=== PATIENT | female | born 1955 | race Caucasian/White ===

== ENCOUNTER 2016-10-03 13:51 | Emergency (ER) ==
[2016-10-03 13:53] VITALS: BP 164/130; TEMP 96.7; BMI 34.0
[2016-10-03] MEDS ORDERED: PERCOCET 7.5-325 PO STA (13:59)
--- NOTE | 2016-10-03 14:23 | CT ---
EXAM: CT head without contrast 10/03/2016. Sagittal and coronal reformatted images obtained HISTORY: Fall COMPARISON: 03/10/2016 FINDINGS: There is no evidence of intracranial hemorrhage. The midline is maintained. There is no hydrocephalus. Mild atrophy and small vessel ischemic change. No cerebellar tonsillar ectopia. Ev aluation of the calvarium shows no fracture. The mastoid air cells are normally pneumatized. IMPRESSION: No acute intracranial abnormality.
--- NOTE | 2016-10-03 14:31 | CT ---
EXAM: CT cervical spine without contrast. HISTORY: Initial presentation for neck injury due to a fall. COMPARISON: 12/11/2015. TECHNIQUE: Multiple axial images of the cervical spine were obtained without intravenous contrast. Images were reformatted in the sagittal and coronal planes. FINDINGS: ACDF changes noted from C4-C7. Hardware appears intact. There is osseous incorporation across C4-5 and C5-6. There may be mild osseous incorporation across C6-7, although this is uncerta in. There is approximately 0.2 cm retrolisthesis of C3 on C4 with mild disc space narrowing and end plate osteophyte formation. Alignment is otherwise normal. No acute fracture identified. Mild to moderate central canal stenosis and severe bilateral neural foraminal narrowing at C3-4 due to disc osteophyte formation, uncovertebral hypertrophy and facet arthropathy. Mild central canal stenosis at C5-6 due to endplate osteophyte formation. Mild to moderate central canal stenosis at C6-7 due t o endplate osteophyte formation. Multilevel neural foraminal narrowing is stable from prior study. No acute fractures seen. Paravertebral soft tissues are without acute abnormality. The lung apice s are clear. Since the prior study, there has been no significant interval change. IMPRESSION: No acute abnormality of the cervical spine.
--- NOTE | 2016-10-03 14:38 | CT ---
EXAM: CT thoracic spine without contrast. HISTORY: Initial presentation for back injury due to a fall. COMPARISON: Chest radiograph 11/01/2014. TECHNIQUE: Multiple axial images of the thoracic spine were obtained without intravenous contrast. Images were reformatted in the sagittal and coronal planes. FINDINGS: The normal curvature and alignment are maintained. Vertebral body heights are normal. M ild loss of disc height with associated endplate osteophyte formation seen throughout the thoracic s pine. No fracture or subluxation is seen. No significant central canal stenosis identified. ACDF changes are only partially imaged. Adjacent soft tissues are unremarkable. IMPRESSION: No acute abnormality of the thoracic spine.
--- NOTE | 2016-10-03 14:50 | CT ---
EXAM: CT lumbar spine without contrast. HISTORY: Initial presentation for back pain following a fall. COMPARISON: 12-11-2015. TECHNIQUE: Multiple axial images of the lumbar spine were obtained without intravenous contrast. I mages were reformatted in the sagittal and coronal planes. FINDINGS: The normal curvature and alignment are maintained. Vertebral body and intervertebral dis c heights are normal. No fracture or subluxation is seen. Disc osteophyte formation, facet arthrop athy and thickening of ligamentum flavum cause mild central canal stenosis at L3-4 and L4-5 and mode rate neural foraminal narrowing at L3-4 and mild neural foraminal narrowing at L4-5 and S1. Adjacen t soft tissues are unremarkable. IMPRESSION: No acute abnormality of the lumbar spine.
--- NOTE | 2016-10-03 14:52 | CT ---
EXAM: CT Pelvis without contrast. HISTORY: Initial presentation for pelvic trauma due to a fall. COMPARISON: 03/15/2016. TECHNIQUE: Multiple axial images of the pelvis were obtained without intravenous contrast. Images were reformatted in the coronal and sagittal plane. FINDINGS: Please note that evaluation of the pelvic soft tissue structures is limited due to lack o f intravenous contrast. The bones are demineralized. Osteoarthritic changes of the sacroiliac joints noted. Moderate osteo arthritis of the hips noted. No fracture or dislocation identified. No localized soft tissue abnor mality detected. Atherosclerotic calcifications are present IMPRESSION: No fracture or dislocation.
--- NOTE | 2016-10-03 14:53 | ED.PDOC ---
[id number] 4d i fell and i hurt my neck and my back Time Seen by Physician: 13:55 Mode of Arrival: Walk-In Information Source: Patient Exam Limitations: No limitations Primary Care Provider: DENZEL VERMA Nursing and Triage Documentation Reviewed and Agree: Yes Musculoskeletal Complaint Exam - Back Pain Complaint/Exam Mechanism of Injury: Reports: Trauma Onset/Duration: several hours Symptoms Are: Still present Timing: Constant Episodes Lasting: Hours Initial Severity: Mild Current Severity: Mild Location: Reports: Discrete (neck and lower back) Character: Reports: Dull, Aching Aggravating: Reports: Movements, Lifting, Bending, Walking Alleviating: Reports: None Associated Signs and Symptoms: Reports: Pain with weight bearing. Denies: Swelling, Redness, Bruising, Weakness, Numbness, Tingling, Abdominal pain, Flank pain, Bladder incontinence, Bowel incontinence, Weight loss Related History: Reports: Previous back injury TAD Risk Factors: Reports: Hypertension AAA Risk Factors: Reports: None Cauda Equina Risk Factors: Reports: None Epidural Abcess Risk Factors: Reports: None Related Surgical History: Reports: None Focal Tenderness: Yes Paraspinal Muscle Tenderness: Yes Paraspinal Muscle Spasm: No Scoliosis: No Lordosis: No Kyphosis: No SLR Test: Right Negative, Left Negative Hip Motion Testing Pain: Right Negative, Left Negative Focal Weakness: Present: None Focal Sensory Loss: Present: None Gait: Present: Abnormal Differential Diagnoses: Herniated Disk, Strain, Sprain Review of Systems - Review Of Systems Constitutional: Reports: No symptoms Eyes: Reports: No symptoms Ears, Nose, Mouth, Throat: Reports: No symptoms Respiratory: Reports: No symptoms Cardiac: Reports: No symptoms GI: Reports: No symptoms : Reports: No symptoms Musculoskeletal: Reports: Back pain, Muscle pain, Neck pain Skin: Reports: No symptoms Neurological: Reports: No symptoms Endocrine: Reports: No symptoms Hematologic/Lymphatic: Reports: No symptoms All Other Systems: Reviewed and Negative Past Medical History - Past Medical History Previously Healthy: Yes Endocrine: Reports: None Cardiovascular: Reports: Hypertension Respiratory: Reports: None Hematological: Reports: None Gastrointestinal: Reports: GERD Genitourinary: Reports: None Neuro/Psych: Reports: Anxiety, Depression Musculoskeletal: Reports: Back Pain Cancer: Reports: None Last Menstrual Period: none - Surgical History General Surgical History: Reports: Cholecystectomy, Back Surgery - Family History Family History: Reports: Unknown - Social History Smoking Status: Former smoker Hx Substance Use: No Alcohol Screening: None Lives: With family Physical Exam - Physical Exam Appearance: Well-appearing, No pain distress, Well-nourished Pain Distress: Moderate Eyes: PERLA, EOMI, Conjunctiva clear ENT: Ears normal Neck: Supple Respiratory: Airway patent Cardiovascular: RRR, Pulses normal, No rub, No murmur GI/: Soft, Nontender, No masses, Bowel sounds normal, No Organomegaly Musculoskeletal: Normal strength, ROM intact, No edema, No calf tenderness Skin: Warm Neurological: Sensation intact, Motor intact, Reflexes intact, Cranial nerves intact, Alert, Oriented Psychiatric: Affect appropriate, Mood appropriate Interpretation - Radiology Interpretation Radiology Interpretation By: Radiologist Radiology Results: Negative Exam Interpreted: CT Scan Re-Evaluation - Re-Evaluation Time of Re-Evaluation: 14:53 Status: Improved Vital Signs Stable: Yes Pain Level: 3 Appearance: NAD Lungs: Clear Skin: Warm and Dry Neuro: Alert and Oriented X3 CV: RRR Critical Care Note - Critical Care Note Total Time (mins): 0 Course - Course Orders, Labs, Meds: Orders Category Date Time Status Oxycodone-Acetaminophe 7.5-325 [Percocet 7.5-325] MEDS 10/03/16 13:59 Discontinued 1 tab PO ONCE STA CT CERVICAL SPINE W/O CONTRAST Stat RADS 10/03/16 13:[address] HEAD W/O CONTRAST Stat RADS 10/03/16 13:[address] LUMBAR SPINE W/O CONTRAST Stat RADS 10/03/16 13:[address] PELVIS W/O CONTRAST Stat RADS 10/03/16 13:[address] THORACIC SPINE W/O CONTRAST Stat RADS 10/03/16 13:57 Completed Medications Discontinued Medications Generic Name Dose Route Start Last Admin Trade Name Freq PRN Reason Stop Dose Admin Oxycodone/Acetaminophen 1 tab 10/03/16 13:59 10/03/16 14:21 Percocet 7.5-325 PO 10/03/16 14:00 1 tab ONCE STA Administration Vital Signs: Temp Pulse Resp BP Pulse Ox 10/03/16 13:51 96.7 F L 66 18 164/130 H 98 Departure - Departure Time of Disposition: 14:53 Disposition: HOME SELF-CARE Discharge Problem: Low back pain Qualifiers: Chronicity: unspecified Back pain laterality: unspecified Sciatica presence: without sciatica Qualifier Code: (M54.5) Low back pain Instructions: Acute Low Back Pain (ED) Condition: Good Pt referred to PMD for follow-up: Yes Additional Instructions: percocet 5mg q 6hrs prn pain #15--f/u with pcp prn Allergies/Adverse Reactions: Allergies hydrocodone bitartrate [From Lortab] Adverse Reaction (Verified 10/03/16 13:53) tramadol Adverse Reaction (Verified 10/03/16 13:53) Home Medications: Ambulatory Orders Citalopram Hydrobromide [Citalopram HBr] 20 mg PO BEDTIME 12/02/13 Enalapril Maleate 10 mg PO DAILY 12/02/13 Hydrochlorothiazide 12.5 mg PO DAILY 12/02/13 Multivitamin [Multi Vitamin Daily] 1 each PO DAILY 07/20/14 Aspirin [Aspirin Chewable] 81 mg PO DAILYWM 12/11/15 Omeprazole [Prilosec] 20 mg PO QDAC 12/11/15 Metoprolol Tartrate [Lopressor] 25 mg PO BID 02/28/16 Disposition Discussed With: Patient, Family
== END 2016-10-03 15:00 | disposition home or self-care (01) ==
LOC: ED 13:51
DX: S39.92XA Unspecified injury of lower back, initial encounter (principal); S19.9XXA Unspecified injury of neck, initial encounter; S29.9XXA Unspecified injury of thorax, initial encounter; M54.5 Low back pain; I10 Essential (primary) hypertension; W19.XXXA Unspecified fall, initial encounter
CPT/HCPCS: 99283

== ENCOUNTER 2016-11-03 18:22 | Emergency (ER) ==
[2016-11-03 18:36] VITALS: BP 114/55; TEMP 97.6; BMI 34.4
--- NOTE | 2016-11-03 19:17 | ED.PDOC ---
General Time Seen by Physician: 18:30 Mode of Arrival: Walk-In Information Source: Patient <KARLA HODGE - Last Filed: 11/03/16 19:16> Stated Complaint: patient states that she slid on wooden planks last week falling onto left side. she reports feeling better after fall. Now states her pain is coming back onthe left ribs/arm. pain worse with breathing. Nursing and Triage Documentation Reviewed and Agree: Yes <NEEL EPSTEIN - Last Filed: 11/04/16 00:53> ED Provider: Dr. NEEL EPSTEIN (KARLA HODGE JR) (NEEL EPSTEIN) Chief Complaint: Fall Primary Care Provider: DENZEL VERMA (KARLA HODGE JR) (NEEL EPSTEIN) Trauma/Injury Complaint Exam - Truncal Trauma Complaint/Exam Location of Pain: Reports: Left, Chest Onset: 1 week Symptoms Are: Still present Onset of Pain: Reports: Immediate Initial Severity: Mild Current Severity: Moderate Mechanism: Reports: Fall Aggravating: Reports: Movement, Deep breathing Associated Signs and Symptoms: Reports: Chest pain Related Surgical History: Reports: None Immobilization Removed Post Exam: No Vertebral Tenderness Present: No Vertebral Deformity Present: No Trachial Deviation Present: No JVD Present: No Crepitus Present: No Diminished Breath Sounds: No Muffled Heart Sounds Present: No Paradoxical Chest Wall Movement Present: No Abdominal Guarding Present: No Abdominal Rigidity Present: No Referred Shoulder Pain (Kehr's Sign) Present: No Skin Findings: Present: Normal findings Chest and Back Picture: 1 - Tenderness to palpation Differential Diagnoses: Abdominal Wall Contusion, Rib Fracture - Trauma Complaint/Exam Location of Pain or Injury: Reports: RLE, LLE Mechanism of Injury: Reports: Fall Onset/Duration: 2 week ago Symptoms Are: Still present Timing of Treatment: Delayed Initial Severity: Mild Current Severity: Moderate Character: Reports: Aching, Stabbing Aggravating: Reports: Movement, Weight-bearing Alleviating: Reports: Rest Associated Signs and Symptoms: Denies: LOC, Confusion, Memory loss, Lethargy, Vomiting, Bleeding, Bruising, Swelling, Extremity disuse, Painful respiration, Hoarseness, Dysphagia, Hemoptysis, Significant blood loss : No Glascow Coma Scale (see protocol): 15 Trauma Findings: Present: Limited ROM (left shoulder. ). Absent: Dental tenderness, Neck tenderness, Neck spasm, Back malalignment Skin Findings: Present: Normal findings Differential Diagnoses: Fracture, Sprain, Strain Body Picture: 1 - tenderness 2 - Limited range of motion with some tendeness to palpation on the shoulder and left chest wall. <NEEL EPSTEIN - Last Filed: 11/04/16 00:53> Review of Systems - Review Of Systems Constitutional: Reports: No symptoms Eyes: Reports: No symptoms Ears, Nose, Mouth, Throat: Reports: No symptoms Respiratory: Reports: No symptoms Cardiac: Reports: No symptoms GI: Reports: No symptoms : Reports: No symptoms Musculoskeletal: Reports: Joint pain (left shoulder and bilateral knees ) Skin: Reports: No symptoms Neurological: Reports: Anxiety Endocrine: Reports: No symptoms Hematologic/Lymphatic: Reports: No symptoms All Other Systems: Reviewed and Negative <NEEL EPSTEIN - Last Filed: 11/04/16 00:53> Past Medical History - Past Medical History Previously Healthy: Yes Endocrine: Reports: None Cardiovascular: Reports: Hypertension Respiratory: Reports: None Hematological: Reports: None Gastrointestinal: Reports: GERD Genitourinary: Reports: None Neuro/Psych: Reports: Anxiety, Depression Musculoskeletal: Reports: Back Pain Cancer: Reports: None Last Menstrual Period: menopause - Surgical History General Surgical History: Reports: Cholecystectomy, Back Surgery - Family History Family History: Reports: Unknown - Social History Smoking Status: Former smoker Hx Substance Use: No Alcohol Screening: None <KARLA HODGE JR - Last Filed: 11/03/16 19:16> Physical Exam - Physical Exam Appearance: Ill-appearing Pain Distress: Moderate Eyes: PERLA, EOMI, Conjunctiva clear ENT: Ears normal, Nose normal, Oropharynx normal Neck: Supple Respiratory: Airway patent, Breath sounds clear, Breath sounds equal, Respirations nonlabored Cardiovascular: RRR, Pulses normal, No rub, No murmur GI/: Soft, Nontender, No masses, Bowel sounds normal, No Organomegaly Musculoskeletal: Normal strength, ROM intact, No edema, No calf tenderness Skin: Warm Neurological: Sensation intact Psychiatric: Anxious <NEEL EPSTEIN - Last Filed: 11/04/16 00:53> Interpretation - Radiology Interpretation Radiology Interpretation By: Radiologist Radiology Results: Negative Exam Interpreted: CT Scan Radiology Interpretation By: Radiologist Radiology Results: Negative Exam Interpreted: Other (Shoulder, Pelvis, Ribs. ) <NEEL EPSTEIN - Last Filed: 11/04/16 00:53> Physician Notification - Case Discussed Endorsed To/Discussed With: DR EPSTEIN <KARLA HODGE JR - Last Filed: 11/03/16 19:16> Critical Care Note - Critical Care Note Total Time (mins): 0 <NEEL EPSTEIN - Last Filed: 11/04/16 00:53> Departure <KARLA HODGE JR - Last Filed: 11/03/16 19:16> - Departure Time of Disposition: 20:07 Pt referred to PMD for follow-up: Yes Disposition Discussed With: Patient <NEEL EPSTEIN - Last Filed: 11/04/16 00:53> - Departure Disposition: HOME SELF-CARE Discharge Problem: Falls, Chest wall pain Shoulder sprain Qualifiers: Encounter type: initial encounter Shoulder sprain type: unspecified sprain Laterality: left Qualifier Code: (S43.402A) Unspecified sprain of left shoulder joint, initial encounter Knee injury Qualifiers: Encounter type: initial encounter Laterality: unspecified laterality Qualifier Code: (S89.90XA) Unspecified injury of unspecified lower leg, initial encounter Instructions: Shoulder Sprain (ED), Thoracic Pain (ED), Knee Sprain (ED) Condition: Fair Additional Instructions: Take over the counter Aleve Follow up with PCP for Physical and occupational Therapy Referral or if need for MRI Rest Allergies/Adverse Reactions: Allergies hydrocodone bitartrate [From Lortab] Adverse Reaction (Verified 11/03/16 18:32) tramadol Adverse Reaction (Verified 11/03/16 18:32) Home Medications: Ambulatory Orders Citalopram Hydrobromide [Citalopram HBr] 20 mg PO BEDTIME 12/02/13 Enalapril Maleate 10 mg PO DAILY 12/02/13 Hydrochlorothiazide 12.5 mg PO DAILY 12/02/13 Multivitamin [Multi Vitamin Daily] 1 each PO DAILY 07/20/14 Aspirin [Aspirin Chewable] 81 mg PO DAILYWM 12/11/15 Omeprazole [Prilosec] 20 mg PO QDAC 12/11/15 Metoprolol Tartrate [Lopressor] 25 mg PO BID 02/28/16
--- NOTE | 2016-11-03 19:35 | DI ---
EXAM: Three views of the right shoulder HISTORY: Pain increasing 1 week after fall COMPARISON: None available FINDINGS: No fracture or dislocation is identified. There is minimal narrowing of the acromioclavicular joint . Cervical spine ACDF is partially imaged. IMPRESSION: No acute osseous abnormality.
--- NOTE | 2016-11-03 19:38 | DI ---
EXAM: Three views left shoulder. HISTORY: Fall with pain. FINDINGS: The bony structures are intact with no evidence of fracture. The joint spaces are mainta ined. No soft tissue abnormality. Impression: Negative left shoulder.
--- NOTE | 2016-11-03 19:40 | DI ---
EXAM: AP single view of the pelvis. HISTORY: Fall 1 week ago. FINDINGS: The bony structures are intact with no evidence of fracture. The joint spaces are mainta ined. No soft tissue abnormality. Impression: Negative pelvis.
--- NOTE | 2016-11-03 19:41 | DI ---
EXAM: Four views of the left knee HISTORY: Pain increasing 1 week after fall COMPARISON: None available FINDINGS: No fracture, dislocation or joint effusion is seen. There is mild degenerative enthesopathy of the distal quadriceps tendon insertion. There is a small probable bone island of the medial aspect of t he distal femoral metadiaphysis. IMPRESSION: No acute osseous abnormality.
--- NOTE | 2016-11-03 19:42 | DI ---
EXAM: PA chest with left rib series. HISTORY: Fall. FINDINGS: The visualized bony structures are intact. The cardiac silhouette and pulmonary vasculat ure are within normal limits. The costophrenic angles are clear. No infiltrate or consolidation. No pneumothorax. Impression: No acute cardiopulmonary disease.
== END 2016-11-03 20:18 | disposition home or self-care (01) ==
LOC: ED 18:22
DX: S43.402A Unspecified sprain of left shoulder joint, initial encounter (principal); S89.90XA Unspecified injury of unspecified lower leg, initial encounter; R07.89 Other chest pain; M25.562 Pain in left knee; M25.561 Pain in right knee; W01.0XXA Fall on same level from slipping, tripping and stumbling without subsequent striking against object, initial encounter
CPT/HCPCS: 99283

== ENCOUNTER 2016-11-22 10:14 | Day surgery (SDC) ==
[2016-11-22 10:35] VITALS: TEMP 98.2
[2016-11-22] MEDS ORDERED: DIPRIVAN 20 ML VIAL IVP ONE (11:15)
[2016-11-22] MEDS ORDERED: VERSED ONE ×2 (11:15)
[2016-11-22 13:23] VITALS: BP 91/50
--- NOTE | 2016-11-23 09:04 | OP ---
PROCEDURE: COLONOSCOPY TO THE CECUM WITH BIOPSY. ENDOSCOPIST: Bill ISRAEL M.D. INDICATION: COLITIS ON CT. (NO PREVIOUS COLONOSCOPY) INSTRUMENT: [id number]. MEDICATION: PER ANESTHESIA. PROCEDURE: The patient was positioned for colonoscopy. The digital rectal exam was negative. The colonoscope was inserted through the anus and advanced to the cecum. The patient's exam was somewhat difficult related to a very stiff and flexible sigmoid colon. The cecum was reached and identified using the ileocecal valve and the appendiceal orifice as landmarks. Within the cecal pit, there was mild inflammatory change. This may be related to the prep or possible ischemic change. This was not consistent with inflammatory bowel disease. I could not enter the terminal ileum. Biopsies were obtained from this area. Diverticula were noted throughout the left colon. Once again limited mobility through the sigmoid colon. Retroflex exam was otherwise negative. Withdrawal time 6 minutes, 34 seconds. PLAN: 1. Suggest review pathology, anticipate repeat colonoscopy in 5 years. CC: DR. LUCI MENCHACA
== END 2016-11-22 13:08 | disposition home or self-care (01) ==
LOC: SURG 10:14
PROVIDERS: ATTEND Internal Medicine Gastroenterology
DX: K52.9 Noninfective gastroenteritis and colitis, unspecified (principal); D12.0 Benign neoplasm of cecum; K57.30 Diverticulosis of large intestine without perforation or abscess without bleeding

== ENCOUNTER 2016-12-20 12:20 | Outpatient (CLI) ==
--- NOTE | 2016-12-20 13:21 | US ---
EXAM: Bilateral carotid artery Doppler. History: Dizziness and lightheadedness, hypertension, memory loss. Technique: Multiple sonographic images through the bilateral internal carotid arteries were obtaine d. Color duplex Doppler was used to interrogate vascular flow. Findings: The right ICA peak systolic velocity is within normal limits measuring 0.7 meters per second. The r ight ICA/cca PSV ratio is normal at 1.1. The right vertebral artery is patent and demonstrates ante grade flow. The left ICA peak systolic velocity is within normal limits measuring 0.7 meters per second. The le ft ICA/cca PSV ratio is normal at 1.3. The left vertebral artery is patent and demonstrates antegra de flow. Ortega scale images demonstrate no significant plaque buildup within the bilateral internal carotid arteries. Impression: No significant hemodynamic stenosis of the bilateral internal carotid arteries.
== END 2016-12-20 12:21 | disposition home or self-care (01) ==
LOC: RAD 12:20
PROVIDERS: ATTEND Family Medicine
DX: R41.3 Other amnesia (principal); R09.89 Other specified symptoms and signs involving the circulatory and respiratory systems

== ENCOUNTER 2016-12-21 07:35 | Outpatient (CLI) ==
--- NOTE | 2016-12-21 12:02 | MRI ---
EXAM: Brain MRI without contrast. HISTORY: Memory loss. COMPARISON: Head CT 10/03/[address] 03/10/2016. TECHNIQUE: Multiplanar, multisequence MR images were acquired of the brain without contrast. FINDINGS: The midline structures are central and the craniocervical junction is unremarkable. The ventricles and sulci are mildly prominent compatible with age related involutional changes. There a re no abnormal extra-axial fluid collections. The brain parenchyma has no diffusion restriction to suggest acute hypoperfusion or infarction. Sma ll T2 hyperintensities are present in the supratentorial white matter compatible with minor leukomal acia. There is a chronic lacuna or dilated perivascular space in the medial right cerebellum. A di lated perivascular space is favored. No abnormal dark gradient echo signal is present in the brain. The corpus callosum is normal in size and configuration. The pituitary gland is low normal in siz e. There are no intraorbital masses. Minor scattered mucosal thickening is present in the ethmoid air cells bilaterally. Remainder of the paranasal sinuses, middle ears and mastoids are unremarkable. Flow voids are present in the major intracranial arteries. 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 There are dominant bilateral posterior communicating a rteries and both vertebral arteries and the basilar artery are small without focal stenosis. This i s a not uncommon developmental variant. There is degenerative spondylosis at C3-4 which causes probable mild spinal stenosis and bilateral f oraminal stenosis. IMPRESSION: 1. No intracranial mass, hemorrhage or acute cerebral infarct. 2. Minor leukomalacia which is nonspecific and age related involutional changes.
== END 2016-12-21 07:36 | disposition home or self-care (01) ==
LOC: RAD 07:35
PROVIDERS: ATTEND Family Medicine
DX: R41.3 Other amnesia (principal)
CPT/HCPCS: 93005; 93010

== ENCOUNTER 2017-02-22 07:43 | Outpatient (CLI) ==
[2017-02-22 08:42] LABS: ERYTHROCYTE SEDIMENTATION RATE 14 mm/hr (0-20); ESR INTERNAL QC INTERNAL QC VALID
[2017-02-22 09:04] LABS: FOLATE 13.2 ng/mL (3.1-20.5); MAGNESIUM 2.1 mg/dL (1.7-2.2)
== END 2017-02-22 07:44 | disposition home or self-care (01) ==
LOC: LAB 07:43
PROVIDERS: ATTEND Psychiatry & Neurology Neurology
DX: R41.3 Other amnesia (principal)
CPT/HCPCS: 36415; 80061; 82746; 83735; 85651

== ENCOUNTER 2017-03-29 14:34 | Outpatient (CLI) ==
--- NOTE | 2017-03-29 15:08 | US ---
EXAM: Ultrasound venous Doppler unilateral lower extremity HISTORY: Right leg pain COMPARISON: None TECHNIQUE: Venous duplex ultrasound of the right lower extremity was performed using color, jennings-sc garrett, and Doppler flow imaging. FINDINGS: There is normal color flow and jennings scale appearance of the right common femoral, greater saphenous, profunda femoral, femoral, popliteal, peroneal, posterior tibial, and anterior tibial ve ins without evidence of intraluminal thrombus. Compression and augmentation is normal. IMPRESSION: No right lower extremity deep venous thrombosis.
== END 2017-03-29 14:35 | disposition home or self-care (01) ==
LOC: RAD 14:34
PROVIDERS: ATTEND Family Medicine
DX: M79.604 Pain in right leg (principal)

== ENCOUNTER 2017-03-30 14:08 | Outpatient (CLI) ==
--- NOTE | 2017-03-30 14:38 | DI ---
EXAM: Radiographs, right knee HISTORY: Right knee pain. COMPARISON: None available. TECHNIQUE: Three views. FINDINGS: Bone mineralization is decreased. There is no fracture or dislocation. The joint spaces are maintained although small marginal osteophytes are present in all three knee joint compartments . Small superior patellar enthesophyte also noted. No focal soft tissue abnormality is seen. IMPRESSION: Mild osteoarthritis.
== END 2017-03-30 14:09 | disposition home or self-care (01) ==
LOC: RAD 14:08
PROVIDERS: ATTEND Family Medicine
DX: M25.561 Pain in right knee (principal)

== ENCOUNTER 2017-04-01 09:54 | Outpatient (CLI) ==
--- NOTE | 2017-04-01 16:14 | MRI ---
EXAM: MRI of the right knee without contrast COMPARISON: Right knee radiograph 03/30/2017. Right lower extremity venous Doppler 03/29/2017. MR I of the right knee 09/14/2007. HISTORY: Right knee pain and instability. TECHNIQUE: Multiplanar noncontrast MR images of the right knee were acquired using a 1.2 Tiffanie magn et. Several sequences were repeated due to patient motion artifact with the best possible quality i mages obtained given the patient's condition. FINDINGS: The medial meniscus is intact without a surfacing tear. There is intrasubstance degenera tion of the lateral meniscus. Linear hyperintense signal within the substance of the lateral menisc al body which may represent an intrasubstance/cleavage tear is previously described though this is l ess extensive than on the previous examination. Correlate for history of interval knee surgery. Mi ld degenerative fraying of the free edge of the lateral meniscus at the posterior horn. Intact anterior and posterior cruciate ligament fibers are identified. Inversion recovery hyperinte nse signal involving the anterior cruciate ligament related mucoid degeneration versus a sprain. Th e medial collateral ligament, lateral collateral ligament complex and posterolateral corner ligament s are intact. Mild distal quadriceps tendinosis with a small superior patellar spur. Patellar tend on is intact. No abnormal subluxation of the patella. Subcutaneous edema anteriorly. There is moderate thinning of the articular cartilage of the patella. Mild thinning and fibrillatio n of the cartilage of the lateral femoral condyle. Mild thinning of the cartilage medial compartmen t. No evidence of an acute fracture or osteomyelitis. Small joint effusion. Slit-like popliteal c yst. Minimal semimembranosus - tibial collateral ligament bursitis. IMPRESSION: 1. Intrasubstance degeneration of the lateral meniscus. Linear hyperintense signal within the body approaching fluid signal intensity which may represent a small intrasubstance/cleavage tear as prev iously described without definite articular surface extension. This is less pronounced than on the previous study and correlation for history of interval surgery is recommended. Minimal degenerative fraying of the free edge of the posterior horn. 2. Tricompartmental osteoarthrosis with most pronounced changes in the patellofemoral compartment. Small joint effusion. Slit-like popliteal cyst. Minimal semimembranosus - tibial collateral ligam ent and pes anserine bursitis. 3. Mucoid degeneration versus minimal sprain of the anterior cruciate ligament with intact fibers i dentified. 4. Mild quadriceps tendinosis and enthesopathy.
== END 2017-04-01 09:55 | disposition home or self-care (01) ==
LOC: RAD 09:54
PROVIDERS: ATTEND Family Medicine
DX: M25.361 Other instability, right knee (principal)

== ENCOUNTER 2017-05-09 08:03 | Emergency (ER) ==
[2017-05-09 08:12] VITALS: BP 141/71; TEMP 97.9; BMI 32.9
--- NOTE | 2017-05-09 08:20 | ED.PDOC ---
General ED Provider: Dr. KARLA HODGE JR Chief Complaint: Knee Pain/Injury Stated Complaint: YESTERDAY LANDED ON RIGHT FOOT MARTIR KNEE SLIDING OUT OF TRUCK [End]97.9 72 16 97% 141/71 7/10 RIGHT KNEE AND LOWER LEG PAIN[End] Time Seen by Physician: 08:21 Mode of Arrival: Walk-In Information Source: Patient Exam Limitations: No limitations Primary Care Provider: DENZEL VERMA Nursing and Triage Documentation Reviewed and Agree: No Review of Systems - Review Of Systems Constitutional: Reports: No symptoms Eyes: Reports: No symptoms Ears, Nose, Mouth, Throat: Reports: No symptoms Respiratory: Reports: No symptoms Cardiac: Reports: No symptoms GI: Reports: No symptoms : Reports: No symptoms Musculoskeletal: Reports: Joint pain, Muscle pain, Other Skin: Reports: No symptoms Neurological: Reports: No symptoms Endocrine: Reports: No symptoms Hematologic/Lymphatic: Reports: No symptoms All Other Systems: Other Past Medical History - Past Medical History Previously Healthy: Yes Endocrine: Reports: None Cardiovascular: Reports: Hypertension, DVT Respiratory: Reports: None, PE (BLOOD CLOT, LUNG, ) Hematological: Reports: None Gastrointestinal: Reports: GERD Genitourinary: Reports: None Neuro/Psych: Reports: Anxiety, Depression, Dementia (EARLY ONSET DEMENTIA) Musculoskeletal: Reports: Back Pain Cancer: Reports: None Last Menstrual Period: NA - Surgical History General Surgical History: Reports: Hysterectomy, Cholecystectomy, Back Surgery ( neck), Other (BLADDER PROLAPSE) - Family History Family History: Reports: Unknown - Social History Smoking Status: Former smoker Hx Substance Use: No Alcohol Screening: None - Immunizations Tetanus Shot up to Date: Yes Physical Exam - Physical Exam Appearance: Well-appearing Pain Distress: Moderate Neck: Supple Respiratory: Airway patent Musculoskeletal: Normal strength, ROM intact, Edema, Calf tenderness (lateral leg and knee pain into femur- (note neg xrays)) Skin: Warm, Dry, Normal color Neurological: Sensation intact, Motor intact, Reflexes intact, Cranial nerves intact, Alert, Oriented Critical Care Note - Critical Care Note Total Time (mins): 0 Course - Course Orders, Labs, Meds: Orders Category Date Time Status KNEE, RIGHT 4 VIEWS Stat RADS 05/09/17 08:22 Taken TIBIA/FIBULA, RIGHT 2 VIEW Stat RADS 05/09/17 08:22 Completed Vital Signs: Temp Pulse Resp BP Pulse Ox 05/09/17 08:07 97.9 F 72 16 141/71 H 97 Departure - Departure Time of Disposition: 09:12 Disposition: HOME SELF-CARE Discharge Problem: Injury of knee, Knee pain Instructions: Swollen Knee Joint (ED), Knee Pain (ED) Condition: Good Pt referred to PMD for follow-up: Yes Additional Instructions: follow up PMD this week recheck no NSAIDS for 3-5 days Aurora for pain avoid weight for three days may use crutches ice 20 minutes for three days Prescriptions: Hydrocodone Bit/Acetaminophen [Aurora 5-325] 1 - 2 tab PO Q6HR PRN #12 tablet PRN Reason: pain Allergies/Adverse Reactions: Allergies hydrocodone bitartrate [From Lortab] Adverse Reaction (Verified 05/09/17 08:05) tramadol Adverse Reaction (Verified 05/09/17 08:05) Home Medications: Ambulatory Orders Citalopram Hydrobromide [Citalopram HBr] 40 mg PO BEDTIME 12/02/13 Enalapril Maleate 10 mg PO DAILY 12/02/13 Hydrochlorothiazide 12.5 mg PO DAILY 12/02/13 Multivitamin [Multi Vitamin Daily] 1 each PO DAILY 07/20/14 Aspirin [Aspirin Chewable] 81 mg PO DAILYWM 12/11/15 Omeprazole [Prilosec] 20 mg PO BID 12/11/15 Metoprolol Tartrate [Lopressor] 25 mg PO BID 02/28/16 Hydrocodone Bit/Acetaminophen [Aurora 5-325] 1 - 2 tab PO Q6HR PRN #12 tablet 04/18 Memantine HCl [Namenda] 5 mg PO BEDTIME 05/09/17
--- NOTE | 2017-05-09 09:05 | DI ---
EXAM: Right tibia and fibula AP and lateral views. HISTORY: Fall FINDINGS: Bone and joint structures appear normal. There is no fracture. Joints are within rachelle l limits. Soft tissues unremarkable. IMPRESSION: No fracture or dislocation identified.
--- NOTE | 2017-05-09 09:27 | DI ---
EXAM: The right knee four view HISTORY: Fall COMPARISON: 03/30/2017 FINDINGS: No fracture dislocation. Small tricompartmental osteophytes. Mild narrowing of the medi al and patellofemoral compartment. No joint effusion. Mild quadriceps tendon enthesopathy. IMPERSSION: 1. No fracture or dislocation. 2. Mild tricompartmental osteoarthritis.
== END 2017-05-09 09:31 | disposition home or self-care (01) ==
LOC: ED 08:03
DX: M25.561 Pain in right knee (principal); M76.9 Unspecified enthesopathy, lower limb, excluding foot; M12.9 Arthropathy, unspecified
CPT/HCPCS: 99283

== ENCOUNTER 2017-11-02 10:16 | Outpatient (CLI) ==
--- NOTE | 2017-11-02 11:04 | MAMMO ---
EXAM: Bilateral digital screening mammogram (2-D and 3-D) History: Baseline screening Findings: MLO and CC views of bilateral breast demonstrate scattered fibroglandular breast parenchym a. CAD was reviewed by the radiologist. Tomosynthesis was performed. There are no dominant masses, no suspicious microcalcifications and no architectural distortions Impression: Negative mammogram. Recommend followup routine screening mammography in 1 year. BIRADS 1
== END 2017-11-02 10:17 | disposition home or self-care (01) ==
LOC: RAD 10:16
PROVIDERS: ATTEND Family Medicine
DX: Z12.31 Encounter for screening mammogram for malignant neoplasm of breast (principal)
CPT/HCPCS: 77067

== ENCOUNTER 2017-11-03 07:14 | Outpatient (CLI) ==
--- NOTE | 2017-11-03 08:44 | US ---
EXAM: Renal ultrasound. History: Decreased renal function tests. Comparison: CT abdomen pelvis 03/15/2016 Technique: Multiple sonographic images through the kidneys were obtained. Color duplex Doppler was used to interrogate vascular flow. Findings: Only the right ureteral jet was seen in the bladder. No focal bladder wall thickening. The right kidney measures 9.1 cm in long length demonstrating normal cortical echogenicity without ev idence for hydronephrosis, mass or shadowing calculus. The left kidney measures 9.4 cm in long length demonstrating normal cortical echogenicity without paula dence for hydronephrosis or mass or shadowing calculus. Impression: Sonographically normal kidneys
== END 2017-11-03 07:15 | disposition home or self-care (01) ==
LOC: RAD 07:14
PROVIDERS: ATTEND Family Medicine
DX: R94.4 Abnormal results of kidney function studies (principal)
CPT/HCPCS: 76770

== ENCOUNTER 2017-11-28 10:49 | Outpatient (CLI) | END 2017-11-28 10:50 | disposition home or self-care (01) | LOC: LAB 10:49 | PROVIDERS: ATTEND Specialist | DX: N18.3 Chronic kidney disease, stage 3 (moderate) (principal) | CPT/HCPCS: 36415; 80069; 81001; 82570; 83970; 84156; 84165; 84550; 85027 ==

== ENCOUNTER 2018-05-17 09:59 | Outpatient (CLI) | END 2018-05-17 10:00 | disposition home or self-care (01) | LOC: FCC-LAB 09:59 | PROVIDERS: ATTEND Family Medicine | DX: F22 Delusional disorders (principal); F41.9 Anxiety disorder, unspecified | CPT/HCPCS: 36415; 80053; 84443; 85025; 93005; 93010 ==

== ENCOUNTER 2018-06-06 09:15 | Outpatient (CLI) | payer OTHER | END 2018-06-06 09:16 | disposition home or self-care (01) | LOC: LAB 09:15 | PROVIDERS: ATTEND Specialist | DX: N18.3 Chronic kidney disease, stage 3 (moderate) (principal) | CPT/HCPCS: 36415; 80069; 81001 ==

== ENCOUNTER 2018-07-18 11:10 | Outpatient (CLI) | END 2018-07-18 11:11 | disposition home or self-care (01) | LOC: FCC-LAB 11:10 | PROVIDERS: ATTEND Family Medicine | DX: K21.9 Gastro-esophageal reflux disease without esophagitis (principal) | CPT/HCPCS: 87338 ==

== ENCOUNTER 2018-07-26 06:26 | Outpatient (CLI) | payer OTHER ==
--- NOTE | 2018-07-26 12:41 | STRESSMOD ---
Date of Test: 07/26/18 Ordering Physician: DR. FLORIDA LUNA Occupation: RETIRED Reason for Exam: CHEST PAIN, HYPERTENSION Smoking History: NONE Height: 62" Weight: 198 LBS Current Medications: METOPROLOL, SEROQUEL, NAMENDA, CARAFATE, BUPROPION, OMEPRAZOLE, ENALAPRIL, HCTZ Resting EKG: SINUS RHYTHM/ NO ACUTE CHANGES Target Heart Rate: 131/155 S-T SEGMENT STAGE MPH/GRADE HEART RATE BPM BLOOD PRESSURE mmhg RHYTHM +/- ELEVATION DEPRESSION SYMPTOMS At Rest 70 BPM 120/76 MMHG SR X NONE 1 1.7/0% 102 BPM 140/68 MMHG SR X NONE 2 1.7/5% 3 1.7/10% 4 2.5/12% 5 3.4/14% Immediately After 120 BPM SR X SOB Minutes Post Exercise 1:00 100 BPM 142/80 MMHG SR X NONE Minutes Post Exercise 5:00 78 BPM 118/62 MMHG SR X NONE DURATION OF EXERCISE: 5:08 MAXIMUM HEART RATE REACHED: 120 BPM REASON FOR TERMINATION: SHORT OF BREATH 94% OXYGEN SATURATION WITH EXERCISE ON ROOM AIR METS 3.6 INTERPRETATION: 1. NO EVIDENCE OF ISCHEMIA FROM RESTING HEART RATE 70 BPM TO 120 BPM WITH EXERCISE 2. NO CHEST PAIN OR DISCOMFORT 3. NO ARRHYTHMIAS 4. BLOOD PRESSURE RESPONSE NORMAL NORMAL LEFT VENTRICULAR CONTRACTILITY BY ECHO--RESTING AND POST EXERCISE MTDD
--- NOTE | 2018-07-26 12:45 | ECHOSTRESS ---
Date of Exam: 07/26/18 Ordering Physician: DR. FLORIDA LUNA Reason for Echo: CHEST PAIN, STRESS TEST--NO ISCHEMIA M-Mode Normal Adult Results LV Dimensions Normal Adult Results AoV Opening excursions >1.6 LVEDD-base- 3.5-5.8 Ao root dimensions 2.0-3.7 LVESD-base- 3.1-4.6 L. Atrium dimensions 1.9-3.8 Post. Wall thickness 0.8-1.1 IV septum (thickness) 0.7-1.2 Post. Wall excursion 0.72-1.3 Septal motion Systolic motion R. Ventricular cavity 1.5-2.0 LVEF 60% Paradoxical septal wall motion 2-D: NORMAL LEFT VENTRICULAR CONTRACTILITY--RESTING AND POST EXERCISE M-MODE: MV: AV: TV: PV: CHAMBER SIZE: WALL MOTION: NORMAL LEFT VENTRICULAR CONTRACTILITY--RESTING AND POST EXERCISE PERICARDIUM: INTERPRETATION: 1. NORMAL LEFT VENTRICULAR CONTRACTILITY--RESTING AND POST EXERCISE MTDD
== END 2018-07-26 06:27 | disposition home or self-care (01) ==
LOC: CAR 06:26
PROVIDERS: ATTEND Family Medicine
DX: R07.89 Other chest pain (principal)

== ENCOUNTER 2018-11-15 08:54 | Outpatient (CLI) | END 2018-11-15 08:55 | disposition home or self-care (01) | LOC: LAB 08:54 | PROVIDERS: ATTEND Psychiatry & Neurology Psychiatry | DX: Z79.899 Other long term (current) drug therapy (principal); F33.1 Major depressive disorder, recurrent, moderate; F41.9 Anxiety disorder, unspecified; F60.3 Borderline personality disorder | CPT/HCPCS: 36415; 80053; 80061; 85025; 90853 ==

== ENCOUNTER 2018-11-29 10:00 | Outpatient (RCR) | END 2018-11-30 23:59 | LOC: NEWBEG 10:00 | PROVIDERS: ATTEND Psychiatry & Neurology Psychiatry | DX: F33.1 Major depressive disorder, recurrent, moderate (principal); F41.9 Anxiety disorder, unspecified; F60.3 Borderline personality disorder | CPT/HCPCS: 90792; 90853; 99213 ==

== ENCOUNTER 2018-12-12 13:58 | Outpatient (CLI) | END 2018-12-12 13:59 | disposition home or self-care (01) | LOC: RHC-LAB 13:58 → FCC-LAB 13:59 | PROVIDERS: ATTEND Family Medicine | DX: J02.9 Acute pharyngitis, unspecified (principal) | CPT/HCPCS: 87651 ==

== ENCOUNTER 2018-12-29 10:00 | Outpatient (RCR) | END 2018-12-31 23:59 | LOC: NEWBEG 10:00 | PROVIDERS: ATTEND Psychiatry & Neurology Psychiatry | DX: F33.1 Major depressive disorder, recurrent, moderate (principal); F41.9 Anxiety disorder, unspecified; F60.3 Borderline personality disorder | CPT/HCPCS: 90853; 99213 ==

== ENCOUNTER 2019-01-29 10:00 | Outpatient (RCR) | END 2019-01-30 23:59 | LOC: NEWBEG 10:00 | PROVIDERS: ATTEND Psychiatry & Neurology Psychiatry | DX: F33.1 Major depressive disorder, recurrent, moderate (principal); F41.9 Anxiety disorder, unspecified; F60.3 Borderline personality disorder | CPT/HCPCS: 90853; 99214 ==

== ENCOUNTER 2019-03-02 10:00 | Outpatient (RCR) | END 2019-03-02 23:59 | LOC: NEWBEG 10:00 | PROVIDERS: ATTEND Psychiatry & Neurology Psychiatry | DX: F33.1 Major depressive disorder, recurrent, moderate (principal); F41.9 Anxiety disorder, unspecified; F60.3 Borderline personality disorder | CPT/HCPCS: 90853; 99213; 99214 ==

== ENCOUNTER 2019-05-30 10:00 | Outpatient (RCR) | payer OTHER | END 2019-06-02 23:59 | LOC: NEWBEG 10:00 | PROVIDERS: ATTEND Psychiatry & Neurology Psychiatry | DX: F33.1 Major depressive disorder, recurrent, moderate (principal); F41.9 Anxiety disorder, unspecified; F60.3 Borderline personality disorder | CPT/HCPCS: 90853; 99213 ==

== ENCOUNTER 2019-06-07 11:25 | Outpatient (CLI) | payer OTHER | END 2019-06-07 11:26 | disposition home or self-care (01) | LOC: LAB 11:25 | PROVIDERS: ATTEND Specialist | DX: N18.2 Chronic kidney disease, stage 2 (mild) (principal) | CPT/HCPCS: 36415; 80069; 81001; 82570; 84156; 84550; 85027 ==

== ENCOUNTER 2021-05-19 21:17 | Observation (INO) ==
[2021-05-19] MEDS ORDERED: NITROSTAT SL PRN (21:25)
[2021-05-19] MEDS ORDERED: SODIUM CHLORIDE 1,000 ML IV STA (21:25)
[2021-05-19] MEDS ORDERED: ASPIRIN CHEWABLE PO STA (21:45)
[2021-05-19] MEDS ORDERED: ZOFRAN 4 MG/2 ML IVP ONE (21:45)
[2021-05-19 21:46] LABS: BASOPHILS % (AUTO) 0.5 % (0.0-3.0); EOSINOPHILS # (AUTO) 0.2 K/ul (0.0-0.7); HEMATOCRIT 34.7 % (37.0-47.0); HEMOGLOBIN 11.9 g/dl (12.0-16.0); IMMATURE GRANULOCYTE % (AUTO) 0.2 % (0.0-5.0); LYMPHOCYTES # (AUTO) 2.4 K/uL (0.60-3.4); LYMPHOCYTES % (AUTO) 40.3 (10.0-50.0); MEAN CORPUSCULAR HEMOGLOBIN 31.7 pg (27.0-31.0); MEAN CORPUSCULAR HGB CONC 34.3 (31.8-35.4); MEAN CORPUSCULAR VOLUME 92.5 fl (81.0-99.0); MONOCYTES # (AUTO) 0.7 K/uL (0.4-2.0); MONOCYTES % (AUTO) 10.9 (0-10); NEUTROPHILS # (AUTO) 2.6 K/ul (2.0-6.9); NEUTROPHILS % (AUTO) 44.1 % (42.2-75.2); PLATELET COUNT 225 10^3/uL (140-440); RDW COEFFICIENT OF VARIATION 13.5 % (11.6-14.8); RED BLOOD COUNT 3.75 10^6/ul (4.20-5.40); WHITE BLOOD COUNT 5.95 K/ul (4.6-10.2)
[2021-05-19] MEDS ORDERED: ZOFRAN ODT ONE (21:46)
[2021-05-19] MEDS ORDERED: TORADOL IVP STA (21:50)
[2021-05-19] MEDS ORDERED: ZOFRAN ODT PO STA (21:51)
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
[2021-05-19 22:04] LABS: ALANINE AMINOTRANSFERASE 37.6 U/L (0-35); ALBUMIN 3.86 g/dL (3.5-5.0); ALKALINE PHOSPHATASE 86.9 U/L (53-141); ASPARTATE AMINO TRANSFERASE 29.1 U/L (14-36); BILIRUBIN,TOTAL 0.24 mg/dL (0.2-1.3); BLOOD UREA NITROGEN 21.3 mg/dL (7-17); CALCIUM 9.14 mg/dL (8.4-10.2); CARBON DIOXIDE 23.8 mmol/L (22-30.0); CHLORIDE 107.4 mmol/L (98-107); CREATINE KINASE 176.5 U/L (30-135); CREATININE 1.01 mg/dL (0.60-1.30); GLUCOSE 124.6 mg/dL (74-106); POTASSIUM 4.07 mmol/L (3.5-5.1); TOTAL PROTEIN 6.08 g/dL (6.3-8.2)
[2021-05-19] MEDS ORDERED: MORPHINE 2 MG/ML SYRINGE IVP ONE (22:13)
[2021-05-19 22:16] LABS: TROPONIN I < 0.012 ng/ml (0.0000-0.120)
--- NOTE | 2021-05-19 22:24 | DI ---
EXAM: AP single view of the chest. HISTORY: Chest pain. FINDINGS: The bones are unremarkable. The cardiac silhouette and pulmonary vasculature are within no rmal limits. The costophrenic angles are clear. No infiltrate or consolidation. There is a hiatal hernia. Impression: No acute cardiopulmonary disease. Hiatal hernia.
[2021-05-19 22:25] LABS: BORDETELLA PARAPERTUSSIS (PCR) NOT DETECTED (NOT DETECT); BORDETELLA PERTUSSIS (PCR) NOT DETECTED (NOT DETECT); CHLAMYDIA PNEUMONIAE (PCR) NOT DETECTED (NOT DETECT); CORONAVIRUS 229E (PCR) NOT DETECTED (NOT DETECT); CORONAVIRUS HKU1 (PCR) NOT DETECTED (NOT DETECT); CORONAVIRUS NL63 (PCR) NOT DETECTED (NOT DETECT); CORONAVIRUS OC43 (PCR) NOT DETECTED (NOT DETECT); HUMAN METAPNEUMOVIRUS (PCR) NOT DETECTED (NOT DETECT); HUMAN RHINOVIRUS/ENTEROV (PCR) NOT DETECTED (NOT DETECT); INFLUENZA B (PCR) NOT DETECTED (NOT DETECT); MYCOPLASMA PNEUMONIAE (PCR) NOT DETECTED (NOT DETECT); PARAINFLUENZA VIRUS 1 (PCR) NOT DETECTED (NOT DETECT); PARAINFLUENZA VIRUS 2 (PCR) NOT DETECTED (NOT DETECT); PARAINFLUENZA VIRUS 3 (PCR) NOT DETECTED (NOT DETECT); PARAINFLUENZA VIRUS 4 (PCR) NOT DETECTED (NOT DETECT); RESPIRATORY SYNCYTIAL V (PCR) NOT DETECTED (NOT DETECT); SARS_COV_2 (PCR) NOT DETECTED (NOT DETECT)
[2021-05-19] MEDS ORDERED: GI COCKTAIL PO ONE (22:26)
[2021-05-19 23:10] LABS: ADENOVIRUS (PCR) NOT DETECTED (NOT DETECT)
--- NOTE | 2021-05-19 23:47 | CT ---
Exam: CT of the abdomen and pelvis with contrast History: Epigastric and right upper quadrant pain Technique: [address] of the abdomen and pelvis following intravenous contrast FINDINGS: See chest CT for lung bases. Moderate size hiatus hernia without complication. Normal li candace, pancreas, spleen and adrenal glands. Prior cholecystectomy. Kidneys and proximal collecting sy stem are unremarkable. The appendix is not seen. Bowel loops demonstrate normal caliber. No inflam atory change seen in the mesentery or retroperitoneum. Atherosclerotic calcification of the aorta wi thout aneurysm. Prior hysterectomy. Normal urinary bladder. Normal pelvic bowel loops. No acute findings of the [place]. Right hip arthroplasty. Impression: 1. No inflammatory process, bowel or urinary obstruction 2. Moderate hiatus hernia without complicating features. Increased diameter of the hiatus hernia co mpared with 03/15/2016. All CT scans are performed using dose optimization techniques as appropriate to the performed exam an d include at least one of the following: Automated exposure control, adjustment of the mA and/or kV according t o size, and the use of iterative reconstruction technique.
--- NOTE | 2021-05-19 23:52 | CT ---
EXAM: CT pulmonary angiogram. HISTORY: Chest pain. PROCEDURE: After the intravenous injection of contrast a CT pulmonary angiogram was performed with c ontiguous axial CT images of the chest with multiplanar reformats, MIP images and 3-D reformats. All CT scans are performed using dose optimization techniques as appropriate to a performed exam includi ng the following: Automated exposure control, Adjustment of the mA and/or kV according to patient siz e, Use of iterative reconstruction technique. FINDINGS: There is normal enhancement of the pulmonary arteries with no evidence of pulmonary embolis m. The heart and thoracic aorta are within normal limits in size. There are calcified mediastinal a nd hilar lymph nodes. There are bilateral infiltrates, suspicious for pneumonia. There is a moderat e hiatal hernia. There are degenerative changes in the spine. Impression: No evidence of pulmonary embolism. Bilateral infiltrates, suspicious for pneumonia. Moderate hiatal hernia. All CT scans are performed using dose optimization techniques as appropriate to the performed exam an d include at least one of the following: Automated exposure control, adjustment of the mA and/or kV according t o size, and the use of iterative reconstruction technique.
[2021-05-20] MEDS ORDERED: TYLENOL PO PRN (00:13)
[2021-05-20] MEDS ORDERED: NITROSTAT SL PRN (00:13)
[2021-05-20] MEDS ORDERED: ATROPINE SULFATE PFS IVP PRN (00:13)
[2021-05-20] MEDS ORDERED: GI COCKTAIL PO PRN (00:17)
[2021-05-20] MEDS ORDERED: NYSTOP POWDER TP PRN (00:19)
[2021-05-20] MEDS ORDERED: NYSTATIN CREAM TP PRN (00:19)
[2021-05-20 00:28] LABS: CREATINE KINASE 161.2 U/L (30-135)
[2021-05-20] MEDS ORDERED: SEROQUEL PO SCH (00:30)
[2021-05-20 00:38] LABS: TROPONIN I < 0.012 ng/ml (0.0000-0.120)
[2021-05-20 01:25] VITALS: BMI 35.8
[2021-05-20] MEDS ORDERED: PROTONIX IV IVP ONE (02:23)
[2021-05-20] MEDS ORDERED: ZOFRAN 4 MG/2 ML IVP PRN (02:25)
[2021-05-20] MEDS ORDERED: MORPHINE 4 MG/ML SYRINGE IVP PRN (02:26)
--- NOTE | 2021-05-20 05:57 | PCM ---
Chief Complaint Chief Complaint: Chest Pain History of Present Illness History of Present Illness: Ms. Browning is a 66-year-old female who presented to the emergency room at 4 on May 1721. She presented with 1 hour history of left-sided chest pain that started spontaneously. Denies any trauma, no lifting, no falls no change in activity. She was concerned that she felt as if she had another blood clot and felt like this previously. Last stress test back in 2017. Reported pain to Dr. Broussard, the emergency room physician that it was a squeezing pain lasting 10 to 15 minutes and rated this as a 6-7 out of 10 with nausea. Patient presented as a walk-in to the emergency room and had vitals initially of temperature 97.6, pulse 72, respiratory rate 18, blood pressure 121/74 and pulse ox of 97%. Vitals were checked regularly and heart rate ranged from 60 through 72 respiratory rate 16 through 20 and blood pressure 90-137/64-84. OPAL risk score of 4, EKG was reported to me as normal over telephone at 1230 this morning. Labs showed CBC mild anemia else normal with white blood cell count 5.95 hemoglobin 11.9 platelet 225. Metabolic panel essentially within normal limits except for mild hyperglycemia. Sodium 138, potassium 4.07, chloride 107.4, creatinine 1.01 with a GFR 55 stage IIIa. Glucose 124.6, calcium 9.14, AST 29.1, ALT 37.6, total CK 176.5 troponin I was negative and troponin II was pending at the time of phone conversation this morning. D-dimer was found to be elevated at 583.68 but was not reported to me. [employer] PCR for infectious etiologies negative, Covid negative. Patient was placed on telemetry and monitored without any atypia. Physical exam was listed as obese else noncontributory. The patient was given a GI cocktail which did improve symptoms. She was given aspirin as well as morphine and Toradol and Zofran.Her last stress test was back in July 2018 without any evidence of ischemia from resting heart rate 70-120 with exercise. She had no chest pain or discomfort with that activity no arrhythmia and blood pressure response was normal. Over the telephone Dr. Giron felt it was GI related as GI coctail did help. Patient was admitted to room 110 as observation. At time of admission patient was not in any pain. Patient was made n.p.o. for imaging in the morning for her to get a stress test today. Nausea noted in the emergency room has resolved. She did have normal examination findings per floor nurses well. Patient is a full code and this is appropriate. Mild dizziness is present and fall precautions were initiated. I reviewed the ER nursing notes and patient did get a nitro which did help with chest pain. Blood pressure did have a small drop. Observation narratives were reviewed. 2:00 this morning patient was resting eyes closed without any signs of pain or distress. Telemetry on board with sinus rhythm. IV intact fall precautions in place. IV Protonix was added this morning. At oh 4:00 the patient was resting comfortably. oxygen 1 L normal saline stable. Unchanged status at 5:00. I arrived at hospital at 530 and reviewed chart within the hospital setting. CT chest was performed no evidence of pulmonary embolism bilateral infiltrates are concerning for possible pneumonia. Moderate hiatal hernia was noted.I will cover the patient with azithromycin 500mg daily x 3 days for community-acquired pneumonia and will also add cefdinir at d/c. For today IV azithromycin 500 x1, rocephin 1 G x 1. Second troponin returned negative and CK has dropped from 176.5 161.2. REVIEW OF SYMPTOMS: (Positives bolded) General: weight loss, fever, chills, night sweats, fatigue, appetite loss HEENT: blurry vision, eye pain, eye discharge, dry eyes, decreased vision, sore throat tinnitus, bloody nose, hearin gloss, sinus pain/pressure, ear pain/pressure. Respiratory: shortness of breath, cough, hemoptysis, wheezing, pleurisy, Cardiovascular: chest pain, PND, palpitation, edema, orthopnea, syncope, swelling of extremities, SOA Gastro: Nausea, vomiting, diarrhea, hematemesis, abdominal pain, constipation Genito: hematuria, dysuria, glycosuria, hesitancy, frequency, incontinence Musckelo: Arthralgia, myalgia, muscle weakness, joint swelling, NSAID use Skin: rash, pruritis, sores, nail changes, skin thickening, change in wart/mole, itching, rash, new lesions, pruritus, nail changes Neuro: Migraine, numbness, ataxia, tremor, vertigo, weakness, memory loss, Irritability, dizziness Endocrine: excessive thirst, polyuria, cold intolerance, heat intolerance, goiter Psychiatric: depression, anxiety, anti-depressants, alcohol abuse, drug abuse, insomnia, change in sleep pattern and mood changes Heme/lymph: easy bruising, bleeding gums, blood clots, swollen glands, lymphedema, Allergic/immune: allergic rhinitis, hay fever, asthma, hives Vital Signs Temp Pulse Resp BP Pulse Ox 05/20/21 05:57 97.6 F 56 L 18 104/55 L 96 05/20/21 05:23 97.6 F 56 L 18 104/55 L 96 05/20/21 05:04 99 05/20/21 01:11 98 05/20/21 00:27 97.6 F 61 18 99 05/19/21 23:45 61 18 116/71 98 05/19/21 22:42 65 20 137/84 18 L 05/19/21 22:32 60 18 110/70 100 05/19/21 22:18 66 16 102/64 99 05/19/21 22:03 66 16 109/66 99 05/19/21 21:53 65 18 97/65 95 05/19/21 21:50 72 18 90/67 95 05/19/21 21:18 97.6 F 72 18 121/74 97 Constitutional: Appearance-No acute distress, Consistent with stated age. Orientation- Oriented x 3, alertGait-Normal pace, normal arm movement. Build and Nutrition- obese female General- Patient is pleasant and cooperative with the interview and exam. Integumentary: General-No rashes, ulcers or lesions. Palpation- Normal skin moisture/turgor. Skin is warm to touch, appropriate. Capillary refill is normal bilateral Upper and lower extremity. Head/Neck: Head- normocephalic and atraumatic. Neck- without visible/palpable lumps or pulsations. Palpation- No bony tenderness about head/neck along frontal, occipital, temporal, parietal, mastoid, jawline, zygoma, orbit or any other location. NO temporal artery tenderness. No TMJ tenderness. Neck Supple. Thyroid-No thyromegaly, no nodules Eye: Bilaterally PERRLA, EOMI. No discharge. Upper and lower eyelids are normal. Sclera/conjunctiva normal without discharge. Cornea is normal and clear. Lens is normal. Eyeball appears normal. No ciliary flushing, no conjunctival injection. ENMT: Pinna- normal without tenderness or erythema. External auditory canal Left- normal without erythema or discharge, no excessive cerumen. External auditory canal Right-normal without erythema or discharge, no excessive cerumen. TM left- Sterling/pearly, normal light reflex and anatomy TM Right- Sterling/pearly, normal light reflex and anatomy Hearing Assessment-normal to conversational speech. Nose and sinus- No sinus tenderness along frontal/maxillary region. External appearance normal and midline. Nares- bilateral quiet airflow, no discharge. Nasal mucosa- No bleeding noted and no ulcerations observed. [place], moist. Turbinates non boggy. Lips- normal color, moist without cracks/lesions Oral Cavity/Palate- hard/soft palate intact without lesions, oral mucosa pink and moist. Dentition assessed [] and discussed appropriate oral care. Tongue normal midline. Oropharynx- no pharyngeal erythema, Uvula midline. No post nasal drip. No exudate. Salivary glands- Non tender to palpation CHEST/LUNG: Inspection- symmetric chest wall no pectus deformity. Normal effort, no distress, no use of accessory muscles. Palpation- nontender sternum, ribline. No abnormal pulsations. Auscultation- Breath sounds normal throughout all lung velasquez. Normal tracheal sounds, Normal bronchial sounds overlying sternum, Bronchovessicular sounds normal between scapulae posteriorly, Normal vessicular breath sounds heard throughout periphery. Lungs are clear today. Adventitious sounds- No wheezes, rales, rhonchi. CARDIOVASCULAR: Carotid artery- normal, no bruits or abnormal pulsations. Jugular vein- no pulsations. Palpation/Percussion- Normal PMI, no palpable thrill Auscultation- Regular rate and rhythm. No murmur noted in sitting, supine positions. Extremities- no digital clubbing, cyanosis, edema, increased warmth. ABDOMEN: Inspection- normal and no visible pulsations. Normal contour. Auscultation- Bowel sounds normal, no abdominal bruits. Palpation/Percussion- soft, non-tender, no rebound tenderness, no rigidity (guarding), no jar tenderness, no masses. Liver-no hepatomegaly, Spleen no splenomegaly, Hernias - none. Rectal not examined. Peripheral Vascular: Upper extremity Left- Normal temperature with pink nailbeds and no ulcerations. Upper extremity Right- Normal temperature with pink nailbeds and no ulcerations. Lower extremity- Normal temperature with pink nailbeds and no ulcerations. DP pulses 2+ bilaterally. Pedal hair intact. Normal capillary refill. Edema- No edema. Musculoskeletal: Generalized-No generalized swelling or edema of extremities, no digital clubbing or cyanosis, neurovascularly intact all four extremities. Upper extremity- Symmetrical posture. No visible deformity. Normal sensation along medial and lateral upper extremity proximally and distally. NO tenderness overlying shoulder, lateral/medial epicondyle. Supervisor Tubing 5/5 and strength 5/5 bilateral UE. Elbow palpated, no tenderness overlying olecranon. Normal supination, pronation to active/passive ROM and to resisted rotation. Bicep insertion/tricep insertion appear normal without obvious pathology. Rotator cuff evaluated and intact. Normal wrist ROM bilaterally. Normal hand movement, intrinsic muscles of hands normal. No tenderness to palpation of hands/wrists/elbows. Lower extremity- Hip: Not tender to palpation, no pain, no swelling, edema or erythema of surrounding tissue, normal strength and tone. Normal appearing hip ROM bilaterally without pain. Knee: Knee ROM normal. No tenderness overlying trochanters, no tenderness about patella, quad tendon, patellar tendon. No tenderness at tibial tuberosity. Ankle: normal ROM not tender to palpation along medial/lateral malleolus. Foot: Normal movement of toes, no tenderness bilateral feet/toes. Normal foot type. Spine/Ribs- No deformities, masses or tenderness, no known fractures, normal strength, Normal ROM. Normal stability No tenderness along C/T/L spine. Normal appearing ROM about spine. Neurological: General- Moves all 4 extremities symmetrically. Symmetrical face and body posture. Cranial nerves- individually evaluated II-XII and intact. PERRLA, Normal EOMI, visual/special senses appear intact, Face is symmetrical and normal sensation/movement, normal tongue, normal strength/posture of neck musculature. Reflexes- intact with DTR 2+ patellar, Achilles, bicep, brachial, tricep. Ankle clonus normal with 2 beats. Strength- 5/5 bilateral UE and LE. Soft touch- intact bilateral UE and LE. Temperature sensation- intact bilateral UE and LE. Neuropsych: Oriented- Person, place, time. (AAOx3), Mood/affect- normal and congruent. Able to articulate well. Speech-Normal speech, normal rate, normal tone, normal use of language, volume and coherence. Thought content- normal with ability to perform basic computations and apply abstract thought/reason. Associations- intact, no SI/HI, no hallucinations, delusions, obsessions. Judgment/insight- Appropriate. Memory-Recall intact, remote and recent memory intact. Knowledge- Age appropriate fund of knowledge, concentration and attention span normal. Lymphatic: Head/Neck- normal size and non tender to palpation. Axillary- normal size and non tender to palpation. Femoral and Inguinal- normal size and non tender to palpation. Allergies Allergies Allergy/AdvReac Type Severity Reaction Status Date / Time hydrocodone bitartrate AdvReac sleepy, Verified 05/19/21 21:30 [From Lortab] vomiting tramadol AdvReac sleepy, Verified 05/19/21 21:30 vomiting PFSH Medical History (Updated 05/20/21 @ 13:46 by KWAME WHARTON) Abnormal mammogram of right breast Arthritis Asthma Cataract (lens) fragments in eye following cataract surgery, bilateral Chronic depression Colitis Diverticulosis Gastroesophageal reflux disease Hiatal hernia Hx pulmonary embolism Hypertension Impairment of balance Memory loss Onychomycosis SI (sacroiliac) joint dysfunction Sinusitis Spinal stenosis Use of cane as ambulatory aid Varicosities of leg Surgical History (Updated 05/20/21 @ 10:16 by KWAME WHARTON) History of appendectomy History of bladder suspension procedure History of cholecystectomy History of fusion of cervical spine History of hysterectomy History of oophorectomy History of right hip replacement History of tonsillectomy and adenoidectomy Family History Mother Hypertension FATHER Cancer Social History Smoking and tobacco status: Never smoker Second hand smoke exposure: No Alcohol intake: never Substance use type: does not use Agree to transfusion: Yes Adopted: Yes Caregiver/support person: No Foster care: No Household members: spouse Housing: house Lives independently: Yes Daycare: no daycare Number of children: 4 Number of grandchildren: 8 Highest education level completed: some college, no degree Financial difficulty paying for basics: decline to answer service: No long term: No Current occupational status: disabled Pets and animals: Yes Leisure activites: reading History of recent travel: No Do you think of yourself as: straight/heterosexual Seatbelt use: always Helmet use: No Drives intoxicated or rides with intoxicated route delivery driver: No Current diet type/program: regular Well-balanced diet: daily Caffeine: Yes Eating out: rarely or never Reads food labels: seldom or never During the past year weight has: remained stable Water heater temperature set < 120 degrees: Yes Working smoke detector in home: Yes Fire extinguisher in home: No Carbon monoxide detector in home: Yes Firearms in home: Yes Firearms unloaded and locked: Yes What type of physical activity do you participate in?: none, walking and other cardio Physical activity functional status: independent ambulation How many days of moderate to strenuous exercise, like a brisk walk, did you do in the last 7 days: 1 Medications Medications: Medications Generic Name Dose Route Start Last Admin Trade Name Freq PRN Reason Stop Dose Admin Acetaminophen 650 mg 05/20/21 00:13 Acetaminophen 325 Mg Tablet PO Q4H PRN Mild Pain Al Hydroxide/Mg Hydroxide 30 ml 05/20/21 00:17 Mag-Al Plus//Lidocaine 30 Ml Btl PO QID PRN Dyspepsia Aspirin 81 mg 05/20/21 08:30 Aspirin 81 Mg Tablet. [facility] Atropine Sulfate 0.5 mg 05/20/21 00:13 Atropine Sulfate Inj 1 Mg/10 Ml Disp.Syrin IVP ONCE PRN Symptomatic Bradycardia Bupropion HCl 300 mg 05/20/21 09:00 Bupropion Hcl 150 Mg Tab.Er.24h PO DAILY [facility] Enalapril Maleate 10 mg 05/20/21 09:00 Enalapril Maleate [address] [facility] Enoxaparin Sodium 40 mg 05/20/21 09:00 Enoxaparin Sodium 40 Mg/0.[address] DA[address] [facility] Meloxicam 15 mg 05/20/21 09:00 Meloxicam 7.5 Mg Tablet PO DAILY [facility] Metoprolol Tartrate 25 mg 05/20/21 09:00 Metoprolol Tartrate 25 Mg Tablet PO BID [facility] Morphine Sulfate 4 mg 05/20/21 02:26 Morphine Sulfate 4 Mg/Ml Syringe IVP Q6H PRN Chest Pain Multivitamins 1 tab 05/20/21 09:00 Multivitamin 1 Tab PO DAILY [facility] Nitroglycerin 0.4 mg 05/19/21 21:25 05/19/21 21:38 Nitroglycerin 0.4 Mg Tab.Subl SL 0.4 mg Q5MIN X 3 DOSES PRN Administration Chest Pain Nitroglycerin 0.4 mg 05/20/21 00:13 Nitroglycerin 0.4 Mg Tab.Subl SL Q5MIN X 3 DOSES PRN Chest Pain Nystatin 1 applic 05/20/21 00:19 Nystatin 15 Gm Cream TP BID PRN Fungal dermatitis Nystatin 1 applic 05/20/21 00:19 Nystatin 15 Gm Powder TP BID PRN Fungal dermatitis Ondansetron HCl 4 mg 05/20/21 02:25 Ondansetron Hcl/Pf 4 Mg/2 Ml Sdv IVP Q6H PRN Nausea / Vomiting Pantoprazole Sodium 40 mg 05/20/21 09:00 Pantoprazole Sodium 40 Mg Vial IVP DAILY [facility] Quetiapine Fumarate 75 mg 05/20/21 00:30 05/20/21 01:21 Quetiapine Fumarate 25 Mg Tablet PO 75 mg BEDTIME ELMO Administration Sodium Chloride 1 syr 05/19/21 21:25 0.9% Sodium Chloride 10 Ml Disp.Syrin IVF PRN PRN To flush IV Sodium Chloride 1 syr 05/20/21 05:00 05/20/21 05:31 0.9% Sodium Chloride 10 Ml Disp.Syrin IVF 1 syr Q8HR ELMO Administration Body Composition Height: 5 ft 2 in Weight: 196 lb Body Mass Index (BMI): 35.8 Vital Signs Temperature: 97.6 F Pulse Rate: 56 Respiratory Rate: 18 Blood Pressure: 104/55 O2 Sat by Pulse Oximetry: 96 Lab/Tests/Diagnostic Imaging Lab/Tests/Diagnostic Imaging: Lab Review 05/19/21 05/19/21 05/19/21 21:43 21:43 21:43 WBC 5.95 RBC 3.75 L Hgb 11.9 L Hct 34.7 L MCV 92.5 MCH 31.7 H MCHC 34.3 RDW Coeff of Joselito 13.5 Plt Count 225 Immature Gran % (Auto) 0.2 Neut % (Auto) 44.1 Lymph % (Auto) 40.3 Casey % (Auto) 10.9 H Eos % (Auto) 4.0 Baso % (Auto) 0.5 Neut # (Auto) 2.6 Lymph # (Auto) 2.4 Casey # (Auto) 0.7 Eos # (Auto) 0.2 Baso # (Auto) 0.0 Immature Gran # (Auto) 0.0 Sodium 138.0 Potassium 4.07 Chloride 107.4 H Carbon Dioxide 23.8 Anion Gap 10.87 BUN 21.3 H Creatinine 1.01 Estimated GFR (MDRD) 55.00 BUN/Creatinine Ratio 21.08 Glucose 124.6 H Calcium 9.14 Total Bilirubin 0.24 AST 29.1 ALT 37.6 H Alkaline Phosphatase 86.9 Total Creatine Kinase 176.5 H CK-MB (CK-2) 2.220 CK-MB (CK-2) % 1.2500 Troponin I < 0.012 Total Protein 6.08 L Albumin 3.86 Globulin 2.22 Albumin/Globulin Ratio 1.73 D-Dimer 583.68 H Adenovirus (PCR) B. pertussis DNA (PCR) B.parapertussis DNA PCR C. pneumoniae DNA (PCR) Coronavirus OC43 (PCR) Coronavirus HKU1 (PCR) Coronavirus 229E (PCR) Coronavirus NL63 (PCR) Human Metapneumovir PCR Influenza Type A (PCR) Influenza B (RT-PCR) M. pneumoniae (PCR) Parainfluenza 1 (PCR) Parainfluenza 2 (PCR) Parainfluenza 3 (PCR) Parainfluenza 4 (PCR) RSV (PCR) Entero/Rhino (PCR) SARS-CoV-2 (PCR) 05/19/21 05/20/21 22:20 00:10 WBC RBC Hgb Hct MCV MCH MCHC RDW Coeff of Joselito Plt Count Immature Gran % (Auto) Neut % (Auto) Lymph % (Auto) Casey % (Auto) Eos % (Auto) Baso % (Auto) Neut # (Auto) Lymph # (Auto) Casey # (Auto) Eos # (Auto) Baso # (Auto) Immature Gran # (Auto) Sodium Potassium Chloride Carbon Dioxide Anion Gap BUN Creatinine Estimated GFR (MDRD) BUN/Creatinine Ratio Glucose Calcium Total Bilirubin AST ALT Alkaline Phosphatase Total Creatine Kinase 161.2 H CK-MB (CK-2) 2.200 CK-MB (CK-2) % 1.3600 Troponin I < 0.012 Total Protein Albumin Globulin Albumin/Globulin Ratio D-Dimer Adenovirus (PCR) Not detected B. pertussis DNA (PCR) Not detected B.parapertussis DNA PCR Not detected C. pneumoniae DNA (PCR) Not detected Coronavirus OC43 (PCR) Not detected Coronavirus HKU1 (PCR) Not detected Coronavirus 229E (PCR) Not detected Coronavirus NL63 (PCR) Not detected Human Metapneumovir PCR Not detected Influenza Type A (PCR) Not detected Influenza B (RT-PCR) Not detected M. pneumoniae (PCR) Not detected Parainfluenza 1 (PCR) Not detected Parainfluenza 2 (PCR) Not detected Parainfluenza 3 (PCR) Not detected Parainfluenza 4 (PCR) Not detected RSV (PCR) Not detected Entero/Rhino (PCR) Not detected SARS-CoV-2 (PCR) Not detected Orders Category Date Time Status ADMIT OBSERVATION [PLACE PATIENT OBSERVATION] .TO ADMISSION 05/20/21 00:29 Active MEDSURG (MONITORED BED) DOBUTAMINE STRESS ECHO Routine CARDIO 05/20/21 00:17 Ordered EKG-(ED ONLY) Stat CARDIO 05/19/21 21:25 Completed EKG-(IP & OP ONLY) DAILY CARDIO 05/20/21 06:00 Completed EKG-(IP & OP ONLY) DAILY CARDIO 05/21/21 00:15 Ordered OXYGEN Routine CARDIO 05/20/21 00:13 Active INTAKE & OUTPUT Q8HR CARE 05/20/21 00:13 Completed IP: INSERT SALINE LOCK ONCE CARE 05/20/21 00:13 Active NOTIFY PHYSICIAN OF CONSULT ONCE CARE 05/20/21 00:15 Active NPO REMINDER: IMAGING ONCE CARE 05/19/21 22:39 Completed TELEMETRY MONITORING TELE CARE 05/20/21 00:13 Active TELEMETRY MONITORING TELE CARE 05/20/21 00:31 Completed VITAL SIGNS Q8HR CARE 05/20/21 00:13 Completed PHYSICIAN CONSULTATION [CONS] Stat CONSULTS 05/20/21 00:13 Ordered CARDIAC DIET DIETARY 05/20/21 Breakfast Ordered ED APPLY O2 .ONCE EMERGENCY 05/19/21 21:25 Active ED IV/MEDIPORT/POWERPORT .ONCE EMERGENCY 05/19/21 21:25 Active CBC W/ AUTO DIFF DAILY@0600 LAB 05/20/21 06:00 Ordered CBC W/ AUTO DIFF DAILY@0600 LAB 05/21/21 06:00 Ordered CBC W/ AUTO DIFF Stat LAB 05/19/21 21:43 Completed COMPREHENSIVE METABOLIC PANEL Stat LAB 05/19/21 21:43 Completed CREATINE KINASE Q8H LAB 05/20/21 08:15 Ordered CREATINE KINASE Stat LAB 08/17/21 21:43 Completed CREATINE KINASE Stat LAB 05/20/21 00:10 Completed D-DIMER Stat LAB 05/19/21 21:43 Completed RESPIRATORY PANEL 2.1 (PCR) Stat LAB 05/19/21 22:20 Completed TROPONIN I Q8H LAB 05/20/21 08:15 Ordered TROPONIN I Stat LAB 05/19/21 21:43 Completed TROPONIN I Stat LAB 05/19/21 23:56 Completed 0.9 % Sodium Chloride [Saline Flush] MEDS 05/19/21 21:25 Active 1 syr IVF PRN PRN 0.9 % Sodium Chloride [Saline Flush] MEDS 05/20/21 05:00 Active 1 syr IVF Q8HR Acetaminophen [Tylenol] MEDS 05/20/21 00:13 Active 650 mg PO Q4H PRN Aspirin [Aspirin Chewable] MEDS 05/19/21 21:45 Discontinued 243 mg PO ONCE STA Aspirin [Aspirin Chewable] MEDS 05/20/21 08:30 Discontinued 81 mg PO DAILYWM Aspirin [Aspirin EC] MEDS 05/20/21 08:30 Active 81 mg PO DAILYWM Atropine Sulfate Inj [Atropine Sulfate Pfs] MEDS 05/20/21 00:13 Active 0.5 mg IVP ONCE PRN Bupropion HCl [Wellbutrin Xl] MEDS 05/20/21 09:00 Active 300 mg PO DAILY Enalapril Maleate [Vasotec] MEDS 05/20/21 09:00 Active 10 mg PO DAILY Enoxaparin Sodium [Lovenox] MEDS 05/20/21 09:00 Active 40 mg SUBCUT DAILY Ketorolac Tromethamine [Toradol] MEDS 05/19/21 21:50 Discontinued 30 mg IVP ONCE STA Mag-Al Plus//Lidocaine [Gi Cocktail] MEDS 05/19/21 22:26 Discontinued 30 ml PO ONCE ONE Mag-Al Plus//Lidocaine [Gi Cocktail] MEDS 05/20/21 00:17 Active 30 ml PO QID PRN Meloxicam [Mobic] MEDS 05/20/21 09:00 Active 15 mg PO DAILY Metoprolol Tartrate [Lopressor] MEDS 05/20/21 09:00 Active 25 mg PO BID Morphine Sulfate [Morphine 2 mg/ml Syringe] MEDS 05/19/21 22:13 Discontinued 2 mg IVP ONCE ONE Morphine Sulfate [Morphine 4 mg/ml Syringe] MEDS 05/20/21 02:26 Active 4 mg IVP Q6H PRN Multivitamin [Multivitamin Tablet] MEDS 05/20/21 09:00 Active 1 tab PO DAILY Nitroglycerin [Nitrostat] MEDS 05/19/21 21:25 Active 0.4 mg SL Q5MIN X 3 DOSES PRN Nitroglycerin [Nitrostat] MEDS 05/20/21 00:13 Active 0.4 mg SL Q5MIN X 3 DOSES PRN Nystatin [Nystatin Cream] MEDS 05/20/21 00:19 Active 1 applic TP BID PRN Nystatin [Nystop Powder] MEDS 05/20/21 00:19 Active 1 applic TP BID PRN Ondansetron HCl/Pf [Zofran 4 mg/2 ml] MEDS 05/20/21 02:25 Active 4 mg IVP Q6H PRN Ondansetron [Zofran Odt] MEDS 05/19/21 21:46 Discontinued 4 mg .ROUTE .STK-MED ONE Ondansetron [Zofran Odt] MEDS 05/19/21 21:51 Discontinued 4 mg PO ONCE STA Pantoprazole Sodium [Protonix IV] MEDS 05/20/21 09:00 Active 40 mg IVP DAILY Pantoprazole Sodium [Protonix IV] MEDS 05/20/21 02:23 Discontinued 40 mg IVP ONCE ONE Quetiapine Fumarate [Seroquel] MEDS 05/20/21 00:30 Active 75 mg PO BEDTIME Sodium Chloride 0.9% [Sodium Chloride] 1,000 ml MEDS 05/19/21 21:25 Discontinued IV 125 mls/hr RESUSCITATION STATUS Routine OTHERS 05/20/21 00:13 Ordered CHEST, 1V AP ONLY Stat RADS 05/19/21 21:[address] ABDOMEN/PELVIS W CONTRAST Stat RADS 05/19/21 22:[address] CHEST PE PROTOCOL Stat RADS 05/19/21 22:38 Completed Medications Generic Name Dose Route Start Last Admin Trade Name Freq PRN Reason Stop Dose Admin Acetaminophen 650 mg 05/20/21 00:13 Acetaminophen 325 Mg Tablet PO Q4H PRN Mild Pain Al Hydroxide/Mg Hydroxide 30 ml 05/20/21 00:17 Mag-Al Plus//Lidocaine 30 Ml Btl PO QID PRN Dyspepsia Aspirin 81 mg 05/20/21 08:30 Aspirin 81 Mg Tablet.Dr [facility] Atropine Sulfate 0.5 mg 05/20/21 00:13 Atropine Sulfate Inj 1 Mg/10 Ml Disp.Syrin IVP ONCE PRN Symptomatic Bradycardia Bupropion HCl 300 mg 05/20/21 09:00 Bupropion Hcl 150 Mg Tab.Er.24h PO DAILY [facility] Enalapril Maleate 10 mg 05/20/21 09:00 Enalapril Maleate 5 [address] Table[address] [facility] Enoxaparin Sodium 40 mg 05/20/21 09:00 Enoxaparin Sodium 40 Mg/0.[address] SUBCUT DA[address] [facility] Meloxicam 15 mg 05/20/21 09:00 Meloxicam 7.5 Mg Tablet PO DAILY [facility] Metoprolol Tartrate 25 mg 05/20/21 09:00 Metoprolol Tartrate [address] [facility] Morphine Sulfate 4 mg 05/20/21 02:26 Morphine Sulfate 4 Mg/Ml Syringe IVP Q6H PRN Chest Pain Multivitamins 1 tab 05/20/21 09:00 [address]iv[address] [facility] Nitroglycerin 0.4 mg 05/19/21 21:25 05/19/21 21:38 Nitroglycerin 0.4 Mg Tab.Subl SL 0.4 mg Q5MIN X 3 DOSES PRN Administration Chest Pain Nitroglycerin 0.4 mg 05/20/21 00:13 Nitroglycerin 0.4 Mg Tab.Subl SL Q5MIN X 3 DOSES PRN Chest Pain Nystatin 1 applic 05/20/21 00:19 Nystatin 15 Gm Cream TP BID PRN Fungal dermatitis Nystatin 1 applic 05/20/21 00:19 Nystatin 15 Gm Powder TP BID PRN Fungal dermatitis Ondansetron HCl 4 mg 05/20/21 02:25 Ondansetron Hcl/Pf 4 Mg/2 Ml Sdv IVP Q6H PRN Nausea / Vomiting Pantoprazole Sodium 40 mg 05/20/21 09:00 Pantoprazole Sodium [address] [facility] Quetiapine Fumarate 75 mg 05/20/21 00:30 05/20/21 01:21 Quetiapine Fumarate 25 Mg Tablet PO [address] [facility] Administration Sodium Chloride 1 syr 05/19/21 21:25 0.9% Sodium Chloride 10 Ml Disp.Syrin IVF PRN PRN To flush IV Sodium Chloride 1 syr 05/20/21 05:00 05/20/21 05:31 0.9% Sodium Chloride 10 Ml Disp.Syrin IVF 1 syr Q8HR ELMO Administration Discontinued Medications Generic Name Dose Route Start Last Admin Trade Name Freq PRN Reason Stop Dose Admin Al Hydroxide/Mg Hydroxide 30 ml 05/19/21 22:26 05/19/21 22:31 Mag-Al Plus//Lidocaine 30 Ml Btl PO 05/19/21 22:27 30 ml ONCE ONE Administration Aspirin 243 mg 05/19/21 21:45 05/19/21 21:50 Aspirin 81 Mg Tab.Chew PO 05/19/21 21:46 243 mg ONCE STA Administration Aspirin 81 mg 05/20/21 08:30 Aspirin 81 Mg Tab.Chew PO DAILYWM ELMO Sodium Chloride 1,000 mls @ 125 mls/hr 05/19/21 21:25 05/19/21 21:33 Sodium Chloride IV 05/20/21 05:24 125 mls/hr .Q8H STA Administration Ketorolac Tromethamine 30 mg 05/19/21 21:50 05/19/21 22:06 Ketorolac Tromethamine 30 Mg/Ml Vial IVP 05/19/21 21:51 30 mg ONCE STA Administration Morphine Sulfate 2 mg 05/19/21 22:13 05/19/21 22:16 Morphine Sulfate 2 Mg/Ml Syringe IVP 05/19/21 22:14 2 mg ONCE ONE Administration Ondansetron HCl 4 mg 05/19/21 21:51 05/19/21 21:54 Ondansetron Hcl 4 Mg Tab.Rapdis PO 05/19/21 21:52 4 mg ONCE STA Administration Pantoprazole Sodium 40 mg 05/20/21 02:23 05/20/21 02:52 Pantoprazole Sodium 40 Mg Vial IVP 05/20/21 02:24 40 mg ONCE ONE Administration Assessment (1) Chest pain: Status: Acute Code(s): R07.9 - Chest pain, unspecified SNOMED Code(s): 70096890 (2) Elevated d-dimer: Status: Acute Code(s): R79.89 - Other specified abnormal findings of blood chemistry SNOMED Code(s): 129814284 (3) Pulmonary infiltrate: Status: Acute Code(s): R91.8 - Other nonspecific abnormal finding of lung field SNOMED Code(s): 745751141 (4) BMI 35.0-35.9,adult: Status: Inactive Code(s): Z68.35 - Body mass index [BMI] 35.0-35.9, adult SNOMED Code(s): 927824458 Plan Plan: Chest Pain/Pulmonary infiltrate: DDX for chest pain is vast. We discussed typical history and examination findings for chest pain and heart attack today. We discussed that multiple organ systems can be the cause for this complaint. We reviewed possible causes to include cardiac etiologies: ACS, pericarditis, pericardial effusion, respiratory issues to include bronchitis/asthma/COPD/bronchospasm, PNEUMONIA, PE (SOA, no TERAN, elevated DDIMER with negative CTA), GI problems to include esophageal spasm/achalasia, Hiatal hernia is present, GERD is present, PUD, Liver disease/pancreatic disease, renal disease. Chest wall pain/costochondritis. We checked labs as listed above. We discussed benefits for stress testing. PORT SCORE 58 Points Risk Class II with 0.6-0.9% mortality suggests outpatient treatment is possible. [id number] 2 points higher risks with 6.8% 30 day mortality. Consider inpatient monitoring based on symptoms. COVID IS NEGATIVE. Biofire negative. Did not meet SIRS criteria. Suspect ?Pneumonia pain/infiltrate pain and or hiatal hernia/GERD. Asymptomatic as of eval this am. - Admit obs - Telemetry - Stress echo dobutamine today - f/u with Trop #3 - Aziithromycin 500 mg IV x 1 today (DC with PO x 2 more days) - Rocephin 1 Gram IV today (D/C with cefdinir 300 BID x 4 more days) - NPO for stress test - Consult Dr. Winchester for stress. - Saline lock except for abx. Elevated Ddimer: Negative CTA. Lovenox DVT prophy as below. GERD/Hiatal hernia: Established/Chronic problem. Hiatal hernia on CT moderate to large. PPI IV started through ER. Will continue for now. Discussed consideration of f/u with Gen surg at d/c. We reviewed SE of PPI. We have discussed R/B/A to these agents. Offered handout on current and new medications. We reviewed latest news regarding bone loss, regarding risks for Cdiff, [place] risks, Bacterial peritonitis, interstitial nephritis, Pneumonia risks due to [facility] use of PPI. CODE STATUS: Full DVT Prophy: Lovenox 40mg subcut Diet: NPO for procedure GI Prophy: Was started on PPI by Dr. Giron. Disposition: Expected length of stay ~24 hours. Patient will get stress test today and if negative plan to d/c home. May d/c home in same day. Review ED note, d/w ED provider Dr. Giron, d/w floor nurse, review w/ patient. D/w Dr. Winchester today. Stress today. Cover infiltrates with 5 days total of abx. Labs/Tele/Obs data reviewed and at present patient is pain free and stable. 70 minutes spent today on coordination of care. D/w ER doctor, floor nurses 1230 this am. Patient seen this am in room 110. Reviewed overnight nurse notes, ER note, imaging, labs. Pending Stress test. Patient is now pain free. Nausea free, symptom free. Reviewed home meds. Will reassess this afternoon once the stress test is completed.
[2021-05-20] MEDS ORDERED: ZITHROMAX 500 MG in SODIUM CHLORIDE 250 ML IV ONE (06:02)
[2021-05-20] MEDS ORDERED: ROCEPHIN 1 GM/50 ML D5W 1 GM/50 ML BAG IV ONE (06:03)
[2021-05-20 08:24] LABS: BASOPHILS % (AUTO) 0.5 % (0.0-3.0); EOSINOPHILS # (AUTO) 0.1 K/ul (0.0-0.7); EOSINOPHILS % (AUTO) 2.9 % (0.0-7.0); HEMATOCRIT 33.5 % (37.0-47.0); HEMOGLOBIN 10.9 g/dl (12.0-16.0); LYMPHOCYTES # (AUTO) 1.9 K/uL (0.60-3.4); LYMPHOCYTES % (AUTO) 42.8 (10.0-50.0); MEAN CORPUSCULAR HEMOGLOBIN 30.5 pg (27.0-31.0); MEAN CORPUSCULAR HGB CONC 32.5 (31.8-35.4); MEAN CORPUSCULAR VOLUME 93.8 fl (81.0-99.0); MONOCYTES # (AUTO) 0.4 K/uL (0.4-2.0); MONOCYTES % (AUTO) 9.7 (0-10); NEUTROPHILS % (AUTO) 44.1 % (42.2-75.2); PLATELET COUNT 226 10^3/uL (140-440); RDW COEFFICIENT OF VARIATION 13.6 % (11.6-14.8); RED BLOOD COUNT 3.57 10^6/ul (4.20-5.40); WHITE BLOOD COUNT 4.44 K/ul (4.6-10.2)
[2021-05-20] MEDS ORDERED: MOBIC PO SCH (08:30)
[2021-05-20] MEDS ORDERED: ASPIRIN EC PO SCH (08:30)
[2021-05-20] MEDS ORDERED: ASPIRIN CHEWABLE PO SCH (08:30)
[2021-05-20 08:48] LABS: TROPONIN I < 0.012 ng/ml (0.0000-0.120)
[2021-05-20] MEDS ORDERED: VASOTEC PO SCH (09:00)
[2021-05-20] MEDS ORDERED: PROTONIX IV IVP SCH (09:00)
[2021-05-20] MEDS ORDERED: MULTIVITAMIN TABLET PO SCH (09:00)
[2021-05-20] MEDS ORDERED: WELLBUTRIN XL PO SCH (09:00)
[2021-05-20] MEDS ORDERED: LOVENOX SUBCUT SCH (09:00)
[2021-05-20] MEDS ORDERED: DOBUTAMINE 500 MG-D5W 250 ML 500 MG/250 ML BAG IV SCH (11:15)
--- NOTE | 2021-05-20 11:47 | STRESSMOD ---
Date of Test: 05/20/2021 Ordering Physician: DR. FLORIDA LUNA Occupation:RETIRED Reason for Exam: CHEST PAIN, HTN, GERD Smoking History: NONE Height: 62" Weight: 196 LBS Current Medications:METOPROLOL, MELOXICAM, ENALAPRIL, BUPROPION HCL, ASA, OMEPRAZOLE, NYSTATIN Resting EKG: SINUS RHYTHM/ NO ACUTE CHANGES Target Heart Rate: 129/152 S-T SEGMENT STAGE MPH/GRADE HEART RATE BPM BLOOD PRESSURE mmhg RHYTHM +/- ELEVATION DEPRESSION SYMPTOMS At Rest 61 BPM 110/78 MMHG SR X NONE 1 1.7/0% 100 BPM 180/80 MMHG SR X NONE 2 1.7/5% 3 1.7/10% 4 2.5/12% 5 3.4/14% Immediately After 115 BPM SR X SHORT OF AIR Minutes Post Exercise 2" 76 BPM 160/80 MMHG SR X NONE Minutes Post Exercise 5" 72 BPM 110/78 MMHG SR X NONE DURATION OF EXERCISE: 4:00 MAXIMUM HEART RATE REACHED: 115 BPM REASON FOR TERMINATION: SHORT OF AIR 97% OXYGEN SATURATION WITH EXERCISE ON ROOM AIR INTERPRETATION: 1. NO EVIDENCE OF ISCHEMIA FROM RESTING HEART RATE 65 BPM TO 110 BPM WITH EXERCISE 2. NO CHEST PAIN OR CHEST DISCOMFORT 3. BLOOD PRESSURE RESPONSE ADEQUATE 4. COUPLE OF PAC'S WITH EXERCISE NORMAL LEFT VENTRICLE CONTRACTILITY-- RESTING AND POST EXERCISE MTDD
[2021-05-20] MEDS: LOPRESSOR PO SCH ×2 (12:39→12:46)
[2021-05-20 14:38] VITALS: BP 118/77; TEMP 97.5
--- NOTE | 2021-05-20 18:04 | PCM.DC ---
Final Diagnosis: 1. Non cardiac chest pain 2. Pulmonary infiltrates 3. Hiatal Hernia 4. Nausea. (1) Chest pain: Status: Acute Code(s): R07.9 - Chest pain, unspecified SNOMED Code(s): 61633018 (2) Elevated d-dimer: Status: Acute Code(s): R79.89 - Other specified abnormal findings of blood chemistry SNOMED Code(s): 203503870 (3) Pulmonary infiltrate: Status: Acute Code(s): R91.8 - Other nonspecific abnormal finding of lung field SNOMED Code(s): 556417285 (4) BMI 35.0-35.9,adult: Status: Inactive Code(s): Z68.35 - Body mass index [BMI] 35.0-35.9, adult SNOMED Code(s): 793263071 Reason for Hospitalization: Atypical anginal Chest pain, nausea. Prognosis at Discharge: Pain free/stable. Negative Stress test. Trop negative x 2. Ddimer was elevated. CT PE protocol no PE present, infiltrates present. Wiill complete 3 days azithromycin and 5 days of cefdinir (total). Condition at Discharge: Baseline state. Optimized with Obs admit+D/C same day. Medications at Discharge: Ambulatory Orders Medication Instructions Recorded multivitamin (Daily Multi-Vitamin) 1 ea PO DAILY 07/20/14 aspirin 81 mg chewable tablet 81 mg PO DAILYWM 12/11/15 omeprazole 20 mg capsule,delayed 20 mg PO DAILY 12/11/15 release metoprolol tartrate 25 mg tablet 25 mg PO BID #180 tab 09/25/20 enalapril maleate 10 mg tablet 10 mg PO DAILY 02/02/21 bupropion HCl 300 mg 24 hr tablet, 300 mg PO DAILY #30 tab 03/20/21 extended release quetiapine 50 mg tablet (Seroquel) 75 mg PO qhs 30 Days #45 tab-cap 04/22/21 meloxicam 15 mg tablet 15 mg PO DAILY #90 tab 04/28/21 nystatin 100,000 unit/gram topical 1 applic TOPICAL BID PRN 05/19/21 cream nystatin 100,000 unit/gram topical 1 applic TOPICAL BID PRN 05/19/21 powder azithromycin 500 mg tablet See Rx Instructions .ROUTE 05/20/21 .COMPLEX #2 tab cefdinir 300 mg capsule 300 mg PO BID #8 cap 05/20/21 ondansetron 4 mg disintegrating 4 mg PO Q8-10H 7 Days #21 tab 05/20/21 tablet Lab/Diagnostics: Laboratory Last Values WBC 4.44 K/ul (4.6-10.2) L 05/20/21 08:17 RBC 3.57 10^6/ul (4.20-5.40) L 05/20/21 08:17 Hgb 10.9 g/dl (12.0-16.0) L 05/20/21 08:17 Hct 33.5 % (37.0-47.0) L 05/20/21 08:17 MCV 93.8 fl (81.0-99.0) 05/20/21 08:17 MCH 30.5 pg (27.0-31.0) 05/20/21 08:17 MCHC 32.5 (31.8-35.4) 05/20/21 08:17 RDW Coeff of Joselito 13.6 % (11.6-14.8) 05/20/21 08:17 Plt Count 226 10^3/uL (140-440) 05/20/21 08:17 Immature Gran % (Auto) 0.0 % (0.0-5.0) 05/20/21 08:17 Neut % (Auto) 44.1 % (42.2-75.2) 05/20/21 08:17 Lymph % (Auto) 42.8 (10.0-50.0) 05/20/21 08:17 Traill % (Auto) 9.7 (0-10) 05/20/21 08:17 Eos % (Auto) 2.9 % (0.0-7.0) 05/20/21 08:17 Baso % (Auto) 0.5 % (0.0-3.0) 05/20/21 08:17 Neut # (Auto) 2.0 K/ul (2.0-6.9) 05/20/21 08:17 Lymph # (Auto) 1.9 K/uL (0.60-3.4) 05/20/21 08:17 Traill # (Auto) 0.4 K/uL (0.4-2.0) 05/20/21 08:17 Eos # (Auto) 0.1 K/ul (0.0-0.7) 05/20/21 08:17 Baso # (Auto) 0.0 K/uL (0-0.2) 05/20/21 08:17 Immature Gran # (Auto) 0.0 (0.0-1.0) 05/20/21 08:17 Sodium 138.0 mmol/L (134.5-145) 05/19/21 21:43 Potassium 4.07 mmol/L (3.5-5.1) 05/19/21 21:43 Chloride 107.4 mmol/L (98-107) H 05/19/21 21:43 Carbon Dioxide 23.8 mmol/L (22-30.0) 05/19/21 21:43 Anion Gap 10.87 05/19/21 21:43 BUN 21.3 mg/dL (7-17) H 05/19/21 21:43 Creatinine 1.01 mg/dL (0.60-1.30) 05/19/21 21:43 Estimated GFR (MDRD) 55.00 mL/min 05/19/21 21:43 BUN/Creatinine Ratio 21.08 05/19/21 21:43 Glucose 124.6 mg/dL (74-106) H 05/19/21 21:43 Calcium 9.14 mg/dL (8.4-10.2) 05/19/21 21:43 Total Bilirubin 0.24 mg/dL (0.2-1.3) 05/19/21 21:43 AST 29.1 U/L (14-36) 05/19/21 21:43 ALT 37.6 U/L (0-35) H 05/19/21 21:43 Alkaline Phosphatase 86.9 U/L (53-141) 05/19/21 21:43 Total Creatine Kinase 141.0 U/L (30-135) H 05/20/21 08:17 CK-MB (CK-2) 1.980 ng/ml (0.0-2.38) 05/20/21 08:17 CK-MB (CK-2) % 1.4000 05/20/21 08:17 Troponin I < 0.012 ng/ml (0.0000-0.120) 05/20/21 08:17 Total Protein 6.08 g/dL (6.3-8.2) L 05/19/21 21:43 Albumin 3.86 g/dL (3.5-5.0) 05/19/21 21:43 Globulin 2.22 05/19/21 21:43 Albumin/Globulin Ratio 1.73 05/19/21 21:43 D-Dimer 583.68 ng/mL (<500) H 05/19/21 21:43 Adenovirus (PCR) Not detected (NOT DETECT) 05/19/21 22:20 B. pertussis DNA (PCR) Not detected (NOT DETECT) 05/19/21 22:20 B.parapertussis DNA PCR Not detected (NOT DETECT) 05/19/21 22:20 C. pneumoniae DNA (PCR) Not detected (NOT DETECT) 05/19/21 22:20 Coronavirus OC43 (PCR) Not detected (NOT DETECT) 05/19/21 22:20 Coronavirus HKU1 (PCR) Not detected (NOT DETECT) 05/19/21 22:20 Coronavirus 229E (PCR) Not detected (NOT DETECT) 05/19/21 22:20 Coronavirus NL63 (PCR) Not detected (NOT DETECT) 05/19/21 22:20 Human Metapneumovir PCR Not detected (NOT DETECT) 05/19/21 22:20 Influenza Type A (PCR) Not detected (NOT DETECT) 05/19/21 22:20 Influenza B (RT-PCR) Not detected (NOT DETECT) 05/19/21 22:20 M. pneumoniae (PCR) Not detected (NOT DETECT) 05/19/21 22:20 Parainfluenza 1 (PCR) Not detected (NOT DETECT) 05/19/21 22:20 Parainfluenza 2 (PCR) Not detected (NOT DETECT) 05/19/21 22:20 Parainfluenza 3 (PCR) Not detected (NOT DETECT) 05/19/21 22:20 Parainfluenza 4 (PCR) Not detected (NOT DETECT) 05/19/21 22:20 RSV (PCR) Not detected (NOT DETECT) 05/19/21 22:20 Entero/Rhino (PCR) Not detected (NOT DETECT) 05/19/21 22:20 SARS-CoV-2 (PCR) Not detected (NOT DETECT) 05/19/21 22:20 CTA: Impression: No evidence of pulmonary embolism. Bilateral infiltrates, suspicious for pneumonia. Moderate hiatal hernia. CT abdomen and pelvis: Impression: 1. No inflammatory process, bowel or urinary obstruction 2. Moderate hiatus hernia without complicating features. Increased diameter of the hiatus hernia compared with 03/15/2016. Education Provided to Patient and Family: 1. Non cardiac chest pain 2. Abx. 3. Nausea medication 4. Hiatal hernia/GERD 5. When to return to clinic/hospital. Follow-ups: Dr. De La Vega 05/27/21 at 1500. Discharge Disposition: Home Hospital Course: Ms. Browning is a 66-year-old female who presented to the emergency room at 2123 on May 1721. She presented with 1 hour history of left-sided chest pain that started spontaneously. Denies any trauma, no lifting, no falls no change in activity. She was concerned that she felt as if she had another blood clot and felt like this previously. Last stress test back in 2018. Reported pain to Dr. Broussard, the emergency room physician that it was a squeezing pain lasting 10 to 15 minutes and rated this as a 6-7 out of 10 with nausea. Patient presented as a walk-in to the emergency room and had vitals initially of temperature 97.6, pulse 72, respiratory rate 18, blood pressure 121/74 and pulse ox of 97%. Vitals were checked regularly and heart rate ranged from 60 through 72 respiratory rate 16 through 20 and blood pressure 90-137/64-84. OPAL risk score of 4, EKG was reported to me as normal over telephone at 1230 this morning. Labs showed CBC mild anemia else normal with white blood cell count 5.95 hemoglobin 11.9 platelet 225. Metabolic panel essentially within normal limits except for mild hyperglycemia. Sodium 138, potassium 4.07, chloride 107.4, creatinine 1.01 with a GFR 55 stage IIIa. Glucose 124.6, calcium 9.14, AST 29.1, ALT 37.6, total CK 176.5 troponin I was negative and troponin II was pending at the time of phone conversation this morning. D-dimer was found to be elevated at 583.68 but was not reported to me. [employer] PCR for infectious etiologies negative, Covid negative. Patient was placed on telemetry and monitored without any atypia. Physical exam was listed as obese else noncontributory. The patient was given a GI cocktail which did improve symptoms. She was given aspirin as well as morphine and Toradol and Zofran.Her last stress test was back in July 2018 without any evidence of ischemia from resting heart rate 70-120 with exercise. She had no chest pain or discomfort with that activity no arrhythmia and blood pressure response was normal. Over the telephone Dr. Giron felt it was GI related as GI coctail did help. Patient was admitted to room 110 as observation. At time of admission patient was not in any pain. Patient was made n.p.o. for imaging in the morning for her to get a stress test today. Nausea noted in the emergency room has resolved. She did have normal examination findings per floor nurses well. Patient is a full code and this is appropriate. Mild dizziness is present and fall precautions were initiated. I reviewed the ER nursing notes and patient did get a nitro which did help with chest pain. Blood pressure did have a small drop. Observation narratives were reviewed. 2:00 this morning patient was resting eyes closed without any signs of pain or distress. Telemetry on board with sinus rhythm. IV intact fall precautions in place. IV Protonix was added this morning. At 4:00 the patient was resting comfortably. oxygen 1 L normal saline stable. Unchanged status at 5:00. I arrived at hospital at 530 and reviewed chart within the hospital setting. CT chest was performed no evidence of pulmonary embolism bilateral infiltrates are concerning for possible pneumonia. Moderate hiatal hernia was noted.I will cover the patient with azithromycin 500mg daily x 3 days for community-acquired pneumonia and will also add cefdinir at d/c. For today IV azithromycin 500 x1, rocephin 1 G x 1. Second troponin returned negative and CK has dropped from 176.[address] chest/abdomen completed and negative. Stress test completed INTERPRETATION: 1.NO EVIDENCE OF ISCHEMIA FROM RESTING HEART RATE 70 BPM TO 120 BPM WITH EXERCISE 2. NO CHEST PAIN OR DISCOMFORT 3. NO ARRHYTHMIAS 4. BLOOD PRESSURE RESPONSE NORMAL NORMAL LEFT VENTRICULAR CONTRACTILITY BY ECHO--RESTING AND POST EXERCISE REVIEW OF SYMPTOMS: (Positives bolded) General: weight loss, fever,chills,night sweats, fatigue, appetite loss HEENT: blurry vision, eye pain, eye discharge, dry eyes, decreased vision, sore throat tinnitus, bloody nose, hearin gloss, sinus pain/pressure, ear pain/pressure. Respiratory:shortness of breath,cough, hemoptysis, wheezing, pleurisy, Cardiovascular:chest pain,PND, palpitation, edema, orthopnea, syncope, swelling of extremities,SOA Gastro: Nausea,vomiting, diarrhea, hematemesis, abdominal pain, constipation Genito:hematuria, dysuria, glycosuria, hesitancy, frequency, incontinence [place]ckelo: Arthralgia, myalgia,muscle weakness, joint swelling, NSAID use Skin:rash, pruritis, sores, nail changes, skin thickening, change in wart/mole, itching, rash, new lesions,pruritus, nail changes Neuro: Migraine, numbness, ataxia, tremor, vertigo,weakness, memory loss, Irritability, dizziness Endocrine:excessive thirst, polyuria, cold intolerance, heat intolerance, goiter Psychiatric:depression, anxiety, anti-depressants, alcohol abuse, drug abuse, insomnia, change in sleep pattern and mood changes Heme/lymph:easy bruising, bleeding gums, blood clots, swollen glands, lymphedema, Allergic/immune:allergic rhinitis, hay fever, asthma, hives Vital Signs 05/20/21 14:00 Temperature 97.5 F L Pulse Rate 63 Respiratory Rate 14 Blood Pressure 118/77 O2 Sat by Pulse Oximetry 97 Constitutional:Appearance-No acute distress, Consistent with stated age. Orientation- Oriented x 3, alertGait-Normal pace, normal arm movement.Build and Nutrition- obese femaleGeneral- Patient is pleasant and cooperative with the interview and exam. Integumentary: General-No rashes, ulcers or lesions.Palpation- Normal skin moisture/turgor. Skin is warm to touch, appropriate. Capillary refill is normal bilateral Upper and lower extremity. Head/Neck:Head- normocephalic and atraumatic.Neck- without visible/palpable lumps or pulsations.Palpation- No bony tenderness about head/neck along frontal, occipital, temporal, parietal, mastoid, jawline, zygoma, orbit or any other location. NO temporal artery tenderness. No TMJ tenderness. Neck Supple.Thyroid-No thyromegaly, no nodules Eye:Bilaterally PERRLA, EOMI. No discharge. Upper and lower eyelids are normal. Sclera/conjunctiva normal without discharge. Cornea is normal and clear. Lens is normal. Eyeball appears normal. No ciliary flushing, no conjunctival injection. ENMT:Pinna- normal without tenderness or erythema.External auditory canal Left-normal without erythema or discharge, no excessive cerumen.External auditory canal Right-normal without erythema or discharge, no excessive cerumen.TM left- Sterling/pearly, normal light reflex and anatomyTM Right- Sterling/pearly, normal light reflex and anatomyHearing Assessment-normal to conversational speech.Nose and sinus- No sinus tenderness along frontal/maxillary region. External appearance normal and midline.Nares- bilateral quiet airflow, no discharge.Nasal mucosa- No bleeding noted and no ulcerations observed. [place], moist. Turbinates non boggy.Lips-normal color, moist without cracks/lesionsOral Cavity/Palate- hard/soft palate intact without lesions, oral mucosa pink and moist. Dentition assessed [] and discussed approp [facility] oral care. Tongue normal midline.Oropharynx- no pharyngeal erythema, Uvula midline. No post nasal drip. No exudate.Salivary glands- Non tender to palpation CHEST/LUNG:Inspection- symmetric chest wall no pectus deformity. Normal effort, no distress, no use of accessory muscles.Palpation- nontender sternum, ribline. No abnormal pulsations.Auscultation- Breath sounds normal throughout all lung velasquez. Normal tracheal sounds, Normal bronchial sounds overlying sternum, Bronchovessicular sounds normal between scapulae posteriorly, Normal vessicular breath sounds heard throughout periphery. Lungs are clear today. Adventitious sounds- No wheezes, rales, rhonchi. CARDIOVASCULAR:Carotid artery-normal, no bruits or abnormal pulsations. Jugular vein- no pulsations.Palpation/Percussion- Normal PMI, no palpable thrillAuscultation- Regular rate and rhythm. No murmur noted in sitting, supine positions.Extremities- no digital clubbing, cyanosis, edema, increased warmth. ABDOMEN:Inspection- normal and no visible pulsations. Normal contour. Auscultation- Bowel sounds normal, no abdominal bruits.Palpation/Percussion- soft, non-tender, no rebound tenderness, no rigidity (guarding), no jar tenderness, no masses.Liver-no hepatomegaly,Spleen no splenomegaly,Hernias - none.Rectalnot examined. Peripheral Vascular:Upper extremityLeft- Normal temperature with pink nailbeds and no ulcerations.Upper extremity Right-Normal temperature with pink nailbeds and no ulcerations.Lower extremity- Normal temperature with pink nailbeds and no ulcerations. DP pulses 2+ bilaterally. Pedal hair intact. Normal capillary refill.Edema- No edema. Musculoskeletal:Generalized-No generalized swelling or edema of extremities, no digital clubbing or cyanosis, neurovascularly intact all four extremities. Upper extremity- Symmetrical posture. No visible deformity. Normal sensation along medial and lateral upper extremity proximally and distally. NO tenderness overlying shoulder, lateral/medial epicondyle. [employer] 5/5 and strength 5/5 bilateral UE. Elbow palpated, no tenderness overlying olecranon. Normal supination, pronation to active/passive ROM and to resisted rotation. Bicep insertion/tricep insertion appear normal without obvious pathology. Rotator cuff evaluated and intact. Normal wrist ROM bilaterally. Normal hand movement, intrinsic muscles of hands normal. No tenderness to palpation of hands/wrists/elbows. Lower extremity- Hip: Not tender to palpation, no pain, no swelling, edema or erythema of surrounding tissue, normal strength and tone. Normal appearing hip ROM bilaterally without pain. Knee: Knee ROM normal. No tenderness overlying trochanters, no tenderness about patella, quad tendon, patellar tendon. No tenderness at tibial tuberosity. Ankle: normal ROM not tender to palpation along medial/lateral malleolus. Foot: Normal movement of toes, no tenderness bilateral feet/toes. Normal foot type. Spine/Ribs- No deformities, masses or tenderness, no known fractures, normal strength, Normal ROM. Normal stability No tenderness along C/T/L spine. Normal appearing ROM about spine. Neurological:General- Moves all 4 extremities symmetrically. Symmetrical face and body posture.Cranial nerves- individuallyevaluated II-XII and intact. PERRLA, Normal EOMI, visual/special senses appear intact, Face is symmetrical and normal sensation/movement, normal tongue, normal strength/posture of neck musculature.Reflexes- intact with DTR 2+ patellar, Achilles, bicep, brachial, tricep. Ankle clonus normal with 2 beats. Strength-5/5 bilateral UE and LE. Soft touch- intact bilateral UE and LE.Temperature sensation-intact bilateral UE and LE. Neuropsych:Oriented- Person, place, time. (AAOx3),Mood/affect- normal and congruent. Able to articulate well.Speech-Normal speech, normal rate, normal tone, normal use of language, volume and coherence.Thought content- normal with ability to perform basic computations and apply abstract thought/reason. Associations- intact, no SI/HI, no hallucinations, delusions, obsessions. Judgment/insight- Appropriate.Memory-Recall intact, remote and recent memory intact.Knowledge- Age appropriate fund of knowledge, concentration and attention span normal. Lymphatic: Head/Neck- normal size and non tender to palpation.Axillary- normal size and non tender to palpation.Femoral and Inguinal- normal size and non tender to palpation. Visit #2: Patient was seen again by me at 1730. The patient has no problems now, no concerns now. We discussed her discharge today. I discussed close follow-up with me and we will get her an appointment on May 27 at 1500. We will work to consider getting her see a surgeon for her hiatal hernia. This has worsened with time and she is in pain. This pain seems to come and go it is colicky crampy and has some ACS-like appearance to it. Negative stress today negative troponins x2. Plan to discharge today with Zofran for nausea and we will cover the pulmonary infiltrates with appropriate antibiotics for community-acquired pneumonia. Plan: Problem: Chest Pain Goal #1: Absence/improved chest pain Instructions: Apply oxygen as ordered Take medication for chest pain as needed Monitor symptoms, N/V and diaphoresis Monitor chest pain characteristics Goal #2: No elevation in cardiac enzymes Instructions: Obtain labs to monitor enzyme levels 1. D/C home today. Negative Stress 2. Infiltrates on CT scan c/w Pneumonia. Possibly early but could explain symptoms. - 2 days 500mg azithromycin PO - 4 days cefdinir 300mg BID.3. 3. F/u visit with me on tuesday05/27/21 at 1500. Total today >55 minutes for obs admit/dc same day. High severity process.
== END 2021-05-20 18:20 | disposition home or self-care (01) ==
LOC: MEDSURG A 21:17 → ED 21:17 → MEDSURG A 05-20 00:55
PROVIDERS: ADMIT Family Medicine; ATTEND Family Medicine
DX: F41.9 Anxiety disorder, unspecified; R06.02 Shortness of breath; R11.0 Nausea; R91.8 Other nonspecific abnormal finding of lung field; Z20.822 Contact with and (suspected) exposure to COVID-19; K21.9 Gastro-esophageal reflux disease without esophagitis; K44.9 Diaphragmatic hernia without obstruction or gangrene

== ENCOUNTER 2021-06-08 10:37 | Inpatient (IN) ==
[2021-06-08 11:19] LABS: BASOPHILS % (AUTO) 0.3 % (0.0-3.0); HEMATOCRIT 37.8 % (37.0-47.0); HEMOGLOBIN 12.8 g/dl (12.0-16.0); IMMATURE GRANULOCYTE % (AUTO) 0.3 % (0.0-5.0); LYMPHOCYTES # (AUTO) 0.6 K/uL (0.60-3.4); MEAN CORPUSCULAR HGB CONC 33.9 (31.8-35.4); MEAN CORPUSCULAR VOLUME 91.5 fl (81.0-99.0); MONOCYTES # (AUTO) 0.2 K/uL (0.4-2.0); NEUTROPHILS # (AUTO) 2.9 K/ul (2.0-6.9); NEUTROPHILS % (AUTO) 78.4 % (42.2-75.2); PLATELET COUNT 167 10^3/uL (140-440); RDW COEFFICIENT OF VARIATION 13.3 % (11.6-14.8); RED BLOOD COUNT 4.13 10^6/ul (4.20-5.40)
[2021-06-08 11:31] LABS: ALANINE AMINOTRANSFERASE 58.7 U/L (0-35); ALBUMIN 3.71 g/dL (3.5-5.0); ALKALINE PHOSPHATASE 98.4 U/L (53-141); ASPARTATE AMINO TRANSFERASE 67.3 U/L (14-36); BILIRUBIN,TOTAL 0.38 mg/dL (0.2-1.3); CALCIUM 8.15 mg/dL (8.4-10.2); CARBON DIOXIDE 25.1 mmol/L (22-30.0); CHLORIDE 104.8 mmol/L (98-107); CREATININE 0.88 mg/dL (0.60-1.30); GLUCOSE 128.8 mg/dL (74-106); POTASSIUM 3.68 mmol/L (3.5-5.1); SODIUM 138.8 mmol/L (134.5-145); TOTAL PROTEIN 6.63 g/dL (6.3-8.2)
[2021-06-08 11:38] LABS: ABG O2 HGB 93.1 % (95-100); BEecf 3.2 (-2.0-3.0); COHb 1.6 (0.5-1.5); HCO3 25.7 (21-28); TCO2 26.6 (19-24); sO2 94.6 % (94-98); tHb 12.9 g/dl (11.7-17.4)
[2021-06-08 11:39] LABS: ABG PH 7.54 (7.35-7.45)
[2021-06-08 11:43] LABS: WHITE BLOOD COUNT 3.63 K/ul (4.6-10.2)
--- NOTE | 2021-06-08 13:35 | ED.PDOC ---
General ED Provider: Dr. NEEL EPSTEIN Chief Complaint: Nausea/Vomiting Stated Complaint: comes to the ER with Nausea vomiting and Loose stools for several weeks since last month. she was recently diagnosed with COVID and feels poorly. Time Seen by Provider: 06/08/21 10:39 Mode of Arrival: Wheelchair Information Source: Patient Primary Care Provider: FLORIDA LUNA MD Nursing and Triage Documentation Reviewed and Agree: Yes Does patient meet sepsis criteria?: No System Inflammatory Response Syndrome: Not Applicable Sepsis Protocol: For patient's 13 years and over: Temp is 96.8 and below OR 101 and greater Pulse >90 BPM Resp >20/minute Acutely Altered Mental Status Are patient's symptoms suggestive of a new infection, such as: -Pneumonia -Skin, Soft Tissue -Endocarditis -UTI -Bone, Joint Infection -Implantable Device -Acute Abdominal Infection -Wound Infection -Meningitis -Blood Stream Catheter Infection -Unknown Review of Systems Review Of Systems Constitutional: Reports Malaise and Other (BODY ACHES ) Eyes: Reports No symptoms Ears, Nose, Mouth, Throat: Reports No symptoms Respiratory: Reports No symptoms Cardiac: Reports No symptoms GI: Reports Diarrhea, Nausea and Vomiting : Reports No symptoms Musculoskeletal: Reports No symptoms Skin: Reports No symptoms Neurological: Reports Anxiety Endocrine: Reports No symptoms Hematologic/Lymphatic: Reports No symptoms All Other Systems: Reviewed and Negative [facility] Medical History Abnormal mammogram of right breast Arthritis Asthma Cataract (lens) fragments in eye following cataract surgery, bilateral Chronic depression Colitis Diverticulosis Gastroesophageal reflux disease Hiatal hernia Hx pulmonary embolism Hypertension Impairment of balance Memory loss Onychomycosis SI (sacroiliac) joint dysfunction Sinusitis Spinal stenosis Use of cane as ambulatory aid Varicosities of leg Family History Mother Hypertension FATHER Cancer Social History Smoking and tobacco status: Never smoker Second hand smoke exposure: No Alcohol intake: never Substance use type: does not use Agree to transfusion: Yes Adopted: Yes Caregiver/support person: No Foster care: No Household members: spouse Housing: house Lives independently: Yes Daycare: no daycare Number of children: 4 Number of grandchildren: 8 Highest education level completed: some college, no degree Financial difficulty paying for basics: decline to answer service: No retirement: No Current occupational status: disabled Pets and animals: Yes Leisure activites: reading History of recent travel: No Do you think of yourself as: straight/heterosexual Seatbelt use: always Helmet use: No Drives intoxicated or rides with intoxicated trackless trolley driver: No Current diet type/program: regular Well-balanced diet: daily Caffeine: Yes Eating out: rarely or never Reads food labels: seldom or never During the past year weight has: remained stable Water heater temperature set < 120 degrees: Yes Working smoke detector in home: Yes Fire extinguisher in home: No Carbon monoxide detector in home: Yes Firearms in home: Yes Firearms unloaded and locked: Yes What type of physical activity do you participate in?: none, walking and other cardio Physical activity functional status: independent ambulation How many days of moderate to strenuous exercise, like a brisk walk, did you do in the last 7 days: 1 Surgical History History of appendectomy History of bladder suspension procedure History of cholecystectomy History of fusion of cervical spine History of hysterectomy History of oophorectomy History of right hip replacement History of tonsillectomy and adenoidectomy Female Reproductive History Menstrual Hx Hysterectomy: Yes Hx Tubal Ligation: No Physical Exam Physical Exam Appearance: Reports Obese Ill-appearing: Mild Pain Distress: Moderate Eyes: Reports PERLA and EOMI ENT: Reports Nose normal and Oropharynx normal Neck: Supple Respiratory: Reports Breath sounds clear and Breath sounds equal Cardiovascular: Reports RRR, Pulses normal and No rub GI/: Reports Soft and Nontender Musculoskeletal: Reports Normal strength and ROM intact Skin: Reports Warm and Dry Neurological: Reports Sensation intact, Motor intact, Alert and Oriented Psychiatric: Reports Anxious Interpretation Radiology Interpretation Radiology Interpretation By: Radiologist Radiology Results: Positive Exam Interpreted: CT Scan (1. Negative for pulmonary embolus. 2. Lung findings consistent with COVID-19 pneumonia. 3. Hepatic steatosis. 4. Moderate hiatal hernia.) Physician Notification Case Discussed Physician Notified: Yolette Time of Notification: 16:58 (ok to admit) Critical Care Note Critical Care Note Total Critical Care Time (mins): 30 Course Course Hematology/Chemistry: 06/08/21 11:13 06/08/21 11:13 Orders, Labs, Meds: Lab Review 06/08/21 06/08/2106/08/21 11:13 11:13 11:13 WBC 3.63 L RBC 4.13 L Hgb 12.8 Hct 37.8 MCV 91.5 MCH 31.0 MCHC 33.9 RDW Coeff of Joselito 13.3 Plt Count 167 Immature Gran % (Auto) 0.3 Neut % (Auto) 78.4 H Lymph % (Auto) 16.0 [place] % (Auto) 5.0 Eos % (Auto) 0.0 Baso % (Auto) 0.3 Neut # (Auto) 2.9 Lymph # (Auto) 0.6 [place] # (Auto) 0.2 L Eos # (Auto) 0.0 Baso # (Auto) 0.0 Immature Gran # (Auto) 0.0 Puncture Site Base Excess O2 Saturation ABG pH ABG pCO2 ABG pO2 ABG HCO3 ABG Total CO2 Julio Cesar Test Hemoglobin Oxyhemoglobin Carboxyhemoglobin Total Hemoglobin FiO2 % Sodium 138.8 Potassium 3.68 Chloride 104.8 Carbon Dioxide 25.1 Anion Gap 12.58 BUN 17.0 Creatinine 0.88 Estimated GFR (MDRD) 64.00 BUN/Creatinine Ratio 19.31 Glucose 128.8 H Lactic Acid Calcium 8.15 L Ferritin 593.00 H Total Bilirubin 0.38 AST 67.3 H ALT 58.7 H Alkaline Phosphatase 98.4 Total Protein 6.63 Albumin 3.71 Globulin 2.92 Albumin/Globulin Ratio 1.27 Procalcitonin < 0.05 D-Dimer 06/08/21 06/08/21 06/08/21 11:13 11:13 11:15 WBC RBC Hgb Hct MCV MCH MCHC RDW Coeff of Joselito Plt Count Immature Gran % (Auto) Neut % (Auto) Lymph % (Auto) [place] % (Auto) Eos % (Auto) Baso % (Auto) Neut # (Auto) Lymph # (Auto) [place] # (Auto) Eos # (Auto) Baso # (Auto) Immature Gran # (Auto) Puncture Site R rad Base Excess 3.2 H O2 Saturation 94.6 ABG pH 7.54 H* ABG pCO2 30.0 L ABG pO2 64.0 L ABG HCO3 25.7 ABG Total CO2 26.6 H Julio Cesar Test Y Hemoglobin 1.0 Oxyhemoglobin 93.1 L Carboxyhemoglobin 1.6 H Total Hemoglobin 12.9 FiO2 % 21.0 Sodium Potassium Chloride Carbon Dioxide Anion Gap BUN Creatinine Estimated GFR (MDRD) BUN/Creatinine Ratio Glucose Lactic Acid 1.06 Calcium Ferritin Total Bilirubin AST ALT Alkaline Phosphatase Total Protein Albumin Globulin Albumin/Globulin Ratio Procalcitonin D-Dimer 965.51 H Orders Category Date Time Status ABG DRAW REQUEST DAILY@0600 CARDIO 06/09/21 06:00 Ordered ABG DRAW REQUEST DAILY@0600 CARDIO 06/10/21 06:00 Ordered ABG DRAW REQUEST Stat CARDIO 06/08/21 10:51 Completed EKG-(ED ONLY) Stat CARDIO 06/08/21 12:48 Completed METERED DOSE INHALATION Routine CARDIO 06/08/21 17:03 Ordered CONTINUOUS PULSE OX (NURSING) PULSEOX CARE 06/08/21 17:01 Active NPO REMINDER: IMAGING ONCE CARE 06/08/21 13:45 Completed TELEMETRY MONITORING TELE CARE 06/08/21 17:01 Active ED APPLY O2 .ONCE EMERGENCY 06/08/21 10:52 Active ED CASE MANAGEMENT COORDINATOR APPLIED .ONCE EMERGENCY 06/08/21 10:52 Active ED IV/MEDIPORT/POWERPORT .ONCE EMERGENCY 06/08/21 10:52 Active ED VITAL SIGNS Q1HR EMERGENCY 06/08/21 10:52 Active ABG COOX DAILY@0600 LAB 06/09/21 06:00 Ordered ABG COOX DAILY@0600 LAB 06/10/21 06:00 Ordered ABG COOX Stat LAB 06/08/21 11:15 Completed BLOOD CULTURE (ED ONLY) Stat LAB 06/08/21 11:13 Received C-REACTIVE PROTEIN DAILY@0600 LAB 06/09/21 06:00 Ordered C-REACTIVE PROTEIN DAILY@0600 LAB 06/10/21 06:00 Ordered CBC W/ AUTO DIFF Stat LAB 06/08/21 11:13 Completed COMPREHENSIVE METABOLIC PANEL Stat LAB 06/08/21 11:13 Completed D-DIMER Stat LAB 06/08/21 11:13 Completed FERRITIN DAILY@0600 LAB 06/09/21 06:00 Ordered FERRITIN DAILY@0600 LAB 06/10/21 06:00 Ordered FERRITIN Stat LAB 06/08/21 11:13 Completed LACTIC ACID Stat LAB 06/08/21 11:13 Completed Lactic Acid Dehydrogenase DAILY@0600 LAB 06/09/21 06:00 Ordered Lactic Acid Dehydrogenase Stat LAB 06/08/21 11:13 Received PROCALCITONIN Stat LAB 06/08/21 11:13 Completed TROPONIN I DAILY@0600 LAB 06/09/21 06:00 Ordered TROPONIN I DAILY@0600 LAB 06/10/21 06:00 Ordered 0.9 % Sodium Chloride [Saline Flush] MEDS 06/08/21 10:51 Active 1 syr IVF PRN PRN Albuterol Inhaler(with Spacer) [Ventolin Hfa (Per Puff- MEDS 06/08/21 21:00 Ordered with Spacer)] 2 puff IH TID Aspirin [Aspirin Chewable] MEDS 06/09/21 08:30 Ordered 81 mg PO DAILYWM Benzonatate [Tessalon Perles] MEDS 06/08/21 21:00 Ordered 100 mg PO BID Budesonide/Formoterol Fumarate [Symbicort 160-4.5 Mcg MEDS 06/08/21 21:00 Ordered Inhaler] 2 puff IH BID Bupropion HCl [Wellbutrin Xl] MEDS 06/09/21 09:00 Ordered 300 mg PO DAILY Cholecalciferol (Vitamin D3) [Vitamin D] MEDS 06/09/21 09:00 Ordered 5,000 unit PO DAILY Dexamethasone Sod Phosphate [Decadron] MEDS 06/09/21 09:00 Ordered 6 mg IM DAILY Enalapril Maleate [Vasotec] MEDS 06/09/21 09:00 Ordered 10 mg PO DAILY Meloxicam [Mobic] MEDS 06/09/21 09:00 Ordered 15 mg PO DAILY Metoprolol Tartrate [Lopressor] MEDS 06/08/21 21:00 Ordered 25 mg PO BID Nystatin [Nystatin Cream] MEDS 06/08/21 17:06 Ordered 1 applic TP BID PRN Nystatin [Nystop Powder] MEDS 06/08/21 17:06 Ordered 1 applic TP BID PRN Omeprazole [Prilosec] MEDS 06/09/21 09:00 Ordered 20 mg PO DAILY Quetiapine Fumarate [Seroquel] MEDS 06/08/21 17:30 Ordered 75 mg PO qhs Remdesivir Solution [Veklury] 100 mg MEDS 06/10/21 09:00 Ordered 0.9 % Sodium Chloride [Sodium Chloride] 250 ml IV DAILY Remdesivir Solution [Veklury] 200 mg MEDS 06/09/21 09:01 Active 0.9 % Sodium Chloride [Sodium Chloride] 250 ml IV ONCE Sodium Chloride 0.9% [Sodium Chloride] 1,000 ml MEDS 06/08/21 17:09 Active IV 30 mls/hr Zinc Sulfate [Zinc-220] MEDS 06/09/21 09:00 Ordered 220 mg PO DAILY multivitamin [Daily Multi-Vitamin] MEDS 06/09/21 09:00 Ordered [address] CHEST PE PROTOCOL Stat RADS 06/08/21 13:44 Completed Medications Generic Name Dose Route Start Last Admin Trade Name Nilay PRN Reason Stop Dose Admin Albuterol Sulfate 2 puff 06/08/21 20:00 Albuterol Sulfate (Ventolin Hfa) 18 Gm 1 Puff With Spacer IH RTTID [facility] Aspirin 81 mg 06/09/21 08:30 Aspirin 81 Mg Tab.Chew PO DAILYWM [facility] Benzonatate 100 mg 06/08/21 21:00 Benzonatate 100 Mg Capsule PO BID [facility] Budesonide/Formoterol Fumarate 2 puff 06/08/21 21:00 Budesonide/Formoterol Fumarate 160/4.5 Mcg Inhaler IH BID [facility] Bupropion HCl 300 mg 06/09/21 09:00 Bupropion Hcl 150 Mg Tab.Er.24h PO DAILY [facility] Cholecalciferol 5,000 unit 06/09/21 09:00 Cholecalciferol (Vitamin D3) 1,000 Unit (25 Mcg) Tablet PO DAILY [facility] Dexamethasone Sodium Phosphate 6 mg 06/09/21 09:00 Dexamethasone Sod Phos 10 Mg/Ml Inj IM DAILY [facility] Enalapril Maleate 10 mg 06/09/21 09:00 Enalapril Maleate 5 Mg Tablet PO DAILY [facility] Enoxaparin Sodium 40 mg 06/09/21 09:00 Enoxaparin Sodium 40 Mg/0.4 Ml Syr SUBCUT DAILY [facility] REMDESIVIR SOLUTION 200 mg/ 290 mls @ 145 mls/hr 06/09/21 09:01 Sodium Chloride IV 06/09/21 11:00 ONCE ONE REMDESIVIR SOLUTION 100 mg/ 270 mls @ 270 mls/hr 06/10/21 09:00 Sodium Chloride IV DAILY [facility] Sodium Chloride 1,000 mls @ 30 mls/hr 06/08/21 17:09 Sodium Chloride IV 06/10/21 02:28 .[id number] STA Meloxicam 15 mg 06/09/21 09:00 Meloxicam 7.5 Mg Tablet PO DAILY [facility] Metoprolol Tartrate 25 mg 06/08/21 21:00 Metoprolol Tartrate 25 Mg Tablet PO BID [facility] Non-Formulary Medication 1 each 06/09/21 09:00 Multivitamin [Daily Multi-Vitamin] PO DAILY [facility] Nystatin 1 applic 06/08/21 17:06 Nystatin 15 Gm Cream TP BID PRN Rash Nystatin 1 applic 06/08/21 17:06 Nystatin 15 Gm Powder TP BID PRN Rash Omeprazole 20 mg 06/09/21 09:00 Omeprazole 20 Mg Capsule.Dr PO DAILY [facility] Quetiapine Fumarate 75 mg 06/08/21 17:30 Quetiapine Fumarate 25 Mg Tablet PO qhs [facility] Sodium Chloride 1 syr 06/08/21 10:51 0.9% Sodium Chloride 10 Ml Disp.Syrin IVF PRN PRN To flush IV Zinc Sulfate 220 mg 06/09/21 09:00 Zinc Sulfate 220 Mg Capsule PO DAILY [facility] Discontinued Medications Generic Name Dose Route Start Last Admin Trade Name Freq PRN Reason Stop Dose Admin Albuterol Sulfate 2 puff 06/08/21 21:00 Albuterol Sulfate (Ventolin Hfa) 18 Gm 1 Puff With Spacer IH TID [facility] Vital Signs: Temp Pulse Resp BP Pulse Ox 06/08/21 10:52 91 H 19 122/94 H 92 L 06/08/21 10:38 98.5 F 94 H 21 122/94 H 94 L Discharge Plan Discharge Patient Disposition: ADMITTED INPATIENT Discharge Problem: Pneumonia due to 2019-nCoV, Nausea, Vomiting ED Provider: NEEL EPSTEIN Condition: Stable Physician Progress Note: []
--- NOTE | 2021-06-08 16:43 | CT ---
EXAM: CTA of the pulmonary arteries with contrast TECHNIQUE: CTA of the pulmonary arteries was performed with contrast. 2-D and 3-D reconstructions we re performed. HISTORY: COVID-19 positive, elevated D-dimer. Nausea, vomiting and diarrhea. Chest pain. COMPARISON: CTA pulmonary angiogram 05/19/2021 FINDINGS: Pulmonary arteries: No pulmonary embolus detected. Lungs/pleura: Multifocal patchy ground-glass opacities with peripheral and basilar predominance. No p leural effusion. Mediastinum: Calcified mediastinal lymph nodes compatible with chronic granulomatous disease. Cardiovascular: No pericardial effusion. Chest wall/axillae/thoracic inlet: No mass or adenopathy. Imaged upper abdomen: Diffuse hepatic parenchymal hypoattenuation. Scattered calcified granulomas an d liver and spleen. Moderate hiatal hernia. Bones: Exaggerated thoracic kyphosis with mild wedging of multiple mid thoracic vertebrae. Postop ch anges from prior C6-C7 ACDF. Multilevel spondylosis. IMPRESSION: 1. Negative for pulmonary embolus. 2. Lung findings consistent with COVID-19 pneumonia. 3. Hepatic steatosis. 4. Moderate hiatal hernia. All CT scans are performed using dose optimization techniques as appropriate to the performed exam an d include at least one of the following: Automated exposure control, adjustment of the mA and/or kV according t o size, and the use of iterative reconstruction technique.
[2021-06-08] MEDS ORDERED: NYSTOP POWDER TP PRN (17:06)
[2021-06-08] MEDS ORDERED: NYSTATIN CREAM TP PRN (17:06)
[2021-06-08] MEDS ORDERED: SODIUM CHLORIDE 1,000 ML IV STA ×2 (17:09→20:02)
--- NOTE | 2021-06-08 19:29 | PCM ---
Chief Complaint Chief Complaint: Shrtoness of breath Nausea/vomiting. COVID +. History of Present Illness History of Present Illness: 66 year old CF presented to ED on 06/05/[address] Benítez at 0813 am. She presented with SYED, mild cough, sinus SYED, myalgias. Vitals show temperature 98.4, pulse 98, respiratory rate 16, blood pressure 150/79, pulse ox 97%. Patient had intermittent symptoms with denial of rapid breathing, dyspnea, fever, chills, chest pain, pleuritic chest pain, wheezing, hemoptysis, dizziness, calf pain, calf swelling, edema, URI, nasal congestion, hoarseness, sinus discomfort, vomiting, sore throat, weight loss, decreased oral intake, increased thirst, increased appetite or increased urination. Differential diagnosis from the ER physician was sinusitis upper respiratory infection. She did report fever and malaise with other symptoms being negative. Past family and social history surgical history reviewed. Patient has known history of abnormal mammogram of the right breast, arthritis, asthma, cataracts, chronic depression, diverticulosis, GERD, hiatal hernia, history of a pulmonary embolism, hypertension, impairment of balance, memory loss, onychomycosis, SI joint dysfunction, spinal stenosis, history of use of cane as ambulatory aid, varicosities of legs. Patient has never been a smoker. She does not use any substances, alcohol use is rare to none. Surgical history reviewed and she has a history of appendectomy, bladder suspension procedure, cholecystectomy, fusion of cervical spine, hysterectomy, oophorectomy, right hip replacement, TNA. Rapid SARS cough to the emergency room was positive on 06 05. The patient was discharged home with recommendations for OTC vitamins may help, it was noted that she was oxygenating well and was discharged home. Patient presented again today with nausea vomiting and loose stools for several weeks since last month. She was recently diagnosed with Covid and felt poorly. Presented to the emergency room today at 1039. Dr. Giron present.Vitals upon initial evaluation showed temperature 98.5, pulse 94, respirations 21, blood pressure 122/94, pulse ox 94%. Repeat 20 minutes later showed pulse 91, respiratory rate 19, blood pressure 122/94 and pulse ox 92%. Labs today showed a white blood cell count which was slightly low at 3.63, hemoglobin normal 12.8, hematocrit 37.8 and platelet count of 167. She has a predominant neutrophilia of 78.4 and a mild monocytopenia. Metabolic panel showed normal sodium 130.8, potassium 3.68, chloride 104.8, BUN 17 creatinine 0.88. Glucose was mildly elevated at 128.8. Ferritin 593 and elevated. Procalcitonin was negative albumin 3.71 AST 67.3 ALT 58.7 which are mildly elevated. Calcium appeared low at 8.15. Albumin 3.71. Based on correction for hypoalbuminemia the patient's calcium was 8.4. ABG showed pH of 7.54, PCO2 of 30, PO2 of 64, HCO3 25.7, total CO2 26.6, oxyhemoglobin 93.1 and low. FiO2 21% total hemoglobin 12.9. This interprets as a acute uncompensated primary respiratory alkalosis with a metabolic alkalosis. For this to be a compensated process I would expect the pH to be below 7.42 and a bicarb below 19. Her lactic acid was 1.06 and normal. Her D-dimer was elevated at 965.51. CT PE protocol of the chest was completed negative for pulmonary embolism, lung findings consistent with meyer pneumonia. She also has some hepatic steatosis and a moderate sized hiatal hernia. I was contacted at 1658 and had a lengthy discussion with the ER doctor. The patient will continue daily aspirin. We will provide oxygen to maintain saturation of less than 98%. We will use dexamethasone 6 mg daily we will hold her meloxicam, remainder of medications will be continued. She will start remdesivir during this hospitalization. I will also provide Lovenox 40 mg subcutaneously daily. Utilizing the anticoagulation algorithm for COVID-19, the patient has no contraindication to anticoagulation. She has no active hemorrhage, platelets are above 25,000/mcL. She has not had current or prior HIT and she has not had previous use of anticoagulation. Thus prevention dose Lovenox is recommended. Creatinine clearance is greater than 30 mL/min. I will cover her nausea with Phenergan and Zofran. There is minimal data to support zinc, vitamin D, vitamin C or other vitamins will provide any therapeutic advantage. She is already on a PPI we will continue this during the hospital stay. We will utilize Tylenol for fever reduction.. I do not have access to baricitinib or Actemra. The patient has an elevated D-dimer, ferritin greater than 500 mcg/L. These values have suggested patients are at risk for severe disease. We will check a repeat CBC in the morning as well as a CMP. I reviewed the nursing notes from the emergency room as well as documentation from the emergency room physician and discussed the case with the physician again. Patient was admitted to room 120. Appropriate standard of care were initiated. There were multiple issues with starting an IV and [employer]FET[employer] MONITOR Tyrese contacted to start an IV. Reported to nursing day 1 of symptoms was 06/05/2021. Increased nausea vomiting diarrhea, decreased p.o. intake. Patient body mass index of 30.9. Maintenance fluids will be started at 120 mils per hour of normal saline. Potassium is okay. We will monitor for that. I want to use oxygen to maintain saturation greater than 92% we will start with nasal cannula. She has reported contact with suspected COVID-19 individual. She also has had cough chills body aches headache and diarrhea. She did not meet criteria for SIRS. Called an tlekd with . Dicussed case with patient and with nursing. She has had Vaccinations x2. Weak/tired. She has had decreased PO intake. She has had N/V worsening over last 48-72 hours. This am dry heaves only, diarrhea x 2. No bloody emesis/stools. She reports SOA, PND, orthopnea. No O2 at home. We will need to monitor closely. Vital Signs - 24 hr 06/08/21 10:38 06/08/21 10:52 06/08/21 19:29 Temperature 98.5 F 98.5 F Pulse Rate 94 H 91 H 91 H Respiratory Rate 21 19 19 Blood Pressure 122/94 H 122/94 H 122/94 H O2 Sat by Pulse Oximetry 94 L 92 L 92 L Constitutional: Appearance-Mild tachypnea. Appears Consistent with stated age. Orientation- Oriented x 3, alert Build and Nutrition-[obese] General- Patient is pessimistic, reports feeling poorly.. cooperative with the interview and exam. Integumentary: General-No rashes, ulcers or lesions. Palpation- Normal skin moisture/turgor. Skin is warm to touch, appropriate. Capillary refill is normal bilateral Upper and lower extremity. Head/Neck: Head- normocephalic and atraumatic. Neck- without visible/palpable lumps or pulsations. Palpation- No bony tenderness about head/neck along frontal, occipital, temporal, parietal, mastoid, jawline, zygoma, orbit or any other location. NO temporal artery tenderness. No TMJ tenderness. Neck Supple. Thyroid-No thyromegaly, no nodules Eye: Bilaterally PERRLA, EOMI. No discharge. Upper and lower eyelids are normal. Sclera/conjunctiva normal without discharge. Cornea is normal and clear. Lens is normal. Eyeball appears normal. No ciliary flushing, no conjunctival injection. ENMT: Pinna- normal without tenderness or erythema. External auditory canal Left- normal without erythema or discharge, no excessive cerumen. External auditory canal Right-normal without erythema or discharge, no excessive cerumen. TM left- Sterling/pearly, normal light reflex and anatomy TM Right- Sterling/pearly, normal light reflex and anatomy Hearing Assessment-normal to conversational speech. Nose and sinus- No sinus tenderness along frontal/maxillary region. External appearance normal and midline. Nares- bilateral quiet airflow, no discharge. Nasal mucosa- No bleeding noted and no ulcerations observed. [place], moist. Turbinates non boggy. Lips- normal color, moist without cracks/lesions Oral Cavity/Palate- hard/soft palate intact without lesions, oral mucosa pink and moist. Tongue normal midline. Oropharynx- no pharyngeal erythema, Uvula midline. No post nasal drip. No exudate. Salivary glands- Non tender to palpation CHEST/LUNG: Inspection- symmetric chest wall no pectus deformity. Mild increased effort, mild tachypnea, no use of accessory muscles. Palpation- nontender sternum, ribline. No abnormal pulsations. Auscultation- Breath sounds throughout all lung velasquez coars. Crackling heard on examination. tracheal sounds, bronchial sounds overlying sternum, Bronchovessicular sounds between scapulae posteriorly, vessicular breath sounds heard throughout periphery are coarse. Lungs are not today. Adventitious sounds- No wheezes, Crackles throughout, no rhonchi. CARDIOVASCULAR: Carotid artery- normal, no bruits or abnormal pulsations. Jugular vein- no pulsations. Palpation/Percussion- Normal PMI, no palpable thrill Auscultation- Regular rate and rhythm. No murmur noted in sitting, supine positions. Extremities- no digital clubbing, cyanosis, edema, increased warmth. ABDOMEN: Inspection- normal and no visible pulsations. Normal contour. Auscultation- Bowel sounds normal, no abdominal bruits. Palpation/Percussion- soft, non-tender, no rebound tenderness, no rigidity (guarding), no jar tenderness, no masses. Liver-no hepatomegaly, Spleen no splenomegaly, Hernias - none. Rectal not examined. Peripheral Vascular: Upper extremity Left- Normal temperature with pink nailbeds and no ulcerations. Upper extremity Right- Normal temperature with pink nailbeds and no ulcerations. Lower extremity- Normal temperature with pink nailbeds and no ulcerations. DP pulses 2+ bilaterally. Pedal hair intact. Normal capillary refill. Edema- No edema. Musculoskeletal: Generalized-No generalized swelling or edema of extremities, no digital clubbing or cyanosis, neurovascularly intact all four extremities. Upper extremity- Symmetrical posture. No visible deformity. Normal sensation along medial and lateral upper extremity proximally and distally. NO tenderness overlying shoulder, lateral/medial epicondyle. 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 Elbow palpated, no tenderness overlying olecranon. Normal supination, pronation to active/passive ROM and to resisted rotation. Bicep insertion/tricep insertion appear normal without obvious pathology. Rotator cuff evaluated and intact. Normal wrist ROM bilaterally. Normal hand movement, intrinsic muscles of hands normal. No tenderness to palpation of hands/wrists/elbows. Lower extremity- Hip: Not tender to palpation, no pain, no swelling, edema or erythema of surrounding tissue, normal strength and tone. Normal appearing hip ROM bilaterally without pain. Knee: Knee ROM normal. No tenderness overlying trochanters, no tenderness about patella, quad tendon, patellar tendon. No tenderness at tibial tuberosity. Ankle: normal ROM not tender to palpation along medial/lateral malleolus. Foot: Normal movement of toes, no tenderness bilateral feet/toes. Normal foot type. Spine/Ribs- No deformities, masses or tenderness, no known fractures, normal strength, Normal ROM. Normal stability No tenderness along C/T/L spine. Normal appearing ROM about spine. Neurological: General- Moves all 4 extremities symmetrically. Symmetrical face and body posture. Cranial nerves- individually evaluated II-XII and intact. PERRLA, Normal EOMI, visual/special senses appear intact, Face is symmetrical and normal sensation/movement, normal tongue, normal strength/posture of neck musculature. Reflexes- intact with DTR 2+ patellar, Achilles, bicep, brachial, tricep. Ankle clonus normal with 2 beats. Strength- 5/5 bilateral UE and LE. Soft touch- intact bilateral UE and LE. Temperature sensation- intact bilateral UE and LE. Neuropsych: Oriented- Person, place, time. (AAOx3), Mood/affect- normal and congruent. Able to articulate well. Speech-Normal speech, normal rate, normal tone, normal use of language, volume and coherence. Thought content- normal with ability to perform basic computations and apply abstract thought/reason. Associations- intact, no SI/HI, no hallucinations, delusions, obsessions. Judgment/insight- Appropriate. Memory-Recall intact, remote and recent memory intact. Knowledge- Age appropriate fund of knowledge, concentration and attention span normal. Lymphatic: Head/Neck- normal size and non tender to palpation. Axillary- normal size and non tender to palpation. Femoral and Inguinal- normal size and non tender to palpation. Review of Systems Constitutional: Reports Chills, Weakness, Fatigue and Loss of appetite; Denies Fever Eyes: Reports No symptoms Ears: Reports No symptoms Nose: Reports Congestion Throat: Reports Pain Mouth: Reports No symptoms Respiratory: Reports Cough and Shortness of air; Denies Wheeze, Hemoptysis or Pain with breathing Cardiovascular: Reports Orthopnea; Denies Chest pain, Left arm pain, Diaphoresis, PND, Edema or Palpitations Gastrointestinal: Reports Abdominal pain, Nausea, Vomiting and Diarrhea; Denies Melena, Hematemesis, Hematochezia or Dysphagia Genitourinary: Reports No symptoms Neurological: Reports No symptoms, Headache, Dizziness and Weakness Musculoskeletal: Reports Pain Skin: Reports No symptoms Immunology: Reports No symptoms Hematology: Reports No symptoms Endocrine: Reports No symptoms Psychiatric: Reports No symptoms Habits: Denies Tobacco use, Substance use or Alcohol use Allergies Allergies Allergy/AdvReac Type Severity Reaction Status Date / Time hydrocodone bitartrate AdvReac sleepy, Verified 06/08/21 10:52 [From Lortab] vomiting tramadol AdvReac sleepy, Verified 06/08/21 10:52 vomiting [facility] Medical History (Updated 06/09/21 @ 22:54 by FLORIDA LUNA MD) Abnormal mammogram of right breast Arthritis Asthma Cataract (lens) fragments in eye following cataract surgery, bilateral Chronic depression Colitis Diverticulosis Gastroesophageal reflux disease Hiatal hernia Hx pulmonary embolism Hypertension Impairment of balance Memory loss Onychomycosis SI (sacroiliac) joint dysfunction Sinusitis Spinal stenosis Use of cane as ambulatory aid Varicosities of leg Surgical History History of appendectomy History of bladder suspension procedure History of cholecystectomy History of fusion of cervical spine History of hysterectomy History of oophorectomy History of right hip replacement History of tonsillectomy and adenoidectomy Family History Mother Hypertension FATHER Cancer Social History Smoking and tobacco status: Never smoker Second hand smoke exposure: No Alcohol intake: never Substance use type: does not use Agree to transfusion: Yes Adopted: Yes Caregiver/support person: No Foster care: No Household members: spouse Housing: house Lives independently: Yes Daycare: no daycare Number of children: 4 Number of grandchildren: 8 Highest education level completed: some college, no degree Financial difficulty paying for basics: decline to answer service: No shelter: No Current occupational status: disabled Pets and animals: Yes Leisure activites: reading History of recent travel: No Do you think of yourself as: straight/heterosexual Seatbelt use: always Helmet use: No Drives intoxicated or rides with intoxicated cab driver: No Current diet type/program: regular Well-balanced diet: daily Caffeine: Yes Eating out: rarely or never Reads food labels: seldom or never During the past year weight has: remained stable Water heater temperature set < 120 degrees: Yes Working smoke detector in home: Yes Fire extinguisher in home: No Carbon monoxide detector in home: Yes Firearms in home: Yes Firearms unloaded and locked: Yes What type of physical activity do you participate in?: none, walking and other cardio Physical activity functional status: independent ambulation How many days of moderate to strenuous exercise, like a brisk walk, did you do in the last 7 days: 1 Medications Medications: Medications Generic Name Dose Route Start Last Admin Trade Name Freq PRN Reason Stop Dose Admin Albuterol Sulfate 2 puff 06/08/21 20:00 Albuterol Sulfate (Ventolin Hfa) 18 Gm 1 Puff With Spacer IH RTTID ELMO Aspirin 81 mg 06/09/21 08:30 Aspirin 81 Mg Tab.Chew PO DAILYWM [facility] Benzonatate 100 mg 06/08/21 21:00 Benzonatate 100 Mg Capsule PO BID [facility] Budesonide/Formoterol Fumarate 2 puff 06/08/21 21:00 Budesonide/Formoterol Fumarate 160/4.5 Mcg Inhaler IH BID [facility] Bupropion HCl 300 mg 06/09/21 09:00 Bupropion Hcl 150 Mg Tab.Er.24h PO DAILY [facility] Cholecalciferol 5,000 unit 06/09/21 09:00 Cholecalciferol (Vitamin D3) 1,000 Unit (25 Mcg) Tablet PO DAILY [facility] Dexamethasone Sodium Phosphate 6 mg 06/09/21 09:00 Dexamethasone Sod Phos 10 Mg/Ml Inj IM DAILY [facility] Enalapril Maleate 10 mg 06/09/21 09:00 Enalapril Maleate 5 Mg Tablet PO DAILY [facility] Enoxaparin Sodium 40 mg 06/09/21 09:00 Enoxaparin Sodium 40 Mg/0.4 Ml Syr SUBCUT DAILY [facility] REMDESIVIR SOLUTION 200 mg/ 290 mls @ 145 mls/hr 06/09/21 09:01 Sodium Chloride IV 06/09/21 11:00 ONCE ONE REMDESIVIR SOLUTION 100 mg/ 270 mls @ 270 mls/hr 06/10/21 09:00 Sodium Chloride IV DAILY [facility] Sodium Chloride 1,000 mls @ 30 mls/hr 06/08/21 17:09 06/08/21 18:20 Sodium Chloride IV 06/10/21 02:28 30 mls/hr .[id number] STA Administration Meloxicam 15 mg 06/09/21 09:00 Meloxicam 7.5 Mg Tablet PO DAILY [facility] Metoprolol Tartrate 25 mg 06/08/21 21:00 Metoprolol Tartrate 25 Mg Tablet PO BID [facility] Multivitamins 1 tab 06/09/21 09:00 Multivitamin 1 Tab PO DAILY [facility] Nystatin 1 applic 06/08/21 17:06 Nystatin 15 Gm Cream TP BID PRN Rash Nystatin 1 applic 06/08/21 17:06 Nystatin 15 Gm Powder TP BID PRN Rash Omeprazole 20 mg 06/09/21 09:00 Omeprazole 20 Mg Capsule.Dr PO DAILY [facility] Quetiapine Fumarate 75 mg 06/08/21 21:00 Quetiapine Fumarate 25 Mg Tablet PO BEDTIME ELMO Sodium Chloride 1 syr 06/08/21 10:51 0.9% Sodium Chloride 10 Ml Disp.Syrin IVF PRN PRN To flush IV Zinc Sulfate 220 mg 06/09/21 09:00 Zinc Sulfate 220 Mg Capsule PO DAILY ELMO Body Composition Height: 5 ft 4 in Weight: 180 lb Body Mass Index (BMI): 30.9 Vital Signs Temperature: 98.5 F Pulse Rate: 91 Respiratory Rate: 19 Blood Pressure: 122/94 O2 Sat by Pulse Oximetry: 92 Lab/Tests/Diagnostic Imaging Lab/Tests/Diagnostic Imaging: Lab Review 06/08/21 06/08/21 06/08/21 11:13 11:13 11:13 WBC 3.63 L RBC 4.13 L Hgb 12.8 Hct 37.8 MCV 91.5 MCH 31.0 MCHC 33.9 RDW Coeff of Joselito 13.3 Plt Count 167 Immature Gran % (Auto) 0.3 Neut % (Auto) 78.4 H Lymph % (Auto) 16.0 [place] % (Auto) 5.0 Eos % (Auto) 0.0 Baso % (Auto) 0.3 Neut # (Auto) 2.9 Lymph # (Auto) 0.6 [place] # (Auto) 0.2 L Eos # (Auto) 0.0 Baso # (Auto) 0.0 Immature Gran # (Auto) 0.0 Puncture Site Base Excess O2 Saturation ABG pH ABG pCO2 ABG pO2 ABG HCO3 ABG Total CO2 Julio Cesar Test Hemoglobin Oxyhemoglobin Carboxyhemoglobin Total Hemoglobin FiO2 % Sodium 138.8 Potassium 3.68 Chloride 104.8 Carbon Dioxide 25.1 Anion Gap 12.58 BUN 17.0 Creatinine 0.88 Estimated GFR (MDRD) 64.00 BUN/Creatinine Ratio 19.31 Glucose 128.8 H Lactic Acid Calcium 8.15 L Ferritin 593.00 H Total Bilirubin 0.38 AST 67.3 H ALT 58.7 H Alkaline Phosphatase 98.4 Total Protein 6.63 Albumin 3.71 Globulin 2.92 Albumin/Globulin Ratio 1.27 Procalcitonin < 0.05 D-Dimer 06/08/21 06/08/21 06/08/21 11:13 11:13 11:15 WBC RBC Hgb Hct MCV MCH MCHC RDW Coeff of Joselito Plt Count Immature Gran % (Auto) Neut % (Auto) Lymph % (Auto) [place] % (Auto) Eos % (Auto) Baso % (Auto) Neut # (Auto) Lymph # (Auto) [place] # (Auto) Eos # (Auto) Baso # (Auto) Immature Gran # (Auto) Puncture Site R rad Base Excess 3.2 H O2 Saturation 94.6 ABG pH 7.54 H* ABG pCO2 30.0 L ABG pO2 64.0 L ABG HCO3 25.7 ABG Total CO2 26.6 H Julio Cesar Test Y Hemoglobin 1.0 Oxyhemoglobin 93.1 L Carboxyhemoglobin 1.6 H Total Hemoglobin 12.9 FiO2 % 21.0 Sodium Potassium Chloride Carbon Dioxide Anion Gap BUN Creatinine Estimated GFR (MDRD) BUN/Creatinine Ratio Glucose Lactic Acid 1.06 Calcium Ferritin Total Bilirubin AST ALT Alkaline Phosphatase Total Protein Albumin Globulin Albumin/Globulin Ratio Procalcitonin D-Dimer 965.51 H Medications Generic Name Dose Route Start Last Admin Trade Name Freq PRN Reason Stop Dose Admin Albuterol Sulfate 2 puff 06/08/21 20:00 Albuterol Sulfate (Ventolin Hfa) 18 Gm 1 Puff With Spacer IH RTTID [facility] Aspirin 81 mg 06/09/21 08:30 Aspirin 81 Mg Tab.Chew PO DAILYWM [facility] Benzonatate 100 mg 06/08/21 21:00 Benzonatate 100 Mg Capsule PO BID [facility] Budesonide/Formoterol Fumarate 2 puff 06/08/21 21:00 Budesonide/Formoterol Fumarate 160/4.5 Mcg Inhaler IH BID [facility] Bupropion HCl 300 mg 06/09/21 09:00 Bupropion Hcl 150 Mg Tab.Er.24h PO DAILY [facility] Cholecalciferol 5,000 unit 06/09/21 09:00 Cholecalciferol (Vitamin D3) 1,000 Unit (25 Mcg) Tablet PO DAILY [facility] Dexamethasone Sodium Phosphate 6 mg 06/09/21 09:00 Dexamethasone Sod Phos 10 Mg/Ml Inj IM DAILY [facility] Enalapril Maleate 10 mg 06/09/21 09:00 Enalapril Maleate 5 Mg Tablet PO DAILY [facility] Enoxaparin Sodium 40 mg 06/09/21 09:00 Enoxaparin Sodium 40 Mg/0.4 Ml Syr SUBCUT DAILY [facility] REMDESIVIR SOLUTION 200 mg/ 290 mls @ 145 mls/hr 06/09/21 09:01 Sodium Chloride IV 06/09/21 11:00 ONCE ONE REMDESIVIR SOLUTION 100 mg/ 270 mls @ 270 mls/hr 06/10/21 09:00 Sodium Chloride IV DAILY [facility] Sodium Chloride 1,000 mls @ 30 mls/hr 06/08/21 17:09 06/08/21 18:20 Sodium Chloride IV 06/10/21 02:28 30 mls/hr .[id number] STA Administration Meloxicam 15 mg 06/09/21 09:00 Meloxicam 7.5 Mg Tablet PO DAILY [facility] Metoprolol Tartrate 25 mg 06/08/21 21:00 Metoprolol Tartrate 25 Mg Tablet PO BID [facility] Multivitamins 1 tab 06/09/21 09:00 Multivitamin 1 Tab PO DAILY [facility] Nystatin 1 applic 06/08/21 17:06 Nystatin 15 Gm Cream TP BID PRN Rash Nystatin 1 applic 06/08/21 17:06 Nystatin 15 Gm Powder TP BID PRN Rash Omeprazole 20 mg 06/09/21 09:00 Omeprazole 20 Mg Capsule.Dr PO DAILY [facility] Quetiapine Fumarate 75 mg 06/08/21 21:00 Quetiapine Fumarate 25 Mg Tablet PO BEDTIME [facility] Sodium Chloride 1 syr 06/08/21 10:51 0.9% Sodium Chloride 10 Ml Disp.Syrin IVF PRN PRN To flush IV Zinc Sulfate 220 mg 06/09/21 09:00 Zinc Sulfate 220 Mg Capsule PO DAILY [facility] Discontinued Medications Generic Name Dose Route Start Last Admin Trade Name Freq PRN Reason Stop Dose Admin Albuterol Sulfate 2 puff 06/08/21 21:00 Albuterol Sulfate (Ventolin Hfa) 18 Gm 1 Puff With Spacer IH TID [facility] IMAGING: CT PE PROTOCOL IMPRESSION: 1. Negative for pulmonary embolus. 2. Lung findings consistent with COVID-19 pneumonia. 3. Hepatic steatosis. 4. Moderate hiatal hernia. ABG: Acute (uncompensated) primary respiratory alkalosis,with metabolic alkalosis Assessment (1) COVID-19: Status: Acute Code(s): U07.1 - COVID-19 SNOMED Code(s): 003011406 (2) Pneumonia due to 2019-nCoV: Status: Acute Code(s): U07.1 - COVID-19; J12.82 - Pneumonia due to coronavirus disease 2019 SNOMED Code(s): 821992358072849315 (3) Nausea: Status: Acute Code(s): R11.0 - Nausea SNOMED Code(s): 148691788 (4) Vomiting: Status: Acute Code(s): R11.10 - Vomiting, unspecified SNOMED Code(s): 284295758 (5) Cough: Status: Acute Code(s): R05 - Cough SNOMED Code(s): 95131340 (6) BMI 30.0-30.9,adult: Status: Acute Code(s): Z68.30 - Body mass index [BMI]30.0-30.9, adult SNOMED Code(s): 205005059 (7) Elevated d-dimer: Status: Acute Code(s): R79.89 - Other specified abnormal findings of blood chemistry SNOMED Code(s): 470670107 (8) Transaminitis: Status: Acute Code(s): R74.01 - Elevation of levels of liver transaminase levels SNOMED Code(s): 593246090 (9) Leukopenia: Status: Acute Code(s): D72.819 - Decreased white blood cell count, unspecified SNOMED Code(s): 69364520 (10) Hiatal hernia: Status: Acute Code(s): K44.9 - Diaphragmatic hernia without obstruction or gangrene SNOMED Code(s): 64656799 (11) Chronic depression: Status: Acute Code(s): F32.9 - Major depressive disorder, single episode, unspecified SNOMED Code(s): 398300148 (12) Gastroesophageal reflux disease: Status: Acute Code(s): K21.9 - Gastro-esophageal reflux disease without esophagitis SNOMED Code(s): 854455014 Plan Plan: COVID 19/COVID 19 Pneumonia/ HYPOXIA: 66 yo Female Day 3 of COVID 19 symptoms. N/V/D, cough/SOA present. Ddimer elevated but <1000, Ferritin >500. CT PE protocol showed infiltrates but no PE. We will monitor symptoms over the next 5 days. The patient will get remdesivir, O2 to be used continuously and titrate <98%. We will use NS for fluids but will run slightly on the sub master side with 100mls/hour instead of the 120ml/hour based on her weight. Continue her inhaler meds (symbicort), albuterol common cannister recommended. Continuous pulse ox to be used/telemetery to be utilized as well. We will monitor labs tomorrow. I will see her again in the am ~0730. I discussed case with - Admit inpatient monitored bed - Telemetery - Daily CBC/CMP/CRP/ABG - Troponin Series - Vecklury 100mg daily IV - O2 Maintain >92%. - Lovenox 40mg daily - Continue home meds (hold mobic) - On PPI as listed below - Maintenance fluid rate of 120mls/hour. I want to run her slightly on the sub master side. Will use 100mls/hour overnight. - Tylenol 500 QID for pain/fever. N/V/D: Will use zofran/phenergan PRN. - Zofran 4mg IV q 6 hours prn - Phenergan 25mg IV q 8 hours prn. Transaminitis: Monitor CMP daily. Fatty liver on CT. - CMP daily q am. BMI 30.9: Discussed the federal guidelines suggest a healthy goal BMI of 18.5- 24.9 for people 18 65 and 23-30 for people age 65 and older. Overweight is considered BMI 25-30, Obesity 30-40 and Morbid obesity is defined as >100 lb overweight or BMI >40. With a BMI above goal, it is recommended to utilize a diet/exercise program to get back into the appropriate range. Consider referral to [facility] as outpatient. Will f/u with her as outpatient. GERD: Established/Chronic problem. Stable at present. Continue prilosec PPI. Discussed consideration of regular F/U with GI to monitor for changes that can sometimes occur with chronic GERD. We reviewed SE of PPI. We have discussed R/B/A to these agents. Offered handout on current and new medications. We reviewed latest news regarding bone loss, regarding risks for Cdiff, RI risks, Bacterial peritonitis, interstitial nephritis, Pneumonia risks due to retirement use of PPI. Depression: Chronic/stable. Will use home meds. She is normally following with [facility]. We will continue f/u. Arthritis: Hold mobic while on dexamethasone daily 6mg IV. DVT Prophy: Lovenox 40mg subcutaneous. Monitor for bleeding. Monitor PLT daily with CBC. - Lovenox daily. Diet: Regular. GI Prophy: On steroids. Will continue PPI as per GERD. Disposition: I expect a 5 day stay in the hospital with need for daily remdesivir. She qualifies for severe COVID with elevated Ferritin >500 and O2 < 92. She will be started on o2, will get daily dexamethasone 6mg IV, daily remdesivir, O2 to maintain oxygenation. Supportive care, monitor for worsening. Expected length of stay 5 to 6 days. We will start with low flow oxygen and we will titrate to oxygen saturation initially greater than 94% but chronic goal of greater than 90% is ultimately our goal. The patient is vaccinated which confers some degree of protection however we will need to monitor her closely. Recommend proning 6 to 8 hours/day discussed this with patient at length. 75 minutes care provided to COVID + patient today.
[2021-06-08] MEDS: VENTOLIN HFA (PER PUFF-WITH SPACER) IH SCH (19:50)
[2021-06-08] MEDS ORDERED: PHENERGAN 25 MG/ML VIAL 25 MG in SODIUM CHLORIDE 50 ML IV PRN (20:05)
[2021-06-08] MEDS ORDERED: VENTOLIN HFA (PER PUFF-WITH SPACER) IH SCH (21:00)
[2021-06-08] MEDS: TYLENOL PO PRN (21:47)
[2021-06-08] MEDS: MORPHINE 2 MG/ML SYRINGE IVP PRN (21:48)
[2021-06-08] MEDS: SYMBICORT 160-4.5 MCG INHALER IH SCH (21:54)
[2021-06-08] MEDS: TESSALON PERLES PO SCH (21:56)
[2021-06-08] MEDS: LOPRESSOR PO SCH (21:56)
[2021-06-08] MEDS: SEROQUEL PO SCH (21:56)
[2021-06-09 03:50] VITALS: BMI 34.5
[2021-06-09] MEDS: VENTOLIN HFA (PER PUFF-WITH SPACER) IH SCH ×3 (04:30→20:05)
[2021-06-09 06:04] LABS: HEMATOCRIT 32.2 % (37.0-47.0); HEMOGLOBIN 10.9 g/dl (12.0-16.0); IMMATURE GRANULOCYTE % (AUTO) 0.3 % (0.0-5.0); LYMPHOCYTES # (AUTO) 0.6 K/uL (0.60-3.4); LYMPHOCYTES % (AUTO) 20.9 (10.0-50.0); MEAN CORPUSCULAR HEMOGLOBIN 31.2 pg (27.0-31.0); MEAN CORPUSCULAR HGB CONC 33.9 (31.8-35.4); MEAN CORPUSCULAR VOLUME 92.3 fl (81.0-99.0); MONOCYTES # (AUTO) 0.1 K/uL (0.4-2.0); MONOCYTES % (AUTO) 4.4 (0-10); NEUTROPHILS # (AUTO) 2.2 K/ul (2.0-6.9); NEUTROPHILS % (AUTO) 74.4 % (42.2-75.2); PLATELET COUNT 140 10^3/uL (140-440); RDW COEFFICIENT OF VARIATION 13.5 % (11.6-14.8); RED BLOOD COUNT 3.49 10^6/ul (4.20-5.40); WHITE BLOOD COUNT 2.97 K/ul (4.6-10.2)
[2021-06-09 06:27] LABS: ALANINE AMINOTRANSFERASE 77.5 U/L (0-35); ALBUMIN 3.03 g/dL (3.5-5.0); ASPARTATE AMINO TRANSFERASE 117.6 U/L (14-36); BILIRUBIN,TOTAL 0.39 mg/dL (0.2-1.3); BLOOD UREA NITROGEN 15.8 mg/dL (7-17); CALCIUM 7.53 mg/dL (8.4-10.2); CARBON DIOXIDE 25.7 mmol/L (22-30.0); CHLORIDE 104.3 mmol/L (98-107); CREATININE 0.78 mg/dL (0.60-1.30); GLUCOSE 146.6 mg/dL (74-106); POTASSIUM 3.56 mmol/L (3.5-5.1); SODIUM 136.5 mmol/L (134.5-145); TOTAL PROTEIN 5.5 g/dL (6.3-8.2)
[2021-06-09] MEDS ORDERED: PEPCID PO SCH (06:30)
[2021-06-09 06:36] LABS: TROPONIN I 0.013 ng/ml (0.0000-0.120)
[2021-06-09 06:47] LABS: ABG PH 7.47 (7.35-7.45)
[2021-06-09 06:48] LABS: BEecf 2.5 (-2.0-3.0); COHb 2.6 (0.5-1.5); HCO3 26.2 (21-28); MetHb 0.6 (0-1.5); TCO2 27.3 (19-24); sO2 90.7 % (94-98); tHb 11.3 g/dl (11.7-17.4)
[2021-06-09 06:49] LABS: ABG O2 HGB 88.8 % (95-100)
--- NOTE | 2021-06-09 07:20 | PCM.PROG ---
Date Seen by Provider: 06/09/21 Time Seen by Provider: 07:16 Subjective: 66-year-old vaccinated female presented to emergency room June 08 with Covid, nausea vomiting and diarrhea. She was admitted started on oxygen at 2- 1/2 L with goal to titrate between 94-98%, started on remdesivir and dexamethasone 6 mg. She tested positive via rapid testing on June 05. Labs this morning showed a further reduction of white count from 3.63 yesterday to 2.97 today. Hemoglobin also dropped from 12.8-10.9 and platelets from 1 67-1 40. This suggests a degree of hemodilution. Similar to yesterday she has a mild monocytopenia. Remainder of differential appears normal. ABG this morning showed O2 saturation dropped from 94.6 yesterday at 90.7 today. pH has improved from 7.54-7.47 her PO2 has dropped further from 64-56. ABG CO2 26.6 yesterday 27.3 today.Her metabolic panel today showed normal sodium potassium chloride and calcium has dropped further. However her albumin has dropped further from 3.7- 3.03. Corrected calcium is 8.3. This remains on the lower side and I will replace this today. Her lactate dehydrogenase is elevated yesterday. This result came back this morning. Troponin is negative. AST and ALT have increased from 67.3/58.7 today at 117.6 and 77.5 respectively. She remains afebrile, heart rate 69 through 98. Her blood pressure yesterday was 122/94 but this morning 96/65. Respiratory rate yesterday 18 through 21 but this was 25 this morning. Telemetry evaluated and she has been sinus rhythm with bundle branch block, NV 0.16 and QRS interval 0.12. The patient was seen around 12pm today. I talked with the patient, with the via telephone and he asked that I talk with the daughter Maren tomorrow. Patient c/o breakfast, lunch. She noted she did not like the vegetables, rice, chicken "it left a lot to be desired." She has had #1 dose of remdessivir, with second dose today. she has had first dose of dexamethasone. Dose #2 today. Patient reportw "I do feel a little better today. She is on DVT Prophylaxis with lovenox, she is on GI prophy for chronic gerd. She will be increased to 3L NC still low flow and we will encourage proning yet again. She has COVID pneumonnia. We will continue to monitor o2. Baseline goal >90%. Ideally 94-99%. Review of Systems Constitutional: Reports Chills, Weakness, Fatigue and Loss of appetite; Denies Fever Eyes: Reports No symptoms Ears: Reports No symptoms Nose: Reports Congestion Throat: Reports Pain Mouth: Reports No symptoms Respiratory: Reports Cough, Shortness of air, dyspnea, hypoxia. Pain in left chest with inspiration. Cardiovascular: Reports Orthopnea; Denies Chest pain, Left arm pain, Diaphoresis, PND, Edema or Palpitations Gastrointestinal: Reports Abdominal pain, Nausea, Vomiting and Diarrhea; Denies Melena, Hematemesis, Hematochezia or Dysphagia Genitourinary: Reports No symptoms Neurological: Reports No symptoms, Headache, Dizziness and Weakness Musculoskeletal: Reports Pain Skin: Reports No symptoms Psychiatric: Reports No symptoms Habits: Denies Tobacco use, Substance use or Alcohol use Objective: Vital Signs - 24 hr 06/09/21 01:00 06/09/21 04:55 06/09/21 06:00 Temperature 98.6 F Pulse Rate 69 Pulse Rate [Apical] Respiratory Rate 25 H Blood Pressure 96/65 O2 Sat by Pulse Oximetry 93 L 93 L 91 L 06/09/21 07:00 06/09/21 08:00 06/09/21 10:35 Temperature Pulse Rate Pulse Rate [Apical] 72 Respiratory Rate 20 Blood Pressure 92/62 O2 Sat by Pulse Oximetry 93 L 06/09/21 10:45 06/09/21 11:00 06/09/21 11:40 Temperature Pulse Rate Pulse Rate [Apical] Respiratory Rate Blood Pressure 110/60 116/66 O2 Sat by Pulse Oximetry 91 L 06/09/21 12:10 06/09/21 12:40 06/09/21 13:00 Temperature Pulse Rate Pulse Rate [Apical] Respiratory Rate Blood Pressure 112/60 108/72 O2 Sat by Pulse Oximetry 91 L 06/09/21 14:00 06/09/21 18:22 06/09/21 18:25 Temperature 97.6 F 98.1 F Pulse Rate 79 83 78 Pulse Rate [Apical] Respiratory Rate 20 18 Blood Pressure 120/65 122/68 O2 Sat by Pulse Oximetry 85 L 90 L 90 L 06/09/21 19:00 06/09/21 20:00 06/09/21 20:52 Temperature 98.7 F Pulse Rate 80 Pulse Rate [Apical] 83 Respiratory Rate 21 25 H Blood Pressure 105/68 O2 Sat by Pulse Oximetry 89 L 89 L Constitutional:Appearance-Moderate tachypnea.Grumpy, Unhappy Appears Consistent with stated age.Orientation- Oriented x 3, alertBuild and Nutrition -[obese]General- Patient is pessimistic, reports feeling poorly.. cooperative with the interview and exam. Sitting upright in bed today. Talkative, full sentences.s Integumentary: General-No rashes, ulcers or lesions.Palpation- Normal skin moisture/turgor. Skin is warm to touch, appropriate. Capillary refill is normal bilateral Upper and lower extremity. Head/Neck:Head- normocephalic and atraumatic.Neck- without visible/palpable lumps or pulsations.Palpation- No bony tenderness about head/neck along frontal, occipital, temporal, parietal, mastoid, jawline, zygoma, orbit or any other location. NO temporal artery tenderness. No TMJ tenderness. Neck Supple.Thyroid-No thyromegaly, no nodules Eye:Bilaterally PERRLA, EOMI. No discharge. Upper and lower eyelids are normal. Sclera/conjunctiva normal without discharge. Cornea is normal and clear. Lens is normal. Eyeball appears normal. No ciliary flushing, no conjunctival injection. ENMT:.Nares- bilateral quiet airflow, no discharge.Nasal mucosa- No bleeding noted and no ulcerations observed. [place], moist. Turbinates non boggy.Lips- normal color, moist without cracks/lesionsOral Cavity/Palate- hard/soft palate intact without lesions, oral mucosa pink and moist. Tongue normal midline. Oropharynx- no pharyngeal erythema, Uvula midline. No post nasal drip. No exudate.Salivary glands- Non tender to palpation CHEST/LUNG:Inspection- symmetric chest wall no pectus deformity. Mild increased effort, mild tachypnea, no use of accessory muscles.Palpation- nontender sternum, ribline. No abnormal pulsations.Auscultation- Breath sounds throughout all lung velasquez coars. Crackling heard on examination. tracheal sounds, bronchial sounds overlying sternum, Bronchovessicular sounds between scapulae posteriorly, vessicular breath sounds heard throughout periphery are coarse. Lungs are not today.Adventitious sounds- No wheezes, Crackles throughout, no rhonchi. shallow inspiration, limited effort from patient . Lung sounds worsening. CARDIOVASCULAR:Carotid artery-normal, no bruits or abnormal pulsations. Jugular vein- no pulsations.Palpation/Percussion- Normal PMI, no palpable thrillAuscultation- Regular rate and rhythm. No murmur noted in sitting, supine positions.Extremities- no digital clubbing, cyanosis, edema, increased warmth. ABDOMEN:Inspection- normal and no visible pulsations. Normal contour. Auscultation- Bowel sounds normal, no abdominal bruits.Palpation/Percussion- soft, non-tender, no rebound tenderness, no rigidity (guarding), no jar tenderness, no masses.Liver-no hepatomegaly,Spleen no splenomegaly,Hernias - none.Rectalnot examined. Peripheral Vascular:Upper extremityLeft- Normal temperature with pink nailbeds and no ulcerations.Upper extremity Right-Normal temperature with pink nailbeds and no ulcerations.Lower extremity- Normal temperature with pink nailbeds and no ulcerations. DP pulses 2+ bilaterally. Pedal hair intact. Normal capillary refill.Edema- No edema. Musculoskeletal:Generalized-No generalized swelling or edema of extremities, no digital clubbing or cyanosis, neurovascularly intact all four extremities. Upper extremity- Symmetrical posture. No visible deformity. Normal Spine/Ribs- No deformities, masses or tenderness, no known fractures, normal strength, Normal ROM. Normal stability No tenderness along C/T/L spine. Normal appearing ROM about spine. Neurological:General- Moves all 4 extremities symmetrically. Symmetrical face and body posture.Cranial nerves- individually evaluated II-XII and intact. PERRLA, Normal EOMI, visual/special senses appear intact, Face is symmetrical and normal sensation/movement, normal tongue, normal strength/posture of neck musculature. Strength-5/5 bilateral UE and LE.Soft touch- intact bilateral UE and LE.Temperature sensation-intact bilateral UE and LE. Neuropsych:Oriented- Person, place, time. (AAOx3),Mood/affect- normal and congruent. Able to articulate well.Speech-Normal speech, normal rate, normal tone, normal use of language, volume and coherence.Thought content- normal with ability to perform basic computations and apply abstract thought/reason. Associations- intact, no SI/HI, no hallucinations, delusions, obsessions. Judgment/insight- Appropriate.Memory-Recall intact, remote and recent memory intact.Knowledge- Age appropriate fund of knowledge, concentration and attention span normal. Lymphatic: Head/Neck- normal size and non tender to palpation.Axillary- normal size and non tender to palpation.Femoral and Inguinal- normal size and non tender to palpation. Laboratory Last Values WBC 2.97 K/ul (4.6-10.2) L 06/09/21 05:26 RBC 3.49 10^6/ul (4.20-5.40) L 06/09/21 05:26 Hgb 10.9 g/dl (12.0-16.0) L 06/09/21 05:26 Hct 32.2 % (37.0-47.0) L 06/09/21 05:26 MCV 92.3 fl (81.0-99.0) 06/09/21 05:26 MCH 31.2 pg (27.0-31.0) H 06/09/21 05:26 MCHC 33.9 (31.8-35.4) 06/09/21 05:26 RDW Coeff of Joselito 13.5 % (11.6-14.8) 06/09/21 05:26 Plt Count 140 10^3/uL (140-440) 06/09/21 05:26 Immature Gran % (Auto) 0.3 % (0.0-5.0) 06/09/21 05:26 Neut % (Auto) 74.4 % (42.2-75.2) 06/09/21 05:26 Lymph % (Auto) 20.9 (10.0-50.0) 06/09/21 05:26 Harmon % (Auto) 4.4 (0-10) 06/09/21 05:26 Eos % (Auto) 0.0 % (0.0-7.0) 06/09/21 05:26 Baso % (Auto) 0.0 % (0.0-3.0) 06/09/21 05:26 Neut # (Auto) 2.2 K/ul (2.0-6.9) 06/09/21 05:26 Lymph # (Auto) 0.6 K/uL (0.60-3.4) 06/09/21 05:26 Harmon # (Auto) 0.1 K/uL (0.4-2.0) L 06/09/21 05:26 Eos # (Auto) 0.0 K/ul (0.0-0.7) 06/09/21 05:26 Baso # (Auto) 0.0 K/uL (0-0.2) 06/09/21 05:26 Immature Gran # (Auto) 0.0 (0.0-1.0) 06/09/21 05:26 PT 10.4 SEC (9.3-11.0) 06/09/21 05:26 INR 0.98 SI (0.0-3.9) 06/09/21 05:26 Puncture Site Rrad 06/09/21 05:20 Base Excess 2.5 (-2.0-3.0) 06/09/21 05:20 O2 Saturation 90.7 % (94-98) L 06/09/21 05:20 ABG pH 7.47 (7.35-7.45) H 06/09/21 05:20 ABG pCO2 36.0 mmHg (35-45) 06/09/21 05:20 ABG pO2 56.0 mmHg (85-100) L* 06/09/21 05:20 ABG HCO3 26.2 (21-28) 06/09/21 05:20 ABG Total CO2 27.3 (19-24) H 06/09/21 05:20 Julio Cesar Test + 06/09/21 05:20 Hemoglobin 0.6 (0-1.5) 06/09/21 05:20 Oxyhemoglobin 88.8 % (95-100) L 06/09/21 05:20 Carboxyhemoglobin 2.6 (0.5-1.5) H 06/09/21 05:20 Total Hemoglobin 11.3 g/dl (11.7-17.4) L 06/09/21 05:20 O2 Delivery Device Nc 06/09/21 05:20 Oxygen Liter Flow 2.00 06/09/21 05:20 FiO2 % 21.0 % 06/08/21 11:15 Sodium 136.5 mmol/L (134.5-145) 06/09/21 05:26 Potassium 3.56 mmol/L (3.5-5.1) 06/09/21 05:26 Chloride 104.3 mmol/L (98-107) 06/09/21 05:26 Carbon Dioxide 25.7 mmol/L (22-30.0) 06/09/21 05:26 Anion Gap 10.06 06/09/21 05:26 BUN 15.8 mg/dL (7-17) 06/09/21 05:26 Creatinine 0.78 mg/dL (0.60-1.30) 06/09/21 05:26 Estimated GFR (MDRD) 73.00 mL/min 06/09/21 05:26 BUN/Creatinine Ratio 20.25 06/09/21 05:26 Glucose 146.6 mg/dL (74-106) H 06/09/21 05:26 Lactic Acid 1.06 mmol/L (0.7-2.1) 06/08/21 11:13 Calcium 7.53 mg/dL (8.4-10.2) L 06/09/21 05:26 Ferritin 908.00 ng/mL (11.1-264.0) H 06/09/21 05:26 Total Bilirubin 0.39 mg/dL (0.2-1.3) 06/09/21 05:26 AST 117.6 U/L (14-36) H D 06/09/21 05:26 ALT 77.5 U/L (0-35) H 06/09/21 05:26 Alkaline Phosphatase 106.0 U/L (53-141) 06/09/21 05:26 Lactate Dehydrogenase 381 IU/L (119-226) H 06/08/21 11:13 Troponin I 0.013 ng/ml (0.0000-0.120) 06/09/21 05:26 Total Protein 5.50 g/dL (6.3-8.2) L 06/09/21 05:26 Albumin 3.03 g/dL (3.5-5.0) L 06/09/21 05:26 Globulin 2.47 06/09/21 05:26 Albumin/Globulin Ratio 1.22 06/09/21 05:26 Procalcitonin < 0.05 ng/mL (0.09) 06/08/21 11:13 D-Dimer 965.51 ng/mL (<500) H 06/08/21 11:13 (1) COVID-19: Status: Acute Code(s): U07.1 - COVID-19 SNOMED Code(s): 321181230 (2) Pneumonia due to 2019-nCoV: Status: Acute Code(s): U07.1 - COVID-19; J12.82 - Pneumonia due to coronavirus disease 2019 SNOMED Code(s): 704493459145142214 (3) Nausea: Status: Acute Code(s): R11.0 - Nausea SNOMED Code(s): 532783613 (4) Vomiting: Status: Acute Code(s): R11.10 - Vomiting, unspecified SNOMED Code(s): 446305225 (5) Cough: Status: Acute Code(s): R05 - Cough SNOMED Code(s): 48846600 (6) BMI 30.0-30.9,adult: Status: Acute Code(s): Z68.30 - Body mass index [BMI]30.0-30.9, adult SNOMED Code(s): 741400125 (7) Elevated d-dimer: Status: Acute Code(s): R79.89 - Other specified abnormal findings of blood chemistry SNOMED Code(s): 617273503 (8) Transaminitis: Status: Acute Code(s): R74.01 - Elevation of levels of liver transaminase levels SNOMED Code(s): 236701705 (9) Leukopenia: Status: Acute Code(s): D72.819 - Decreased white blood cell count, unspecified SNOMED Code(s): 67837488 (10) Hiatal hernia: Status: Acute Code(s): K44.9 - Diaphragmatic hernia without obstruction or gangrene SNOMED Code(s): 17203922 (11) Chronic depression: Status: Acute Code(s): F32.9 - Major depressive disorder, single episode, unspecified SNOMED Code(s): 254667186 (12) Gastroesophageal reflux disease: Status: Acute Code(s): K21.9 - Gastro-esophageal reflux disease without esophagitis SNOMED Code(s): 090657630 (13) Hypocalcemia: Status: Acute Code(s): E83.51 - Hypocalcemia SNOMED Code(s): 8457088 Plan: COVID 19/COVID 19 Pneumonia/ HYPOXIA:66 yo Female Day 3 of COVID 19 symptoms, Hospital day 2. N/V/D reported but none since admit. cough/SOA present/worsening. We will increase her O2 to allow for o2 saturation of >90%. Ideally 94-98%. Ferritin is increased. Daily INR, daily ABG. We will continue to monitor symptoms over the next 5 days. We will escalate the care from low flow o2 as needed. The patient will continue remdesivir, O2 to be used continuously and titrate to 90-98%. We will use NS for fluids but will run slightly on the steam drier tender side with 100mls/hour instead of the 120ml/hour based on her weight. I want to avoid dehydration but also avoid over hydration. Continue her inhaler meds (symbicort), albuterol common cannister recommended. Continuous pulse ox to be used/telemetery to be utilized as well. We will monitor labs daily. I will see her daily. LDH returned 42 and elevated. - Admit inpatient monitored bed - Telemetery - Daily CBC/CMP/CRP/ABG - Troponin Series - Vecklury daily IV - O2 Maintain 90-98%. - Advance to NRB mask if needed. NC for now. - Lovenox 40mg daily DVT prophy. - Continue home meds (hold mobic due to risks for GI ulceration) - On PPI as listed below - Maintenance fluid rate of 120mls/hour suggested, I will continue run her slightly on the steam drier tender side. Will use 100mls/hour. - Tylenol 500 QID for pain/fever. - Morphine 2 q 4 hours PRN. N/V/D:Will use zofran/phenergan PRN. none reported in hospital. Continue meds as needed for now. - Zofran 4mg IV q 6 hours prn - Phenergan 25mg IV q 8 hours prn. Transaminitis:Monitor CMP daily. Fatty liver on CT.117.6 today for ast and 77.5 alt. Monitor. - CMP daily q am. BMI 30.9: Unchanged. F/U as outpatient. GERD:Chronic/stable. Unchanged. Established/Chronic problem. Stable at present. Continue prilosec PPI. Depression: Chronic/stable. Will use home meds. She is normally following [facility]. We will continue f/u. Arthritis: Hold mobic while on dexamethasone daily 6mg IV. Hypocalcemia: Will add calcium + D. Stop the 5000 daily Vit D. DVT Prophy:Lovenox 40mg subcutaneous. Monitor for bleeding. Monitor PLT daily with CBC. - Lovenox daily. Diet:Regular. GI Prophy:On steroids. Will continue PPI as per GERD. Disposition: I expect a total of a 5 day stay in the hospital with need for daily remdesivir/dexamethasone. We will conntinue daily labs. We will continue to focus on oxygenation. Proning encouraged again. She qualifies for severe COVID with elevated Ferritin >500 and hypoxia. Supportive care, monitor for worsening.F/U with today. Discussed case with case management, nursing, . 38 minutes of time spent on rounding today.
[2021-06-09 07:49] LABS: PROTHROMBIN TIME 10.4 SEC (9.3-11.0)
[2021-06-09] MEDS ORDERED: MOBIC PO SCH (09:00)
[2021-06-09] MEDS ORDERED: VITAMIN D PO SCH (09:00)
[2021-06-09] MEDS ORDERED: VEKLURY 200 MG in SODIUM CHLORIDE 250 ML IV ONE (09:01)
[2021-06-09] MEDS: TESSALON PERLES PO SCH ×2 (09:12→20:14)
[2021-06-09] MEDS: MULTIVITAMIN TABLET PO SCH (09:12)
[2021-06-09] MEDS: WELLBUTRIN XL PO SCH (09:12)
[2021-06-09] MEDS: VASOTEC PO SCH (09:12)
[2021-06-09] MEDS: LOPRESSOR PO SCH ×2 (09:13→20:14)
[2021-06-09] MEDS: ZINC-220 PO SCH (09:13)
[2021-06-09] MEDS: ASPIRIN CHEWABLE PO SCH (09:13)
[2021-06-09] MEDS: DECADRON IM SCH (09:13)
[2021-06-09] MEDS: PRILOSEC PO SCH (09:13)
[2021-06-09] MEDS: LOVENOX SUBCUT SCH (09:14)
[2021-06-09] MEDS: SYMBICORT 160-4.5 MCG INHALER IH SCH ×2 (09:14→20:16)
[2021-06-09] MEDS: TYLENOL PO PRN (15:22)
[2021-06-09] MEDS: MORPHINE 2 MG/ML SYRINGE IVP PRN (19:54)
[2021-06-09] MEDS: SEROQUEL PO SCH (20:14)
[2021-06-10] MEDS: MORPHINE 2 MG/ML SYRINGE IVP PRN ×2 (00:54→18:38)
[2021-06-10 04:09] LABS: C-REACTIVE PROTEIN 133 mg/L (0-10)
[2021-06-10] MEDS: VENTOLIN HFA (PER PUFF-WITH SPACER) IH SCH ×3 (04:40→20:20)
[2021-06-10 05:44] LABS: ABG PH 7.49 (7.35-7.45)
[2021-06-10 05:45] LABS: BEecf 3.4 (-2.0-3.0); COHb 1.8 (0.5-1.5); HCO3 26.7 (21-28); MetHb 0.7 (0-1.5); TCO2 27.8 (19-24); sO2 84.7 % (94-98); tHb 11.2 g/dl (11.7-17.4)
[2021-06-10 05:46] LABS: ABG O2 HGB 81.8 % (95-100)
[2021-06-10] MEDS: PRILOSEC PO SCH (05:57)
[2021-06-10 06:18] LABS: HEMATOCRIT 32.4 % (37.0-47.0); HEMOGLOBIN 10.9 g/dl (12.0-16.0); MEAN CORPUSCULAR HEMOGLOBIN 31.2 pg (27.0-31.0); MEAN CORPUSCULAR HGB CONC 33.6 (31.8-35.4); MEAN CORPUSCULAR VOLUME 92.8 fl (81.0-99.0); PLATELET COUNT 168 10^3/uL (140-440); RDW COEFFICIENT OF VARIATION 13.6 % (11.6-14.8); RED BLOOD COUNT 3.49 10^6/ul (4.20-5.40); WHITE BLOOD COUNT 6.22 K/ul (4.6-10.2)
[2021-06-10 06:26] LABS: ANISOCYTOSIS NOT PRESENT (NOT PRESENT)
[2021-06-10 06:29] LABS: ALANINE AMINOTRANSFERASE 61.9 U/L (0-35); ALBUMIN 3.13 g/dL (3.5-5.0); ALKALINE PHOSPHATASE 95.1 U/L (53-141); ASPARTATE AMINO TRANSFERASE 78.8 U/L (14-36); BILIRUBIN,TOTAL 0.25 mg/dL (0.2-1.3); BLOOD UREA NITROGEN 22.9 mg/dL (7-17); CALCIUM 8.13 mg/dL (8.4-10.2); CARBON DIOXIDE 27.5 mmol/L (22-30.0); CHLORIDE 104.6 mmol/L (98-107); CREATININE 0.81 mg/dL (0.60-1.30); GLUCOSE 132.4 mg/dL (74-106); POTASSIUM 3.93 mmol/L (3.5-5.1); SODIUM 137.9 mmol/L (134.5-145); TOTAL PROTEIN 5.65 g/dL (6.3-8.2)
[2021-06-10 06:38] LABS: PROTHROMBIN TIME 10.4 SEC (9.3-11.0)
[2021-06-10 06:43] LABS: TROPONIN I < 0.012 ng/ml (0.0000-0.120)
--- NOTE | 2021-06-10 08:32 | PCM.PROG ---
Date Seen by Provider: 06/10/21 Time Seen by Provider: 08:24 Subjective: 66-year-old female hospital day #3 with COVID-19 pneumonia, hypoxia.Labs this morning showed a resolution of the leukocytopenia with white blood cell count of 6.2, hemoglobin stable at 10.9 and platelets normal at 168. 93% neutrophilia suggestive of steroidal demargination. INR this morning 0.98 and stable. Blood gas this morning showed O2 saturation 84.7. This is the third day in a row of decline. pH 7.49. O2 45 which is the third day in a row of decline. CO2 27.8 which is the third day of increase. Metabolic panel shows sodium 137.9 normal, potassium 3.93, BUN 22.9, creatinine 21 and normal. Glucose 132.4 which is likely steroidal effect. Calcium 8.13 with albumin of 3.13 corrected calcium of 8.8 which is normal. Blood cultures negative after 24 hours. Vital signs of the last 24-hour remain afebrile. She did have a high of 99.9. Heart rate in the last 24 hours ranged from 69 -80. Blood pressures over the last 24 hours showed normal levels. 106/65, 105/68, 122/68, 120/65, 108/72. O2 saturations low of 85 high of 96. We have titrated oxygen to maintain her above 92 ideally 94 to 98%. Patient is currently on a nonrebreather 15 L. This was increased from the nasal cannula yesterday of 2.5. Telemetry shows continuous sinus rhythm. She has had 1 with bundle branch block and 1 with occasional PVCs otherwise normal. Input and output have been reviewed. Voids have not been fully recorded. Labs showed normal renal function at this time. Reviewed overnight nursing notes patient tolerating the infusion well. She is currently on remdesivir and dexamethasone. At 8:00 last night patient noted pain in the lower chest and upper abdomen. Morphine was given via IV not p.o. route. Note from 2:00 this morning SPO2 monitor was off SPO2 was 80 to 82%. Respirations were shallow at 41/min. Oxygen was replaced at 4 L try to get patient take slow deep breaths oxygen increased to 5 L respiratory therapy contacted. Morphine was given to slow respirations. Ventimask applied at 50%. Head of bed elevat ed. At 1:00 Ventimask increased to 55% O2 88% 115 this morning nonrebreather mask applied at 15 L. Patient is transferred to bedside commode. Patient very weak and unsteady fall precautions initiated. 93% on nonrebreather. Resting comfortably as of 140 this morning. I saw her today at [id number] Critical care time 30 minutes. She was on NRB and changed to Vapotherm. She was able to talk and communicate. She is afraid. She noted that she wanted some time without phones ringing. I disconnected the room phone and I asked her she wanted us to set her phone aside and she did. I talked with respiratory therapy and we will change her over from nonrebreather to Vapotherm to allow her to have access to her mouth will to eat and drink. I again discussed with patient the need to position to be on stomach, side, upright and to rotate. She has increased egophony bilateral lower pulmonary quadrant and evidence of worsening consolidation. I would like a repeat chest x-ray which will be done today. I will repeat ABG in 1 hour as noted. Repeat ABG was o2 sat 96.9, ph 7.48, pco2 37, po2 83 up from 45 this am. CO2 28.7. Chest x-ray was obtained and supported my clinical findings of worsened bilateral pneumonia. I have added azithromycinn 500mg daily, rocephin 1 gram daily. I talked with respiratory therapy, discussed repeat ABG to be obtained in 1 hour after starting Vapotherm as noted above. We will repeat again in the morning tomorrow. I have resumed the patient's fluids at normal saline 110 mils per hour as she is tolerating fluids less and eating less. I talked with , noted that she wanted rest. I talked with the patient about her CODE STATUS and she wishes to remain full code but does not know. I talked with about this and he does not know. I contacted his daughter Maren at [phone] at around 1220 and left message. I talked with from 12:10- 12:17. I talked with case management as well at the same point and updated them on the above. Review of Systems Constitutional: Chills, Weakness, Fatigue, Loss of appetite; Denies Fever Eyes: Reports No symptoms Ears: Reports No symptoms Nose: Reports Congestion Throat: Reports Pain/drainage. Mouth: Reports No symptoms Respiratory: Cough, Shortness of air, dyspnea, hypoxia. Pain in left chest with inspiration. Cardiovascular: Reports Orthopnea; Denies Chest pain, Left arm pain, Diaphoresis, PND, Edema or Palpitations Gastrointestinal: Reports Abdominal pain, Nausea, Vomiting and Diarrhea; Denies Melena, Hematemesis, Hematochezia or Dysphagia Genitourinary: Reports No symptoms Neurological: Reports No symptoms, Headache, Dizziness and Weakness Musculoskeletal: Reports Pain Skin: Reports No symptoms Psychiatric: Reports No symptoms Habits: Denies Tobacco use, Substance use or Alcohol use Talked with Daughter and they want patient daughter Maren to Be POA/Surrogate. They want full code, prolonged status. They also want to delay intubation as long as possible. They want to make maren designated. Continue wait and see. At present no transfer per daughter. Will use NRBm + High flow Vapotherm. Remdesivir completed. Still satting 85%. She is comfortable, did not want to sign any forms. 108/66 BP. 32 respirations on monitor. 85% oxygen, sleeping on left side proning. She is on vapotherm. She did not want to sign any papers today. We will add NRB and vapotherm. Talked with daughter at [phone] 4 minutes. Talked with 1827 5 minutes. Discussed care planning/management of the patient. She is full code. Discussed this with family today. He is saddened by news today. Objective: Vital Signs Temp Pulse Pulse Resp BP Pulse Ox 06/10/21 07:00 90 L 06/10/21 05:30 89 L 06/10/21 05:05 99.9 F H 71 18 106/65 96 06/10/21 02:06 92 L 06/09/21 20:52 98.7 F 80 25 H 105/68 89 L 06/09/21 20:00 83 21 06/09/21 19:00 89 L 06/09/21 18:25 78 90 L 06/09/21 18:22 98.1 F 83 18 122/68 90 L 06/09/21 14:00 97.6 F 79 20 120/65 85 L 06/09/21 13:00 91 L 06/09/21 12:40 108/72 06/09/21 12:10 112/60 06/09/21 11:40 116/66 06/09/21 11:00 110/60 06/09/21 10:45 91 L 06/09/21 10:35 92/62 06/09/21 08:00 72 20 06/09/21 07:00 93 L 06/09/21 06:00 91 L 06/09/21 04:55 98.6 F 69 25 H 96/65 93 L 06/09/21 01:00 93 L 06/08/21 22:00 98.9 F 73 18 98/65 90 L 06/08/21 19:47 99.8 F H 97 H 18 89 L 06/08/21 19:29 98.5 F 91 H 19 122/94 H 92 L 06/08/21 19:00 86 L 06/08/21 10:52 91 H 19 122/94 H 92 L 06/08/21 10:38 98.5 F 94 H 21 122/94 H 94 L Constitutional:Appearance-Moderate tachypnea.Shallow inspiration. Her attitude today is one of fear. I attempted to console her, with help of Respiratory team. We changed her from NRBM to Vapotherm while in room. Additionnally, during auscultation she had increased e/o connsolidation bilateral lower lobes (increased egophany/whispered pectoriloquy). I encouraged her to change positions and in fact we moved her to right lateral decubitus during the evaluation. We discussed proning at length again. Orientation- Oriented x 3, alertBuild and Nutrition-[obese]General- Patient is pessimistic, reports feeling poorly.. Sitting upright in bed today upon entry and we moved her to the right side-lying position. No peripheral edema noted. Good dorsalis pedis pulses. I placed her hand up on her abdomen and I asked her to work on deep breathing and to work on controlled breathing instead of shallow/fast respiratory state. She is fatiguing. She is currently a full code. Integumentary: General-No rashes, ulcers or lesions.Palpation- Normal skin moisture/turgor. Skin is warm to touch, appropriate. Capillary refill is normal bilateral Upper and lower extremity. Head/Neck:Head- normocephalic and atraumatic.Neck- without visible/palpable lumps or pulsations.Palpation- No bony tenderness about head/neck along frontal, occipital, temporal, parietal, mastoid, jawline, zygoma, orbit or any other location. NO temporal artery tenderness. No TMJ tenderness. Neck Supple.Thyroid-No thyromegaly, no nodules Eye:Bilaterally PERRLA, EOMI. No discharge. Upper and lower eyelids are normal. Eyeball appears normal. No ciliary flushing, no conjunctival injection. ENMT:.Nares- bilateral quiet airflow, no discharge.Nasal mucosa- No bleeding noted and no ulcerations observed. [place], moist. Turbinates non boggy.Lips- normal color, moist without cracks/lesionsOral Cavity/Palate- hard/soft palate intact without lesions, oral mucosa pink and moist. Tongue normal midline. Oropharynx- no pharyngeal erythema, Uvula midline. No post nasal drip. No exudate.Salivary glands- Non tender to palpation CHEST/LUNG:Inspection- symmetric chest wall no pectus deformity. Mild increased effort, mild tachypnea, no use of accessory muscles.Palpation- nontender sternum, ribline. No abnormal pulsations.Auscultation- Breath sounds throughout all lung velasquez coars. Crackling heard on examination. tracheal sounds, bronchial sounds overlying sternum, Bronchovessicular sounds between scapulae posteriorly, vessicular breath sounds heard throughout periphery are coarse. Lungs are not today.Adventitious sounds- No wheezes, Crackles throughout, no rhonchi. shallow inspiration, limited effort from patient . Lung sounds worsening. Increased egophony and was whispered pectoriloquy. Is evidence of increased consolidation bilaterally worse in left lower lobe. She was resting in a upright/slight left side-lying position. We rolled her to her right side and will continue to work on proning. We have switched her over to Vapotherm. I have demonstrated and asked for her to work on deep breathing techniques. CARDIOVASCULAR:Carotid artery-normal, no bruits or abnormal pulsations. Jugular vein- no pulsations.Palpation/Percussion- Normal PMI, no palpable thrillAuscultation- Regular rate and rhythm. No murmur noted in sitting, supine positions.Extremities- no digital clubbing, cyanosis, edema, increased warmth. ABDOMEN:Inspection- normal and no visible pulsations. Normal contour. Auscultation- Bowel sounds normal, no abdominal bruits.Palpation/Percussion- soft, non-tender, no rebound tenderness, no rigidity (guarding), no jar tenderness, no masses.Liver-no hepatomegaly,Spleen no splenomegaly, Peripheral Vascular:Upper extremityLeft- Normal temperature with pink nailbeds and no ulcerations.Upper extremity Right-Normal temperature with pink nailbeds and no ulcerations.Lower extremity- Normal temperature with pink nailbeds and no ulcerations. DP pulses 2+ bilaterally. Pedal hair intact. Normal capillary refill.Edema- No edema. Musculoskeletal:Generalized-No generalized swelling or edema of extremities, no digital clubbing or cyanosis, neurovascularly intact all four extremities. Upper extremity- Symmetrical posture. No visible deformity. Normal Spine/Ribs- No deformities, masses or tenderness, no known fractures, normal strength, Normal ROM. Normal stability No tenderness along C/T/L spine. Normal appearing ROM about spine. Neurological:General- Moves all 4 extremities symmetrically. Symmetrical face and body posture.Cranial nerves- individually evaluated II-XII and intact. PERRLA, Normal EOMI, visual/special senses appear intact, Face is symmetrical and normal sensation/movement, normal tongue, normal strength/posture of neck musculature. Neuropsych:Oriented- Person, place, time. (AAOx3),Mood/affect- scared Speech- Normal speech fragmented though. Lymphatic: Head/Neck- normal size and non tender to palpation.Axillary- normal size and non tender to palpation.Femoral and Inguinal- normal size and non tender to palpation. Laboratory Last Values WBC 6.22 K/ul (4.6-10.2) 06/10/21 06:00 RBC 3.49 10^6/ul (4.20-5.40) L 06/10/21 06:00 Hgb 10.9 g/dl (12.0-16.0) L 06/10/21 06:00 Hct 32.4 % (37.0-47.0) L 06/10/21 06:00 MCV 92.8 fl (81.0-99.0) 06/10/21 06:00 MCH 31.2 pg (27.0-31.0) H 06/10/21 06:00 MCHC 33.6 (31.8-35.4) 06/10/21 06:00 RDW Coeff of Joselito 13.6 % (11.6-14.8) 06/10/21 06:00 Plt Count 168 10^3/uL (140-440) 06/10/21 06:00 Immature Gran % (Auto) 0.3 % (0.0-5.0) 06/09/21 05:26 Neut % (Auto) 74.4 % (42.2-75.2) 06/09/21 05:26 Lymph % (Auto) 20.9 (10.0-50.0) 06/09/21 05:26 [place] % (Auto) 4.4 (0-10) 06/09/21 05:26 Eos % (Auto) 0.0 % (0.0-7.0) 06/09/21 05:26 Baso % (Auto) 0.0 % (0.0-3.0) 06/09/21 05:26 Neut # (Auto) 2.2 K/ul (2.0-6.9) 06/09/21 05:26 Lymph # (Auto) 0.6 K/uL (0.60-3.4) 06/09/21 05:26 [place] # (Auto) 0.1 K/uL (0.4-2.0) L 06/09/21 05:26 Eos # (Auto) 0.0 K/ul (0.0-0.7) 06/09/21 05:26 Baso # (Auto) 0.0 K/uL (0-0.2) 06/09/21 05:26 Immature Gran # (Auto) 0.0 (0.0-1.0) 06/09/21 05:26 Neutrophils % (Manual) 93.0 % (42.2-75.2) H 06/10/21 06:00 Band Neutrophils % 2.0 % (0.0-5.0) 06/10/21 06:00 Lymphocytes % (Manual) 4.0 % (10.0-50.0) L 06/10/21 06:00 Monocytes % (Manual) 1.0 % (0.0-10.0) 06/10/21 06:00 Anisocytosis Not present (NOT PRESENT) 06/10/21 06:00 PT 10.4 SEC (9.3-11.0) 06/10/21 06:00 INR 0.98 SI (0.0-3.9) 06/10/21 06:00 Puncture Site R rad 06/10/21 11:20 Base Excess 4.1 (-2.0-3.0) H 06/10/21 11:20 O2 Saturation 96.9 % (94-98) 06/10/21 11:20 ABG pH 7.48 (7.35-7.45) H 06/10/21 11:20 ABG pCO2 37.0 mmHg (35-45) 06/10/21 11:20 ABG pO2 83.0 mmHg (85-100) L 06/10/21 11:20 ABG HCO3 27.6 (21-28) 06/10/21 11:20 ABG Total CO2 28.7 (19-24) H 06/10/21 11:20 Julio Cesar Test Y 06/10/21 11:20 Hemoglobin 0.3 (0-1.5) 06/10/21 11:20 Oxyhemoglobin 96.0 % (95-100) 06/10/21 11:20 Carboxyhemoglobin 1.6 (0.5-1.5) H 06/10/21 11:20 Total Hemoglobin 10.9 g/dl (11.7-17.4) L 06/10/21 11:20 O2 Delivery Device Vapotherm 06/10/21 11:20 Oxygen Liter Flow 15.00 06/10/21 04:05 FiO2 % 90.0 % 06/10/21 11:20 Sodium 137.9 mmol/L (134.5-145) 06/10/21 06:00 Potassium 3.93 mmol/L (3.5-5.1) 06/10/21 06:00 Chloride 104.6 mmol/L (98-107) 06/10/21 06:00 Carbon Dioxide 27.5 mmol/L (22-30.0) 06/10/21 06:00 Anion Gap 9.73 06/10/21 06:00 BUN 22.9 mg/dL (7-17) H 06/10/21 06:00 Creatinine 0.81 mg/dL (0.60-1.30) 06/10/21 06:00 Estimated GFR (MDRD) 70.00 mL/min 06/10/21 06:00 BUN/Creatinine Ratio 28.27 06/10/21 06:00 Glucose 132.4 mg/dL (74-106) H 06/10/21 06:00 Lactic Acid 1.06 mmol/L (0.7-2.1) 06/08/21 11:13 Calcium 8.13 mg/dL (8.4-10.2) L 06/10/21 06:00 Ferritin 994.00 ng/mL (11.1-264.0) H 06/10/21 06:00 Total Bilirubin 0.25 mg/dL (0.2-1.3) 06/10/21 06:00 AST 78.8 U/L (14-36) H D 06/10/21 06:00 ALT 61.9 U/L (0-35) H 06/10/21 06:00 Alkaline Phosphatase 95.1 U/L (53-141) 06/10/21 06:00 Lactate Dehydrogenase 452 IU/L (119-226) H 06/09/21 05:26 Troponin I < 0.012 ng/ml (0.0000-0.120) 06/10/21 06:00 C-Reactive Prot, Quant 133 mg/L (0-10) H 06/09/21 05:26 Total Protein 5.65 g/dL (6.3-8.2) L 06/10/21 06:00 Albumin 3.13 g/dL (3.5-5.0) L 06/10/21 06:00 Globulin 2.52 06/10/21 06:00 Albumin/Globulin Ratio 1.24 06/10/21 06:00 Procalcitonin < 0.05 ng/mL (0.09) 06/08/21 11:13 D-Dimer 965.51 ng/mL (<500) H 06/08/21 11:13 (1) COVID-19: Status: Acute Code(s): U07.1 - COVID-19 SNOMED Code(s): 721389797 (2) Pneumonia due to 2019-nCoV: Status: Acute Code(s): U07.1 - COVID-19; J12.82 - Pneumonia due to coronavirus disease 2019 SNOMED Code(s): 595866027318003150 (3) Nausea: Status: Acute Code(s): R11.0 - Nausea SNOMED Code(s): 047787010 (4) Vomiting: Status: Acute Code(s): R11.10 - Vomiting, unspecified SNOMED Code(s): 203302320 (5) Cough: Status: Acute Code(s): R05 - Cough SNOMED Code(s): 14665014 (6) BMI 30.0-30.9,adult: Status: Acute Code(s): Z68.30 - Body mass index [BMI]30.0-30.9, adult SNOMED Code(s): 148199231 (7) Elevated d-dimer: Status: Acute Code(s): R79.89 - Other specified abnormal findings of blood chemistry SNOMED Code(s): 009112647 (8) Transaminitis: Status: Acute Code(s): R74.01 - Elevation of levels of liver transaminase levels SNOMED Code(s): 190769287 (9) Leukopenia: Status: Acute Code(s): D72.819 - Decreased white blood cell count, unspecified SNOMED Code(s): 46617639 (10) Hiatal hernia: Status: Acute Code(s): K44.9 - Diaphragmatic hernia without obstruction or gangrene SNOMED Code(s): 15159159 (11) Chronic depression: Status: Acute Code(s): F32.9 - Major depressive disorder, single episode, unspecified SNOMED Code(s): 243895868 (12) Gastroesophageal reflux disease: Status: Acute Code(s): K21.9 - Gastro-esophageal reflux disease without esophagitis SNOMED Code(s): 450245802 (13) Hypocalcemia: Status: Acute Code(s): E83.51 - Hypocalcemia SNOMED Code(s): 1034898 (14) Respiratory failure: Status: Acute Code(s): J96.90 - Respiratory failure, unspecified, unspecified whether with hypoxia or hypercapnia SNOMED Code(s): 882325328 Plan: COVID 19/COVID 19 Pneumonia/ HYPOXIA:66 yo Female Day 4 of COVID 19 symptoms, Hospital day 3.Remdesivir Day 3/Dex Day 3. N/V/D reported but none since admit. Cough/SOA present/worsening, respiratory rate/Po2 worsening. We will increase her O2 to allow for o2 saturation of >90%. Daily INR, daily ABG. Labs daily. We will continue to monitor symptoms. I had several conversations with the patient, with nursing and with case management today. I had several conversations with the patient's and daughter. They want full code for the patient. I discussed at length what it means to be intubated especially with Covid. I have discussed with the patient very heavily of the need to be on stomach and side. She has morphine ordered and when she gets this she does breathe more commonly. She has some anxiety which is contributing. We have stopped her evening dose of metoprolol and we have cut her enalapril in half. I do not want to stop her WHITLEY inhibitor due to literature with [facility]. We will continue the remdesivir, continue the dexamethasone and we will continue to try to keep her up as high as possible with her O2 saturation. Most of the day today she has been in the mid 80s. We will continue pulse ox and telemetry. Greater than 60 minutes of critical care time have been spent with this patient today. - Admit inpatient monitored bed - [facility] - Daily CBC/CMP/CRP/ABG - [place] daily IV - O2 Maintain >90%. - Advance to NRB mask and then to Vapotherm -As of 1849 the patient is on both nonrebreather and Vapotherm. - Lovenox 40mg daily DVT prophy. - Continue home meds (hold mobic due to risks for GI ulceration) - On PPI as listed below -Hold the maintenance fluid, we will provide Lasix 20 mg to try to dry out the lungs a little bit. Chest x-ray showed worsening. - Tylenol 500 QID for pain/fever. - Morphine 2 q 4 hours PRN. N/V/D:Will use zofran/phenergan PRN. none reported in hospital. Continue meds as needed for now. - Zofran 4mg IV q 6 hours prn - Phenergan 25mg IV q 8 hours prn. Transaminitis:Monitor CMP daily. Fatty liver on CT.we will continue to monitor. AST has dropped from 10/19/1977 and ALT from 77.5-61.9. Lactate dehydrogenase yesterday was 452 and elevated - CMP daily q am. BMI 30.9: Unchanged. F/U as outpatient. GERD:Chronic/stable. Unchanged.Established/Chronic problem. Stable at present. Continue prilosec PPI. Depression: Chronic/unstable. Will use home meds. She is normally following with [facility]. We will continue f/u. The patient does seem to have some decreased interest/motivation. Arthritis: Hold mobic while on dexamethasone daily 6mg IV. Hypocalcemia:Will add calcium + D. Stop the 5000 daily Vit D. Calcium seems better today DVT Prophy:Lovenox 40mg subcutaneous. Monitor for bleeding. Monitor PLT daily with CBC. - Lovenox daily. Diet:Regular. GI Prophy:On steroids. Will continue PPI as per GERD. Disposition:I am concerned with the health of the patient. I have had very long and serious conversations with both the patient and as well as titus ferro today. We attempted to get POA/surrogate decision making but patient refused to sign papers and wanted /daughter to be her decision making team. We will continue remdesivir and monitoring. continue morphine 2 q 4 hours prn. May drop to 2 q 2 hours. Daily labs as listed. Proning encouraged again. Severe COVID with respiratory failure and hypoxia. Supportive care, monitor for worsening.F/U with today. Discussed case with case management, nursing, /daughter. 68 minutes critical care time today. As of 185: She is on vapotherm and NRB. O2 93% and RR 23 after morphine. If dropping <80% we will consider bipap. Will add 20mg IV of lasix and stop IV fluids for tonight. Close f/u d/w family.
[2021-06-10] MEDS: LOVENOX SUBCUT SCH (09:32)
[2021-06-10] MEDS: ASPIRIN CHEWABLE PO SCH (09:33)
[2021-06-10] MEDS: WELLBUTRIN XL PO SCH (09:33)
[2021-06-10] MEDS: LOPRESSOR PO SCH (09:34)
[2021-06-10] MEDS: MULTIVITAMIN TABLET PO SCH (09:34)
[2021-06-10] MEDS: TESSALON PERLES PO SCH ×2 (09:34→20:23)
[2021-06-10] MEDS: CALCIUM 500 + VIT D 5 MCG (200 IU) TABLET PO SCH ×2 (09:34→20:22)
[2021-06-10] MEDS: DECADRON IM SCH (09:34)
[2021-06-10] MEDS: VASOTEC PO SCH (09:34)
[2021-06-10] MEDS: ZINC-220 PO SCH (09:34)
[2021-06-10] MEDS: SYMBICORT 160-4.5 MCG INHALER IH SCH ×2 (09:37→20:22)
--- NOTE | 2021-06-10 11:15 | DI ---
EXAM: Chest one view, frontal view only. HISTORY: COVID-19. COMPARISON: 06/08/2021. FINDINGS: The heart size is normal. There is no pulmonary vascular congestion. Diffuse bilateral c onsolidation noted, greatest in the mid to lower lung zones, which has worsened since the prior study . No pleural effusion or pneumothorax is seen. No acute osseous abnormality is identified. ACDF ch anges noted. IMPRESSION: Worsened bilateral pneumonia.
[2021-06-10 11:36] LABS: ABG PH 7.48 (7.35-7.45)
[2021-06-10 11:37] LABS: BEecf 4.1 (-2.0-3.0); COHb 1.6 (0.5-1.5); HCO3 27.6 (21-28); MetHb 0.3 (0-1.5); TCO2 28.7 (19-24); sO2 96.9 % (94-98); tHb 10.9 g/dl (11.7-17.4)
[2021-06-10] MEDS ORDERED: ROCEPHIN 1 GM VIAL IM SCH (12:20)
[2021-06-10] MEDS ORDERED: SODIUM CHLORIDE 500 ML IV SCH (12:30)
[2021-06-10] MEDS ORDERED: LIDOCAINE HCL 1% SDV IM SCH (12:30)
[2021-06-10] MEDS ORDERED: SODIUM CHLORIDE 1,000 ML IV SCH (12:34)
[2021-06-10] MEDS: ROCEPHIN 1 GM/50 ML D5W 1 GM/50 ML BAG IV SCH (13:37)
[2021-06-10] MEDS: ZITHROMAX 500 MG in SODIUM CHLORIDE 250 ML IV SCH (14:28)
[2021-06-10] MEDS: ZOFRAN 4 MG/2 ML IVP PRN (15:39)
[2021-06-10] MEDS: VEKLURY 100 MG in SODIUM CHLORIDE 250 ML IV SCH (17:03)
[2021-06-10] MEDS ORDERED: LASIX IVP ONE (18:37)
[2021-06-10] MEDS: SEROQUEL PO SCH (20:23)
[2021-06-11] MEDS: VENTOLIN HFA (PER PUFF-WITH SPACER) IH SCH ×3 (05:13→20:04)
[2021-06-11 05:18] LABS: HEMATOCRIT 30.9 % (37.0-47.0); HEMOGLOBIN 10.4 g/dl (12.0-16.0); IMMATURE GRANULOCYTE % (AUTO) 0.5 % (0.0-5.0); LYMPHOCYTES # (AUTO) 0.5 K/uL (0.60-3.4); LYMPHOCYTES % (AUTO) 10.2 (10.0-50.0); MEAN CORPUSCULAR HEMOGLOBIN 31.1 pg (27.0-31.0); MEAN CORPUSCULAR HGB CONC 33.7 (31.8-35.4); MEAN CORPUSCULAR VOLUME 92.5 fl (81.0-99.0); MONOCYTES # (AUTO) 0.2 K/uL (0.4-2.0); MONOCYTES % (AUTO) 5.4 (0-10); NEUTROPHILS # (AUTO) 3.7 K/ul (2.0-6.9); NEUTROPHILS % (AUTO) 83.9 % (42.2-75.2); PLATELET COUNT 173 10^3/uL (140-440); RDW COEFFICIENT OF VARIATION 13.6 % (11.6-14.8); RED BLOOD COUNT 3.34 10^6/ul (4.20-5.40); WHITE BLOOD COUNT 4.41 K/ul (4.6-10.2)
[2021-06-11 05:33] LABS: ALANINE AMINOTRANSFERASE 50.6 U/L (0-35); ALBUMIN 2.94 g/dL (3.5-5.0); ALKALINE PHOSPHATASE 89.5 U/L (53-141); ASPARTATE AMINO TRANSFERASE 70.7 U/L (14-36); BILIRUBIN,TOTAL 0.28 mg/dL (0.2-1.3); BLOOD UREA NITROGEN 23.6 mg/dL (7-17); CALCIUM 8.06 mg/dL (8.4-10.2); CARBON DIOXIDE 27.2 mmol/L (22-30.0); CHLORIDE 105.6 mmol/L (98-107); CREATININE 0.74 mg/dL (0.60-1.30); GLUCOSE 151.6 mg/dL (74-106); POTASSIUM 3.81 mmol/L (3.5-5.1); TOTAL PROTEIN 5.51 g/dL (6.3-8.2)
[2021-06-11 05:38] LABS: PROTHROMBIN TIME 10.7 SEC (9.3-11.0)
[2021-06-11] MEDS: PRILOSEC PO SCH (05:58)
--- NOTE | 2021-06-11 07:11 | PCM.PROG ---
Date Seen by Provider: 06/11/21 Time Seen by Provider: 07:09 Subjective: 66 yo hospital day 4. Admitted on 06/08/21 with new onset COVID 19 symptoms. The patient did not do well yesterday and required increased oxygen support. She is on remdesivir today day 01/05-, dexamethasone 6mg day 01/10. Labs this morning showed a mild drop in white blood cell count from 6.22-4.41. Hemoglobin is dropped from 10.9 to 10.4 and platelets have increased lately from 1 68-1 73. She has a mild lymphocytopenia and a neutrophilia which is likely steroidal effect from demargination. INR this morning is normal at 1.01. She has not yet had an ABG this morning. Metabolic panel shows normal sodium at 138, potassium 3.1, chloride 105.6, calcium 8.06 with a albumin of 2.94 this corrects to 8.9 and normal. Glucose is mildly elevated at 151.6, creatinine is normal at 0.74. AST and ALT remain mildly elevated but stable AST at 70.7 and ALT of 50.6. Chest x-ray yesterday afternoon showed worsening pneumonia. She was increased from nonrebreather to Vapotherm and then nonrebreather was added on top of that. She remains afebrile except for a 99.9 at 5:00 yesterday morning. Heart rate last 24 hours 66 through 82. Blood pressure in the last 24 hours on average 103-125/52-67. She did have a low of 93/67 at 1807 last night.Respiratory rate this morning listed as 25. She was up in the 30s to up to 40 last night when we changed her method of oxygenation. We were able to keep her from 92-94 for most of the evening and morning she was at 88 this morning. Telemetry shows sinus rhythm. Nursing notes were reviewed. There was a small amount of blood-tinged sputum at 1336 yesterday. There was oxygen desaturation around 1400. Zofran was given at 1546 due to nausea at 1620 the patient was transferred from room 122 SCU 1. She is very fatigued and Vapotherm was at 100% with O2 saturation 95%. Respirations 26-28. At 1827 we added nonrebreather to the Vapotherm. I added azithromycin 500 mg daily x3 days yesterday as well as Rocephin 1 g IV daily. I have stopped IV fluids and gave 20 mg of Lasix yesterday. It appears that she is doing better at this time. I have cut her dose of enalapril in half and we stopped the evening dose of the beta-rashi. Heart rate seems fine and blood pressure is better today. We will continue remdesivir as long as she is in the hospital. We will continue oxygen monitoring today. We will delay intubation as long as possible. Patient did not want to sign any surrogate forms yesterday and still wishes for her and daughter to be notified. Family wants full code but wants delayed intubation at this time. Patient is on board with these wishes as well. The plan is if she drops into the mid 80s and cannot be sustained on nonrebreather and or Vapotherm we will try BiPAP. We have discussed proning several days in a row, specifically with each day of con tact and with each nursing interaction as well. Rounding started 07:05 with computer eval/vitals/records/labs from floor. ABG was available at 0730. O2 sat 98.4. pH 7.49. Po2 104. Hco3 29, co2 30.2. This is on vapotherm and non colleen. This interprets as a normal ABG, which is oustanding. We are going to try a trial of removnig the NRB and see if she maintains >85%. Ideally >90%. Review of Systems Constitutional: Chills, Weakness, Fatigue, Loss of appetite; Denies Fever Eyes: Reports No symptoms Ears: Reports No symptoms Nose: Reports Congestion Throat: Reports Pain/drainage. Mouth: Reports No symptoms Respiratory: Cough, Shortness of air, dyspnea, hypoxia. Pain in left chest with inspiration. Did have event of ?blood tinged sputum yesterday. Cardiovascular: Reports Orthopnea; Denies Chest pain, Left arm pain, Diaphoresis, PND, Edema or Palpitations Gastrointestinal: Abdominal pain, Nausea, without Vomiting or Diarrhea; Denies Melena, Hematemesis, Hematochezia or Dysphagia Genitourinary: Reports No symptoms Neurological: Headache, Dizziness and Weakness Musculoskeletal: Reports Pain back/chest/abdomen with cough. Skin: Reports No symptoms Psychiatric: Reports No symptoms Habits: Denies Tobacco use, Substance use or Alcohol use Objective: Vital Signs - 24 hr 06/10/21 10:00 06/10/21 10:30 06/10/21 13:00 Temperature Pulse Rate Respiratory Rate Blood Pressure O2 Sat by Pulse Oximetry 99 92 L 88 L 06/10/21 13:53 06/10/21 14:00 06/10/21 17:03 Temperature 98.1 F Pulse Rate 74 Respiratory Rate 26 H Blood Pressure 107/57 L 101/66 O2 Sat by Pulse Oximetry 85 L 80 L 92 L 06/10/21 17:10 06/10/21 17:30 06/10/21 18:00 Temperature Pulse Rate 72 82 Respiratory Rate Blood Pressure 103/64 111/62 O2 Sat by Pulse Oximetry 89 L 85 L 91 L 06/10/21 18:07 06/10/21 18:40 06/10/21 19:00 Temperature Pulse Rate 72 Respiratory Rate 32 H Blood Pressure 108/66 O2 Sat by Pulse Oximetry 85 L 83 L 89 L 06/10/21 20:00 06/10/21 21:47 06/10/21 22:00 Temperature 98.1 F Pulse Rate 69 Respiratory Rate 20 30 H Blood Pressure 115/52 L O2 Sat by Pulse Oximetry 90 L 87 L 92 L 06/11/21 01:00 06/11/21 02:00 06/11/21 05:14 Temperature Pulse Rate Respiratory Rate Blood Pressure O2 Sat by Pulse Oximetry 92 L 94 L 94 L 06/11/21 05:33 Temperature 98.6 F Pulse Rate 66 Respiratory Rate 25 H Blood Pressure 125/59 L O2 Sat by Pulse Oximetry 88 L Constitutional:Appearance-Moderate tachypnea w/ shallow inspiration persist.She is now in room SCU1. Vapotherm on board. IVs are held saline locked. She is respiring about 20-25 times per minute on visualization. Mild accessory use. She is able to talk in fragmented sentences and still appears fearful which is understandable. Still w/ e/o connsolidation bilateral lower lobes. I again encouraged her to change positions and to lay on stomach/side more than back. We discussed proning at length again. Orientation- Oriented x 3, alertBuild and Nutrition-[obese]General- reports feeling poorly.. Sitting upright in bed today upon entry. Still w/o peripheral edema. Good dorsalis pedis pulses. She is doing a bit better today. She is a full code. Integumentary: General-No rashes, ulcers or lesions.Palpation- Normal skin moisture/turgor. Skin is warm to touch, appropriate. Capillary refill is normal bilateral Upper and lower extremity. Head/Neck:Head- normocephalic and atraumatic.Neck- without visible/palpable lumps or pulsations.Palpation- No bony tenderness about head/neck along frontal, occipital, temporal, parietal, mastoid, jawline, zygoma, orbit or any other location. NO temporal artery tenderness. No TMJ tenderness. Neck Supple.Thyroid-No thyromegaly, no nodules Eye:Bilaterally PERRLA, EOMI. No discharge. Upper and lower eyelids are normal. Eyeball appears normal. No ciliary flushing, no conjunctival injection. ENMT:.Nares- bilateral quiet airflow, no discharge.Nasal mucosa- No bleeding noted and no ulcerations observed. [place], moist. Turbinates non boggy.Lips-no rmal color, moist without cracks/lesionsOral Cavity/Palate- hard/soft palate intact without lesions, oral mucosa pink and moist. Tongue normal midline. Oropharynx- no pharyngeal erythema, Uvula midline. No post nasal drip. No exudate.Salivary glands- Non tender to palpation Vapotherm in place. No evidence of trauma or irritation to the nasal region. CHEST/LUNG:Inspection- symmetric chest wall no pectus deformity. Mild increased effort, mild tachypnea, no use of accessory muscles.Palpation- nontender sternum, ribline. No abnormal pulsations.Auscultation- Breath sounds throughout all lung velasquez coars. Crackling heard on examination. tracheal sounds, bronchial sounds overlying sternum, Bronchovessicular sounds between scapulae posteriorly, vessicular breath sounds heard throughout periphery are coarse. Lungs are not any better today.Adventitious sounds- Crackles throughout, no rhonchi. shallow inspiration, limited effort from patient . Resting on back upon entry. Proning recommended again and provided pillow. Joked with her today. She did improve up to ~90%. Morphine helps quite a bit over night. Lung sounds chronic/worse. Bilateral lower lobe coarse sounds. We rolled her to her adomen and used. We have continued Vapotherm. Will hold NRB today and see how she does. I have demonstrated again and asked for her to work on deep breathing techniques. She was instructed to breath deep through nos e and to focus on her breathing/rolling. CARDIOVASCULAR:Carotid artery-normal, no bruits or abnormal pulsations. Jugular vein- no pulsations.Palpation/Percussion- Normal PMI, no palpable thrillAuscultation- Regular rate and rhythm. No murmur noted in sitting, supine positions.Extremities- no digital clubbing, cyanosis, edema, increased warmth. ABDOMEN:Inspection- normal and no visible pulsations. Normal contour. Auscultation- Bowel sounds normal, no abdominal bruits.Palpation/Percussion- soft, non-tender, no rebound tenderness, no rigidity (guarding), no jar tenderness, no masses.Liver-no hepatomegaly, Peripheral Vascular:Upper extremityLeft- Normal temperature with pink nailbeds and no ulcerations.Upper extremity Right-Normal temperature with pink nailbeds and no ulcerations.Lower extremity- Normal temperature with pink nailbeds and no ulcerations. DP pulses 2+ bilaterally. Pedal hair intact. Normal capillary refill.Edema- No edema. Mild tenderness along superficial vein on right Lower extremity. Dorsiflexion did not recreate/worsen symptoms. Musculoskeletal:Generalized-No generalized swelling or edema of extremities, no digital clubbing or cyanosis, neurovascularly intact all four extremities. Upper extremity- Symmetrical posture. No visible deformity. Normal Spine/Ribs- No deformities, masses or tenderness, no known fractures, normal strength, Normal ROM. Normal stability No tenderness along C/T/L spine. Normal appearing ROM about spine. Neurological:General- Moves all 4 extremities symmetrically. Symmetrical face and body posture.Cranial nerves- individually evaluated II-XII and intact. PERRLA, Normal EOMI, visual/special senses appear intact, Face is symmetrical and normal sensation/movement, normal tongue, normal strength/posture of neck musculature. Neuropsych:Oriented- Person, place, time. (AAOx3),Mood/affect- scaredSpeech- Normal speech fragmented though. Lymphatic: Head/Neck- normal size and non tender to palpation.Axillary- normal size and non tender to palpation.Femoral and Inguinal- normal size and non tender to palpation. Laboratory Last Values WBC 4.41 K/ul (4.6-10.2) L 06/11/21 05:05 RBC 3.34 10^6/ul (4.20-5.40) L 06/11/21 05:05 Hgb 10.4 g/dl (12.0-16.0) L 06/11/21 05:05 Hct 30.9 % (37.0-47.0) L 06/11/21 05:05 MCV 92.5 fl (81.0-99.0) 06/11/21 05:05 MCH 31.1 pg (27.0-31.0) H 06/11/21 05:05 MCHC 33.7 (31.8-35.4) 06/11/21 05:05 RDW Coeff of Joselito 13.6 % (11.6-14.8) 06/11/21 05:05 Plt Count 173 10^3/uL (140-440) 06/11/21 05:05 Immature Gran % (Auto) 0.5 % (0.0-5.0) 06/11/21 05:05 Neut % (Auto) 83.9 % (42.2-75.2) H 06/11/21 05:05 Lymph % (Auto) 10.2 (10.0-50.0) 06/11/21 05:05 Banks % (Auto) 5.4 (0-10) 06/11/21 05:05 Eos % (Auto) 0.0 % (0.0-7.0) 06/11/21 05:05 Baso % (Auto) 0.0 % (0.0-3.0) 06/11/21 05:05 Neut # (Auto) 3.7 K/ul (2.0-6.9) 06/11/21 05:05 Lymph # (Auto) 0.5 K/uL (0.60-3.4) L 06/11/21 05:05 Banks # (Auto) 0.2 K/uL (0.4-2.0) L 06/11/21 05:05 Eos # (Auto) 0.0 K/ul (0.0-0.7) 06/11/21 05:05 Baso # (Auto) 0.0 K/uL (0-0.2) 06/11/21 05:05 Immature Gran # (Auto) 0.0 (0.0-1.0) 06/11/21 05:05 Neutrophils % (Manual) 93.0 % (42.2-75.2) H 06/10/21 06:00 Band Neutrophils % 2.0 % (0.0-5.0) 06/10/21 06:00 Lymphocytes % (Manual) 4.0 % (10.0-50.0) L 06/10/21 06:00 Monocytes % (Manual) 1.0 % (0.0-10.0) 06/10/21 06:00 Anisocytosis Not present (NOT PRESENT) 06/10/21 06:00 PT 10.7 SEC (9.3-11.0) 06/11/21 05:05 INR 1.01 SI (0.0-3.9) 06/11/21 05:05 Puncture Site Rbrach 06/11/21 07:00 Base Excess 5.7 (-2.0-3.0) H 06/11/21 07:00 O2 Saturation 98.4 % (94-98) H 06/11/21 07:00 ABG pH 7.49 (7.35-7.45) H 06/11/21 07:00 ABG pCO2 38.0 mmHg (35-45) 06/11/21 07:00 ABG pO2 104.0 mmHg (85-100) H 06/11/21 07:00 ABG HCO3 29.0 (21-28) H 06/11/21 07:00 ABG Total CO2 30.2 (19-24) H 06/11/21 07:00 Julio Cesar Test + 06/11/21 07:00 Hemoglobin 0.8 (0-1.5) 06/11/21 07:00 Oxyhemoglobin 96.0 % (95-100) 06/11/21 07:00 Carboxyhemoglobin 1.8 (0.5-1.5) H 06/11/21 07:00 Total Hemoglobin 10.9 g/dl (11.7-17.4) L 06/11/21 07:00 O2 Delivery Device vapo nonreb 06/11/21 07:00 Oxygen Liter Flow 15.00 06/10/21 04:05 FiO2 % 100.0 % 06/11/21 07:00 Sodium 138.0 mmol/L (134.5-145) 06/11/21 05:05 Potassium 3.81 mmol/L (3.5-5.1) 06/11/21 05:05 Chloride 105.6 mmol/L (98-107) 06/11/21 05:05 Carbon Dioxide 27.2 mmol/L (22-30.0) 06/11/21 05:05 Anion Gap 9.01 06/11/21 05:05 BUN 23.6 mg/dL (7-17) H 06/11/21 05:05 Creatinine 0.74 mg/dL (0.60-1.30) 06/11/21 05:05 Estimated GFR (MDRD) 78.00 mL/min 06/11/21 05:05 BUN/Creatinine Ratio 31.89 06/11/21 05:05 Glucose 151.6 mg/dL (74-106) H 06/11/21 05:05 Lactic Acid 1.06 mmol/L (0.7-2.1) 06/08/21 11:13 Calcium 8.06 mg/dL (8.4-10.2) L 06/11/21 05:05 Ferritin 994.00 ng/mL (11.1-264.0) H 06/10/21 06:00 Total Bilirubin 0.28 mg/dL (0.2-1.3) 06/11/21 05:05 AST 70.7 U/L (14-36) H 06/11/21 05:05 ALT 50.6 U/L (0-35) H 06/11/21 05:05 Alkaline Phosphatase 89.5 U/L (53-141) 06/11/21 05:05 Lactate Dehydrogenase 452 IU/L (119-226) H 06/09/21 05:26 Troponin I < 0.012 ng/ml (0.0000-0.120) 06/10/21 06:00 C-Reactive Prot, Quant 136 mg/L (0-10) H 06/10/21 06:00 Total Protein 5.51 g/dL (6.3-8.2) L 06/11/21 05:05 Albumin 2.94 g/dL (3.5-5.0) L 06/11/21 05:05 Globulin 2.57 06/11/21 05:05 Albumin/Globulin Ratio 1.14 06/11/21 05:05 Procalcitonin < 0.05 ng/mL (0.09) 06/08/21 11:13 D-Dimer 965.51 ng/mL (<500) H 06/08/21 11:13 (1) COVID-19: Status: Acute Code(s): U07.1 - COVID-19 SNOMED Code(s): 887643450 (2) Pneumonia due to 2019-nCoV: Status: Acute Code(s): U07.1 - COVID-19; J12.82 - Pneumonia due to coronavirus disease 2019 SNOMED Code(s): 326460255484464615 (3) Nausea: Status: Acute Code(s): R11.0 - Nausea SNOMED Code(s): 232955433 (4) Vomiting: Status: Acute Code(s): R11.10 - Vomiting, unspecified SNOMED Code(s): 931405216 (5) Cough: Status: Acute Code(s): R05 - Cough SNOMED Code(s): 88533493 (6) BMI 30.0-30.9,adult: Status: Acute Code(s): Z68.30 - Body mass index [BMI]30.0-30.9, adult SNOMED Code(s): 952194058 (7) Elevated d-dimer: Status: Acute Code(s): R79.89 - Other specified abnormal findings of blood chemistry SNOMED Code(s): 092616321 (8) Transaminitis: Status: Acute Code(s): R74.01 - Elevation of levels of liver transaminase levels SNOMED Code(s): 041429767 (9) Leukopenia: Status: Acute Code(s): D72.819 - Decreased white blood cell count, unspecified SNOMED Code(s): 14353327 (10) Hiatal hernia: Status: Acute Code(s): K44.9 - Diaphragmatic hernia without obstruction or gangrene SNOMED Code(s): 79810297 (11) Chronic depression: Status: Acute Code(s): F32.9 - Major depressive disorder, single episode, unspecified SNOMED Code(s): 627175058 (12) Gastroesophageal reflux disease: Status: Acute Code(s): K21.9 - Gastro-esophageal reflux disease without esophagitis SNOMED Code(s): 483020456 (13) Hypocalcemia: Status: Acute Code(s): E83.51 - Hypocalcemia SNOMED Code(s): 2993756 (14) Respiratory failure: Status: Acute Code(s): J96.90 - Respiratory failure, unspecified, unspecified whether with hypoxia or hypercapnia SNOMED Code(s): 214311315 Plan: COVID 19/COVID 19 Pneumonia/HYPOXIA:66 yo Female Day 5 of COVID 19 symptoms, Hospital day 4.Remdesivir Day 4/Dex Day 4.Cough/SOA present/worsening overnight, respiratory rate/Po2 worsened but stabilized on vapotherm/NRB. This am she was doing better, we were able to get her back onto vapotherm only. Her mood is markedly better this morning. She is more upbeat and positive. She was joking/laughing and even with some talking was still just under 90%. This is great news. We will continue the remdesivir. We will continue the dexamethasone. We will continue oxygenation with goal of greater than 90%. We attempted proning this morning and I recommended 12 hours today. I called the floor back at 1720 and the patient was only able to tolerate 45 minutes. I have talked with the patient's daughter and this morning as well as this evening at 1730. I relayed the information. Daily INR, daily ABG. Labs daily. We will continue to monitor symptoms. I had several conversations with the patient, with nursing and with case management today. Telemetry reviewed. I had several conversations with the patient's and daughter. Full code remains in effect for the patient. I discussed with patient again this am what it means to be intubated especially with Covid. I have discussed with the patient very heavily of the need to be on stomach and side. She has morphine ordered and when she gets this she does breathe more calmly and stable. She has some anxiety which is contributing. We have stopped her evening dose of metoprolol and we have cut her enalapril in half. I do not want to stop her WHITLEY inhibitor due to literature with Covid. This remains in effect today. We will continue the remdesivir, continue the dexamethasone and we will continue to try to keep her 02 up as high as possible with her O2 saturation. Most of the day today she has been in the mid 80s and up to 95. We will continue pulse ox and telemetry. - Admit inpatient monitored bed - Telemetery - Daily CBC/CMP/CRP/ABG - [place] daily IV - O2 Maintain >90%. - Vapotherm with added NRB if needed to keep >90%. - Lovenox 40mg daily DVT prophy. - Continue home meds (hold mobic due to risks for GI ulceration) - On PPI as listed below - Hold the maintenance fluid, we will provide Lasix 20 mg to try to dry out the lungs a little bit. Chest x-ray showed worsening. - Tylenol 500 QID for pain/fever. - Morphine 2 q 4 hours PRN. N/V/D:Will use zofran/phenergan PRN. none reported in hospital. Continue meds as needed for now. - Zofran 4mg IV q 6 hours prn - Phenergan 25mg IV q 8 hours prn. Transaminitis:Monitor CMP daily. Fatty liver on CT.we will continue to mon itor. AST is stable at 70.7 and ALT at 50.6. - CMP daily q am. BMI 30.9: Unchanged. F/U as outpatient. GERD:Chronic/stable. Unchanged.Established/Chronic problem. Stable at present. Continue prilosec PPI. Depression: Chronic/unstable. Will use home meds. She is normally following with [facility]. We will continue f/u. The patient does seem to have some decreased interest/motivation however this is better today. Arthritis: Hold mobic while on dexamethasone daily 6mg IV. Hypocalcemia:Will continue calcium + D. Stop the 5000 daily Vit D. Calcium stable with corrected calcium. DVT Prophy:Lovenox 40mg subcutaneous. Monitor for bleeding. Monitor PLT daily with CBC. - Lovenox daily. Diet:Regular. GI Prophy:On steroids. Will continue PPI as per GERD. Disposition:66-year-old female hospital day #4, remdesivir day #4, dexamethasone day #4. We will continue both of these until patient is discharged. This morning I talked with case management, nursing, reviewed telemetry, talk with patient and with daughter. The patient is doing better. The patient remains full code. We will try to wean from the nonrebreather and we will try to use Vapotherm only. We will continue to use morphine every 4 hours as this seems to help her with her breathing. We will consider to drop this to every 2 hours if needed. Daily labs as listed. We will continue to hold IV fluids we will use Lasix as needed. Part of he believes she was a little bit on the wetter side and drying her out with the Lasix helped a little bit. No critical care time was used today. I did spend 41 minutes rounding on patient today not including documentation. Close follow-up with family will continue. I did call back to the floor at 1720 to check on patient and she is doing better. She did not tolerate proning today. I again encouraged proning as a need for this patient. I will see patient again in the morning. Nursing will call with any updates. Patient's and daughter were updated this p.m. around 1730. Reviewed case with nurse and discussed any immediate needs for the patient. At this time there are no additional needs.
[2021-06-11 07:25] LABS: ABG PH 7.49 (7.35-7.45); BEecf 5.7 (-2.0-3.0); COHb 1.8 (0.5-1.5); MetHb 0.8 (0-1.5); TCO2 30.2 (19-24); sO2 98.4 % (94-98); tHb 10.9 g/dl (11.7-17.4)
--- NOTE | 2021-06-11 07:36 | PCM.PROG ---
ABG results have returned this morning and look great. I will have a trial of stopping the nonrebreather to see if she maintains greater than 85%. We will try this and give it an hour or 2. I want to prevent hyperoxia if we can. At this time I would like for her oxygen saturations to remain greater than 90% but I will settle for greater than 85%. If needed we may consider BiPAP today as well. If O2 is dropping lower than 85% resume NRB plus the Vapotherm which can provide 15L each. This can provide improved aeraton for mouth breathers. I would like to allow her to try to eat/drink today. This may cause hypoxia as well, I am aware she may need to go back on both after activty/strain. Close monitoring today. - We will try to wean to lowest efffective oxygenationn method - NRB and Vapotherm may need to be resumed. - Bipap may need to be trialed - Delayed intubation as long as possible.
[2021-06-11] MEDS: LOVENOX SUBCUT SCH (09:40)
[2021-06-11] MEDS: ZINC-220 PO SCH (09:41)
[2021-06-11] MEDS: MULTIVITAMIN TABLET PO SCH (09:41)
[2021-06-11] MEDS: WELLBUTRIN XL PO SCH (09:41)
[2021-06-11] MEDS: LOPRESSOR PO SCH ×2 (09:41→20:30)
[2021-06-11] MEDS: TESSALON PERLES PO SCH ×2 (09:41→20:30)
[2021-06-11] MEDS: ROCEPHIN 1 GM/50 ML D5W 1 GM/50 ML BAG IV SCH (09:41)
[2021-06-11] MEDS: CALCIUM 500 + VIT D 5 MCG (200 IU) TABLET PO SCH ×2 (09:42→20:30)
[2021-06-11] MEDS: VASOTEC PO SCH (09:42)
[2021-06-11] MEDS: ASPIRIN CHEWABLE PO SCH (09:42)
[2021-06-11] MEDS: DECADRON IM SCH (09:44)
[2021-06-11] MEDS: SYMBICORT 160-4.5 MCG INHALER IH SCH ×2 (09:44→20:28)
[2021-06-11] MEDS: ZITHROMAX 500 MG in SODIUM CHLORIDE 250 ML IV SCH (10:49)
[2021-06-11] MEDS: VEKLURY 100 MG in SODIUM CHLORIDE 250 ML IV SCH (12:55)
[2021-06-11] MEDS: MORPHINE 2 MG/ML SYRINGE IVP PRN ×2 (15:19→21:16)
[2021-06-11] MEDS: SEROQUEL PO SCH (20:28)
[2021-06-12] MEDS: VENTOLIN HFA (PER PUFF-WITH SPACER) IH SCH ×3 (04:30→19:50)
[2021-06-12 04:39] LABS: ABG O2 HGB 95.6 % (95-100); ABG PH 7.44 (7.35-7.45); COHb 4.5 (0.5-1.5); HCO3 27.2 (21-28); MetHb 0.1 (0-1.5); TCO2 28.4 (19-24); sO2 97.1 % (94-98); tHb 16.9 g/dl (11.7-17.4)
[2021-06-12 05:40] LABS: HEMATOCRIT 30.6 % (37.0-47.0); HEMOGLOBIN 10.4 g/dl (12.0-16.0); IMMATURE GRANULOCYTE % (AUTO) 0.5 % (0.0-5.0); LYMPHOCYTES # (AUTO) 0.5 K/uL (0.60-3.4); LYMPHOCYTES % (AUTO) 6.9 (10.0-50.0); MEAN CORPUSCULAR HEMOGLOBIN 31.5 pg (27.0-31.0); MEAN CORPUSCULAR VOLUME 92.7 fl (81.0-99.0); MONOCYTES # (AUTO) 0.4 K/uL (0.4-2.0); MONOCYTES % (AUTO) 5.8 (0-10); NEUTROPHILS # (AUTO) 6.6 K/ul (2.0-6.9); NEUTROPHILS % (AUTO) 86.8 % (42.2-75.2); PLATELET COUNT 218 10^3/uL (140-440); RDW COEFFICIENT OF VARIATION 13.3 % (11.6-14.8); WHITE BLOOD COUNT 7.57 K/ul (4.6-10.2)
[2021-06-12 05:54] LABS: ALANINE AMINOTRANSFERASE 47.5 U/L (0-35); ALBUMIN 2.84 g/dL (3.5-5.0); ALKALINE PHOSPHATASE 86.2 U/L (53-141); BILIRUBIN,TOTAL 0.31 mg/dL (0.2-1.3); CALCIUM 8.04 mg/dL (8.4-10.2); CARBON DIOXIDE 28.1 mmol/L (22-30.0); CHLORIDE 108.3 mmol/L (98-107); CREATININE 0.7 mg/dL (0.60-1.30); GLUCOSE 129.5 mg/dL (74-106); POTASSIUM 3.86 mmol/L (3.5-5.1); SODIUM 139.6 mmol/L (134.5-145); TOTAL PROTEIN 5.28 g/dL (6.3-8.2)
[2021-06-12] MEDS: PRILOSEC PO SCH (06:06)
--- NOTE | 2021-06-12 07:24 | PCM.PROG ---
Date Seen by Provider: 06/12/21 Time Seen by Provider: 07:19 Subjective: 66-year-old female hospital day #5. Patient is meyer positive, meyer pneumonia, hypoxia, anemia, respiratory failure, transaminitis, depression, BMI 34, elevated D-dimer with negative CT PE protocol.Labs this morning showed an improvement in the white blood cell count from 4.41 yesterday to 7.51 today. Hemoglobin is stable at 10.4 compared to yesterday. She continues to have a neutrophilia due to the dexamethasone. Platelets were normal at 218. The lymphocytopenia is unchanged from yesterday. INR this morning 1.04 and similar to last 4 days. ABG this morning showed a O2 saturation of 97.1, pH of 7.44, PCO2 of 40, PO2 of 88, HCO3 of 27.2 and a total CO2 of 28.4. This is the 1st day that it is has trended downward. She is on Vapotherm and NRB. Metabolic panel showed normal sodium 139.6, potassium 3.86, chloride mildly elevated at 108.3, BUN 28 with a creatinine of 0.70. Glucose 129.5 has ranged of 251.6 likely due to steroid effect. Calcium 8.04 with an albumin of 2.8 for which would correct to normal at 9. AST is up just a little bit from yesterday it is now 79. Her ALT is 47.5 which is lower than yesterday. No additional labs have been done in the last 24 hours no additional imaging in the last 24 hours blood culture remains negative. She is on a azithromycin and Rocephin. She will finish 3 days of azithromycin and likely 5 days of Rocephin. Today is day 4 of remdesivir and dexamethasone (I talked with case management and the first dose was actually started on 06/09/21 and not 06/08 as I had observed/thought. We will continue these until she has completed 5 DAYS or until discharge, whichever is first. After discussion with pharmacy, patient is improving and thus there is limited benefit to extend beyond day 5. With improvement that is seen today we may discharge in 24 to 48 hours if she continues to improve. I will see if case management today can work on ensuring she has home oxygen and discharge planning may be able to occur in the next 24 to 48 hours if she continues to improve. Vitals were reviewed for the last 24 hours and she has remained afebrile. Pulse rate has ranged from 66-74, blood pressure did have a few drops yesterday afternoon but she is normal this morning at 120/67. Her low was 94/49. That was at 2 PM yesterday afternoon. Her O2 saturation since 1899 yesterday has been greater than 90% and she is at 97% this morning. Several times yesterday evening she was at 95 to 96%. She required Vapotherm and nonrebreather yesterday again. We will continue to work on weaning to less oxygen requirement. Telemetry reviewed over the last 24 hours sinus rhythm VT 0.1-2.2 borderline for first-degree QRS within acceptable limits.Her last bowel movement was June 09 voids of been monitored but not recorded. Nursing note from [id number] 11 showed patient was emotional concerned about talking about DNR status and wished to remain full code. Respirations remain labored with any exertion. Occasional productive cough intermittent blood-streaked sputum. No p ain. She has morphine as needed. She is not tolerating prone position for very long. Generalized pain noted at 2122June 11. Note from 555 reviewed patient was up x1 to the bedside commode with assist. Voiding without difficulty and back to bed. Remains 88 to 93% on Vapotherm and nonrebreather. ABG is improving. Patient reported she is feeling better this morning. As noted above discharge planning ongoing may consider 24 to 48 hours more until she can tolerate nasal cannula alone. Review of Systems Constitutional: Chills, Weakness, Fatigue, Loss of appetite, shortness of breath, difficulty catching breath, ; Denies Fever. Eyes: Reports No symptoms Ears: Reports No symptoms Nose: Reports Congestion Throat: Reports Pain/drainage. Mouth: Reports No symptoms Respiratory: Cough, Shortness of air, dyspnea, hypoxia. Pain in left chest with inspiration is better. Intermittent blood tinged sputum Cardiovascular: Reports Orthopnea; Denies Chest pain, Left arm pain, Diaphoresis, PND, Edema or Palpitations Gastrointestinal: Abdominal pain, Nausea, without Vomiting or Diarrhea; Denies Melena, Hematemesis, Hematochezia or Dysphagia Genitourinary: Reports No symptoms Neurological: Headache, Dizziness and Weakness Musculoskeletal: Reports Pain back/chest/abdomen with cough. Skin: Reports No symptoms Psychiatric: Reports No symptoms Habits: Denies Tobacco use, Substance use or Alcohol use Objective: Vital Signs - 24 hr 06/11/21 07:38 06/11/21 09:54 06/11/21 12:55 Temperature 98.4 F Pulse Rate 72 Respiratory Rate 24 Blood Pressure 103/71 O2 Sat by Pulse Oximetry 97 98 93 L 06/11/21 13:00 06/11/21 13:25 06/11/21 13:46 Temperature Pulse Rate 70 Respiratory Rate 22 Blood Pressure 94/49 L O2 Sat by Pulse Oximetry 93 L 89 L 95 06/11/21 13:55 06/11/21 14:00 06/11/21 18:00 Temperature 98.2 F Pulse Rate 72 68 Respiratory Rate 24 18 Blood Pressure 100/54 L 94/49 L O2 Sat by Pulse Oximetry 90 L 88 L 82 L 06/11/21 19:00 06/11/21 20:00 06/11/21 21:20 Temperature 97.9 F Pulse Rate 74 Respiratory Rate 22 Blood Pressure 108/59 L O2 Sat by Pulse Oximetry 96 95 96 06/11/21 22:00 06/12/21 00:29 06/12/21 02:00 Temperature Pulse Rate Respiratory Rate Blood Pressure O2 Sat by Pulse Oximetry 94 L 90 L 94 L 06/12/21 04:52 06/12/21 06:00 Temperature 98.4 F Pulse Rate 72 Respiratory Rate 20 Blood Pressure 120/67 O2 Sat by Pulse Oximetry 94 L 97 Constitutional:Appearance-Moderate tachypnea persists w/ shallow inspiration. Left lateral decubitus position upon entry. She is in room SCU1. Vapotherm on board. IVs are held saline locked. She is respiring about 20-24 times per minute on visualization today still mild accessory use. She is able to talk in fragmented sentences and still appears fearful which is understandable. Still w/ e/o consolidation bilateral lower lobes. I again encouraged her to change positions as often as possible. To try every few hours to lay on stomach. We discussed proning at length again. Orientation- Oriented fully, alertBuild and Nutrition-[obese]General- reports feeling poorly but less fearful for bad outcome. Sitting upright in bed today after we started conversation. Still w/o peripheral edema. dorsalis pedis pulses and cap refill normal. She is doing a bit better today. She is a full code. Integumentary: General-No rashes, ulcers or lesions.Palpation- Normal skin moisture/turgor. Skin is warm to touch, appropriate. Capillary refill is normal bilateral Upper and lower extremity. Head/Neck:Head- normocephalic and atraumatic.Neck- without visible/palpable lumps or pulsations.Palpation- No bony tenderness about head/neck along frontal, occipital, temporal, parietal, mastoid, jawline, zygoma, orbit or any other location. NO temporal artery tenderness. No TMJ tenderness. Neck Supple. Eye:Bilaterally PERRLA, EOMI. No discharge. Upper and lower eyelids are normal. Eyeball appears normal. No ciliary flushing, no conjunctival injection. ENMT:.Nares- bilateral quiet airflow, no discharge.Nasal mucosa- No bleeding noted and no ulcerations observed. [place], moist. Turbinates non boggy.Lips- normal color, moist without cracks/lesionsOral Cavity/Palate- hard/soft palate intact without lesions, oral mucosa pink and moist. Tongue normal midline. Oropharynx- no pharyngeal erythema, Uvula midline. No post nasal drip. No exudate. CHEST/LUNG:Inspection- symmetric chest wall no pectus deformity. Mild increased effort remains, mild tachypnea remains, however no major accessory muscle use. Still using abdomen a bit to breath..Palpation- nontender sternum, ribline. No abnormal pulsations.Auscultation- Breath sounds throughout all lung velasquez remains coarse to auscultation. Crackling heard on examination. tracheal sounds, bronchial sounds overlying sternum, Bronchovessicular sounds between scapulae posteriorly, vessicular breath sounds heard throughout periphery are co arse. Lungs do not really sound any better today.Adventitious sounds- Crackles throughout, no rhonchi. shallow inspiration, limited effort from patient . Resting on side upon entry but moved to back. Lung sounds chronic/worse. Bilateral lower lobe coarse sounds. Continued Vapotherm. CARDIOVASCULAR:Carotid artery-normal, no bruits or abnormal pulsations. Jugular vein- no pulsations.Palpation/Percussion- Normal PMI, no palpable thrillAuscultation- Regular rate and rhythm. No murmur noted in sitting, supine positions.Extremities- no digital clubbing, cyanosis, edema, increased warmth. ABDOMEN:Inspection- normal and no visible pulsations. Normal contour. Auscultation- Bowel sounds normal, no abdominal bruits.Palpation/Percussion- soft, non-tender, no rebound tenderness, no rigidity (guarding), no jar tenderness, no masses.Liver-no hepatomegaly, Peripheral Vascular:Upper extremityLeft- Normal temperature with pink nailbeds and no ulcerations.Upper extremity Right-Normal temperature with pink nailbeds and no ulcerations.Lower extremity- Normal temperature with pink nailbeds and no ulcerations. DP pulses 2+ bilaterally. Pedal hair intact. Normal capillary refill.Edema- No edema. No calf tenderness. Musculoskeletal:Generalized-No generalized swelling or edema of extremities, no digital clubbing or cyanosis, neurovascularly intact all four extremities. Upper extremity- Symmetrical posture. No visible deformity. Normal Spine/Ribs- No deformities, masses or tenderness, no known fractures, normal strength, Normal ROM. Normal stability No tenderness along C/T/L spine. Normal appearing ROM about spine. Neurological:General- Moves all 4 extremities symmetrically. Symmetrical face and body posture.Cranial nerves- individually evaluated II-XII and intact. PERRLA, Normal EOMI, visual/special senses appear intact, Face is symmetrical and normal sensation/movement, normal tongue, normal strength/posture of neck musculature. Neuropsych:Oriented- Person, place, time. (AAOx3),Mood/affect- scaredSpeech- Normal speech fragmented though. Lymphatic: Head/Neck- normal size and non tender to palpation.Axillary- normal size and non tender to palpation.Femoral and Inguinal- normal size and non tender to palpation. Laboratory Last Values WBC 7.57 K/ul (4.6-10.2) 06/12/21 05:15 RBC 3.30 10^6/ul (4.20-5.40) L 06/12/21 05:15 Hgb 10.4 g/dl (12.0-16.0) L 06/12/21 05:15 Hct 30.6 % (37.0-47.0) L 06/12/21 05:15 MCV 92.7 fl (81.0-99.0) 06/12/21 05:15 MCH 31.5 pg (27.0-31.0) H 06/12/21 05:15 MCHC 34.0 (31.8-35.4) 06/12/21 05:15 RDW Coeff of Joselito 13.3 % (11.6-14.8) 06/12/21 05:15 Plt Count 218 10^3/uL (140-440) 06/12/21 05:15 Immature Gran % (Auto) 0.5 % (0.0-5.0) 06/12/21 05:15 Neut % (Auto) 86.8 % (42.2-75.2) H 06/12/21 05:15 Lymph % (Auto) 6.9 (10.0-50.0) L 06/12/21 05:15 [place] % (Auto) 5.8 (0-10) 06/12/21 05:15 Eos % (Auto) 0.0 % (0.0-7.0) 06/12/21 05:15 Baso % (Auto) 0.0 % (0.0-3.0) 06/12/21 05:15 Neut # (Auto) 6.6 K/ul (2.0-6.9) 06/12/21 05:15 Lymph # (Auto) 0.5 K/uL (0.60-3.4) L 06/12/21 05:15 [place]pine # (Auto) 0.4 K/uL (0.4-2.0) 06/12/21 05:15 Eos # (Auto) 0.0 K/ul (0.0-0.7) 06/12/21 05:15 Baso # (Auto) 0.0 K/uL (0-0.2) 06/12/21 05:15 Immature Gran # (Auto) 0.0 (0.0-1.0) 06/12/21 05:15 Neutrophils % (Manual) 93.0 % (42.2-75.2) H 06/10/21 06:00 Band Neutrophils % 2.0 % (0.0-5.0) 06/10/21 06:00 Lymphocytes % (Manual) 4.0 % (10.0-50.0) L 06/10/21 06:00 Monocytes % (Manual) 1.0 % (0.0-10.0) 06/10/21 06:00 Anisocytosis Not present (NOT PRESENT) 06/10/21 06:00 PT 11.0 SEC (9.3-11.0) 06/12/21 05:15 INR 1.04 SI (0.0-3.9) 06/12/21 05:15 Puncture Site Rr 06/12/21 00:09 Base Excess 3.0 (-2.0-3.0) 06/12/21 00:09 O2 Saturation 97.1 % (94-98) 06/12/21 00:09 ABG pH 7.44 (7.35-7.45) 06/12/21 00:09 ABG pCO2 40.0 mmHg (35-45) 06/12/21 00:09 ABG pO2 88.0 mmHg (85-100) 06/12/21 00:09 ABG HCO3 27.2 (21-28) 06/12/21 00:09 ABG Total CO2 28.4 (19-24) H 06/12/21 00:09 Julio Cesar Test + 06/12/21 00:09 Hemoglobin 0.1 (0-1.5) 06/12/21 00:09 Oxyhemoglobin 95.6 % (95-100) 06/12/21 00:09 Carboxyhemoglobin 4.5 (0.5-1.5) H 06/12/21 00:09 Total Hemoglobin 16.9 g/dl (11.7-17.4) 06/12/21 00:09 O2 Delivery Device Vapotherm 06/12/21 00:09 Oxygen Liter Flow 15.00 06/10/21 04:05 FiO2 % 100.0 % 06/12/21 00:09 Sodium 139.6 mmol/L (134.5-145) 06/12/21 05:15 Potassium 3.86 mmol/L (3.5-5.1) 06/12/21 05:15 Chloride 108.3 mmol/L (98-107) H 06/12/21 05:15 Carbon Dioxide 28.1 mmol/L (22-30.0) 06/12/21 05:15 Anion Gap 7.06 06/12/21 05:15 BUN 28.0 mg/dL (7-17) H 06/12/21 05:15 Creatinine 0.70 mg/dL (0.60-1.30) 06/12/21 05:15 Estimated GFR (MDRD) 83.00 mL/min 06/12/21 05:15 BUN/Creatinine Ratio 40.00 06/12/21 05:15 Glucose 129.5 mg/dL (74-106) H 06/12/21 05:15 Lactic Acid 1.06 mmol/L (0.7-2.1) 06/08/21 11:13 Calcium 8.04 mg/dL (8.4-10.2) L 06/12/21 05:15 Ferritin 994.00 ng/mL (11.1-264.0) H 06/10/21 06:00 Total Bilirubin 0.31 mg/dL (0.2-1.3) 06/12/21 05:15 AST 79.0 U/L (14-36) H 06/12/21 05:15 ALT 47.5 U/L (0-35) H 06/12/21 05:15 Alkaline Phosphatase 86.2 U/L (53-141) 06/12/21 05:15 Lactate Dehydrogenase 452 IU/L (119-226) H 06/09/21 05:26 Troponin I < 0.012 ng/ml (0.0000-0.120) 06/10/21 06:00 C-Reactive Prot, Quant 136 mg/L (0-10) H 06/10/21 06:00 Total Protein 5.28 g/dL (6.3-8.2) L 06/12/21 05:15 Albumin 2.84 g/dL (3.5-5.0) L 06/12/21 05:15 Globulin 2.44 06/12/21 05:15 Albumin/Globulin Ratio 1.16 06/12/21 05:15 Procalcitonin < 0.05 ng/mL (0.09) 06/08/21 11:13 D-Dimer 965.51 ng/mL (<500) H 06/08/21 11:13 (1) COVID-19: Status: Acute Code(s): U07.1 - COVID-19 SNOMED Code(s): 309517712 (2) Pneumonia due to 2019-nCoV: Status: Acute Code(s): U07.1 - COVID-19; J12.82 - Pneumonia due to coronavirus disease 2019 SNOMED Code(s): 834486203822557267 (3) Nausea: Status: Acute Code(s): R11.0 - Nausea SNOMED Code(s): 561213243 (4) Vomiting: Status: Acute Code(s): R11.10 - Vomiting, unspecified SNOMED Code(s): 882630368 (5) Cough: Status: Acute Code(s): R05 - Cough SNOMED Code(s): 52526763 (6) BMI 30.0-30.9,adult: Status: Acute Code(s): Z68.30 - Body mass index [BMI]30.0-30.9, adult SNOMED Code(s): 799303744 (7) Elevated d-dimer: Status: Acute Code(s): R79.89 - Other specified abnormal findings of blood chemistry SNOMED Code(s): 360188098 (8) Transaminitis: Status: Acute Code(s): R74.01 - Elevation of levels of liver transaminase levels SNOMED Code(s): 235985974 (9) Leukopenia: Status: Acute Code(s): D72.819 - Decreased white blood cell count, unspecified SNOMED Code(s): 25689642 (10) Hiatal hernia: Status: Acute Code(s): K44.9 - Diaphragmatic hernia without obstruction or gangrene SNOMED Code(s): 41164886 (11) Chronic depression: Status: Acute Code(s): F32.9 - Major depressive disorder, single episode, unspecified SNOMED Code(s): 865226578 (12) Gastroesophageal reflux disease: Status: Acute Code(s): K21.9 - Gastro-esophageal reflux disease without esophagitis SNOMED Code(s): 810232282 (13) Hypocalcemia: Status: Acute Code(s): E83.51 - Hypocalcemia SNOMED Code(s): 3843997 (14) Respiratory failure: Status: Acute Code(s): J96.90 - Respiratory failure, unspecified, unspecified whether with hypoxia or hypercapnia SNOMED Code(s): 709278238 Plan: COVID 19/COVID 19 Pneumonia/HYPOXIA:66 yo Female HOSPITAL DAY 5. Completed 3/3 days of azithromycin. Today is Day 5 of remdesivir and dexamethasone (corrected days as of yesterday as it appeared she got dose 1 on 06/08 but it was admin on 06/09). Day 7 of COVID 19 symptoms, Hospital day 6.Cough/SOA remain but improved. Vapotherm only, down to 35%. O2 has been arranged for home. We will continue to wean o2 today. continue to focus on proning. She continues to improve. Her mood remains more upbeat. - Admit inpatient monitored bed - Telemetery - Daily CBC/CMP/CRP/ABG - [place] daily IV today is 5/5. - O2 Maintain >90%. - Vapotherm with added NRB if needed to keep >90%. - Lovenox 40mg daily DVT prophy. - Continue home meds (hold mobic due to risks for GI ulceration) - On PPI as listed below - Hold the maintenance fluid, we will provide Lasix 20 mg to try to dry out the lungs a little bit. Chest x-ray showed worsening. - Tylenol 500 QID for pain/fever. - Morphine 2 q 4 hours PRN. N/V/D:Will continue zofran/phenergan PRN. no emesis reported in hospital. No diarrhea Continue meds as needed for now. - Zofran 4mg IV q 6 hours prn - Phenergan 25mg IV q 8 hours prn. Transaminitis:Monitor CMP daily. Fatty liver on CT.we will continue to monitor. AST/ALT stable.. - CMP daily q am. BMI 30.9: Unchanged. F/U as outpatient. GERD:Chronic/stable. Unchanged.Established/Chronic problem. Stable at present. Continue prilosec PPI. - Prilosec 20mg daily. Depression: Chronic/unstable. Will use home meds. She is normally following with [facility]. We will continue f/u. Chronic pessimism but better today. Arthritis: Hold mobic while on dexamethasone daily 6mg IV. Hypocalcemia:Will continue calcium + D. Corrected calcium is normal. DVT Prophy:Lovenox 40mg subcutaneous. Monitor for bleeding. Monitor PLT daily with CBC. - Lovenox daily. Diet:Regular. GI Prophy:On steroids. Will continue PPI as per GERD. Disposition:66-year-old female hospital day #6, remdesivir day #5, dexamethasone day #5. Azithromycin 3/3 completed over hospital stay, not on this now. Rocephin 1G IV to complete 5 day course.Reviewed nursing/telemetry, talked with patient, reviewed case management documentation. Patient is improving/doing better. The patient remains full code. We will try to wean from the vapotherm today. At 35Lpm now will try to back this down today. D/C planning ongoing. Plan for d/c in next 48 hours if she continues to improve. C ontinue morphinne for pain/breathing. We will continue meds as listed. Daily labs as listed. We will continue to hold IV fluids and we will use Lasix as needed. 36 minutes today rounding on patient today, not including documentation. Close follow-up with family will continue. At this time there are no additional needs. D/C planning on going. Expected length of stay another 24-48 hours while weaning to NC. Needs 3 Step prior to d/c home. 37 minutes today spent on rounding.
[2021-06-12] MEDS: SYMBICORT 160-4.5 MCG INHALER IH SCH ×2 (09:43→20:33)
[2021-06-12] MEDS: LOVENOX SUBCUT SCH (09:43)
[2021-06-12] MEDS: ROCEPHIN 1 GM/50 ML D5W 1 GM/50 ML BAG IV SCH (09:43)
[2021-06-12] MEDS: WELLBUTRIN XL PO SCH (09:44)
[2021-06-12] MEDS: CALCIUM 500 + VIT D 5 MCG (200 IU) TABLET PO SCH ×2 (09:44→20:32)
[2021-06-12] MEDS: TESSALON PERLES PO SCH ×2 (09:44→20:32)
[2021-06-12] MEDS: ASPIRIN CHEWABLE PO SCH (09:44)
[2021-06-12] MEDS: VASOTEC PO SCH (09:44)
[2021-06-12] MEDS: MULTIVITAMIN TABLET PO SCH (09:44)
[2021-06-12] MEDS: LOPRESSOR PO SCH ×2 (09:44→20:32)
[2021-06-12] MEDS: ZOFRAN 4 MG/2 ML IVP PRN ×2 (09:45→18:42)
[2021-06-12] MEDS: DECADRON IM SCH (09:45)
[2021-06-12] MEDS: ZINC-220 PO SCH (09:45)
[2021-06-12] MEDS: ZITHROMAX 500 MG in SODIUM CHLORIDE 250 ML IV SCH (11:13)
[2021-06-12] MEDS: VEKLURY 100 MG in SODIUM CHLORIDE 250 ML IV SCH (12:51)
[2021-06-12] MEDS: SEROQUEL PO SCH (20:32)
[2021-06-13] MEDS: VENTOLIN HFA (PER PUFF-WITH SPACER) IH SCH ×3 (05:00→20:40)
[2021-06-13] MEDS: PRILOSEC PO SCH (05:56)
[2021-06-13 06:05] LABS: BASOPHILS % (AUTO) 0.1 % (0.0-3.0); HEMATOCRIT 31.4 % (37.0-47.0); HEMOGLOBIN 10.6 g/dl (12.0-16.0); IMMATURE GRANULOCYTE # (AUTO) 0.1 (0.0-1.0); IMMATURE GRANULOCYTE % (AUTO) 0.9 % (0.0-5.0); LYMPHOCYTES # (AUTO) 0.5 K/uL (0.60-3.4); LYMPHOCYTES % (AUTO) 3.7 (10.0-50.0); MEAN CORPUSCULAR HGB CONC 33.8 (31.8-35.4); MEAN CORPUSCULAR VOLUME 91.8 fl (81.0-99.0); MONOCYTES # (AUTO) 0.3 K/uL (0.4-2.0); MONOCYTES % (AUTO) 2.6 (0-10); NEUTROPHILS # (AUTO) 12.2 K/ul (2.0-6.9); NEUTROPHILS % (AUTO) 92.7 % (42.2-75.2); PLATELET COUNT 228 10^3/uL (140-440); RDW COEFFICIENT OF VARIATION 13.3 % (11.6-14.8); RED BLOOD COUNT 3.42 10^6/ul (4.20-5.40)
[2021-06-13 06:16] LABS: ALANINE AMINOTRANSFERASE 46.1 U/L (0-35); ALBUMIN 2.95 g/dL (3.5-5.0); ALKALINE PHOSPHATASE 98.3 U/L (53-141); ASPARTATE AMINO TRANSFERASE 70.6 U/L (14-36); BILIRUBIN,TOTAL 0.56 mg/dL (0.2-1.3); BLOOD UREA NITROGEN 25.1 mg/dL (7-17); CARBON DIOXIDE 29.7 mmol/L (22-30.0); CHLORIDE 105.8 mmol/L (98-107); CREATININE 0.66 mg/dL (0.60-1.30); POTASSIUM 3.62 mmol/L (3.5-5.1); SODIUM 140.3 mmol/L (134.5-145); TOTAL PROTEIN 5.48 g/dL (6.3-8.2)
[2021-06-13 06:27] LABS: PROTHROMBIN TIME 11.5 SEC (9.3-11.0)
[2021-06-13 06:42] LABS: WHITE BLOOD COUNT 13.13 K/ul (4.6-10.2)
--- NOTE | 2021-06-13 06:43 | PCM.PROG ---
Date Seen by Provider: 06/13/21 Time Seen by Provider: 06:39 Subjective: 66-year-old female hospital day #6, meyer symptoms day #7. Patient has history of COVID-19 pneumonia, hypoxic respiratory failure, elevated D-dimer with negative CT chest, transaminitis, leukopenia, anemia, obesity, hypertension, history of asthma, history of chronic depression, history of GERD, fatty liver, hiatal hernia. Today will be remdesivir day 5 and dexamethasone day 5. We will continue dexamethasone until day of discharge but today will be the last day of remdesivir. She is on Lovenox 40 mg subcutaneously for DVT prophylaxis. She has been on omeprazole daily for GI prophylaxis and chronic GERD. She has completed 3 days of azithromycin 500 mg IV. She will complete a total of 5 days of Rocephin1 g IV. The patient is on oxygen. Yesterday she was able to be weaned off of the nonrebreather plus Vapotherm combo down to Vapotherm. We have been working on maintaining oxygen greater than 90% and encouraged proning despite the patient's intolerance of belly positions. Since admission she has had a daily ABG, CBC, CMP and a PT/INR. Blood cultures have remained negative. She has improved over the last 24 to 48 hours with continuous monitoring, continuous care and with several days earlier in the week of escalating oxygenation needs.Vitals over the last 24 hours show a continued afebrile state. Pulse rate over the last 24 hours has ranged from 72-82, blood pressure over the last 24 hours 120/67, 106/54, 110/61, 94/55, 122/76, 122/81. Respiratory rate has been 22-35. O2 saturations have ranged from as low as 88 this morning at 1:00 in the morning 200% yesterday at 2100. Average has been greater than 93 % which is a marked improvement to previous days. We prepared for home oxygen yesterday and when she can be weaned to nasal cannula only from Vapotherm we will plan for discharge. The goal for this is the next 24 to 48 hours.Telemetry was reviewed and she has remained in sinus rhythm for the last 48 hours. Labs this morning showed white blood cell count elevated from 7.57 yesterday to 13.13 today. Hemoglobin has increased from 10.4-10.6. Platelets 228 up from 218. Some of this may be some hemoconcentration. She still has a lymphocytopenia but her neutrophilia has increased again this may be secondary to steroid demargination. INR this morning 1.08. There has been a mild increase in the INR daily over the last 3 days from 0.98-1 0.01-1.04 today 1.08. Her ABG was normal yesterday. There is no ABG for this morning. Metabolic panel showed normal sodium 140.3, potassium 3.62, chloride 105.8. Her BUN has dropped from 28 yesterday to 25.1 today. Creatinine at 0.66. Glucose 128. Calcium at 8 which is similar to what its been for the last 3 days. Albumin of 2.95 corrects calcium to normal of 8.8. AST and ALT remain similar at 70.6 and 46.1 which is a few points lower than yesterday. There were no other labs or imaging in the last 24 hours.Nursing notes from last 24 hours were reviewed. The Vapotherm flow rate was lowered to 30 L/min from 40 L/min at 2120June 12. This morning at 1233 the patient complained of nausea without vomiting she did get some Zofran she has been resting well. Vapotherm in place at 35% with FiO2 100. O2 91%. IV remain saline locked she did have a pulse ox of 88% at 1:00 this morning telemetry remains normal and stable through all monitorings which were reviewed by me this morning. 218 this morning patient resting stable Vapotherm 35% FiO2 100% monitoring will continue. The patient has had 3 voids recorded by this morning at 519. Vapotherm check at 6:00 this morning flow rate remains at 35 respiratory rate 23. Water was checked. Case management note from yesterday was reviewed. Daily pharmacy note reviewed for the remdesivir. The patient remains on COVID-19 droplet/airborne precautions. Labs will continue to be monitored and ordered. Albuterol and Symbicort continued. Patient has morphine for pain and for breathing comfort. She has Zofran and Phenergan for nausea. Day 5 of remdesivir today. Vapotherm will be weaned continuing today. We did cut her Vasotec in half a few days ago and her using that. She is responding well attitude and overall outlook are markedly more positive she remains fully alert. She remains short of breath ABGs as of yesterday were back to normal. She is not really wiring the nonrebreather over the last 24 hours. She is not tolerating abdominal position well. However she is changing from side to side and upright and remaining on her back less. We will continue our goal of weaning Vapotherm to nasal cannula for plan for discharge. As of yesterday [facility] was chosen for oxygen and we will plan a 3 step prior to discharge. Review of Systems Constitutional: Weakness, Fatigue both improving. Still mild Loss of appetite but improving. shortness of breath better when prone but cannot tolerate for long. Still c/o difficulty catching breath, ; Denies Fever. Chills, Eyes: Reports No symptoms Ears: Reports No symptoms Nose: Reports Congestion, dryness. Throat: Reports Pain/drainage. Mouth: Reports No symptoms Respiratory: Cough, Shortness of air, dyspnea, hypoxia (IMPROVING). Denied Pain in left chest with inspiration today. Intermittent blood tinged sputum seems to have resolved. Cardiovascular: Reports Orthopnea, this persists; Denies Chest pain, Left arm pain, Diaphoresis, PND, Edema or Palpitations Gastrointestinal: Abdominal pain is better, Nausea remains without Vomiting or Diarrhea; Denies Melena, Hematemesis, Hematochezia or Dysphagia Genitourinary: Reports No symptoms Neurological: Headache, Dizziness and Weakness Musculoskeletal: Reports Pain back/chest/abdomen with cough. Skin: Reports No symptoms Psychiatric: Reports No symptoms Habits: Denies Tobacco use, Substance use or Alcohol use Objective: Vital Signs - 24 hr 06/12/21 07:00 06/12/21 10:00 06/12/21 12:51 Temperature Pulse Rate Respiratory Rate Blood Pressure 106/54 L O2 Sat by Pulse Oximetry 94 L 96 06/12/21 13:00 06/12/21 13:51 06/12/21 14:00 Temperature 98.3 F Pulse Rate 73 Respiratory Rate 22 Blood Pressure 110/61 94/55 L O2 Sat by Pulse Oximetry 97 95 99 06/12/21 14:16 06/12/21 16:30 06/12/21 19:00 Temperature Pulse Rate Respiratory Rate Blood Pressure O2 Sat by Pulse Oximetry 97 93 L 97 06/12/21 20:00 06/12/21 21:00 06/12/21 21:21 Temperature 98.7 F Pulse Rate 74 Respiratory Rate 35 H Blood Pressure 122/76 O2 Sat by Pulse Oximetry 99 100 97 06/13/21 01:00 06/13/21 02:00 06/13/21 05:22 Temperature 98.3 F Pulse Rate 82 Respiratory Rate 24 Blood Pressure 122/81 O2 Sat by Pulse Oximetry 88 L 91 L 88 L 06/13/21 06:00 Temperature Pulse Rate Respiratory Rate Blood Pressure O2 Sat by Pulse Oximetry 96 Constitutional:Appearance-Awake alert oriented. More talkative than previous days. mild tachypnea breathing more comfortably, still quite shallow inspiration.She is in room SCU1,. moved yesterday. Vapotherm on board 35L 100%. IVs are held saline locked. She is respiring about 22 times per minute while in room. No accessory use today. She is able to talk in near full sentences. Honestly looks to be much calmer. Better aeration today. Recommended to try to lay on stomach/side more than back. We discussed proning again. Orientation- Oriented fully Build and Nutrition-[obese]General- reports feeling poorly still but improving.. Sitting upright in bed today upon entry. Still w/o peripheral edema. Good dorsalis pedis pulses. She is doing a bit better today. She is a full code. Integumentary: General-No rashes, ulcers or lesions.Palpation- Normal skin moisture/turgor. Skin is warm to touch, appropriate. Capillary refill is normal bilateral Upper and lower extremity. Head/Neck:Head- normocephalic and atraumatic.Neck- without visible/palpable lumps or pulsations.Palpation- No bony tenderness about head/neck along frontal, occipital, temporal, parietal, mastoid, jawline, zygoma, orbit or any other location. NO temporal artery tenderness. No TMJ tenderness. Neck Supple.Thyroid-No thyromegaly, no nodules Eye:Bilaterally PERRLA, EOMI. No discharge. Upper and lower eyelids are normal. Eyeball appears normal. No ciliary flushing, no conjunctival injection. ENMT:.Nares- bilateral quiet airflow, no discharge.Nasal mucosa- No bleeding noted and no ulcerations observed.vapotherm in place. Nostrils appear to have no breakdown. Dunn, moist. Turbinates non boggy.Lips-normal color, moist without cracks/lesionsOral Cavity/Palate- hard/soft palate intact without lesions, oral mucosa pink and moist. Tongue normal midline.Oropharynx- no pharyngeal erythema, Uvula midline. No post nasal drip. No exudate. CHEST/LUNG:Inspection- symmetric chest wall no pectus deformity. Mild increased effort persists, mild tachypnea, no use of accessory muscles.Palpation- nontender sternum, ribline. No abnormal pulsations.Auscultation- Breath sounds throughout all lung velasquez remainn coarse. Crackling heard on examination remains. tracheal sounds, bronchial sounds overlying sternum, Bronchovessicular sounds between scapulae posteriorly, vessicular breath sounds heard throughout periphery are coarse. Lungs are better soundinng today.Adventitious sounds- Crackles throughout, no rhonchi. shallow inspiration persists, limited effort from patient again however . Resting on back upon entry. Morphine helps quite a bit over night. Bilateral lower lobe coarse sounds. We have continued Vapotherm. Will hold NRB today and see how she does. CARDIOVASCULAR:Carotid artery-normal, no bruits or abnormal pulsations. Jugular vein- no pulsations.Palpation/Percussion- Normal PMI, no palpable thrillAuscultation- Regular rate and rhythm. No murmur noted in sitting, supine positions.Extremities- no digital clubbing, cyanosis, edema, increased warmth. ABDOMEN:Inspection- normal and no visible pulsations. Normal contour. Auscultation- Bowel sounds normal, no abdominal bruits.Palpation/Percussion- soft, non-tender, no rebound tenderness, no rigidity (guarding), no jar tenderness, no masses.Liver-no hepatomegaly, Peripheral Vascular:Upper extremityLeft- Normal temperature with pink nailbeds and no ulcerations.Upper extremity Right-Normal temperature with pink nailbeds and no ulcerations.Lower extremity- Normal temperature with pink nailbeds and no ulcerations. DP pulses 2+ bilaterally. Pedal hair intact. Normal capillary refill.Edema- No edema.No tenderness Musculoskeletal:Generalized-No generalized swelling or edema of extremities, no digital clubbing or cyanosis, neurovascularly intact all four extremities. Upper extremity- Symmetrical posture. No visible deformity. Normal Spine/Ribs- No deformities, masses or tenderness, no known fractures, normal strength, Normal ROM. Normal stability No tenderness along C/T/L spine. Normal appearing ROM about spine. Neurological:General- Moves all 4 extremities symmetrically. Symmetrical face and body posture.Cranial nerves- individually evaluated II-XII and intact. PERRLA, Normal EOMI, visual/special senses appear intact, Face is symmetrical and normal sensation/movement, normal tongue, normal strength/posture of neck musculature. Neuropsych:Oriented- Person, place, time.Mood/affect- Pessimistic Speech- Normal speech fragmented Lymphatic: Head/Neck- normal size and non tender to palpation.Axillary- normal size and non tender to palpation.Femoral and Inguinal- normal size and non tender to palpation. Laboratory Last Values WBC 13.13 K/ul (4.6-10.2) H D 06/13/21 05:57 RBC 3.42 10^6/ul (4.20-5.40) L 06/13/21 05:57 Hgb 10.6 g/dl (12.0-16.0) L 06/13/21 05:57 Hct 31.4 % (37.0-47.0) L 06/13/21 05:57 MCV 91.8 fl (81.0-99.0) 06/13/21 05:57 MCH 31.0 pg (27.0-31.0) 06/13/21 05:57 MCHC 33.8 (31.8-35.4) 06/13/21 05:57 RDW Coeff of Joselito 13.3 % (11.6-14.8) 06/13/21 05:57 Plt Count 228 10^3/uL (140-440) 06/13/21 05:57 Immature Gran % (Auto) 0.9 % (0.0-5.0) 06/13/21 05:57 Neut % (Auto) 92.7 % (42.2-75.2) H 06/13/21 05:57 Lymph % (Auto) 3.7 (10.0-50.0) L 06/13/21 05:57 [place] % (Auto) 2.6 (0-10) 06/13/21 05:57 Eos % (Auto) 0.0 % (0.0-7.0) 06/13/21 05:57 Baso % (Auto) 0.1 % (0.0-3.0) 06/13/21 05:57 Neut # (Auto) 12.2 K/ul (2.0-6.9) H 06/13/21 05:57 Lymph # (Auto) 0.5 K/uL (0.60-3.4) L 06/13/21 05:57 [place] # (Auto) 0.3 K/uL (0.4-2.0) L 06/13/21 05:57 Eos # (Auto) 0.0 K/ul (0.0-0.7) 06/13/21 05:57 Baso # (Auto) 0.0 K/uL (0-0.2) 06/13/21 05:57 Immature Gran # (Auto) 0.1 (0.0-1.0) 06/13/21 05:57 Neutrophils % (Manual) 93.0 % (42.2-75.2) H 06/10/21 06:00 Band Neutrophils % 2.0 % (0.0-5.0) 06/10/21 06:00 Lymphocytes % (Manual) 4.0 % (10.0-50.0) L 06/10/21 06:00 Monocytes % (Manual) 1.0 % (0.0-10.0) 06/10/21 06:00 Anisocytosis Not present (NOT PRESENT) 06/10/21 06:00 PT 11.5 SEC (9.3-11.0) H 06/13/21 05:57 INR 1.08 SI (0.0-3.9) 06/13/21 05:57 Puncture Site Lrad 06/13/21 05:45 Base Excess 5.2 (-2.0-3.0) H 06/13/21 05:45 O2 Saturation 99.6 % (94-98) H 06/13/21 05:45 ABG pH 7.59 (7.35-7.45) H* 06/13/21 05:45 ABG pCO2 28.0 mmHg (35-45) L 06/13/21 05:45 ABG pO2 154.0 mmHg (85-100) H 06/13/21 05:45 ABG HCO3 26.9 (21-28) 06/13/21 05:45 ABG Total CO2 27.8 (19-24) H 06/13/21 05:45 Julio Cesar Test + 06/13/21 05:45 Hemoglobin 0.6 (0-1.5) 06/13/21 05:45 Oxyhemoglobin 95.0 % (95-100) 06/13/21 05:45 Carboxyhemoglobin 3.6 (0.5-1.5) H 06/13/21 05:45 Total Hemoglobin 11.1 g/dl (11.7-17.4) L 06/13/21 05:45 O2 Delivery Device Vapotherm 06/13/21 05:45 Oxygen Liter Flow 35.00 06/13/21 05:45 FiO2 % 100.0 % 06/13/21 05:45 Sodium 140.3 mmol/L (134.5-145) 06/13/21 05:57 Potassium 3.62 mmol/L (3.5-5.1) 06/13/21 05:57 Chloride 105.8 mmol/L (98-107) 06/13/21 05:57 Carbon Dioxide 29.7 mmol/L (22-30.0) 06/13/21 05:57 Anion Gap 8.42 06/13/21 05:57 BUN 25.1 mg/dL (7-17) H 06/13/21 05:57 Creatinine 0.66 mg/dL (0.60-1.30) 06/13/21 05:57 Estimated GFR (MDRD) 89.00 mL/min 06/13/21 05:57 BUN/Creatinine Ratio 38.03 06/13/21 05:57 Glucose 128.0 mg/dL (74-106) H 06/13/21 05:57 Lactic Acid 1.06 mmol/L (0.7-2.1) 06/08/21 11:13 Calcium 8.00 mg/dL (8.4-10.2) L 06/13/21 05:57 Ferritin 994.00 ng/mL (11.1-264.0) H 06/10/21 06:00 Total Bilirubin 0.56 mg/dL (0.2-1.3) 06/13/21 05:57 AST 70.6 U/L (14-36) H 06/13/21 05:57 ALT 46.1 U/L (0-35) H 06/13/21 05:57 Alkaline Phosphatase 98.3 U/L (53-141) 06/13/21 05:57 Lactate Dehydrogenase 452 IU/L (119-226) H 06/09/21 05:26 Troponin I < 0.012 ng/ml (0.0000-0.120) 06/10/21 06:00 C-Reactive Prot, Quant 136 mg/L (0-10) H 06/10/21 06:00 Total Protein 5.48 g/dL (6.3-8.2) L 06/13/21 05:57 Albumin 2.95 g/dL (3.5-5.0) L 06/13/21 05:57 Globulin 2.53 06/13/21 05:57 Albumin/Globulin Ratio 1.16 06/13/21 05:57 Procalcitonin < 0.05 ng/mL (0.09) 06/08/21 11:13 D-Dimer 965.51 ng/mL (<500) H 06/08/21 11:13 (1) COVID-19: Status: Acute Code(s): U07.1 - COVID-19 SNOMED Code(s): 014652635 (2) Pneumonia due to 2019-nCoV: Status: Acute Code(s): U07.1 - COVID-19; J12.82 - Pneumonia due to coronavirus disease 2019 SNOMED Code(s): 621669141795955428 (3) Nausea: Status: Acute Code(s): R11.0 - Nausea SNOMED Code(s): 579841126 (4) Vomiting: Status: Acute Code(s): R11.10 - Vomiting, unspecified SNOMED Code(s): 136145926 (5) Cough: Status: Acute Code(s): R05 - Cough SNOMED Code(s): 72817795 (6) BMI 30.0-30.9,adult: Status: Acute Code(s): Z68.30 - Body mass index [BMI]30.0-30.9, adult SNOMED Code(s): 559875861 (7) Elevated d-dimer: Status: Acute Code(s): R79.89 - Other specified abnormal findings of blood chemistry SNOMED Code(s): 976980921 (8) Transaminitis: Status: Acute Code(s): R74.01 - Elevation of levels of liver transaminase levels SNOMED Code(s): 870288834 (9) Leukopenia: Status: Acute Code(s): D72.819 - Decreased white blood cell count, unspecified SNOMED Code(s): 92686012 (10) Hiatal hernia: Status: Acute Code(s): K44.9 - Diaphragmatic hernia without obstruction or gangrene SNOMED Code(s): 28577092 (11) Chronic depression: Status: Acute Code(s): F32.9 - Major depressive disorder, single episode, unspecified SNOMED Code(s): 224306594 (12) Gastroesophageal reflux disease: Status: Acute Code(s): K21.9 - Gastro-esophageal reflux disease without esophagitis SNOMED Code(s): 113366321 (13) Hypocalcemia: Status: Acute Code(s): E83.51 - Hypocalcemia SNOMED Code(s): 9914935 (14) Respiratory failure: Status: Acute Code(s): J96.90 - Respiratory failure, unspecified, unspecified whether with hypoxia or hypercapnia SNOMED Code(s): 110929208 Plan: COVID 19/COVID 19 Pneumonia/HYPOXIA:66 yo Female HOSPITAL DAY 6. Completed 3/3 days of azithromycin. Today is Day 5 of remdesivir and dexamethasone (corrected days as of yesterday as it appeared she got dose 1 on 06/08 but it was admin on 06/09). Day 7 of COVID 19 symptoms, Hospital day 6.Cough/SOA remain but improved. Vapotherm only, down to 35%. O2 has been arranged for home. We will continue to wean o2 today. continue to focus on proning. She continues to improve. Her mood remains more upbeat. - Admit inpatient monitored bed - Telemetery - Daily CBC/CMP/CRP/ABG - [place] daily IV today is 02/04. - O2 Maintain >90%. - Vapotherm with added NRB if needed to keep >90%. - Lovenox 40mg daily DVT prophy. - Continue home meds (hold mobic due to risks for GI ulceration) - On PPI as listed below - Hold the maintenance fluid, we will provide Lasix 20 mg to try to dry out the lungs a little bit. Chest x-ray showed worsening. - Tylenol 500 QID for pain/fever. - Morphine 2 q 4 hours PRN. N/V/D:Will continue zofran/phenergan PRN. no emesis reported in hospital. No diarrhea Continue meds as needed for now. - Zofran 4mg IV q 6 hours prn - Phenergan 25mg IV q 8 hours prn. Transaminitis:Monitor CMP daily. Fatty liver on CT.we will continue to monitor. AST/ALT stable.. - CMP daily q am. BMI 30.9: Unchanged. F/U as outpatient. GERD:Chronic/stable. Unchanged.Established/Chronic problem. Stable at present. Continue prilosec PPI. - Prilosec 20mg daily. Depression: Chronic/unstable. Will use home meds. She is normally following with [facility] We will continue f/u. Chronic pessimism but better today. Arthritis: Hold mobic while on dexamethasone daily 6mg IV. Hypocalcemia:Will continue calcium + D. Corrected calcium is normal. DVT Prophy:Lovenox 40mg subcutaneous. Monitor for bleeding. Monitor PLT daily with CBC. - Lovenox daily. Diet:Regular. GI Prophy:On steroids. Will continue PPI as per GERD. Disposition:66-year-old female hospital day #6, remdesivir day #5, dexamethasone day #5. Azithromycin 3/3 completed over hospital stay, not on this now. Rocephin 1G IV to complete 5 day course. Reviewed nursing/telemetry, talked with patient, reviewed case management documentation. Patient is improving/doing better. The patient remains full code. We will try to wean from the vapotherm today. At 35Lpm now will try to back this down today. D/C planning ongoing. Plan for d/c in next 48 hours if she continues to improve. Continue morphinne for pain/breathing. We will continue meds as listed. Daily labs as listed. We will continue to hold IV fluids and we will use Lasix as needed. 36 minutes today rounding on patient today, not including documentation. Close follow-up with family will continue. At this time there are no additional needs. D/C planning on going. Expected length of stay another 24-48 hours while weaning to NC. Needs 3 Step prior to d/c home. 37 minutes today spent on rounding.
[2021-06-13 06:44] LABS: ABG PH 7.59 (7.35-7.45)
[2021-06-13 06:45] LABS: BEecf 5.2 (-2.0-3.0); COHb 3.6 (0.5-1.5); HCO3 26.9 (21-28)
[2021-06-13 06:46] LABS: MetHb 0.6 (0-1.5); TCO2 27.8 (19-24); sO2 99.6 % (94-98); tHb 11.1 g/dl (11.7-17.4)
[2021-06-13] MEDS: ZOFRAN 4 MG/2 ML IVP PRN (07:16)
[2021-06-13] MEDS: VASOTEC PO SCH (09:27)
[2021-06-13] MEDS: WELLBUTRIN XL PO SCH (09:27)
[2021-06-13] MEDS: ZINC-220 PO SCH (09:27)
[2021-06-13] MEDS: CALCIUM 500 + VIT D 5 MCG (200 IU) TABLET PO SCH ×2 (09:27→20:07)
[2021-06-13] MEDS: MULTIVITAMIN TABLET PO SCH (09:27)
[2021-06-13] MEDS: ASPIRIN CHEWABLE PO SCH (09:27)
[2021-06-13] MEDS: SYMBICORT 160-4.5 MCG INHALER IH SCH ×2 (09:28→20:21)
[2021-06-13] MEDS: LOPRESSOR PO SCH ×2 (09:28→20:08)
[2021-06-13] MEDS: DECADRON IM SCH (09:28)
[2021-06-13] MEDS: ROCEPHIN 1 GM/50 ML D5W 1 GM/50 ML BAG IV SCH (09:28)
[2021-06-13] MEDS: LOVENOX SUBCUT SCH (09:28)
[2021-06-13] MEDS: TESSALON PERLES PO SCH ×2 (09:28→20:08)
[2021-06-13] MEDS: VEKLURY 100 MG in SODIUM CHLORIDE 250 ML IV SCH (13:09)
[2021-06-13] MEDS ORDERED: PHENERGAN 25 MG/ML VIAL ONE (18:56)
[2021-06-13] MEDS: SEROQUEL PO SCH (20:08)
[2021-06-14] MEDS: VENTOLIN HFA (PER PUFF-WITH SPACER) IH SCH ×3 (04:50→20:55)
[2021-06-14] MEDS: ZOFRAN 4 MG/2 ML IVP PRN (04:54)
[2021-06-14] MEDS: PRILOSEC PO SCH (05:49)
[2021-06-14 06:17] LABS: BASOPHILS % (AUTO) 0.1 % (0.0-3.0); HEMATOCRIT 30.8 % (37.0-47.0); HEMOGLOBIN 10.4 g/dl (12.0-16.0); IMMATURE GRANULOCYTE # (AUTO) 0.2 (0.0-1.0); IMMATURE GRANULOCYTE % (AUTO) 1.2 % (0.0-5.0); LYMPHOCYTES # (AUTO) 0.5 K/uL (0.60-3.4); LYMPHOCYTES % (AUTO) 3.3 (10.0-50.0); MEAN CORPUSCULAR HGB CONC 33.8 (31.8-35.4); MEAN CORPUSCULAR VOLUME 91.9 fl (81.0-99.0); MONOCYTES # (AUTO) 0.3 K/uL (0.4-2.0); MONOCYTES % (AUTO) 2.2 (0-10); NEUTROPHILS # (AUTO) 13.8 K/ul (2.0-6.9); NEUTROPHILS % (AUTO) 93.2 % (42.2-75.2); PLATELET COUNT 198 10^3/uL (140-440); RDW COEFFICIENT OF VARIATION 13.3 % (11.6-14.8); RED BLOOD COUNT 3.35 10^6/ul (4.20-5.40)
[2021-06-14 06:19] LABS: ABG PH 7.58 (7.35-7.45)
[2021-06-14 06:20] LABS: ABG O2 HGB 94.9 % (95-100); BEecf 6.2 (-2.0-3.0); HCO3 28.1 (21-28); MetHb 0.4 (0-1.5); tHb 10.8 g/dl (11.7-17.4)
[2021-06-14 06:31] LABS: ALANINE AMINOTRANSFERASE 42.4 U/L (0-35); ALBUMIN 2.88 g/dL (3.5-5.0); ALKALINE PHOSPHATASE 97.2 U/L (53-141); ASPARTATE AMINO TRANSFERASE 65.6 U/L (14-36); BILIRUBIN,TOTAL 0.71 mg/dL (0.2-1.3); BLOOD UREA NITROGEN 25.2 mg/dL (7-17); CALCIUM 7.98 mg/dL (8.4-10.2); CARBON DIOXIDE 27.9 mmol/L (22-30.0); CHLORIDE 105.1 mmol/L (98-107); CREATININE 0.64 mg/dL (0.60-1.30); GLUCOSE 122.7 mg/dL (74-106); POTASSIUM 3.51 mmol/L (3.5-5.1); SODIUM 141.5 mmol/L (134.5-145); TOTAL PROTEIN 5.5 g/dL (6.3-8.2)
[2021-06-14 06:43] LABS: PROTHROMBIN TIME 12.1 SEC (9.3-11.0)
[2021-06-14] MEDS: VASOTEC PO SCH (09:13)
[2021-06-14] MEDS: WELLBUTRIN XL PO SCH (09:13)
[2021-06-14] MEDS: ASPIRIN CHEWABLE PO SCH (09:13)
[2021-06-14] MEDS: CALCIUM 500 + VIT D 5 MCG (200 IU) TABLET PO SCH ×2 (09:13→21:01)
[2021-06-14] MEDS: DECADRON IM SCH (09:13)
[2021-06-14] MEDS: MULTIVITAMIN TABLET PO SCH (09:13)
[2021-06-14] MEDS: ROCEPHIN 1 GM/50 ML D5W 1 GM/50 ML BAG IV SCH (09:13)
[2021-06-14] MEDS: LOVENOX SUBCUT SCH (09:14)
[2021-06-14] MEDS: SYMBICORT 160-4.5 MCG INHALER IH SCH ×2 (09:14→21:12)
[2021-06-14] MEDS: ZINC-220 PO SCH (09:14)
[2021-06-14] MEDS: LOPRESSOR PO SCH ×2 (09:14→21:01)
[2021-06-14] MEDS: TESSALON PERLES PO SCH ×2 (09:14→21:01)
--- NOTE | 2021-06-14 11:08 | PCM.PROG ---
Date Seen by Provider: 06/14/21 Time Seen by Provider: 11:01 Subjective: 66-year-old female hospital day #7 COVID symptoms day #8, admitted on 06/08/2021 with COVID-19 pneumonia, hypoxic respiratory failure, elevated D-dimer with negative CT chest, transaminitis, leukopenia, anemia, obesity, hypertension, history of asthma, history of chronic depression, history of GERD, fatty liver, hiatal hernia. Yesterday completed remdesivir day #5. She is still on dexamethasone we will continue this throughout hospital stay up to 10 days. She has finished 3 days of azithromycin. She will finish a total of 5 days of Rocephin. She had been improving up until yesterday. However, I received a call this morning from floor nursing noting that she is having more issues today with saturations, back on Vapotherm and nonrebreather but will not keep them on. She is pulling them off and nursing has had to be one-to-one with her today. She is argumentative and not wanting to cooperate with care. Nursing is talked with her about the DNR status as well and this has changed from yesterday. She continues Lovenox for DVT prophylaxis as well as Prilosec for chronic GERD/GI prophylaxis while on steroids. Labs this morning show an increase in white count from 13.13 yesterday to 14.8 today. Hemoglobin of 10.4 down from 10.6 yesterday. Platelets 198 down from 228 yesterday. She has a neutrophilia of 93.2 with a lymphocytopenia at 3.3. This suggests viral process. PT/INR show increased INR to 1.14 up from 1.08 yesterday. Yesterday was the last day of remdesivir. ABG today shows return of alkalotic state O2 saturation 99, pH 7.58, PCO2 30, PO2 114, HCO3 28.1. She is on Vapotherm and nonrebreather. Chemistry today appears mostly unchanged from yesterday. Sodium 141.5, potassium 3.51, BUN 25.2, creatinine 0.64, glucose 122.7 again on steroids. Calcium 7.98 with a albumin of 2.88 corrects to normal. AST and ALT are mildly elevated but better than yesterday. AST 65.6 and ALT 42.4. The ABG interprets as primary respiratory alkalosis with metabolic alkalosis. She remains afebrile for the last 24 hours. Pulse rate 68 through 97. Blood pressure mildly elevated in the last 24 hours with a few readings with diastolics greater than 90 she was 144 systolic at 2:00 this morning and 144/87 at 10:00 this morning when I was called by nursing. Respiratory rate has been up to 46 at 2:00 this morning 33 at 8:00 this morning and was at 18-20 the remainder of this morning. O2 saturations have declined again this morning between 80 and 88%. She is back on Vapotherm and nonrebreather. Telemetry O2 saturations are low. She remains on sinus rhythm. Nursing notes were reviewe. Once Vapotherm and nonrebreather are reapplied if she is able to regain above 90%. I was notified this morning at 1040 as noted within the chart. Overnight notes were reviewed. Patient is angry grumpy and told nursing this morning that she did not want "nothing". Nursing note from 828 this morning was reviewed lungs are diminished throughout O2 is reduced. Instructed to lie in different positions to sit up in recliner. Patient requested to get up in the recliner loose incontinent stools at times. Patient did drop to 58% at 1 point. She took off her nonrebreather and the Vapotherm. Nursing instructed patient to return them. She rebounded to 88%. After a few minutes alarm began to go off again and patient took them off again. Nausea was noted this morning and she was given Zofran. Due to diarrhea I will check a C. difficile. Before we provide antidiarrheals. Last remdesivir dosing was given last night per nursing documentation. Patient is declining food at times. I attempted to contact at [phone] has not yet been set up. I attempted to contact the patient daughter at [phone] and was unable to leave . We will get CT chest today. I talked with nursing about delirium. Discussed case with daughter at 11:50. Interpersonal and environmental manipulations d/w daughter. Discussed benefit of Frequent touching, reassurance, verbal orientation, not contributing to the delirium or fighting it. Discussed family member input. She and have fought a few times on the phone. I noted need for calm reassurance. I would like to avoid using antipsychotic medications at this time but may need loww dose haldol. 0.5mg as needed which may help withinn ~15 minutes of adminn. For now we will plan to allow her to rest, BIPAP to be started, resting at 96%, leaving this alone. I recommended to let patient rest for ~4 hours if able. Give a good amount of time of non disruption. I have ordered a CT PE protocol should she continue to decline. If satting well on the bipap, we may leave this alone to allow her to rest. Patient today was not cooperative with nursing or with me. She said month was may. She said year was 2020. I asked my name and she said DR. Caban, "SHIT you are DR LUNA" then shook her head and covered her face. She is breathing through mouth mostly. She is shallow breathing and rapid rate ~30. I asked her to spell world. She spelled it then closed her eyes. I said her name then she said "I am trying to sleep." I noted that I wanted her to rest but I needed to make sure she was okay before we proceeded. We discussed her code status, this caused her to be even more withdrawn. Overall she is withdrawn. She followed simple commands. GCS 15 and she looked into my eyes when redirected. 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 Lungs unchanged from yesterday, shallow inspiration. Relayed above to daughter Maren. Maren and Chester are the people patient has requested to make decisions. BIPAP was added ~1200. She was resting and leaving this alone. I think it may be a good option for her to leave on bipap today. Per nursing conversation at 12:05 she is satting ~90% and resting. May benefit from another round of lasix. Review of Systems Constitutional: Weakness, Fatigue reported worse. Diarrhea now. No emesis. +Nausea. Moderate Loss of appetite. shortness of breath, hypoxia, inability to maintain O2 without NRB and Vapotherm. NO FEVER. Eyes: Reports No symptoms Ears: Reports No symptoms Nose: Reports Congestion, dryness. Throat: Reports Pain/drainage. Mouth: Reports No symptoms Respiratory: Cough, Shortness of air, dyspnea, hypoxia (IMPROVING). Denied Pain in left chest with inspiration today. Intermittent blood tinged sputum seems to have resolved. Cardiovascular: Reports Orthopnea, this persists; Denies Chest pain, Left arm pain, Diaphoresis, PND, Edema or Palpitations Gastrointestinal: Abdominal pain is better, Nausea remains without Vomiting. Loose stolls are present, Diarrhea; Denies Melena, Hematemesis, Hematochezia or Dysphagia Genitourinary: Reports No symptoms Neurological: Headache, Dizziness and Weakness Musculoskeletal: Reports Pain back/chest/abdomen with cough. Skin: Reports No symptoms Psychiatric: Reports No symptoms Habits: Denies Tobacco use, Substance use or Alcohol use Objective: Vital Signs - 24 hr 06/13/21 13:00 06/13/21 13:09 06/13/21 14:00 Temperature 98.1 F Pulse Rate 77 Respiratory Rate 26 H Blood Pressure 122/98 H O2 Sat by Pulse Oximetry 97 89 L 96 06/13/21 14:30 06/13/21 16:14 06/13/21 18:00 Temperature 98.1 F 97.9 F Pulse Rate 68 90 Respiratory Rate 19 28 H Blood Pressure 124/84 114/58 L O2 Sat by Pulse Oximetry 90 L 93 L 88 L 06/13/21 19:00 06/13/21 20:00 06/13/21 22:00 Temperature Pulse Rate 87 Respiratory Rate 24 28 H Blood Pressure 118/71 O2 Sat by Pulse Oximetry 89 L 86 L 83 L 06/14/21 00:41 06/14/21 02:00 06/14/21 05:26 Temperature 97.9 F Pulse Rate 88 97 H Respiratory Rate 46 H 18 Blood Pressure 144/82 H 129/85 O2 Sat by Pulse Oximetry 95 89 L 86 L 06/14/21 06:00 06/14/21 07:00 06/14/21 08:00 Temperature Pulse Rate Respiratory Rate 33 H Blood Pressure O2 Sat by Pulse Oximetry 88 L 86 L 06/14/21 10:00 Temperature Pulse Rate 85 Respiratory Rate 20 Blood Pressure 144/87 H O2 Sat by Pulse Oximetry 80 L Constitutional:Appearance-patient is more withdrawn and fearful today. She was asleep upon entry laying on her right lateral decubitus position. She was easily awoken and attentive.She was able to spell WORLD, but did not want to do it backward. Would not particiipate in math. Was able to open eyes, to follow simple instructions, was able to manager of merchandising hands. 5/5 strength. Moved feet/toes, dorsiflexed, plantar flexed. Thought it was may 2021. Her date on the wall said wednesday 06/13. This was not yet updated. She has had hospital day x7 with 8 days of COVID. She is anxious, she is likely suffering from some delirium. She is agitated, withdrawn and not feeling well. C/O mild abdominal pain, it is not recreated with examination today. Tachypnea is present RR 25-30 on presentation today. She is in SCU1. Vapotheram 40LPM and NRB. She is disoriented, mad that she is not resting and just wants to sleep. She has been removing the NRB. I discussed Bipap and this was started today. She remains full code. She is w/o peripheral edema. Integumentary: General-No rashes, ulcers or lesions.Palpation- Normal skin moisture/turgor. Skin is warm to touch, appropriate. Capillary refill is normal bilateral Upper and lower extremity. Head/Neck:Head- normocephalic and atraumatic.Neck- without visible/palpable lumps or pulsations.Palpation- No bony tenderness about head/neck along frontal, occipital, temporal, parietal, mastoid, jawline, zygoma, orbit or any other location. NO temporal artery tenderness. No TMJ tenderness. Neck Supple.Thyroid-No thyromegaly, no nodules Eye:Bilaterally PERRLA, EOMI. No discharge. Upper and lower eyelids are normal. Eyeball appears normal. No ciliary flushing, no conjunctival injection. ENMT:.Nares- bilateral quiet airflow, no discharge.Nasal mucosa- No bleeding noted and no ulcerations observed.vapotherm in place. Nostrils appear to have no breakdown. Brea, moist. Turbinates non boggy.Lips-normal color, moist without cracks/lesionsOral Cavity/Palate- hard/soft palate intact without lesions, oral mucosa pink and moist. Tongue normal midline.Oropharynx- no pharyngeal erythema, Uvula midline. No post nasal drip. No exudate. CHEST/LUNG:Inspection- symmetric chest wall no pectus deformity. Mild increased effort persists, mild tachypnea, no use of accessory muscles.Palpation- nontender sternum, ribline. No abnormal pulsations.Auscultation- Breath sounds throughout all lung velasquez remainn coarse. Crackling heard on examination remains. tracheal sounds, bronchial sounds overlying sternum, Bronchovessicular sounds between scapulae posteriorly, vessicular breath sounds heard throughout periphery are coarse. Lungs are better soundinng today.Adventitious sounds- Crackles throughout, no rhonchi. shallow inspiration persists, limited effort from patient again however . Resting on back upon entry. Morphine helps quite a bit over night. Bilateral lower lobe coarse sounds. We have continued Vapotherm. Will hold NRB today and see how she does. CARDIOVASCULAR:Carotid artery-normal, no bruits or abnormal pulsations. Jugular vein- no pulsations.Palpation/Percussion- Normal PMI, no palpable thrillAuscultation- Regular rate and rhythm. No murmur noted in sitting, supine positions.Extremities- no digital clubbing, cyanosis, edema, increased warmth. ABDOMEN:Inspection- normal and no visible pulsations. Normal contour. Auscultation- Bowel sounds normal, no abdominal bruits.Palpation/Percussion- soft, non-tender, no rebound tenderness, no rigidity (guarding), no jar tenderness, no masses.Liver-no hepatomegaly, Peripheral Vascular:Upper extremityLeft- Normal temperature with pink nailbeds and no ulcerations.Upper extremity Right-Normal temperature with pink nailbeds and no ulcerations.Lower extremity- Normal temperature with pink nailbeds and no ulcerations. DP pulses 2+ bilaterally. Pedal hair intact. Normal capillary refill.Edema- No edema.No tenderness Musculoskeletal:Generalized-No generalized swelling or edema of extremities, no digital clubbing or cyanosis, neurovascularly intact all four extremities.Upper extremity- Symmetrical posture. No visible deformity. Normal Spine/Ribs- No deformities, masses or tenderness, no known fractures, normal strength, Normal ROM. Normal stability No tenderness along C/T/L spine. Normal appearing ROM about spine. Neurological:General- Moves all 4 extremities symmetrically. Symmetrical face and body posture.Cranial nerves- individually evaluated II-XII and intact. PERRLA, Normal EOMI, visual/special senses appear intact, Face is symmetrical and normal sensation/movement, normal tongue, normal strength/posture of neck musculature. Neuropsych:Oriented- Confused, irritated, withdrawn. Aggravated/aggitated. GCS is 15, follows instructions. Able to spell world but did not want to spell it backward, did not want to do math. Mood/affect- Pessimistic/irritable. Speech-Normal speech fragmented Lymphatic: Head/Neck- normal size and non tender to palpation.Axillary- normal size and non tender to palpation.Femoral and Inguinal- normal size and non tender to palpation. (1) COVID-19: Status: Acute Code(s): U07.1 - COVID-19 SNOMED Code(s): 606560868 (2) Pneumonia due to 2019-nCoV: Status: Acute Code(s): U07.1 - COVID-19; J12.82 - Pneumonia due to coronavirus disease 2019 SNOMED Code(s): 213365291513951901 (3) Nausea: Status: Acute Code(s): R11.0 - Nausea SNOMED Code(s): 564285289 (4) Vomiting: Status: Acute Code(s): R11.10 - Vomiting, unspecified SNOMED Code(s): 205974869 (5) Cough: Status: Acute Code(s): R05 - Cough SNOMED Code(s): 67023586 (6) BMI 30.0-30.9,adult: Status: Acute Code(s): Z68.30 - Body mass index [BMI]30.0-30.9, adult SNOMED Code(s): 130516566 (7) Elevated d-dimer: Status: Acute Code(s): R79.89 - Other specified abnormal findings of blood chemistry SNOMED Code(s): 528980941 (8) Transaminitis: Status: Acute Code(s): R74.01 - Elevation of levels of liver transaminase levels SNOMED Code(s): 655730364 (9) Leukopenia: Status: Acute Code(s): D72.819 - Decreased white blood cell count, unspecified SNOMED Code(s): 22319167 (10) Hiatal hernia: Status: Acute Code(s): K44.9 - Diaphragmatic hernia without obstruction or gangrene SNOMED Code(s): 99334894 (11) Chronic depression: Status: Acute Code(s): F32.9 - Major depressive disorder, single episode, unspecified SNOMED Code(s): 170407550 (12) Gastroesophageal reflux disease: Status: Acute Code(s): K21.9 - Gastro-esophageal reflux disease without esophagitis SNOMED Code(s): 364549770 (13) Hypocalcemia: Status: Acute Code(s): E83.51 - Hypocalcemia SNOMED Code(s): 6576267 (14) Respiratory failure: Status: Acute Code(s): J96.90 - Respiratory failure, unspecified, unspecified whether with hypoxia or hypercapnia SNOMED Code(s): 587028383 Plan: COVID 19/COVID 19 Pneumonia/HYPOXIA:66 yo Female HOSPITAL DAY 7, COVID symptoms day 8. Yesterday Remdesivir day 5 06/09-06/13.. She has had rocephin daily and today is day 5. She has completed 3 day course of azithromycin. Ddimer was elevated, negative PE on admit with lovenox on board since admit for DVT prophy and prilosec for chronic gerd/GI prophylaxis.She appears to have delirium this am, fighting the vaportherm and the NRB. I have talked with nursing we will apply bipap today. We will work to allow her to get some rest. I have ordered repeat CT pe protocol should she continue to worsen. I have talked with daughter at length today. She remains full code. Diarrhea noted by nursing in last 1-2 days. I will check for Cdiff w/ sx and elevated WBC. Patient has no urinary c/o. Vitals other than hypoxia mostly unchanged. ABG worse last 48 hours after several days of improvement and a normal ABG> WBC is elevated ?steroidal effect or worsening infection. ?diarrhea with concern for cdiff. Will check for this process. If + start oral vanco per protocol. No further remdesivir. Will continue dexamethasone low dose. continue today with bipap and allow her to rest. Morphine to continue for reported pain and to help with breathing. Cough/SOA remain. Was on Vapotherm only, down to 35% however this has worsened and we will now change her from combo to BIPAP. O2 has been arranged for home. We will continue to try to wean o2. Continue to focus on proning. She has had a setback after days of improvement. Her mood is markedly less upbeat. - Continue Admit inpatient monitored bed SCU - Telemetry - Daily CBC/CMP/CRP/ABG - COMPLETED 5/5 days of Remdesivir. - O2 Maintain >90%.(BIPAP) - Will change from Vapotherm /NRB to BIPAP. Try to let her rest today as much as possible. Phone conversation today. Will work on delrium and non pharmacological options for now. Goal to keep >90%. - Lovenox 40mg daily DVT prophy. - Continue home meds (hold mobic due to risks for GI ulceration) - On PPI as listed below - Hold the maintenance fluid, we will provide Lasix 20 mg to try to dry out the lungs a little bit. Chest x-ray showed worsening. - Tylenol 500 QID for pain/fever. - Morphine 2 q 4 hours PRN. - Repeat CT PE protocol ordered, hold for now. Complete if worsening. N/V/D:Will continue zofran/phenergan PRN. no emesis reported in hospital. diarrhea in last 24 hours. Continue meds as needed for now. - Zofran 4mg IV q 6 hours prn - Phenergan 25mg IV q 8 hours prn. - Check Cdiff prior to antidiarrheal meds. Transaminitis:Monitor CMP daily. Fatty liver on CT.we will continue to monitor. AST/ALT stable and continued improvement. - CMP daily q am. Leukocytosis: Neutrophilia with lymphocytopenia. Chronic anemia, stable. Suspec t steroidal effect. However, will check for c.diff. Repeat CT ordered, consider getting this later today. - Monitor. - Check C diff. BMI 30.9: Unchanged. F/U as outpatient. Anemia: Chronic/stable - Daily CBC. GERD:Chronic/stable. Unchanged.Established/Chronic problem. Stable at present. Continue prilosec PPI. - Prilosec 20mg daily. Depression: Chronic/unstable. Will use home meds. She is normally following with [facility]. We will continue f/u. Chronic pessimism delirium is present. Arthritis: Hold mobic while on dexamethasone daily 6mg IV. Hypocalcemia:Will continue calcium + D. Corrected calcium is normal. DVT Prophy:Lovenox 40mg subcutaneous. Monitor for bleeding. Monitor PLT daily with CBC. - Lovenox daily. Diet:Regular. GI Prophy:On steroids. Will continue PPI as per GERD. Disposition:66-year-old female hospital day #7, remdesivir day #5 (completed 06/13), dexamethasone day #6. Azithromycin 3/ completed, Rocephin 1G IV today completes 5 day course.Reviewed nursing/telemetry, talked with patient, daughter, attempted to call . Patient worse today than yesterday. Check Cdiff. CT ordered. Change from vapotherm/NRB to bipap. The patient remains full code. We will continue to try to wean oxygen to lowest needed levels. D/C planning ongoing. Continue morphine for pain/breathing. Await CT if done. Try to work on non pharmacological interventions for delirium. Consider haldol as next line if needed. We will continue meds as listed. Daily labs as listed. We will continue to hold IV fluids and we will use Lasix as needed. 50 minutes today rounding on patient today, review of patient data, talking to family, not including documentation. Close follow-up with family will continue. Needs 3 Step prior to d/c home. conversation [id number] noted whenever she has been hospitalized he has had to be there else she enters into this state. He is frustrated does not know what to do. He has no ability to do a virtual visit. I discused with her being covid + is difficult to bring him in for visitation. He noted that he has been there and she requires his strength to continue. He notes that he has to essentially tell her what to do and she will "snap out of this." He has been trying to communicate with her. We will continue to try to allow her to rest a few hours. Try bipap. We will update family as needed.
[2021-06-14] MEDS: MORPHINE 2 MG/ML SYRINGE IVP PRN ×3 (11:32→22:42)
[2021-06-14] MEDS: SEROQUEL PO SCH (21:01)
[2021-06-15 04:50] LABS: HEMATOCRIT 30.6 % (37.0-47.0); HEMOGLOBIN 10.5 g/dl (12.0-16.0); MEAN CORPUSCULAR HEMOGLOBIN 31.3 pg (27.0-31.0); MEAN CORPUSCULAR HGB CONC 34.3 (31.8-35.4); MEAN CORPUSCULAR VOLUME 91.1 fl (81.0-99.0); PLATELET COUNT 117 10^3/uL (140-440); RDW COEFFICIENT OF VARIATION 13.8 % (11.6-14.8); RED BLOOD COUNT 3.36 10^6/ul (4.20-5.40); WHITE BLOOD COUNT 18.61 K/ul (4.6-10.2)
[2021-06-15 05:02] LABS: PROTHROMBIN TIME 14.4 SEC (9.3-11.0)
[2021-06-15 05:06] LABS: ALANINE AMINOTRANSFERASE 44.8 U/L (0-35); ALBUMIN 2.94 g/dL (3.5-5.0); ALKALINE PHOSPHATASE 107.1 U/L (53-141); ASPARTATE AMINO TRANSFERASE 81.1 U/L (14-36); BILIRUBIN,TOTAL 1.49 mg/dL (0.2-1.3); BLOOD UREA NITROGEN 35.5 mg/dL (7-17); CALCIUM 8.13 mg/dL (8.4-10.2); CARBON DIOXIDE 30.6 mmol/L (22-30.0); CREATININE 0.68 mg/dL (0.60-1.30); POTASSIUM 4.02 mmol/L (3.5-5.1); SODIUM 139.6 mmol/L (134.5-145); TOTAL PROTEIN 5.65 g/dL (6.3-8.2)
[2021-06-15 05:10] LABS: ANISOCYTOSIS NOT PRESENT (NOT PRESENT)
[2021-06-15] MEDS: VENTOLIN HFA (PER PUFF-WITH SPACER) IH SCH ×2 (05:15→14:41)
[2021-06-15 05:51] LABS: ABG PH 7.48 (7.35-7.45); COHb 3.5 (0.5-1.5); HCO3 30.5 (21-28); MetHb 0.8 (0-1.5)
[2021-06-15 05:52] LABS: ABG O2 HGB 86.7 % (95-100); TCO2 31.8 (19-24); tHb 11.4 g/dl (11.7-17.4)
[2021-06-15] MEDS: PRILOSEC PO SCH (06:15)
--- NOTE | 2021-06-15 07:26 | PCM.PROG ---
Date Seen by Provider: 06/15/21 Time Seen by Provider: 07:17 Subjective: 66 yo CF HD #8 COVID symptom day #9. Vaccinated COVID x 2. Now on BIPAP as of 06/14/21 after not tolerating vapotherm 40LPM and NRB. She has had COVID-19 pneumonia, hypoxia respiratory failure, elevated D-dimer with negative CT chest, transaminitis, leukopenia, anemia, obesity, hypertension, history of asthma, history of chronic depression, history of GERD, fatty liver, hiatal hernia, and as of 06/13 leukocytosis with neutrophilia. She has completed 3/3 days of azithromycin 500mg. She completed 5 days of rocephin 1 gram IV. She finished 5/5 days of remdesivir. Labs this morning show an increase in white blood cell count to 18.60 from 14.0 yesterday. Hemoglobin is stable at 10.5 up from 10.4 yesterday. Platelets are down at 117 todayFrom 198 yesterday. She has a 90% neutrophilia no bands 5% lymphocytes which is essentially unchanged from previous days. INR now at 1.36 up from 1.14 yesterday. ABG this morning is better than yesterday. O2 saturation 90, pH 7.48, PCO2 41, PO2 54, HCO3 30.5 and total CO2 31.8. Chemistry panel this morning sodium normal 131.6, potassium normal 4.02, chloride normal 104. Creatinine remained stable at 0.68. Glucose 169. Calcium 8.13 with a albumin of 2.94 corrects to normal. AST 81.1 and ALT 44.8 mildly elevated from yesterday. I have a repeat CT chest ordered in case she continues to worsen.Vitals for the last 24 hours show that the patient remains afebrile. Heart rate 72 through 97, blood pressure has been normotensive since 1354 yesterday. She did have a mildly elevated blood pressure at 144 systolic at 10:00 yesterday morning. Respiratory rate has ranged from 18-46 yesterday. Telemetry data over the last several days has been in sinus rhythm. I reviewed telemetry as documented. TX interval is normal at 0.14-0.16. I asked for a weight as of yesterday I do not yet have that. Patient remains full code. She struggled yesterday keeping her apparatus attached to her face. We switched over to BiPAP and I contacted nursing throughout the day and it seemed patient did quite well throughout the day. I have talked with and daughter yesterday. Overnight nursing notes reviewed. As of 1399 yesterday she was resting quietly on BiPAP SPO2 97% and respirations 24. 1700 up to bedside commode with assist, no stool, C. difficile was recommended as they have reported diarrhea in the last 24 hours. Patient was replaced into bed on left side. Respirations were 3493% SPO2. More cooperative and more interactive. 1730 patient resting. 95%. 1934 awake alert oriented ashen in color. Respiratory labored at rest worse with exertion. O2 at 82% after getting up to bedside commode. BiPAP 100% occasional nonproductive cough. No pain, no diarrhea has been present in the last [address] Fall precautions in place. 2246 last night morphine 2 mg given due to anxiety and shortness of air. 110 this morning patient saturations dropped to the 50s, patient disconnected BiPAP tubing from the mask tubing was reconnected and O2 sats were elevated back to normal. O2 back to 91%. patient was resting comfortably 93% on BiPAP respirations 24/min. 0649 this morning rested the night took meds without issues this morning. O2 89% on BiPAP this morning afebrile blood pressure 140/84. Patient has no complaints of pain. Fall precautions remain in place. Patient remains dependent upon BiPAP. Low platelets noted today. 4T score reviewed. Compared to yesterday there is <50% drop (41%). However this drop was markedly less when compared to 140 on 06/09/21. I will repeat the CBC this pm. CT chest today. Await Cdiff. INR is elevated today. She has no new skin thrombi, no new necrosis, no systemic reaction from LMWH. She has <3 points suggesting low probability of HIT. Concern for possibility of ITP wwith COVID 19. Review of Systems Constitutional: Weakness, Fatigue, SOA, confusion from yesterday is better. Loss of appetite. TERAN. NO c/o pain. No c/o Fever nor Chills, Eyes: Reports No symptoms Ears: Reports No symptoms Nose: Reports Congestion, dryness. Throat: Reports Pain/drainage. Mouth: Reports No symptoms Respiratory: Cough, Shortness of air, dyspnea, hypoxia. Denied Pain in left chest with inspiration today. Intermittent blood tinged sputum seems to have resolved. Cardiovascular: Reports Orthopnea, this persists; Denies Chest pain, Left arm pain, Diaphoresis, PND, Edema or Palpitations Gastrointestinal: Abdominal pain is better, Nausea remains without Vomiting or Diarrhea; Denies Melena, Hematemesis, Hematochezia or Dysphagia Genitourinary: Reports No symptoms Neurological: Headache, Dizziness and Weakness Musculoskeletal: Reports Pain back/chest/abdomen with cough. Skin: Reports No symptoms Psychiatric: Reports No symptoms Habits: Denies Tobacco use, Substance use or Alcohol use Objective: Vital Signs - 24 hr 06/14/21 08:00 06/14/21 10:00 06/14/21 12:10 Temperature Pulse Rate 85 Respiratory Rate 33 H 20 Blood Pressure 144/87 H O2 Sat by Pulse Oximetry 80 L 95 06/14/21 12:52 06/14/21 13:54 06/14/21 14:00 Temperature 97 F L Pulse Rate 72 Respiratory Rate 24 Blood Pressure 122/65 O2 Sat by Pulse Oximetry 94 L 94 L 94 L 06/14/21 17:52 06/14/21 18:00 06/14/21 19:00 Temperature 97.9 F Pulse Rate 95 H Respiratory Rate 43 H Blood Pressure 102/88 O2 Sat by Pulse Oximetry 92 L 90 L 82 L 06/14/21 19:35 06/14/21 20:00 06/14/21 21:43 Temperature 99.1 F Pulse Rate 91 H Respiratory Rate 36 H 23 Blood Pressure 98/71 O2 Sat by Pulse Oximetry 90 L 87 L 06/14/21 22:00 06/15/21 01:00 06/15/21 02:00 Temperature 98.3 F Pulse Rate 76 Respiratory Rate 24 Blood Pressure 121/69 O2 Sat by Pulse Oximetry 88 L 89 L 88 L 06/15/21 05:57 06/15/21 06:00 Temperature 97.7 F Pulse Rate 82 Respiratory Rate 30 H Blood Pressure 140/84 O2 Sat by Pulse Oximetry 91 L 90 L Constitutional:Appearance-patient is more awake/alert/interactive. I asked her my name she said "Mud" then laughed. She was able to follow commands. 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 Still quite withdrawn and fearful today. She was resting left lateral decub position upon entry laying on side with bipap in place. She was easily awoken and attentive. Aware of day/date/time. Tachypnea is present RR 30x per minute on presentation today. She is in SCU1. Bipap in place. she was more disoriented yesterday, but this seems to come and go. She remains full code. She is w/o peripheral edema. Integumentary: General-No rashes, ulcers or lesions.Palpation- Normal skin moisture/turgor. Skin is warm to touch, appropriate. Capillary refill is normal bilateral Upper and lower extremity. Varicose veins. Head/Neck:Head- normocephalic and atraumatic.Neck- without visible/palpable lumps or pulsations.Palpation- No bony tenderness about head/neck along frontal, occipital, temporal, parietal, mastoid, jawline, zygoma, orbit or any other location. NO temporal artery tenderness. No TMJ tenderness. Neck Supple.Thyroid-No thyromegaly, no nodules BIPAP in place. Eye:Bilaterally PERRLA, EOMI. No discharge. Upper and lower eyelids are normal. Eyeball appears normal. No ciliary flushing, no conjunctival injection. ENMT:Nares- bilateral quiet airflow, no discharge.Nasal mucosa- No bleeding noted and no ulcerations observed.vapotherm in place. Nostrils appear to have no breakdown. Athena, moist. Turbinates non boggy.Lips-normal color, moist without cracks/lesionsOral Cavity/Palate- hard/soft palate intact without lesions, oral mucosa pink and moist. Tongue normal midline.Oropharynx- no pharyngeal erythema, Uvula midline. No post nasal drip. No exudate. CHEST/LUNG:Inspection- symmetric chest wall no pectus deformity. Mild increased effort persists, mild tachypnea, no use of accessory muscles.Palpation- nontender sternum, ribline. No abnormal pulsations.Auscultation- Breath sounds throughout all lung velasquez remain coarse. Crackling heard on examination remains. tracheal sounds, bronchial sounds overlying sternum, Bronchovessicular sounds between scapulae posteriorly, vessicular breath sounds heard throughout periphery are coarse. Lungs are worse sounding today.Adventitious sounds- Crackles throughout, rhonchi. shallow inspiration persists, limited effort from patient.. Resting on side upon entry, rolled to back. Morphine helps quite a bit w/ respiratory rate.. Bilateral lower lobe coarse sounds. CARDIOVASCULAR:Carotid artery-normal, no bruits or abnormal pulsations. Jugular vein- no pulsations.Palpation/Percussion- Normal PMI, no palpable thrillAuscultation- Regular rate and rhythm. No murmur noted in sitting, supine positions.Extremities- no digital clubbing, cyanosis, edema, increased warmth. ABDOMEN:Inspection- normal and no visible pulsations. Normal contour. Auscultation- Bowel sounds normal, no abdominal bruits.Palpation/Percussion- soft, non-tender, no rebound tenderness, no rigidity (guarding), no jar tenderness, no masses.Liver-no hepatomegaly, Peripheral Vascular:Upper extremityLeft- Normal temperature with pink nailbeds and no ulcerations.Upper extremity Right-Normal temperature with pink nailbeds and no ulcerations.Lower extremity- Normal temperature with pink nailbeds and no ulcerations. DP pulses 2+ bilaterally. Pedal hair intact. Normal capillary refill.Edema- No edema.No tenderness Musculoskeletal:Generalized-No generalized swelling or edema of extremities, no digital clubbing or cyanosis, neurovascularly intact all four extremities.Upper extremity- Symmetrical posture. No visible deformity. Normal Spine/Ribs- No deformities, masses or tenderness, no known fractures, normal strength, Normal ROM. Normal stability No tenderness along C/T/L spine. Normal appearing ROM about spine. Neurological:General- Moves all 4 extremities symmetrically. Symmetrical face and body posture.Cranial nerves- individually evaluated II-XII and intact. PERRLA, Normal EOMI, visual/special senses appear intact, Face is symmetrical and normal sensation/movement, normal tongue, normal strength/posture of neck musculature. Neuropsych:Oriented- Mildly Confused, irritated, remains withdrawn. Aggravated/aggitated. GCS remains 15, follows instructions. Mood/affect- Pessimistic/irritable. Speech-Normal speech fragmented tachypneic. Lymphatic: Head/Neck- normal size and non tender to palpation.Axillary- normal size and non tender to palpation.Femoral and Inguinal- normal size and non tender to palpation. Laboratory Last Values WBC 18.61 K/ul (4.6-10.2) H 06/15/21 04:45 RBC 3.36 10^6/ul (4.20-5.40) L 06/15/21 04:45 Hgb 10.5 g/dl (12.0-16.0) L 06/15/21 04:45 Hct 30.6 % (37.0-47.0) L 06/15/21 04:45 MCV 91.1 fl (81.0-99.0) 06/15/21 04:45 MCH 31.3 pg (27.0-31.0) H 06/15/21 04:45 MCHC 34.3 (31.8-35.4) 06/15/21 04:45 RDW Coeff of Joselito 13.8 % (11.6-14.8) 06/15/21 04:45 Plt Count 117 10^3/uL (140-440) L D 06/15/21 04:45 Immature Gran % (Auto) 1.2 % (0.0-5.0) 06/14/21 05:43 Neut % (Auto) 93.2 % (42.2-75.2) H 06/14/21 05:43 Lymph % (Auto) 3.3 (10.0-50.0) L 06/14/21 05:43 [place] % (Auto) 2.2 (0-10) 06/14/21 05:43 Eos % (Auto) 0.0 % (0.0-7.0) 06/14/21 05:43 Baso % (Auto) 0.1 % (0.0-3.0) 06/14/21 05:43 Reticulocyte % (Auto) 1.36 % 06/15/21 08:40 Neut # (Auto) 13.8 K/ul (2.0-6.9) H 06/14/21 05:43 Lymph # (Auto) 0.5 K/uL (0.60-3.4) L 06/14/21 05:43 [place] # (Auto) 0.3 K/uL (0.4-2.0) L 06/14/21 05:43 Eos # (Auto) 0.0 K/ul (0.0-0.7) 06/14/21 05:43 Baso # (Auto) 0.0 K/uL (0-0.2) 06/14/21 05:43 Immature Gran # (Auto) 0.2 (0.0-1.0) 06/14/21 05:43 Neutrophils % (Manual) 90.0 % (42.2-75.2) H 06/15/21 04:45 Band Neutrophils % 2.0 % (0.0-5.0) 06/10/21 06:00 Lymphocytes % (Manual) 5.0 % (10.0-50.0) L 06/15/21 04:45 Monocytes % (Manual) 5.0 % (0.0-10.0) 06/15/21 04:45 Anisocytosis Not present (NOT PRESENT) 06/15/21 04:45 Absolute Retic 0.0458 06/15/21 08:40 Retic Hgb Equivalent 33.8 06/15/21 08:40 PT 14.4 SEC (9.3-11.0) H 06/15/21 04:45 INR 1.36 SI (0.0-3.9) 06/15/21 04:45 Puncture Site Lrad 06/15/21 05:15 Base Excess 7.0 (-2.0-3.0) H 06/15/21 05:15 O2 Saturation 90.0 % (94-98) L 06/15/21 05:15 ABG pH 7.48 (7.35-7.45) H 06/15/21 05:15 ABG pCO2 41.0 mmHg (35-45) 06/15/21 05:15 ABG pO2 54.0 mmHg (85-100) L* 06/15/21 05:15 ABG HCO3 30.5 (21-28) H 06/15/21 05:15 ABG Total CO2 31.8 (19-24) H 06/15/21 05:15 Julio Cesar Test + 06/15/21 05:15 Hemoglobin 0.8 (0-1.5) 06/15/21 05:15 Oxyhemoglobin 86.7 % (95-100) L 06/15/21 05:15 Carboxyhemoglobin 3.5 (0.5-1.5) H 06/15/21 05:15 Total Hemoglobin 11.4 g/dl (11.7-17.4) L 06/15/21 05:15 O2 Delivery Device Bipap 06/15/21 05:15 Oxygen Liter Flow 40.00 06/14/21 06:00 FiO2 % 100.0 % 06/15/21 05:15 Sodium 139.6 mmol/L (134.5-145) 06/15/21 04:45 Potassium 4.02 mmol/L (3.5-5.1) 06/15/21 04:45 Chloride 104.0 mmol/L (98-107) 06/15/21 04:45 Carbon Dioxide 30.6 mmol/L (22-30.0) H 06/15/21 04:45 Anion Gap 9.02 06/15/21 04:45 BUN 35.5 mg/dL (7-17) H 06/15/21 04:45 Creatinine 0.68 mg/dL (0.60-1.30) 06/15/21 04:45 Estimated GFR (MDRD) 86.00 mL/min 06/15/21 04:45 BUN/Creatinine Ratio 52.20 06/15/21 04:45 Glucose 169.0 mg/dL (74-106) H 06/15/21 04:45 Lactic Acid 1.06 mmol/L (0.7-2.1) 06/08/21 11:13 Calcium 8.13 mg/dL (8.4-10.2) L 06/15/21 04:45 Ferritin 994.00 ng/mL (11.1-264.0) H 06/10/21 06:00 Total Bilirubin 1.49 mg/dL (0.2-1.3) H 06/15/21 04:45 AST 81.1 U/L (14-36) H 06/15/21 04:45 ALT 44.8 U/L (0-35) H 06/15/21 04:45 Alkaline Phosphatase 107.1 U/L (53-141) 06/15/21 04:45 Lactate Dehydrogenase 452 IU/L (119-226) H 06/09/21 05:26 Troponin I < 0.012 ng/ml (0.0000-0.120) 06/10/21 06:00 C-Reactive Prot, Quant 136 mg/L (0-10) H 06/10/21 06:00 Total Protein 5.65 g/dL (6.3-8.2) L 06/15/21 04:45 Albumin 2.94 g/dL (3.5-5.0) L 06/15/21 04:45 Globulin 2.71 06/15/21 04:45 Albumin/Globulin Ratio 1.08 06/15/21 04:45 Procalcitonin < 0.05 ng/mL (0.09) 06/08/21 11:13 D-Dimer 965.51 ng/mL (<500) H 06/08/21 11:13 (1) COVID-19: Status: Acute Code(s): U07.1 - COVID-19 SNOMED Code(s): 722352776 (2) Pneumonia due to 2019-nCoV: Status: Acute Code(s): U07.1 - COVID-19; J12.82 - Pneumonia due to coronavirus disease 2019 SNOMED Code(s): 420950556623452744 (3) Nausea: Status: Acute Code(s): R11.0 - Nausea SNOMED Code(s): 167771442 (4) Vomiting: Status: Acute Code(s): R11.10 - Vomiting, unspecified SNOMED Code(s): 916059408 (5) Cough: Status: Acute Code(s): R05 - Cough SNOMED Code(s): 20298989 (6) BMI 30.0-30.9,adult: Status: Acute Code(s): Z68.30 - Body mass index [BMI]30.0-30.9, adult SNOMED Code(s): 688986609 (7) Elevated d-dimer: Status: Acute Code(s): R79.89 - Other specified abnormal findings of blood chemistry SNOMED Code(s): 826317408 (8) Transaminitis: Status: Acute Code(s): R74.01 - Elevation of levels of liver transaminase levels SNOMED Code(s): 793585244 (9) Leukopenia: Status: Acute Code(s): D72.819 - Decreased white blood cell count, unspecified SNOMED Code(s): 88129840 (10) Hiatal hernia: Status: Acute Code(s): K44.9 - Diaphragmatic hernia without obstruction or gangrene SNOMED Code(s): 83697524 (11) Chronic depression: Status: Acute Code(s): F32.9 - Major depressive disorder, single episode, unspecified SNOMED Code(s): 160687183 (12) Gastroesophageal reflux disease: Status: Acute Code(s): K21.9 - Gastro-esophageal reflux disease without esophagitis SNOMED Code(s): 348428300 (13) Hypocalcemia: Status: Acute Code(s): E83.51 - Hypocalcemia SNOMED Code(s): 7284462 (14) Respiratory failure: Status: Acute Code(s): J96.90 - Respiratory failure, unspecified, unspecified whether with hypoxia or hypercapnia SNOMED Code(s): 475475733 (15) Leukocytosis: Status: Acute Code(s): D72.829 - Elevated white blood cell count, unspecified SNOMED Code(s): 517395694 (16) Thrombocytopenia: Status: Acute Code(s): D69.6 - Thrombocytopenia, unspecified SNOMED Code(s): 781905617 (17) Pulmonary emboli: Status: Acute Code(s): I26.99 - Other pulmonary embolism without acute cor pulmonale SNOMED Code(s): 19609038 Plan: COVID 19/COVID 19 Pneumonia/HYPOXIA:66 yo Female HOSPITAL DAY 8. COVID Day 9 of symptoms. Has completed remdesivir 02/04. On dexamethasone still. Leukocytosis is worsening up from 13.13 on 06/13, 14.80 on 06/14, 18.61 this am. I have ordered retic count (returned 1.36%). I also contacted lab to ask them about t he manual diff for the plt. She has increased WBC count (demargination from steroids remains high on ddx), reduced plt at 117, down from 198 yesterday (140 was low on 06/09/21), coag profiles show INR 1.04 06/12, 1.08 06/13, 1.14 06/14, 1.36 today. ABG looks better today with pH of 7.48 down from 7.5 yesterday. PCO2 41 up from 30 yesterday. PO2 was at 54 this morning on BiPAP. Chemistry listed looks okay but the bilirubin has increased.Her LDH was elevated on 06/09 452 and 06/08 at 381. I have repeated that today. I will repeat a procalcitonin today. D-dimer was elevated at admit but CT PE was negative. We will check another 1 today. As noted above. She has completed 3 days of azithromycin and 5 days of remdesivir and Rocephin. She improved onto Wednesday 06/13 but then had marked worsening with fighting and mental status changes. She was changed to BiPAP. She was doing better on this but still had some issues through the night and we repeated a CT PE protocol today. She has been on prophylactic Lovenox. I have considered HIT today. However I believe I am more concerned with ITP/TTP and COVID induced thrombocytopenia. I repeated procalcitonin and feel that with <0.50 level that there is no need for further abx at this time. WBC is elevated, INR is elevating, Plt are dropping. I have talked with family about transfer from facility. - Admit inpatient monitored bed SCU - Telemetry - Daily CBC/CMP/CRP/ABG - [place] completed 02/04. - Azithromycin 12/03 completed 500mg . - Rocephin 1g IV daily x 5 days completed. - O2 Maintain >90%. - ON BIPAP still w/ desaturations. - Lovenox 40mg daily DVT prophy. - Continue home meds (hold mobic due to risks for GI ulceration) - On PPI as listed below - Hold the maintenance fluid, we will provide Lasix 20 mg to try to dry out the lungs a little bit. Chest x-ray showed worsening. - Tylenol 500 QID for pain/fever. - Morphine 2 q 4 hours PRN. Thrombocytopenia: Concern for possibility of HIT/COVID coagulopathy. - CBC tomorrow - Continue anticoag prophy for now. Consider change to bivalribuin and or fondaparineux. N/V/D:Will continue zofran/phenergan PRN. no emesis reported in hospital. No diarrhea Continue meds as needed for now. - Zofran 4mg IV q 6 hours prn - Phenergan 25mg IV q 8 hours prn. Transaminitis:Monitor CMP daily. Fatty liver on CT.we will continue to monitor. AST/ALT stable.. - CMP daily q am. BMI 30.9: Unchanged. F/U as outpatient. GERD:Chronic/stable. Unchanged.Established/Chronic problem. Stable at present. Continue prilosec PPI. - Prilosec 20mg daily. Depression: Chronic/unstable. Will continue home meds. She is [facility] We will continue f/u. Arthritis: Hold mobic while on dexamethasone daily 6mg IV. Hypocalcemia:Will continue calcium + D. Corrected calcium is normal. DVT Prophy:Lovenox 40mg subcutaneous. Monitor for bleeding. Monitor PLT daily with CBC. PE protocol CT today. Increase to therapeutic dose 1mg/kg BID if positive. - Lovenox daily. Diet:Regular. GI Prophy:On steroids. Will continue PPI as per GERD. Disposition:66-year-old female hospital day #8. She completed remdesivir 5/5, dexamethasone daily. Azithromycin 3/3 completed (last Dose 05/12). Rocephin 1G IV completed 5 day course (last dose 06/14/21).Reviewed nursing/telemetry, talked with patient, reviewed case management documentation. Patient was improving/doing better up through the weekend but has had some mental status changes and issues with NRB and vaportherm. We changed her to bipap over the weekend and she had continued to have ups/downs. Any time she is up and moving she will drop to 66. When she removes her bipap she drops, turns ashen and o2 is very low. This returns to high 80's low 90's with bipap return. Concern for fibrotic status and change of the covid symptoms/presentation. The patient remains full code. I have had long discussion with daughter and with . Continue morphine for pain/breathing. We will continue meds as listed. Daily labs as listed. We will continue to hold IV fluids and we will use Lasix as needed. 36 minutes today rounding on patient today this am, not including documentation. Close follow-up with family will continue. Addendum 1315 Critical result called IMPRESSION: 1. Critical result: New bilateral segmental and subsegmental pulmonary emboli. 2. Worsened bilateral pneumonia. I talked with Dr. Jose from radiology. The pneumonia is worsening and there are new segmental and subsegmental PEs. The patient has been on Lovenox the entire time. I have called and talked with Daughter Maren and the patient's Chester and relayed the PE information. We again discussed CODE STATUS and discussed her current status. We are able to maintain her at 92% however any movement causes her to drop into the mid 80s to 60s at times. Lowest seen today several times after she removed bibap was 66%. Patient has been on Lovenox 40 mg subcutaneously daily. She now has new PEs Despite the low molecular weight heparin. Called and talked with [facility] [phone]. Per their request, patient does need an ICU and they are not likely equiped to cover patient need. I talked with [facility] and patient is on waiting list. I was able to talk to critical care team provider and he discussed/agreed that with procalc that returned as <0.5 that further abx are not likely indicated. He would continue lovenox as I had done, with the therapeutic dose. Would continue the bipap until she can no longer tolerate this but he noted that she was likely in the fibrotic/fibrinolytic stage and that she may require TPA. I have ordered an echo for tomorrow. I will order repeat BC, I will order ddimer, pt/inr, cbc/cmp, fibrinogen. Her INR has slowly creeped up, her renal function remains okay, bilirubin is elevated, liver e nzymes are stable. Her ABG is alkalotic again, she is tachypneic and desating with movement and when she removes BIPAP. Concern for coagulopathy and concern that she is fatiguing. At 17:40 I discussed care with DR. Corcoran, relayed the information above and we discussed the care. He has accepted her to [facility]. I talked with the family Maren the daughter and Chester the son. We will be transfering patient to [facility] via ambulance with bipap. patient re-evaluated [id number] Discussed case with [facility], relayed information about her care. She is the first patient to go to the [place] as a civilian. She will be going to the [facility] under Dr. Corcoran room 351. Extension [phone]. They requested labs/imaging reports to be included. Critical care time 30 minutes this pm in addition to 36 minutes rounding this am. time not including documentation.
[2021-06-15 08:46] LABS: ABSOLUTE RETICS # 0.0458; RETICULOCYTE % 1.36 %; RETICULOCYTE HEMOGLOBIN 33.8
[2021-06-15] MEDS: ASPIRIN CHEWABLE PO SCH (09:52)
[2021-06-15] MEDS: WELLBUTRIN XL PO SCH (09:53)
[2021-06-15] MEDS: CALCIUM 500 + VIT D 5 MCG (200 IU) TABLET PO SCH (09:54)
[2021-06-15] MEDS: TESSALON PERLES PO SCH (09:55)
[2021-06-15] MEDS: ZINC-220 PO SCH (09:55)
[2021-06-15] MEDS: MULTIVITAMIN TABLET PO SCH (09:55)
[2021-06-15] MEDS: VASOTEC PO SCH (09:56)
[2021-06-15] MEDS: DECADRON IM SCH (09:56)
[2021-06-15] MEDS: LOPRESSOR PO SCH (09:56)
[2021-06-15] MEDS: LOVENOX SUBCUT SCH (09:57)
[2021-06-15] MEDS: SYMBICORT 160-4.5 MCG INHALER IH SCH (09:58)
--- NOTE | 2021-06-15 13:29 | CT ---
EXAM: CT Angiogram Chest. HISTORY: Shortness of breath. COVID-19. COMPARISON: 06/08/2021, 05/19/2021, 04/03/2020. TECHNIQUE: Multiple axial images of the chest were obtained following intravenous administration of 125 mL Omnipaque 350, low osmolar. Images were reformatted in the sagittal and coronal plane. 3-D a nd maximum intensity projection reformatted images were created on an independent workstation. FINDINGS: Segmental filling defects in the left lower and right middle lobe pulmonary artery system with subsegmental filling defects within right lower lobe pulmonary arteries, new from prior study. No right heart strain. Heart size normal. No pericardial effusion. There are calcified and noncalcified mediastinal and hilar lymph nodes again noted. There are diffuse bilateral ground-glass opacities which has significantly increased. No pleural eff usion or pneumothorax. Moderate hiatal hernia. Fatty infiltration of the liver. There has been previous ACDF. Degenerative changes in the spine.. IMPRESSION: 1. Critical result: New bilateral segmental and subsegmental pulmonary emboli. 2. Worsened bilateral pneumonia. Comment: Findings were discussed with Dr. De La Vega at 1:24 p.m. on 06/15/2021. All CT scans are performed using dose optimization techniques as appropriate to the performed exam an d include at least one of the following: Automated exposure control, adjustment of the mA and/or kV according t o size, and the use of iterative reconstruction technique.
[2021-06-15] MEDS ORDERED: LOVENOX SUBCUT SCH (13:30)
[2021-06-15 13:49] LABS: BASOPHILS % (AUTO) 0.1 % (0.0-3.0); HEMATOCRIT 30.4 % (37.0-47.0); HEMOGLOBIN 10.3 g/dl (12.0-16.0); IMMATURE GRANULOCYTE # (AUTO) 0.6 (0.0-1.0); IMMATURE GRANULOCYTE % (AUTO) 2.9 % (0.0-5.0); LYMPHOCYTES # (AUTO) 0.5 K/uL (0.60-3.4); LYMPHOCYTES % (AUTO) 2.4 (10.0-50.0); MEAN CORPUSCULAR HEMOGLOBIN 30.7 pg (27.0-31.0); MEAN CORPUSCULAR HGB CONC 33.9 (31.8-35.4); MEAN CORPUSCULAR VOLUME 90.5 fl (81.0-99.0); MONOCYTES # (AUTO) 0.4 K/uL (0.4-2.0); MONOCYTES % (AUTO) 2.2 (0-10); NEUTROPHILS # (AUTO) 18.7 K/ul (2.0-6.9); NEUTROPHILS % (AUTO) 92.4 % (42.2-75.2); PLATELET COUNT 111 10^3/uL (140-440); RDW COEFFICIENT OF VARIATION 13.8 % (11.6-14.8); RED BLOOD COUNT 3.36 10^6/ul (4.20-5.40)
[2021-06-15 14:16] LABS: WHITE BLOOD COUNT 20.28 K/ul (4.6-10.2)
[2021-06-15 18:04] VITALS: BP 120/100; TEMP 96.5
--- NOTE | 2021-06-15 19:21 | PCM.DC ---
Final Diagnosis: COVID 19/COVID 19 PNEUMONIA/HYPOXIA BIPAP DEPDENDENT ARF BILATERAL SEGMENTAL/SUBSEGMENTAL PULMONARY EMBOLI. HYPOCALCEMIA HYPERTENSION NAUSEA/VOMITING LEUKOCYTOSIS THROMBOCYTOPENIA GERD OBESITY BMI 34.6 DEPRESSION ELEVATED DDIMER ELEVATED FERRITIN TRANSAMINITIS HIATAL HERNIA (1) COVID-19: Status: Acute Code(s): U07.1 - COVID-19 SNOMED Code(s): 224693301 (2) Pneumonia due to 2019-nCoV: Status: Acute Code(s): U07.1 - COVID-19; J12.82 - Pneumonia due to coronavirus disease 2019 SNOMED Code(s): 840647199178157027 (3) Nausea: Status: Acute Code(s): R11.0 - Nausea SNOMED Code(s): 618505269 (4) Vomiting: Status: Acute Code(s): R11.10 - Vomiting, unspecified SNOMED Code(s): 808426293 (5) Cough: Status: Acute Code(s): R05 - Cough SNOMED Code(s): 64887792 (6) BMI 30.0-30.9,adult: Status: Acute Code(s): Z68.30 - Body mass index [BMI]30.0-30.9, adult SNOMED Code(s): 770327680 (7) Elevated d-dimer: Status: Acute Code(s): R79.89 - Other specified abnormal findings of blood chemistry SNOMED Code(s): 906704527 (8) Transaminitis: Status: Acute Code(s): R74.01 - Elevation of levels of liver transaminase levels SNOMED Code(s): 676749722 (9) Leukopenia: Status: Acute Code(s): D72.819 - Decreased white blood cell count, unspecified SNOMED Code(s): 70136892 (10) Hiatal hernia: Status: Acute Code(s): K44.9 - Diaphragmatic hernia without obstruction or gangrene SNOMED Code(s): 61305159 (11) Chronic depression: Status: Acute Code(s): F32.9 - Major depressive disorder, single episode, unspecified SNOMED Code(s): 689084246 (12) Gastroesophageal reflux disease: Status: Acute Code(s): K21.9 - Gastro-esophageal reflux disease without esophagitis SNOMED Code(s): 795813188 (13) Hypocalcemia: Status: Acute Code(s): E83.51 - Hypocalcemia SNOMED Code(s): 9644861 (14) Respiratory failure: Status: Acute Code(s): J96.90 - Respiratory failure, unspecified, unspecified whether with hypoxia or hypercapnia SNOMED Code(s): 305038907 (15) Leukocytosis: Status: Acute Code(s): D72.829 - Elevated white blood cell count, unspecified SNOMED Code(s): 726157235 (16) Thrombocytopenia: Status: Acute Code(s): D69.6 - Thrombocytopenia, unspecified SNOMED Code(s): 563504108 (17) Pulmonary emboli: Status: Acute Code(s): I26.99 - Other pulmonary embolism without acute cor pulmonale SNOMED Code(s): 37738403 Reason for Hospitalization: The patient presented to the hospital on June 08. She presented on June 05 to the emergency room for the first time and tested positive with minimal symptoms. She reports returned to ER on June 08 with worsening symptoms for 24 hours. Covid positive. Prognosis at Discharge: Guarded Condition at Discharge: Stable but in serious condition BiPAP dependent. Medications at Discharge: Ambulatory Orders Medication Instructions Recorded multivitamin (Daily Multi-Vitamin) 1 ea PO DAILY 07/20/14 aspirin 81 mg chewable tablet 81 mg PO DAILYWM 12/11/15 omeprazole 20 mg capsule,delayed 20 mg PO DAILY 12/11/15 release metoprolol tartrate 25 mg tablet 25 mg PO BID #180 tab 09/25/20 bupropion HCl 300 mg 24 hr tablet, 300 mg PO DAILY #30 tab 03/20/21 extended release quetiapine 50 mg tablet (Seroquel) 75 mg PO qhs 30 Days #45 tab-cap 04/22/21 nystatin 100,000 unit/gram topical 1 applic TOPICAL BID PRN 05/19/21 cream nystatin 100,000 unit/gram topical 1 applic TOPICAL BID PRN 05/19/21 powder acetaminophen 500 mg tablet 500 mg PO Q6H PRN #20 tab 06/15/21 albuterol sulfate 90 mcg/actuation 2 puff INHALATION TID #8.5 g 06/15/21 aerosol inhaler (Ventolin HFA) budesonide-formoterol HFA 160 2 puff INHALATION BID #10.2 g 06/15/21 mcg-4.5 mcg/actuation aerosol inhaler (Symbicort) calcium carbonate 500 mg (1,250 1 tab PO BID #60 tab 06/15/21 mg)-vitamin D3 200 unit tablet (Oyster Shell Calcium-Vit D3) dexamethasone sodium phosphate 10 6 mg IM DAILY #10 ml 06/15/21 mg/mL injection solution enalapril maleate 5 mg tablet 5 mg PO DAILY #30 tab 06/15/21 enoxaparin 100 mg/mL subcutaneous 90 mg SUBCUT Q12HR #10 ml 06/15/21 syringe (Lovenox) metoprolol tartrate 25 mg tablet 25 mg PO BID #60 tab 06/15/21 morphine 2 mg/mL injection syringe 2 mg IV PUSH (TEST DOSE) Q4H PRN 06/15/21 #10 ml multivitamin with folic acid 400 1 tab PO DAILY #30 tab 06/15/21 mcg tablet (Tab-A-Jm) nystatin 100,000 unit/gram topical 1 applic TOPICAL BID PRN #30 g 06/15/21 cream nystatin 100,000 unit/gram topical 1 applic TOPICAL BID PRN #30 g 06/15/21 powder (Nystop) omeprazole 20 mg capsule,delayed 20 mg PO QDAC #30 cap 06/15/21 release ondansetron HCl (PF) 4 mg/2 mL 4 mg IV PUSH (TEST DOSE) Q6H PRN 06/15/21 injection solution #10 ml promethazine 25 mg/mL injection 25 mg IV Q6H PRN #25 ml 06/15/21 solution quetiapine 25 mg tablet 75 mg PO BEDTIME #30 tab 06/15/21 zinc sulfate 50 mg zinc (220 mg) 220 mg PO DAILY #30 cap 06/15/21 capsule (Zinc-220) Lab/Diagnostics: Laboratory Last Values WBC 20.28 K/ul (4.6-10.2) H 06/15/21 13:43 RBC 3.36 10^6/ul (4.20-5.40) L 06/15/21 13:43 Hgb 10.3 g/dl (12.0-16.0) L 06/15/21 13:43 Hct 30.4 % (37.0-47.0) L 06/15/21 13:43 MCV 90.5 fl (81.0-99.0) 06/15/21 13:43 MCH 30.7 pg (27.0-31.0) 06/15/21 13:43 MCHC 33.9 (31.8-35.4) 06/15/21 13:43 RDW Coeff of Joselito 13.8 % (11.6-14.8) 06/15/21 13:43 Plt Count 111 10^3/uL (140-440) L 06/15/21 13:43 Immature Gran % (Auto) 2.9 % (0.0-5.0) 06/15/21 13:43 Neut % (Auto) 92.4 % (42.2-75.2) H 06/15/21 13:43 Lymph % (Auto) 2.4 (10.0-50.0) L 06/15/21 13:43 Runnels % (Auto) 2.2 (0-10) 06/15/21 13:43 Eos % (Auto) 0.0 % (0.0-7.0) 06/15/21 13:43 Baso % (Auto) 0.1 % (0.0-3.0) 06/15/21 13:43 Reticulocyte % (Auto) 1.36 % 06/15/21 08:40 Neut # (Auto) 18.7 K/ul (2.0-6.9) H 06/15/21 13:43 Lymph # (Auto) 0.5 K/uL (0.60-3.4) L 06/15/21 13:43 Runnels # (Auto) 0.4 K/uL (0.4-2.0) 06/15/21 13:43 Eos # (Auto) 0.0 K/ul (0.0-0.7) 06/15/21 13:43 Baso # (Auto) 0.0 K/uL (0-0.2) 06/15/21 13:43 Immature Gran # (Auto) 0.6 (0.0-1.0) 06/15/21 13:43 Neutrophils % (Manual) 90.0 % (42.2-75.2) H 06/15/21 04:45 Band Neutrophils % 2.0 % (0.0-5.0) 06/10/21 06:00 Lymphocytes % (Manual) 5.0 % (10.0-50.0) L 06/15/21 04:45 Monocytes % (Manual) 5.0 % (0.0-10.0) 06/15/21 04:45 Anisocytosis Not present (NOT PRESENT) 06/15/21 04:45 Absolute Retic 0.0458 06/15/21 08:40 Retic Hgb Equivalent 33.8 06/15/21 08:40 PT 14.4 SEC (9.3-11.0) H 06/15/21 04:45 INR 1.36 SI (0.0-3.9) 06/15/21 04:45 Puncture Site Lrad 06/15/21 05:15 Base Excess 7.0 (-2.0-3.0) H 06/15/21 05:15 O2 Saturation 90.0 % (94-98) L 06/15/21 05:15 ABG pH 7.48 (7.35-7.45) H 06/15/21 05:15 ABG pCO2 41.0 mmHg (35-45) 06/15/21 05:15 ABG pO2 54.0 mmHg (85-100) L* 06/15/21 05:15 ABG HCO3 30.5 (21-28) H 06/15/21 05:15 ABG Total CO2 31.8 (19-24) H 06/15/21 05:15 Julio Cesar Test + 06/15/21 05:15 Hemoglobin 0.8 (0-1.5) 06/15/21 05:15 Oxyhemoglobin 86.7 % (95-100) L 06/15/21 05:15 Carboxyhemoglobin 3.5 (0.5-1.5) H 06/15/21 05:15 Total Hemoglobin 11.4 g/dl (11.7-17.4) L 06/15/21 05:15 O2 Delivery Device Bipap 06/15/21 05:15 Oxygen Liter Flow 40.00 06/14/21 06:00 FiO2 % 100.0 % 06/15/21 05:15 Sodium 139.6 mmol/L (134.5-145) 06/15/21 04:45 Potassium 4.02 mmol/L (3.5-5.1) 06/15/21 04:45 Chloride 104.0 mmol/L (98-107) 06/15/21 04:45 Carbon Dioxide 30.6 mmol/L (22-30.0) H 06/15/21 04:45 Anion Gap 9.02 06/15/21 04:45 BUN 35.5 mg/dL (7-17) H 06/15/21 04:45 Creatinine 0.68 mg/dL (0.60-1.30) 06/15/21 04:45 Estimated GFR (MDRD) 86.00 mL/min 06/15/21 04:45 BUN/Creatinine Ratio 52.20 06/15/21 04:45 Glucose 169.0 mg/dL (74-106) H 06/15/21 04:45 Lactic Acid 1.06 mmol/L (0.7-2.1) 06/08/21 11:13 Calcium 8.13 mg/dL (8.4-10.2) L 06/15/21 04:45 Ferritin 994.00 ng/mL (11.1-264.0) H 06/10/21 06:00 Total Bilirubin 1.49 mg/dL (0.2-1.3) H 06/15/21 04:45 AST 81.1 U/L (14-36) H 06/15/21 04:45 ALT 44.8 U/L (0-35) H 06/15/21 04:45 Alkaline Phosphatase 107.1 U/L (53-141) 06/15/21 04:45 Lactate Dehydrogenase 452 IU/L (119-226) H 06/09/21 05:26 Troponin I < 0.012 ng/ml (0.0000-0.120) 06/10/21 06:00 C-Reactive Prot, Quant 136 mg/L (0-10) H 06/10/21 06:00 Total Protein 5.65 g/dL (6.3-8.2) L 06/15/21 04:45 Albumin 2.94 g/dL (3.5-5.0) L 06/15/21 04:45 Globulin 2.71 06/15/21 04:45 Albumin/Globulin Ratio 1.08 06/15/21 04:45 Procalcitonin 0.15 ng/mL (0.09) H 06/15/21 13:43 D-Dimer 965.51 ng/mL (<500) H 06/08/21 11:13 WBC Trends 06/08/21 06/09/21 06/10/21 Range/Units 11:13 05:26 06:00 WBC 3.63 L 2.97 L 6.22 (4.6-10.2) K/ul 06/11/21 06/12/21 06/13/21 Range/Units 05:05 05:15 05:57 WBC 4.41 L 7.57 13.13 H D (4.6-10.2) K/ul 06/14/21 06/15/21 06/15/21 Range/Units 05:43 04:45 13:43 WBC 14.80 H 18.61 H 20.28 H (4.6-10.2) K/ul INR Trends: 06/09: 10.4 / 0.98 06/10 10.4 / 0.98 06/11 10.7 / 1.01 06/12 11 / 1.04 06/13 11.5 / 1.08 06/14 12.1 / 1.14 06/15 14.4 / 1.36 Platelet Trends: 06/08 167 9/ 140 9/ 168 9 173 / 218 0/11 228 06/14 198 06/15 117 and repeat 111. ABG Last Laboratory Last Values Puncture Site Lrad 06/15/21 05:15 O2 Saturation 90.0 % (94-98) L 06/15/21 05:15 ABG pH 7.48 (7.35-7.45) H 06/15/21 05:15 ABG pCO2 41.0 mmHg (35-45) 06/15/21 05:15 ABG pO2 54.0 mmHg (85-100) L* 06/15/21 05:15 ABG HCO3 30.5 (21-28) H 06/15/21 05:15 ABG Total CO2 31.8 (19-24) H 06/15/21 05:15 Julio Cesar Test + 06/15/21 05:15 O2 Delivery Device Bipap 06/15/21 05:15 Oxygen Liter Flow 40.00 06/14/21 06:00 FiO2 % 100.0 % 06/15/21 05:15 06/14/21 showed o2 99, ph 7.58, pco2 30, po2 114 on vapotherm and nrb. 06/13/21 o2 99.6, ph 7.58, pco2 30, po2 114, hco3 28.1, total co2 29. Vapotherm listed but was vapo + NRB. Retic count 06/15/21 1.36%, Absolute retic 0.0458, Retic hgb equiv 33.8. Procalcitonin was 0.15 06/15/21. Imaging Studies: 1. CT CHEST 06/08/21: FINDINGS: Pulmonary arteries: No pulmonary embolus detected. Lungs/pleura: Multifocal patchy ground-glass opacities with peripheral and basilar predominance. No pleural effusion. Mediastinum: Calcified mediastinal lymph nodes compatible with chronic granulomatous disease. Cardiovascular: No pericardial effusion. Chest wall/axillae/thoracic inlet: No mass or adenopathy. Imaged upper abdomen: Diffuse hepatic parenchymal hypoattenuation. Scattered calcified granulomas and liver and spleen. Moderate hiatal hernia. Bones: Exaggerated thoracic kyphosis with mild wedging of multiple mid thoracic vertebrae. Postop changes from prior C6-C7 ACDF. Multilevel spondylosis. IMPRESSION: 1. Negative for pulmonary embolus. 2. Lung findings consistent with COVID-19 pneumonia. 3. Hepatic steatosis. 4. Moderate hiatal hernia. 2. CXR 06/10/21 COMPARISON: 06/08/2021. FINDINGS: The heart size is normal. There is no pulmonary vascular congestion. Diffuse bilateral consolidation noted, greatest in the mid to lower lung zones, which has worsened since the prior study. No pleural effusion or pneumothorax is seen. No acute osseous abnormality is identified. ACDF changes noted. IMPRESSION: Worsened bilateral pneumonia. 3. CTA CHEST 06/15/21 COMPARISON: 06/08/2021, 05/19/2021, 04/03/2020. TECHNIQUE: Multiple axial images of the chest were obtained following intravenous administration of 125 mL Omnipaque 350, low osmolar. Images were reformatted in the sagittal and coronal plane. 3-D and maximum intensity projection reformatted images were created on an independent workstation. FINDINGS: Segmental filling defects in the left lower and right middle lobe pulmonary artery system with subsegmental filling defects within right lower lobe pulmonary arteries, new from prior study. No right heart strain. Heart size normal. No pericardial effusion. There are calcified and noncalcified mediastinal and hilar lymph nodes again noted. There are diffuse bilateral ground-glass opacities which has significantly increased. No pleural effusion or pneumothorax. Moderate hiatal hernia. Fatty infiltration of the liver. There has been previous ACDF. Degenerative changes in the spine.. IMPRESSION: 1. Critical result: New bilateral segmental and subsegmental pulmonary emboli. 2. Worsened bilateral pneumonia. Comment: Findings were discussed with Dr. Luna at 1:24 p.m. on 06/15/2021. Cultures: Blood cultures negative x 5 days 06/08/21. Education Provided to Patient and Family: 1. bipap/breathing techniques 2. COVID concerns with patient/family 3. Remdesivir 4. Steroid education 5. Transfer information. Follow-ups: Transfer to [facility]. Discharge Disposition: Transfer ([facility] DR. Corcoran. ) Hospital Course: 06/08/21 Hospital Day 1: 66 year old CF presented to ED on 06/05/[address] Benítez at 0813 am. She presented with SYED, mild cough, sinus SYED, myalgias. Vitals show temperature 98.4, pulse 98, respiratory rate 16, blood pressure 150/79, pulse ox 97%. Patient had intermittent symptoms with denial of rapid breathing, dyspnea, fever, chills, chest pain, pleuritic chest pain, wheezing, hemoptysis, dizziness, calf pain, calf swelling, edema, URI, nasal congestion, hoarseness, sinus discomfort, vomiting, sore throat, weight loss, decreased oral intake, increased thirst, increased appetite or increased urination. Differential diagnosis from the ER physician was sinusitis upper respiratory infection. She did report fever and malaise with other symptoms being negative. Past family and social history surgical history reviewed. Patient has known history of abnormal mammogram of the right breast, arthritis, asthma, cataracts, chronic depression, diverticulosis, GERD, hiatal hernia, history of a pulmonary embolism, hypertension, impairment of balance, memory loss, onychomycosis, SI joint dysfunction, spinal stenosis, history of use of cane as ambulatory aid, varicosities of legs. Patient has never been a smoker. She does not use any substances, alcohol use is rare to none. Surgical history reviewed and she has a history of appendectomy, bladder suspension procedure, cholecystectomy, fusion of cervical spine, hysterectomy, oophorectomy, right hip replacement, TNA. Rapid SARS cough to the emergency room was positive on 9 . The patient was discharged home with recommendations for OTC vitamins may help, it was noted that she was oxygenating well and was discharged home. Patient presented again today with nausea vomiting and loose stools for several weeks since last month. She was recently diagnosed with Covid and felt poorly. Presented to the emergency room today at 1039. Dr. Giron present.Vitals upon initial evaluation showed temperature 98.5, pulse 94, respirations 21, blood pressure 122/94, pulse ox 94%. Repeat 20 minutes later showed pulse 91, respiratory rate 19, blood pressure 122/94 and pulse ox 92%. Labs today showed a white blood cell count which was slightly low at 3.63, hemoglobin normal 12.8, hematocrit 37.8 and platelet count of 167. She has a predominant neutrophilia of 78.4 and a mild monocytopenia. Metabolic panel showed normal sodium 130.8, potassium 3.68, chloride 104.8, BUN 17 creatinine 0.88. Glucose was mildly elevated at 128.8. Ferritin 593 and elevated. Procalcitonin was negative albumin 3.71 AST 67.3 ALT 58.7 which are mildly elevated. Calcium appeared low at 8.15. Albumin 3.71. Based on correction for hypoalbuminemia the patient's calcium was 8.4. ABG showed pH of 7.54, PCO2 of 30, PO2 of 64, HCO3 25.7, total CO2 26.6, oxyhemoglobin 93.1 and low. FiO2 21% total hemoglobin 12.9. This interprets as a acute uncompensated primary respiratory alkalosis with a metabolic alkalosis. For this to be a compensated process I would expect the pH to be below 7.42 and a bicarb below 19. Her lactic acid was 1.06 and normal. Her D- dimer was elevated at 965.51. CT PE protocol of the chest was completed negative for pulmonary embolism, lung findings consistent with meyer pneumonia. She also has some hepatic steatosis and a moderate sized hiatal hernia. I was contacted at 1658 and had a lengthy discussion with the ER doctor. The patient will continue daily aspirin. We will provide oxygen to maintain saturation of less than 98%. We will use dexamethasone 6 mg daily we will hold her meloxicam, remainder of medications will be continued. She will start remdesivir during this hospitalization. I will also provide Lovenox 40 mg subcutaneously daily. Utilizing the anticoagulation algorithm for COVID-19, the patient has no contraindication to anticoagulation. She has no active hemorrhage, platelets are above 25,000/mcL. She has not had current or prior HIT and she has not had previous use of anticoagulation. Thus prevention dose Lovenox is recommended. Creatinine clearance is greater than 30 mL/min. I will cover her nausea with Phenergan and Zofran. There is minimal data to support zinc, vitamin D, vitamin C or other vitamins will provide any therapeutic advantage. She is already on a PPI we will continue this during the hospital stay. We will utilize Tylenol for fever reduction.. I do not have access to baricitinib or Actemra. The patient has an elevated D-dimer, ferritin greater than 500 mcg/L. These values have suggested patients are at risk for severe disease. We will check a repeat CBC in the morning as well as a CMP. I reviewed the nursing notes from the emergency room as well as documentation from the emergency room physician and discussed the case with the physician again. Patient was admitted to room 120. Appropriate standard of care were initiated. There were multiple issues with starting an IV and ABEL Xiong contacted to start an IV. Reported to nursing day 1 of symptoms was 06/05/2021. Increased nausea vomiting diarrhea, decreased p.o. intake. Patient body mass index of 30.9. Maintenance fluids will be started at 120 mils per hour of normal saline. Potassium is okay. We will monitor for that. I want to use oxygen to maintain saturation greater than 92% we will start with nasal cannula. She has reported contact with suspected COVID-19 individual. She also has had cough chills body aches headache and diarrhea. She did not meet criteria for SIRS. Called an tlekd with . Dicussed case with patient and with nursing. She has had Vaccinations x2. Weak/tired. She has had decreased PO intake. She has had N/V worsening over last 48-72 hours. This am dry heaves only, diarrhea x 2. No bloody emesis/stools. She reports SOA, PND, orthopnea. No O2 at home. We will need to monitor closely. Admitted to room 120, telemetry started. Daily labs initiated. Remdesivir started 200mg day 1 then 100mg daily. Hospital Day 2: 06/09/21 66-year-old vaccinated female presented to emergency room June 08 with Covid, nausea vomiting and diarrhea. She was admitted started on oxygen at 2- 1/2 L with goal to titrate between 94-98%, started on remdesivir and dexamethasone 6 mg. She tested positive via rapid testing on June 05. Labs this morning showed a further reduction of white count from 3.63 yesterday to 2.97 today. Hemoglobin also dropped from 12.8-10.9 and platelets from 1 67-1 40. This suggests a degree of hemodilution. Similar to yesterday she has a mild monocytopenia. Remainder of differential appears normal. ABG this morning showed O2 saturation dropped from 94.6 yesterday at 90.7 today. pH has improved from 7.54-7.47 her PO2 has dropped further from 64-56. ABG CO2 26.6 yesterday 27.3 today.Her metabolic panel today showed normal sodium potassium chloride and calcium has dropped further. However her albumin has dropped further from 3.7-3.03. Corrected calcium is 8.3. This remains on the lower side and I will replace this today. Her lactate dehydrogenase is elevated yesterday. This result came back this morning. Troponin is negative. AST and ALT have increased from 67.3/58.7 today at 117.6 and 77.5 respectively. She remains afebrile, heart rate 69 through 98. Her blood pressure yesterday was 122/94 but this morning 96/65. Respiratory rate yesterday 18 through 21 but this was 25 this morning. Telemetry evaluated and she has been sinus rhythm with bundle branch block, SD 0.16 and QRS interval 0.12. The patient was seen around 12pm today. I talked with the patient, with the via telephone and he asked that I talk with the daughter Maren tomorrow. Patient c/o breakfast, lunch. She noted she did not like the vegetables, rice, chicken "it left a lot to be desired." She has had #1 dose of remdessivir, with second dose today. she has had first dose of dexamethasone. Dose #2 today. Patient reportw "I do feel a little better today. She is on DVT Prophylaxis with lovenox, she is on GI prophy for chronic gerd. She will be increased to 3L NC still low flow and we will encourage proning yet again. She has COVID pneumonnia. We will continue to monitor o2. Baseline goal >90%. Ideally 94- 99%. Hospital Day 3: 06/10/21 66-year-old female hospital day #3 with COVID-19 pneumonia, hypoxia.Labs this morning showed a resolution of the leukocytopenia with white blood cell count of 6.2, hemoglobin stable at 10.9 and platelets normal at 168. 93% neutrophilia suggestive of steroidal demargination. INR this morning 0.98 and stable. Blood gas this morning showed O2 saturation 84.7. This is the third day in a row of decline. pH 7.49. O2 45 which is the third day in a row of decline. CO2 27.8 which is the third day of increase. Metabolic panel shows sodium 137.9 normal, potassium 3.93, BUN 22.9, creatinine 21 and normal. Glucose 132.4 which is likely steroidal effect. Calcium 8.13 with albumin of 3.13 corrected calcium of 8.8 which is normal. Blood cultures negative after 24 hours. Vital signs of the last 24-hour remain afebrile. She did have a high of 99.9. Heart rate in the last 24 hours ranged from 69 -80. Blood pressures over the last 24 hours showed normal levels. 106/65, 105/68, 122/68, 120/65, 108/72. O2 saturations low of 85 high of 96. We have titrated oxygen to maintain her above 92 ideally 94 to 98%. Patient is currently on a nonrebreather 15 L. This was increased from the nasal cannula yesterday of 2.5. Telemetry shows continuous sinus rhythm. She has had 1 with bundle branch block and 1 with occasional PVCs otherwise normal. Input and output have been reviewed. Voids have not been fully recorded. Labs showed normal renal function at this time. Reviewed overnight nursing notes patient tolerating the infusion well. She is currently on remdesivir and dexamethasone. At 8:00 last night patient noted pain in the lower chest and upper abdomen. Morphine was given via IV not p.o. route. Note from 2:00 this morning SPO2 monitor was off SPO2 was 80 to 82%. Respirations were shallow at 41/min. Oxygen was replaced at 4 L try to get patient take slow deep breaths oxygen increased to 5 L respiratory therapy contacted. Morphine was given to slow respirations. Ventimask applied at 50%. Head of bed elevated. At 1:00 Ventimask increased to 55% O2 88% 115 this morning nonrebreather mask applied at 15 L. Patient is transferred to bedside commode. Patient very weak and unsteady fall precautions initiated. 93% on nonrebreather. Resting comfortably as of 140 this morning. I saw her today at [id number] Critical care time 30 minutes. She was on NRB and changed to Vapotherm. She was able to talk and communicate. She is afraid. She noted that she wanted some time without phones ringing. I disconnected the room phone and I asked her she wanted us to set her phone aside and she did. I talked with respiratory therapy and we will change her over from nonrebreather to Vapotherm to allow her to have access to her mouth will to eat and drink. I again discussed with patient the need to position to be on stomach, side, upright and to rotate. She has increased egophony bilateral lower pulmonary quadrant and evidence of worsening consolidation. I would like a repeat chest x-ray which will be done today. I will repeat ABG in 1 hour as noted. Repeat ABG was o2 sat 96.9, ph 7.48, pco2 37, po2 83 up from 45 this am. CO2 28.7. Chest x-ray was obtained and supported my clinical findings of worsened bilateral pneumonia. I have added azithromycinn 500mg daily, rocephin 1 gram daily. I talked with respiratory therapy, discussed repeat ABG to be obtained in 1 hour after starting Vapotherm as noted above. We will repeat again in the morning tomorrow. I have resumed the patient's fluids at normal saline 110 mils per hour as she is tolerating fluids less and eating less. I talked with , noted that she wanted rest. I talked with the patient about her CODE STATUS and she wishes to remain full code but does not know. I talked with about this and he does not know. I contacted his daughter Maren at [phone] at around 1220 and left message. I talked with from 12:10- 12:17. I talked with case management as well at the same point and updated them on the above. Antibiotics started NRB and Vapotherm. CXR repeated and worsened pneumonnia. Azithromycin 500mg daily x 3 days and rocephin 1 gram x 5 days. We stopped fluids, added lasix x 1 to dry her out. Hospital Day 4 06/11/21: 6 yo CF hospital day 4. Admitted on 06/08/21 with new onset COVID 19 symptoms. The patient did not do well yesterday and required increased oxygen support. She is on remdesivir today day 01/05-, dexamethasone 6mg day 01/10. Labs this morning showed a mild drop in white blood cell count from 6.22-4.41. Hemoglobin is dropped from 10.9 to 10.4 and platelets have increased lately from 1 68-1 73. She has a mild lymphocytopenia and a neutrophilia which is likely steroidal effect from demargination. INR this morning is normal at 1.01. She has not yet had an ABG this morning. Metabolic panel shows normal sodium at 138, potassium 3.1, chloride 105.6, calcium 8.06 with a albumin of 2.94 this corrects to 8.9 and normal. Glucose is mildly elevated at 151.6, creatinine is normal at 0.74. AST and ALT remain mildly elevated but stable AST at 70.7 and ALT of 50.6. Chest x-ray yesterday afternoon showed worsening pneumonia. She was increased from nonrebreather to Vapotherm and then nonrebreather was added on top of that. She remains afebrile except for a 99.9 at 5:00 yesterday morning. Heart rate last 24 hours 66 through 82. Blood pressure in the last 24 hours on average 103-125/52-67. She did have a low of 93/67 at 1807 last night.Respiratory rate this morning listed as 25. She was up in the 30s to up to 40 last night when we changed her method of oxygenation. We were able to keep her from 92-94 for most of the evening and morning she was at 88 this morning. Telemetry shows sinus rhythm. Nursing notes were reviewed. There was a small amount of blood-tinged sputum at 1336 yesterday. There was oxygen desaturation around 1400. Zofran was given at 1546 due to nausea at 1620 the patient was transferred from room 122 SCU 1. She is very fatigued and Vapotherm was at 100% with O2 saturation 95%. Respirations 26-28. At 1827 we added nonrebreather to the Vapotherm. I added azithromycin 500 mg daily x3 days yesterday as well as Rocephin 1 g IV daily. I have stopped IV fluids and gave 20 mg of Lasix yesterday. It appears that she is doing better at this time. I have cut her dose of enalapril in half and we stopped the evening dose of the beta-rashi. Heart rate seems fine and blood pressure is better today. We will continue remdesivir as long as she is in the hospital. We will continue oxygen monitoring today. We will delay intubation as long as possible. Patient did not want to sign any surrogate forms yesterday and still wishes for her and daughter to be notified. Family wants full code but wants delayed intubation at this time. Patient is on board with these wishes as well. The plan is if she drops into the mid 80s and cannot be sustained on nonrebreather and or Vapotherm we will try BiPAP. We have discussed proning several days in a row, specifically with each day of contact and with each nursing interaction as well. Rounding started 07:05 with computer eval/vitals/records/labs from floor. ABG was available at 0730. O2 sat 98.4. pH 7.49. Po2 104. Hco3 29, co2 30.2. This is on vapotherm and non colleen. This interprets as a normal ABG, which is oustanding. We are going to try a trial of removnig the NRB and see if she maint ains >85%. Ideally >90%.Attempted to wean down the oxygen. Hospital Day 5 06/12/21: 66-year-old female hospital day #5. Patient is meyer positive, meyer pneumonia, hypoxia, anemia, respiratory failure, transaminitis, depression, BMI 34, elevated D-dimer with negative CT PE protocol.Labs this morning showed an improvement in the white blood cell count from 4.41 yesterday to 7.51 today. Hemoglobin is stable at 10.4 compared to yesterday. She continues to have a neutrophilia due to the dexamethasone. Platelets were normal at 218. The lymphocytopenia is unchanged from yesterday. INR this morning 1.04 and similar to last 4 days. ABG this morning showed a O2 saturation of 97.1, pH of 7.44, PCO2 of 40, PO2 of 88, HCO3 of 27.2 and a total CO2 of 28.4. This is the 1st day that it is has trended downward. She is on Vapotherm and NRB. Metabolic panel showed normal sodium 139.6, potassium 3.86, chloride mildly elevated at 108.3, BUN 28 with a creatinine of 0.70. Glucose 129.5 has ranged of 251.6 likely due to steroid effect. Calcium 8.04 with an albumin of 2.8 for which would correct to normal at 9. AST is up just a little bit from yesterday it is now 79. Her ALT is 47.5 which is lower than yesterday. No additional labs have been done in the last 24 hours no additional imaging in the last 24 hours blood culture remains negative. She is on a azithromycin and Rocephin. She will finish 3 days of azithromycin and likely 5 days of Rocephin. Today is day 4 of remdesivir and dexamethasone (I talked with case management and the first dose was actually started on 06/09/21 and not 06/08 as I had observed/thought). We will continue these until she has completed 5 DAYS or until discharge, whichever is first. After discussion with pharmacy, patient is improving and thus there is limited benefit to extend beyond day 5. With improvement that is seen today we may discharge in 24 to 48 hours if she continues to improve. I will see if case management today can work on ensuring she has home oxygen and discharge planning may be able to occur in the next 24 to 48 hours if she continues to improve. Vitals were reviewed for the last 24 hours and she has remained afebrile. Pulse rate has ranged from 66-74, blood pressure did have a few drops yesterday afternoon but she is normal this morning at 120/67. Her low was 94/49. That was at 2 PM yesterday afternoon. Her O2 saturation since 1899 yesterday has been greater than 90% and she is at 97% this morning. Several times yesterday evening she was at 95 to 96%. She required Vapotherm and no nrebreather yesterday again. We will continue to work on weaning to less oxygen requirement. Telemetry reviewed over the last 24 hours sinus rhythm SD 0.1-2.2 borderline for first-degree QRS within acceptable limits.Her last bowel movement was June 09 voids of been monitored but not recorded. Nursing note from 2244June 11 showed patient was emotional concerned about talking about DNR status and wished to remain full code. Respirations remain labored with any exertion. Occasional productive cough intermittent blood-streaked sputum. No pain. She has morphine as needed. She is not tolerating prone position for very long. Generalized pain noted at 2122June 11. Note from 555 reviewed patient was up x1 to the bedside commode with assist. Voiding without difficulty and back to bed. Remains 88 to 93% on Vapotherm and nonrebreather. ABG is improving. Patient reported she is feeling better this morning. As noted above discharge planning ongoing may consider 24 to 48 hours more until she can tolerate nasal cannula alone. Hospital day 6 06/13/21: 66-year-old female hospital day #6, meyer symptoms day #7. Patient has history of COVID-19 pneumonia, hypoxic respiratory failure, elevated D-dimer with negative CT chest, transaminitis, leukopenia, anemia, obesity, hypertension, history of asthma, history of chronic depression, history of GERD, fatty liver, hiatal hernia. Today will be remdesivir day 5 and dexamethasone day 5. We will continue dexamethasone until day of discharge but today will be the last day of remdesivir. She is on Lovenox 40 mg subcutaneously for DVT prophylaxis. She has been on omeprazole daily for GI prophylaxis and chronic GERD. She has completed 3 days of azithromycin 500 mg IV. She will complete a total of 5 days of Rocephin1 g IV. The patient is on oxygen. Yesterday she was able to be weaned off of the nonrebreather plus Vapotherm combo down to Vapotherm. We have been working on maintaining oxygen greater than 90% and encouraged proning despite the patient's intolerance of belly positions. Since admission she has had a daily ABG, CBC, CMP and a PT/INR. Blood cultures have remained negative. She has improved over the last 24 to 48 hours with continuous monitoring, continuous care and with several days earlier in the week of escalating oxygenation needs.Vitals over the last 24 hours show a continued afebrile state. Pulse rate over the last 24 hours has ranged from 72-82, blood pressure over the last 24 hours 120/67, 106/54, 110/61, 94/55, 122/76, 122/81. Respiratory rate has been 22-35. O2 saturations have ranged from as low as 88 this morning at 1:00 in the morning 200% yesterday at 2100. Average has been greater than 93% which is a marked improvement to previous days. We prepared for home oxygen yesterday and when she can be weaned to nasal cannula only from Vapotherm we will plan for discharge. The goal for this is the next 24 to 48 hours.Telemetry was reviewed and she has remained in sinus rhythm for the last 48 hours. Labs this morning showed white blood cell count elevated from 7.57 yesterday to 13.13 today. Hemoglobin has increased from 10.4-10.6. Platelets 228 up from 218. Some of this may be some hemoconcentration. She still has a lymphocytopenia but her neutrophilia has increased again this may be secondary to steroid demargination. INR this morning 1.08. There has been a mild increase in the INR daily over the last 3 days from 0.98-1 0.01-1.04 today 1.08. Her ABG was normal yesterday. There is no ABG for this morning. Metabolic panel showed normal sodium 140.3, potassium 3.62, chloride 105.8. Her BUN has dropped from 28 yesterday to 25.1 today. Creatinine at 0.66. Glucose 128. Calcium at 8 which is similar to what its been for the last 3 days. Albumin of 2.95 corrects calcium to normal of 8.8. AST and ALT remain similar at 70.6 and 46.1 which is a few points lower than yesterday. There were no other labs or imaging in the last 24 hours.Nursing notes from last 24 hours were reviewed. The Vapotherm flow rate was lowered to 30 L/min from 40 L/min at 2120June 12. This morning at 1233 the patient complained of nausea without vomiting she did get some Zofran she has been resting well. Vapotherm in place at 35% with FiO2 100. O2 91%. IV remain saline locked she did have a pulse ox of 88% at 1:00 this morning telemetry remains normal and stable through all monitorings which were reviewed by me this morning. 218 this morning patient resting stable Vapotherm 35% FiO2 100% monitoring will continue. The patient has had 3 voids recorded by this morning at 519. Vapotherm check at 6:00 this morning flow rate remains at 35 respiratory rate 23. Water was checked. Case management note from yesterday was reviewed. Daily pharmacy note reviewed for the remdesivir. The patient remains on COVID-19 droplet/airborne precautions. Labs will continue to be monitored and ordered. Albuterol and Symbicort continued. Patient has morphine for pain and for breathing comfort. She has Zofran and Phenergan for nausea. Day 5 of remdesivir today. Vapotherm will be weaned continuing today. We did cut her Vasotec in half a few days ago and her using that. She is responding well attitude and overall outlook are markedly more positive she remains fully alert. She remains short of breath ABGs as of yesterday were back to normal. She is not really wiring the nonrebreather over the last 24 hours. She is not tolerating abdominal position well. However she is changing from side to side and upright and remaining on her back less. We will continue our goal of weaning Vapotherm to nasal cannula for plan for discharge. As of yesterday [employer] was chosen for oxygen and we will plan a 3 step prior to discharge. Hospital Day 7 06/14/21: 66-year-old female hospital day #7, worsening COVID symptoms day #8 (tested positive on 06/05). , admitted on 06/08/2021 with COVID-19 pneumonia, hypoxic respiratory failure, elevated D-dimer with negative CT chest, transaminitis, leukopenia, anemia, obesity, hypertension, history of asthma, history of chronic depression, history of GERD, fatty liver, hiatal hernia. Yesterday completed remdesivir day #5. She is still on dexamethasone we will continue this throughout hospital stay up to 10 days. She has finished 3 days of azithromycin. She will finish a total of 5 days of Rocephin. She had been improving up until yesterday. However, I received a call this morning from floor nursing noting that she is having more issues today with saturations, back on Vapotherm and nonrebreather but will not keep them on. She is pulling them off and nursing has had to be one-to-one with her today. She is argumentative and not wanting to cooperate with care. Nursing is talked with her about the DNR status as well and this has changed from yesterday. She continues Lovenox for DVT prophylaxis as well as Prilosec for chronic GERD/GI prophylaxis while on steroids. Labs this morning show an increase in white count from 13.13 yesterday to 14.8 today. Hemoglobin of 10.4 down from 10.6 yesterday. Platelets 198 down from 228 yesterday. She has a neutrophilia of 93.2 with a lymphocytopenia at 3.3. This suggests viral process. PT/INR show increased INR to 1.14 up from 1.08 yesterday. Yesterday was the last day of remdesivir. ABG today shows return of alkalotic state O2 saturation 99, pH 7.58, PCO2 30, PO2 114, HCO3 28.1. She is on Vapotherm and nonrebreather. Chemistry today appears mostly unchanged from yesterday. Sodium 141.5, potassium 3.51, BUN 25.2, creatinine 0.64, glucose 122.7 again on steroids. Calcium 7.98 with a albumin of 2.88 corrects to normal. AST and ALT are mildly elevated but better than yesterday. AST 65.6 and ALT 42.4. The ABG interprets as primary respiratory alkalosis with metabolic alkalosis. She remains afebrile for the last 24 hours. Pulse rate 68 through 97. Blood pressure mildly elevated in the last 24 hours with a few readings with diastolics greater than 90 she was 144 systolic at 2:00 this morning and 144/87 at 10:00 this morning when I was called by nursing. Respiratory rate has been up to 46 at 2:00 this morning 33 at 8:00 this morning and was at 18-20 the remainder of this morning. O2 saturations have declined again this morning between 80 and 88%. She is back on Vapotherm and nonrebreather. Telemetry O2 saturations are low. She remains on sinus rhythm. Nursing notes were reviewe. Once Vapotherm and nonrebreather are reapplied if she is able to regain above 90%. I was notified this morning at 1040 as noted within the chart. Overnight notes were reviewed. Patient is angry grumpy and told nursing this morning that she did not want "nothing". Nursing note from 828 this morning was reviewed lungs are diminished throughout O2 is reduced. Instructed to lie in different positions to sit up in recliner. Patient requested to get up in the recliner loose incontinent stools at times. Patient did drop to 58% at 1 point. She took off her nonrebreather and the Vapotherm. Nursing instructed patient to return them. She rebounded to 88%. After a few minutes alarm began to go off again and patient took them off again. Nausea was noted this morning and she was given Zofran. Due to diarrhea I will check a C. difficile. Before we provide antidiarrheals. Last remdesivir dosing was given last night per nursing documentation. Patient is declining food at times. I attempted to contact at [phone] VM has not yet been set up. I attempted to contact the patient daughter at [phone] and was unable to leave VM. We will get CT chest today. I talked with nursing about delirium. Discussed case with daughter at 11:50. Interpersonal and environmental manipulations d/w daughter. Discussed benefit of Frequent touching, reassurance, verbal orientation, not contributing to the delirium or fighting it. Discussed family member input. She and have fought a few times on the phone. I noted need for calm reassurance. I would like to avoid using antipsychotic medications at this time but may need loww dose haldol. 0.5mg as needed which may help withinn ~15 minutes of admin. For now we will plan to allow her to rest, BIPAP to be started, resting at 96%, leaving this alone. I recommended to let patient rest for ~4 hours if able. Give a good amount of time of non disruption. I have ordered a CT PE protocol should she continue to decline. If satting well on the bipap, we may leave this alone to allow her to rest. Patient today was not cooperative with nursing or with me. She said month was may. She said year was 2020. I asked my name and she said DR. Caban, "SHIT you are DR LUNA" then shook her head and covered her face. She is breathing through mouth mostly. She is shallow breathing and rapid rate ~30. I asked her to spell world. She spelled it then closed her eyes. I said her name then she said "I am trying to sleep." I noted that I wanted her to rest but I needed to make sure she was okay before we proceeded. We discussed her code status, this caused her to be even more withdrawn. Overall she is withdrawn. She followed simple commands. GCS 15 and she looked into my eyes when redirected. 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 Lungs unchanged from yesterday, shallow inspiration. Relayed above to daughter Maren. Maren and Chester are the people patient has requested to make decisions. BIPAP was added ~1200. She was resting and leaving this alone. I t hink it may be a good option for her to leave on bipap today. Per nursing conversation at 12:05 she is satting ~90% and resting. May benefit from another round of lasix. Hospital Day 8 06/15/21: 66 yo CF HD #8 COVID symptom day #9. Vaccinated COVID x 2. Now on BIPAP as of 06/14/21 after not tolerating vapotherm 40LPM and NRB. She has had COVID-19 pneumonia, hypoxia respiratory failure, elevated D-dimer with negative CT chest, transaminitis, leukopenia, anemia, obesity, hypertension, history of asthma, history of chronic depression, history of GERD, fatty liver, hiatal hernia, and as of 06/13 leukocytosis with neutrophilia. She has completed 3/3 days of azithromycin 500mg. She completed 5 days of rocephin 1 gram IV. She finished 5/5 days of remdesivir. Labs this morning show an increase in white blood cell count to 18.60 from 14.0 yesterday. Hemoglobin is stable at 10.5 up from 10.4 yesterday. Platelets are down at 117 todayFrom 198 yesterday. She has a 90% neutrophilia no bands 5% lymphocytes which is essentially unchanged from previous days. INR now at 1.36 up from 1.14 yesterday. ABG this morning is better than yesterday. O2 saturation 90, pH 7.48, PCO2 41, PO2 54, HCO3 30.5 and total CO2 31.8. Chemistry panel this morning sodium normal 131.6, potassium normal 4.02, chloride normal 104. Creatinine remained stable at 0.68. Glucose 169. Calcium 8.13 with a albumin of 2.94 corrects to normal. AST 81.1 and ALT 44.8 mildly elevated from yesterday. I have a repeat CT chest ordered in case she continues to worsen.Vitals for the last 24 hours show that the patient remains afebrile. Heart rate 72 through 97, blood pressure has been normotensive since 1354 yesterday. She did have a mildly elevated blood pressure at 144 systolic at 10:00 yesterday morning. Respiratory rate has ranged from 18-46 yesterday. Telemetry data over the last several days has been in sinus rhythm. I reviewed telemetry as documented. SD interval is normal at 0.14-0.16. I asked for a weight as of yesterday I do not yet have that. Patient remains full code. She struggled yesterday keeping her apparatus attached to her face. We switched over to BiPAP and I contacted nursing throughout the day and it seemed patient did quite well throughout the day. I have talked with and daughter yesterday. Overnight nursing notes reviewed. As of 1400 yesterday she was resting quietly on BiPAP SPO2 97% and respirations 24. 1700 up to bedside commode with assist, no stool, C. difficile was recommended as they have reported diarrhea in the last 24 hours. Patient was replaced into bed on left side. Respirations were 3493% SPO2. More cooperative and more interactive. 1730 patient resting. 95%. 193 awake alert oriented ashen in color. Respiratory labored at rest worse with exertion. O2 at 82% after getting up to bedside commode. BiPAP 100% occasional nonproductive cough. No pain, no diarrhea has been present in the last [address] Fall precautions in place. 2246 last night morphine 2 mg given due to anxiety and shortness of air. 110 this morning patient saturations dropped to the 50s, patient disconnected BiPAP tubing from the mask tubing was reconnected and O2 sats were elevated back to normal. O2 back to 91%. 02 32 patient was resting comfortably 93% on BiPAP respirations 24/min. 0649 this morning rested the night took meds without issues this morning. O2 89% on BiPAP this morning afebrile blood pressure 140/84. Patient has no complaints of pain. Fall precautions remain in place. Patient remains dependent upon BiPAP. Low platelets noted today. 4T score reviewed. Compared to yesterday there is <50% drop (41%). However this drop was markedly less when compared to 140 on 06/09/21. I will repeat the CBC this pm. CT chest today. Await Cdiff. INR is elevated today. She has no new skin thrombi, no new necrosis, no systemic reaction from LMWH. She has <3 points suggesting low probability of HIT. Concern for possibility of ITP wwith COVID 19. Critical result called IMPRESSION: 1. Critical result: New bilateral segmental and subsegmental pulmonary emboli. 2. Worsened bilateral pneumonia. I talked with Dr. Jose from radiology. The pneumonia is worsening and there are new segmental and subsegmental PEs. The patient has been on Lovenox the entire time. I have oumou capps and talked with Daughter Maren and the patient's Chester and relayed the PE information. We again discussed CODE STATUS and discussed her current status. We are able to maintain her at 92% however any movement causes her to drop into the mid 80s to 60s at times. Lowest seen today several times after she removed bibap was 66%. Patient has been on Lovenox 40 mg subcutaneously daily. She now has new PEs Despite the low molecular weight heparin. Called and talked with [facility] [id number]. Per their request, patient does need an ICU and they are not likely equiped to cover patient need. I talked with [facility] and patient is on waiting list. I was able to talk to critical care team provider and he discussed/agreed that with procalc that returned as <0.5 that further abx are not likely indicated. He would continue lovenox as I had done, with the therapeutic dose. Would continue the bipap until she can no longer tolerate this but he noted that she was likely in the fibrotic/fibrinolytic stage and that she may require TPA. I have ordered an echo for tomorrow. I will order repeat BC, I will order ddimer, pt/inr, cbc/cmp, fibrinogen. Her INR has slowly creeped up, her renal function remains okay, bilirubin is elevated, liver enzymes are stable. Her ABG is alkalotic again, she is tachypneic and desating with movement and when she removes BIPAP. Concern for coagulopathy and concern that she is fatiguing. At 17:40 I discussed care with DR. Corcoran, relayed the information above and we discussed the care. He has accepted her to [facility]. I talked with the family Maren the daughter and Chester the son. We will be transfering patient to [facility] via ambulance with bipap. patient re-evaluated [id number] Discussed case with [facility] relayed information about her care. She is the first patient to go to the [place] as a civilian. She will be going to the [place] under Dr. Corcoran room 351. Extension [phone]. They requested labs/imaging reports to be included. Summary: Completed 5/5 days of remdesivir 06/09-06/13. Completed 3/3 days of azithromycin 06/10-06/12 Completed 5/days of rocephin 1 gram IV 06/10-06/14 Dexamethasone day 7 6mg IV Prophy lovenox used since admit 40mg BC negative worse CXR 06/10 Improved with normal abg by 06/12 however worsened steadily after that. Required NRB and vapotherm. Changed to bipap in last 24-48 hours. Desats persist. PE bilaterally with segmental and subsegmental as of 06/15/21. Dose of lovenox changed to 90mg BID. Concern HIT, concern coagulopathy. Concern secondary bacterial infection Patient remains full code despite daily discussion with patienbt/daughter and . Day of Discharge Review of Systems Constitutional: Weakness, Fatigue, SOA, confusion from yesterday is better. Loss of appetite. TERAN. NO c/o pain. No c/o Fever nor Chills, Eyes: Reports No symptoms Ears: Reports No symptoms Nose: Reports Congestion, dryness. Throat: Reports Pain/drainage. Mouth: Reports No symptoms Respiratory: Cough, Shortness of air, dyspnea, hypoxia. Denied Pain in left chest with inspiration today. Intermittent blood tinged sputum seems to have resolved. Cardiovascular: Reports Orthopnea, this persists; Denies Chest pain, Left arm pain, Diaphoresis, PND, Edema or Palpitations Gastrointestinal: Abdominal pain is better, Nausea remains without Vomiting or Diarrhea; Denies Melena, Hematemesis, Hematochezia or Dysphagia Genitourinary: Reports No symptoms Neurological: Headache, Dizziness and Weakness Musculoskeletal: Reports Pain back/chest/abdomen with cough. Skin: Reports No symptoms Psychiatric: Reports No symptoms Habits: Denies Tobacco use, Substance use or Alcohol use Constitutional:Appearance-patient is more awake/alert/interactive. I asked her my name she said "Mud" then laughed. She was able to follow commands. 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 Still quite withdrawn and fearful today. She was resting left lateral decub position upon entry laying on side with bipap in place. She was easily awoken and attentive. Aware of day/date/time. Tachypnea is present RR 30x per minute on presentation today. She is in SCU1. Bipap in place. she was more disoriented yesterday, but this seems to come and go. She remains full code. She is w/o peripheral edema.Very tachypneic. Flat affect, chronic. Integumentary: General-No rashes, ulcers or lesions.Palpation- Normal skin moisture/turgor. Skin is warm to touch, appropriate. Capillary refill is normal bilateral Upper and lower extremity. Varicose veins. Head/Neck:Head- normocephalic and atraumatic.Neck- without visible/palpable lumps or pulsations.Palpation- No bony tenderness about head/neck along frontal, occipital, temporal, parietal, mastoid, jawline, zygoma, orbit or any other location. NO temporal artery tenderness. No TMJ tenderness. Neck Supple.Thyroid-No thyromegaly, no nodules BIPAP in place. Eye:Bilaterally PERRLA, EOMI. No discharge. Upper and lower eyelids are normal. Eyeball appears normal. No ciliary flushing, no conjunctival injection. ENMT:Nares- bilateral quiet airflow, no discharge.Nasal mucosa- No bleeding noted and no ulcerations observed.vapotherm in place. Nostrils appear to have no breakdown. [place], moist. Turbinates non boggy.Lips-normal color, moist without cracks/lesionsOral Cavity/Palate- hard/soft palate intact without lesions, oral mucosa pink and moist. Tongue normal midline.Oropharynx- no pharyngeal erythema, Uvula midline. No post nasal drip. No exudate. CHEST/LUNG:Inspection- symmetric chest wall no pectus deformity. Mild increased effort persists, mild tachypnea, no use of accessory muscles.Palpation- nontender sternum, ribline. No abnormal pulsations.Auscultation- Breath sounds throughout all lung velasquez remain coarse. Crackling heard on examination remains. tracheal sounds, bronchial sounds overlying sternum, Bronchovessicular sounds between scapulae posteriorly, vessicular breath sounds heard throughout periphery are coarse. Lungs are worse sounding today.Adventitious sounds- Crackles throughout, rhonchi. shallow inspiration persists, limited effort from patient.. Resting on side upon entry, rolled to back. Morphine helps quite a bit w/ respiratory rate.. Bilateral lower lobe coarse sounds. CARDIOVASCULAR:Carotid artery-normal, no bruits or abnormal pulsations. Jugular vein- no pulsations.Palpation/Percussion- Normal PMI, no palpable thrillAuscultation- Regular rate and rhythm. No murmur noted in sitting, supine positions.Extremities- no digital clubbing, cyanosis, edema, increased warmth. ABDOMEN:Inspection- normal and no visible pulsations. Normal contour. Auscultation- Bowel sounds normal, no abdominal bruits.Palpation/Percussion- soft, non-tender, no rebound tenderness, no rigidity (guarding), no jar tenderness, no masses.Liver-no hepatomegaly, Peripheral Vascular:Upper extremityLeft- Normal temperature with pink nailbeds and no ulcerations.Upper extremity Right-Normal temperature with pink nailbeds and no ulcerations.Lower extremity- Normal temperature with pink nailbeds and no ulcerations. DP pulses 2+ bilaterally. Pedal hair intact. Normal capillary refill.Edema- No edema.No tenderness Musculoskeletal:Generalized-No generalized swelling or edema of extremities, no digital clubbing or cyanosis, neurovascularly intact all four extremities. Upper extremity- Symmetrical posture. No visible deformity. Normal Spine/Ribs- No deformities, masses or tenderness, no known fractures, normal strength, Normal ROM. Normal stability No tenderness along C/T/L spine. Normal appearing ROM about spine. Neurological:General- Moves all 4 extremities symmetrically. Symmetrical face and body posture.Cranial nerves- individually evaluated II-XII and intact. PERRLA, Normal EOMI, visual/special senses appear intact, Face is symmetrical and normal sensation/movement, normal tongue, normal strength/posture of neck musculature. Neuropsych:Oriented- Mildly Confused, irritated, remains withdrawn. Aggravated/aggitated. GCS remains 15, follows instructions. Mood/affect- Pessimistic/irritable. Speech-Normal speech fragmented tachypneic. Lymphatic: Head/Neck- normal size and non tender to palpation.Axillary- normal size and non tender to palpation.Femoral and Inguinal- normal size and non tender to palpation. Plan: 1. Transfer patient to [facility] Dr. Corcoran. 2. Covid worsening. 3. Hypoxic, bipap depdendent. At present continue same medications, saline locked #2 IV. Transport via air team. Stable but serious condition. Ready for transfer. >60 minutes spent today on rounding/transfer of patient to higher care facility.
[2021-06-15] MEDS ORDERED: ANECTINE IVP ONE (19:41)
[2021-06-15] MEDS ORDERED: AMIDATE IVP ONE (19:43)
[2021-06-15] MEDS: SODIUM CHLORIDE 1,000 ML IV SCH ×2 (20:04→20:37)
--- NOTE | 2021-06-15 20:07 | PCM.PROG ---
Date Seen by Provider: 06/15/21 Time Seen by Provider: 20:04 Subjective: Need for intubation Objective: Vitals: T=96.5 F, P=103, R=28, DP=355/100, SPO2=95 HEENT: [] Neck: [] Lungs: [] CVS: [] Abdomen: [] Extremities: [] Neurological: [] Skin: [] Lab/Tests/Diagnostic Imaging: [] (1) COVID-19: Status: Acute Code(s): U07.1 - COVID-19 SNOMED Code(s): 525147240 (2) Pneumonia due to 2019-nCoV: Status: Acute Code(s): U07.1 - COVID-19; J12.82 - Pneumonia due to coronavirus disease 2018 SNOMED Code(s): 610013439688402096 (3) Nausea: Status: Acute Code(s): R11.0 - Nausea SNOMED Code(s): 163770519 (4) Vomiting: Status: Acute Code(s): R11.10 - Vomiting, unspecified SNOMED Code(s): 518402549 (5) Cough: Status: Acute Code(s): R05 - Cough SNOMED Code(s): 89088059 (6) BMI 30.0-30.9,adult: Status: Acute Code(s): Z68.30 - Body mass index [BMI]30.0-30.9, adult SNOMED Code(s): 529639363 (7) Elevated d-dimer: Status: Acute Code(s): R79.89 - Other specified abnormal findings of blood chemistry SNOMED Code(s): 357259206 (8) Transaminitis: Status: Acute Code(s): R74.01 - Elevation of levels of liver transaminase levels SNOMED Code(s): 400524989 (9) Leukopenia: Status: Acute Code(s): D72.819 - Decreased white blood cell count, unspecified SNOMED Code(s): 96682861 (10) Hiatal hernia: Status: Acute Code(s): K44.9 - Diaphragmatic hernia without obstruction or gangrene SNOMED Code(s): 08908335 (11) Chronic depression: Status: Acute Code(s): F32.9 - Major depressive disorder, single episode, unspecified SNOMED Code(s): 807579248 (12) Gastroesophageal reflux disease: Status: Acute Code(s): K21.9 - Gastro-esophageal reflux disease without esophagitis SNOMED Code(s): 567661015 (13) Hypocalcemia: Status: Acute Code(s): E83.51 - Hypocalcemia SNOMED Code(s): 2062133 (14) Respiratory failure: Status: Acute Code(s): J96.90 - Respiratory failure, unspecified, unspecified whether with hypoxia or hypercapnia SNOMED Code(s): 945880199 Plan: I was called to floor to intubate a patient for transfer. She has had COVID for 8 days and has been worsening. She requires BiPap with 100% oxygen which is not available for transfer. Oxygen is around 90% on 100% O2 BiPap. Dr De La Vega was present as was the air tranport crew and we all agreed patient would benefit from intubation. Intubation Note: Pt was given 20 mg Etomidate and 100mg succ. Using a 3 Mac and 7.0 ETT she was intubated without difficulty. There was good CO2 color change post intubation and the tube was secured at 21 cm.
[2021-06-15] MEDS ORDERED: SODIUM CHLORIDE 1,000 ML IV ONE (20:36)
== END 2021-06-15 20:25 | DRG 189 ==
LOC: ED 10:37 → MEDSURG B 17:11 → SCU 06-10 16:21
PROVIDERS: ADMIT Family Medicine; ATTEND Family Medicine
DX: F32.9 Major depressive disorder, single episode, unspecified; Z68.30 Body mass index [BMI] 30.0-30.9, adult; R79.89 Other specified abnormal findings of blood chemistry; I26.99 Other pulmonary embolism without acute cor pulmonale; J12.82 Pneumonia due to coronavirus disease 2019; D72.819 Decreased white blood cell count, unspecified; J96.90 Respiratory failure, unspecified, unspecified whether with hypoxia or hypercapnia; R05 Cough; D69.6 Thrombocytopenia, unspecified; K21.9 Gastro-esophageal reflux disease without esophagitis; E83.51 Hypocalcemia; D72.829 Elevated white blood cell count, unspecified; R11.2 Nausea with vomiting, unspecified; R74.01 Elevation of levels of liver transaminase levels; K44.9 Diaphragmatic hernia without obstruction or gangrene; F41.9 Anxiety disorder, unspecified